=== PATIENT | female | born 1940 | race Caucasian/White ===

== ENCOUNTER → 2016-09-07 | Outpatient (CLI) | payer MEDICARE | LOC: WI 13:59 | PROVIDERS: ATTEND Internal Medicine Nephrology | DX: Z12.31 Encounter for screening mammogram for malignant neoplasm of breast (principal) | CPT/HCPCS: G0202-52 ==

== ENCOUNTER → 2016-09-23 | Outpatient (CLI) | payer MEDICARE | LOC: OD 10:50 | PROVIDERS: ATTEND Internal Medicine Pulmonary Disease | DX: J41.1 Mucopurulent chronic bronchitis (principal) | CPT/HCPCS: 71020 ==

== ENCOUNTER 2016-10-01 05:04 | Inpatient (IN) | payer MEDICARE ==
[2016-10-01] MEDS ORDERED: IPRATROPIUM/ALBUTEROL 0.5-2.5 MG/3 ML AMPUL NEB ONE (06:50)
[2016-10-01] MEDS ORDERED: METHYLPREDNISOLONE INJ 125 MG/2 ML SDV IV ONE (06:50)
[2016-10-01] MEDS ORDERED: AZTREONAM INJ 1 GM VIAL IV ONE (07:27)
[2016-10-01] MEDS ORDERED: ONDANSETRON HCL INJ/PF 4 MG/2 ML SDV IV ONE (07:27)
[2016-10-01] MEDS ORDERED: LABETALOL HCL INJ 20 MG/4 ML DISP.SYRIN IV ONE (07:29)
[2016-10-01] MEDS ORDERED: NITROGLYCERIN 2% OINTMENT 1 GM PACKET TP ONE (07:38)
--- NOTE | 2016-10-01 07:42 | ER Document Report ---
ED General - General Chief Complaint: Chest Pain Stated Complaint: CHEST PAIN TRAVEL OUTSIDE OF THE [place] IN LAST 30 DAYS: No - HPI Patient complains to provider of: shortness of breath was chest pain Notes: Patient coming in for evaluation of shortness of breath left-sided chest pain ongoing for the past few days. Patient is currently on azithromycin for possible pneumonia. Patient states she was diagnosed with this by her customer support assistant. Patient otherwise denies fever denies any productive cough at this time. Upon my evaluation patient sitting up in bed with some mild tachypnea. Patient is able to talk in full complete sentences. Patient states history of an aneurysm is followed by local vascular surgery states this has grown however patient states this time she would not want any surgery for aneurysm. Patient states a history of COPD pneumonia and CHF in the past. Patient states she also has chronic renal disease which she is followed by Dr. brunner her pcp - Related Data Allergies/Adverse Reactions: Iodinated Contrast Media - Oral and [IV Dye, Iodine Containing] Allergy (Severe , Verified 10/31/14 11:38) Hives JONE Inhibitors [Jone Inhibitors] Allergy (Verified 08/27/15 13:13) aliskiren hemifumarate [From Tekturna] Allergy (Verified 08/27/15 13:13) amlodipine [Amlodipine] Allergy (Verified 08/27/15 13:13) cephalexin [Cephalexin] Allergy (Verified 08/27/15 13:13) ciprofloxacin [From Cipro] Allergy (Verified 10/31/14 11:38) clonidine [Clonidine] Allergy (Verified 08/27/15 13:13) clopidogrel bisulfate [From Plavix] Allergy (Verified 10/31/14 11:38) diphenhydramine HCl [From Benadryl] Allergy (Verified 10/31/14 11:38) diphtheria,pertussis (acellular),te [Diphth,Pertuss(Acell),Tet Vac] Allergy ( Verified 08/27/15 13:13) Estrogens Allergy (Verified 10/31/14 11:38) nifedipine [From Procardia] Allergy (Verified 10/31/14 11:38) nisoldipine [From Sular] Allergy (Verified 08/27/15 13:13) Penicillins Allergy (Verified 10/31/14 11:38) Sulfa (Sulfonamide Antibiotics) Allergy (Verified 10/31/14 11:38) Home Medications: Current Home Medications Aspirin [Aspirin 81 mg Chewable Tablet] 81 mg PO DAILY 10/01/16 [History] B2/Vit A,C & E/Lut/Zeaxanth/Mn [Icaps Tablet] 1 each PO DAILY 10/01/16 [History] Chlorpheniramine Maleate [Allergy Relief 4 mg Tablet] 1 tab PO DAILYP PRN [History] Famotidine [Pepcid 20 mg Tablet] 20 mg PO DAILYP PRN 10/01/16 [History] Fluticasone/Salmeterol [Advair 250-50 Diskus 28 dose] 1 inh IH Q12 10/01/16 [ History] Furosemide [Lasix] 20 mg PO BID 10/01/16 [History] Grape Seed Extract [Grape Seed] 25 mg PO DAILY 10/01/16 [History] Labetalol HCl [Normodyne 200 mg Tablet] 200 mg PO Q6 10/01/16 [History] Letrozole [Femara 2.5 Mg Tablet] 2.5 mg PO DAILY 10/01/16 [History] [place]-3 Fatty Acids/Fish Oil [Fish Oil 1,000 Mg Capsule] 1 each PO DAILY [History] Past Medical History - Social History Smoking Status: Unknown if Ever Smoked Family History: Reviewed & Not Pertinent Patient has suicidal ideation: No Patient has homicidal ideation: No - Past Medical History Cardiac Medical History: Reports: Hx Congestive Heart Failure, Hx Hypertension, Hx Heart Murmur Denies: Hx Atrial Fibrillation, Hx Coronary Artery Disease, Hx Heart Attack, Hx Hypercholesterolemia, Hx Peripheral Vascular Disease, Hx Pulmonary Embolism Pulmonary Medical History: Reports: Hx Bronchitis, Hx COPD, Hx Pneumonia Denies: Hx Asthma, Hx Respiratory Failure, Hx Sleep Apnea, Hx Tuberculosis Neurological Medical History: Denies: Hx Cerebrovascular Accident, Hx Seizures Endocrine Medical History: Denies: Hx Graves' Disease, Hx Hyperthyroidism, Hx Hypothyroidism Renal/ Medical History: Denies: Hx End Stage Renal Disease, Hx Kidney Stones, Hx Ovarian Cysts, Hx Peritoneal Dialysis, Hx Pelvic Inflammatory Disease Malignancy Medical History: Reports: Hx Breast Cancer - LEFT AT PRESENT. Denies : Hx Cervical Cancer, Hx Leukemia, Hx Lung Cancer, Hx Ovarian Cancer GI Medical History: Reports: Hx Gastroesophageal Reflux Disease. Denies: Hx Cirrhosis, Hx Crohn's Disease, Hx Hepatitis, Hx Hiatal Hernia, Hx Irritable Bowel, Hx Liver Failure, Hx Ulcer Musculoskeltal Medical History: Denies Hx Arthritis, Denies Hx Fibromyalgia, Denies Hx Multiple Sclerosis, Denies Hx Muscular Dystrophy Psychiatric Medical History: Denies: Hx Bipolar Disorder, Hx Depression, Hx Post Traumatic Stress Disorder , Hx Schizophrenia Traumatic Medical History: Reports: Hx Fractures - BROKEN LEFT LEG 1950 Infectious Medical History: Denies: Hx Hepatitis, Hx HIV Past Surgical History: Reports: Hx Cholecystectomy, Hx Tubal Ligation. Denies: Hx Appendectomy, Hx Bowel Surgery, Hx Section, Hx Colostomy, Hx Coronary Artery Bypass Graft, Hx Gastric Bypass Surgery, Hx Herniorrhaphy, Hx Hysterectomy, Hx Mastectomy, Hx Open Heart Surgery, Hx Pacemaker, Hx Tonsillectomy - Immunizations Hx Diphtheria, Pertussis, Tetanus Vaccination: Yes Hx Pneumococcal Vaccination: 03/07/15 Review of Systems - Review of Systems Constitutional: No symptoms reported EENT: No symptoms reported Cardiovascular: Chest pain Respiratory: Short of breath Gastrointestinal: No symptoms reported Genitourinary: No symptoms reported Female Genitourinary: No symptoms reported Musculoskeletal: No symptoms reported Skin: No symptoms reported Hematologic/Lymphatic: No symptoms reported Neurological/Psychological: No symptoms reported -: Yes All other systems reviewed and negative Physical Exam - Vital signs Vitals: Temp Pulse Resp BP Pulse Ox 99.2 F 88 20 184/91 H 90 L 10/01/16 05:17 10/01/16 05:17 10/01/16 05:17 10/01/16 05:17 10/01/16 05:17 Interpretation: Hypertensive, Hypoxic - General General appearance: Appears well, Alert - HEENT Head: Normocephalic, Atraumatic Eyes: Normal Pupils: PERRL - Respiratory Respiratory status: Tachypnea Chest status: Nontender Breath sounds: Rhonchi, Wheezing Chest palpation: Normal - Cardiovascular Rhythm: Regular Heart sounds: Normal auscultation Murmur: No - Abdominal Inspection: Normal Distension: No distension Bowel sounds: Normal Tenderness: Nontender Organomegaly: No organomegaly - Back Back: Normal, Nontender - Extremities General upper extremity: Normal inspection, Nontender, Normal color, Normal ROM , Normal temperature General lower extremity: Normal inspection, Nontender, Normal color, Normal ROM , Normal temperature, Normal weight bearing. No: Schuyler's sign - Neurological Neuro grossly intact: Yes Cognition: Normal Orientation: AAOx4 [place]y Coma Scale Eye Opening: Spontaneous [place]y Coma Scale Verbal: Oriented Corky Coma Scale Motor: Obeys Commands Corky Coma Scale Total: 15 Speech: Normal Motor strength normal: LUE, RUE, LLE, RLE Sensory: Normal - Psychological Associated symptoms: Normal affect, Normal mood - Skin Skin Temperature: Warm Skin Moisture: Dry Skin Color: Normal Course - Re-evaluation Re-evalutation: 10/01/16 07:42 10/01/16 14:40 Patient was placed on BiPAP due to tachypnea and continued shortness of breath. Patient improved with BiPAP. Chest x-ray showed continued pneumonia. Patient was given Azactam and then doxycycline in concordance with the hospitalist and her PCP Dr. brunner. Patient does shows signs of improvement. Patient will be admitted for further evaluation. - Vital Signs Vital signs: Temp Pulse Resp BP Pulse Ox 98.2 F 125 H 24 H 154/49 H 97 10/01/16 13:25 10/01/16 13:25 10/01/16 13:44 10/01/16 13:44 10/01/16 13:44 - Laboratory Result Diagrams: 10/01/16 07:44 10/01/16 07:44 Laboratory results interpreted by me: 10/01/16 10/01/16 10/01/16 07:44 07:44 07:44 RBC 3.71 L Hgb 10.8 L Hct 31.5 L Monocytes % 13.8 H VBG pH 7.46 H Sodium 129.9 L Chloride 89 L Lactic Acid Calcium 8.1 L Albumin 3.4 L 10/01/16 07:44 RBC Hgb Hct Monocytes % VBG pH Sodium Chloride Lactic Acid 0.6 L Calcium Albumin Critical Care Note - Critical Care Note Total time excluding time spent on procedures (mins): 35 Comments: Time spent multiple evaluation managing BiPAP for patient Discharge - Discharge Clinical Impression: Acute respiratory disease, Hyponatremia Pneumonia Qualifiers: Pneumonia type: due to unspecified organism Laterality: unspecified laterality Lung location: unspecified part of lung Qualified Code(s): J18.9 - Pneumonia, unspecified organism Condition: Good Disposition: ADMITTED INPATIENT Admitting Provider: Hospitalist [facility] Unit Admitted: [facility]
[2016-10-01 07:59] LABS: ABSOLUTE BASOPHILS # (AUTO) 0.1 10^3/uL (0.0-0.2); ABSOLUTE EOSINOPHILS # (AUTO) 0.3 10^3/uL (0.0-0.6); ABSOLUTE LYMPHOCYTES (AUTO) 1.6 10^3/uL (0.5-4.7); ABSOLUTE MONOCYTES (AUTO) 1.3 10^3/uL (0.1-1.4); ABSOLUTE NEUT (AUTO) 6.1 10^3/uL (1.7-8.2); BASOPHILS % (AUTO) 0.8 % (0-2); EOSINOPHILS % (AUTO) 2.9 % (0-6); HEMATOCRIT 31.5 % (36.0-47.0); HEMOGLOBIN 10.8 g/dL (12.0-15.5); HGB HCT DIFFERENCE 0.9; LYMPHOCYTES % (AUTO) 16.9 % (13-45); MEAN CORPUSCULAR HEMOGLOBIN 29.1 pg (27.0-33.4); MEAN CORPUSCULAR HGB CONC 34.3 g/dL (32.0-36.0); MEAN CORPUSCULAR VOLUME 85 fl (80-97); MONOCYTES % (AUTO) 13.8 % (3-13); RED BLOOD COUNT 3.71 10^6/uL (3.72-5.28); RED CELL DISTRIBUTION WIDTH 13.7 % (11.5-14.0); SEGMENTED NEUTROPHILS % (AUTO) 65.6 % (42-78); WHITE BLOOD COUNT 9.3 10^3/uL (4.0-10.5)
[2016-10-01 08:01] LABS: VENOUS BLOOD BASE EXCESS 5.2 mmol/L; VENOUS BLOOD HCO3 29.5 mmol/L (20-32); VENOUS BLOOD PCO2 42.6 mmHg (35-63); VENOUS BLOOD PH 7.46 (7.30-7.42)
[2016-10-01 08:08] LABS: PROTHROMBIN TIME 13.8 SEC (11.4-15.4)
[2016-10-01 08:31] LABS: ALANINE AMINOTRANSFERASE 22 U/L (9-52); ALBUMIN 3.4 g/dL (3.5-5.0); ALKALINE PHOSPHATASE 123 U/L (38-126); ANION GAP 12 (5-19); ASPARTATE AMINO TRANSFERASE 20 U/L (14-36); BILIRUBIN,DIRECT 0.4 mg/dL (0.0-0.4); BLOOD UREA NITROGEN 11 mg/dL (7-20); CALCIUM 8.1 mg/dL (8.4-10.2); CARBON DIOXIDE 29 mmol/L (22-30); CHLORIDE 89 mmol/L (98-107); CREATINE KINASE 36 U/L (30-135); CREATININE RESULT 0.81 mg/dL (0.52-1.25); GLUCOSE 109 mg/dL (75-110); SODIUM 129.9 mmol/L (137-145); TOTAL PROTEIN 6.9 g/dL (6.3-8.2)
[2016-10-01 08:51] LABS: TROPONIN I < 0.012 ng/mL
[2016-10-01] MEDS ORDERED: NORMAL SALINE 500 ML IV ONE (09:47)
[2016-10-01] MEDS ORDERED: NORMAL SALINE 1000 ML 1,000 ML IV ONE (09:47)
[2016-10-01] MEDS ORDERED: DOXYCYCLINE HYCLATE INJ 100 MG VIAL IV ONE (10:56)
[2016-10-01 11:58] LABS: APPEARANCE,URINE CLEAR; BILIRUBIN,URINE NEGATIVE (NEGATIVE); GLUCOSE, URINE NEGATIVE (NEGATIVE); KETONES,URINE NEGATIVE (NEGATIVE); LEUKOCYTE ESTERASE,URINE NEGATIVE (NEGATIVE); NITRITE,URINE NEGATIVE (NEGATIVE); PROTEIN,URINE NEGATIVE (NEGATIVE); URINE SPECIFIC GRAVITY 1.003; UROBILINOGEN,URINE NEGATIVE mg/dL (<2.0)
[2016-10-01] MEDS ORDERED: ONDANSETRON 4 MG TAB.RAPDIS PO PRN (12:03)
[2016-10-01] MEDS ORDERED: ONDANSETRON HCL INJ/PF 4 MG/2 ML SDV IV PRN (12:03)
[2016-10-01] MEDS ORDERED: LABETALOL HCL 200 MG TABLET PO ONE (12:18)
[2016-10-01 13:21] LABS: CREATINE KINASE MB 1.38 ng/mL (<4.55)
[2016-10-01 13:26] LABS: TROPONIN I < 0.012 ng/mL
--- NOTE | 2016-10-01 14:19 | EKG REPORT ---
SEVERITY:- ABNORMAL ECG - SINUS RHYTHM PROBABLE LEFT ATRIAL ABNORMALITY LEFT VENTRICULAR HYPERTROPHY ANTERIOR ST ELEVATION, PROBABLY DUE TO LVH : Confirmed by: Ashli Whittaker 01-Oct-2016 14:18:47
--- NOTE | 2016-10-01 17:04 | PDOC H&P ---
History of Present Illness Admission Date/PCP: 10/01/16 12:03 CARMENCITA WHEATLEY MD Patient complains of: Chest pain and shortness of breath. History of Present Illness: MIRTHA RUFFIN is a 76 year old female who is followed by Dr. Esteban as an outpatient who presents with chest pain. Patient reports that she had chest pain describes as substernal radiating through to her back. She reports that initially was 10 out of 10 but has decreased. The patient has been treated as an outpatient for pneumonia. She's been feeling sick for the last 10 days. Patient had a fever as high as 101. She's been treated with Zithromax but has failed to improve with that. The patient presented pressure was placed on BiPAP and she reports that she feels better now. She denies any nausea vomiting or diaphoresis but has had problems with anorexia for the last several days. She denies any orthopnea or PND. Denies any palpitations or tachycardia. 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, Heart Murmur Denies: Atrial Fibrillation, Coronary Artery Disease, Myocardial Infarction, Hyperlipidema, Pulmonary Embolism Pulmonary Medical History: Reports: Bronchitis, Chronic Obstructive Pulmonary Disease (COPD), Pneumonia Denies: Asthma, Respiratory Failure, Sleep Apnea, Tuberculosis Neurological Medical History: Denies: Seizures Endocrine Medical History: Denies: Hyperthyroidism, Hypothyroidism Renal/ Medical History: Denies: End Stage Renal Disease Malignancy Medical History: Reports: Breast Cancer - LEFT AT PRESENT Denies: Cervical Cancer, Leukemia, Lung Cancer, Ovarian Cancer GI Medical History: Reports: Gastroesophageal Reflux Disease Denies: Cirrhosis, Crohn's Disease, Hepatitis, Hiatal Hernia Musculoskeltal Medical History: Denies: Arthritis, Fibromyalgia Psychiatric Medical History: Denies: Bipolar Disorder, Depression, Post Traumatic Stress Disorder Hematology: Denies: Anemia, Hemophilia, Sickle Cell Disease, Bleeding Tendencies Infectious Medical History: Denies: HIV Past Surgical History Past Surgical History: Reports: Cholecystectomy, Tubal Ligation, Other - History of endovascular stent placement to the bilateral carotid arteries. Denies: Amputation, Appendectomy, Section, Colostomy, Coronary Artery Bypass Graft, Gastric Bypass Surgery, Herniorrhaphy, Hysterectomy, Mastectomy, Pacemaker, Tonsillectomy Social History Information Source: Patient Lives with: Family Smoking Status: Current Every Day Smoker Frequency of Alcohol Use: None Hx Recreational Drug Use: No Drugs: None Hx Prescription Drug Abuse: No - Advance Directive Resuscitation Status: Do Not Resuscitate Surrogate healthcare decision maker:: Her daughter Family History Family History: Mother at age 83 and had diabetes. Father age 76 from renal failure. Parental Family History Reviewed: Yes Children Family History Reviewed: No Sibling(s) Family History Reviewed.: No Medication/Allergy Home Medications: Aspirin [Aspirin 81 mg Chewable Tablet] 81 mg PO DAILY 10/01/16 B2/Vit A,C & E/Lut/Zeaxanth/Mn [Icaps Tablet] 1 each PO DAILY 10/01/16 Chlorpheniramine Maleate [Allergy Relief 4 mg Tablet] 1 tab PO DAILYP PRN Famotidine [Pepcid 20 mg Tablet] 20 mg PO DAILYP PRN 10/01/16 Fluticasone/Salmeterol [Advair 250-50 Diskus 28 dose] 1 inh IH Q12 10/01/16 Furosemide [Lasix] 20 mg PO BID 10/01/16 Grape Seed Extract [Grape Seed] 25 mg PO DAILY 10/01/16 Labetalol HCl [Normodyne 200 mg Tablet] 200 mg PO Q6 10/01/16 Letrozole [Femara 2.5 Mg Tablet] 2.5 mg PO DAILY 10/01/16 [place]-3 Fatty Acids/Fish Oil [Fish Oil 1,000 Mg Capsule] 1 each PO DAILY Allergies/Adverse Reactions: Iodinated Contrast Media - Oral and [IV Dye, Iodine Containing] Allergy (Severe , Verified 10/31/14 11:38) Hives JONE Inhibitors [Jone Inhibitors] Allergy (Verified 08/27/15 13:13) aliskiren hemifumarate [From Tekturna] Allergy (Verified 08/27/15 13:13) amlodipine [Amlodipine] Allergy (Verified 08/27/15 13:13) cephalexin [Cephalexin] Allergy (Verified 08/27/15 13:13) ciprofloxacin [From Cipro] Allergy (Verified 10/31/14 11:38) clonidine [Clonidine] Allergy (Verified 08/27/15 13:13) clopidogrel bisulfate [From Plavix] Allergy (Verified 10/31/14 11:38) diphenhydramine HCl [From Benadryl] Allergy (Verified 10/31/14 11:38) diphtheria,pertussis (acellular),te [Diphth,Pertuss(Acell),Tet Vac] Allergy ( Verified 08/27/15 13:13) Estrogens Allergy (Verified 10/31/14 11:38) nifedipine [From Procardia] Allergy (Verified 10/31/14 11:38) nisoldipine [From Sular] Allergy (Verified 08/27/15 13:13) Penicillins Allergy (Verified 10/31/14 11:38) Sulfa (Sulfonamide Antibiotics) Allergy (Verified 10/31/14 11:38) Review of Systems Constitutional: PRESENT: fever(s). ABSENT: chills, headache(s), weight gain, weight loss Eyes: ABSENT: visual disturbances Ears: ABSENT: hearing changes Cardiovascular: PRESENT: as per HPI, chest pain, dyspnea on exertion. ABSENT: edema, orthropnea, palpitations Respiratory: PRESENT: cough, dyspnea, sputum. ABSENT: hemoptysis Gastrointestinal: ABSENT: abdominal pain, constipation, diarrhea, hematemesis, hematochezia, nausea, vomiting Genitourinary: ABSENT: dysuria, hematuria Musculoskeletal: ABSENT: joint swelling Integumentary: ABSENT: rash, wounds Neurological: ABSENT: abnormal gait, abnormal speech, confusion, dizziness, focal weakness, syncope Psychiatric: ABSENT: anxiety, depression Endocrine: ABSENT: cold intolerance, heat intolerance, polydipsia, polyuria Physical Exam Vital Signs: Temp Pulse Resp BP Pulse Ox 98.2 F 125 H 24 H 154/49 H 97 10/01/16 13:25 10/01/16 13:25 10/01/16 13:44 10/01/16 13:44 10/01/16 13:44 Intake & Output 09/30/16 10/01/16 10/02/16 06:59 06:59 06:59 Weight 118.6 kg General appearance: PRESENT: mild distress Head exam: PRESENT: atraumatic, normocephalic Eye exam: PRESENT: conjunctiva pink, EOMI, PERRLA. ABSENT: scleral icterus Ear exam: PRESENT: normal external ear exam Mouth exam: PRESENT: moist, tongue midline Neck exam: ABSENT: carotid bruit, JVD, lymphadenopathy, thyromegaly Respiratory exam: PRESENT: rales - bilat Cardiovascular exam: PRESENT: RRR. ABSENT: diastolic murmur, rubs, systolic murmur GI/Abdominal exam: PRESENT: normal bowel sounds, soft. ABSENT: distended, guarding, mass, organolmegaly, rebound, tenderness Extremities exam: ABSENT: calf tenderness, clubbing, pedal edema Neurological exam: PRESENT: alert, awake, oriented to person, oriented to place , oriented to time, oriented to situation, CN II-XII grossly intact. ABSENT: motor sensory deficit Psychiatric exam: PRESENT: appropriate affect Skin exam: PRESENT: dry, intact, warm. ABSENT: cyanosis, rash Results Laboratory Results: 10/01/16 10/01/16 12:25 12:25 Creatine Kinase 22 L CK-MB (CK-2) 1.38 Troponin I < 0.012 Impressions: Chest X-Ray 10/01/16 06:14 IMPRESSION: COPD best chronic parenchymal changes. Slightly increased density seen in the lateral right lung base comparison the prior study which could represent superimposed infectious infiltrate on chronic scarring. Correlate clinically Assessment & Plan - Diagnosis (1) Acute respiratory disease Is this a current diagnosis for this admission?: YesPlan: Secondary to pneumonia. Patient is on BiPAP continue that along with doxycycline for antibiotic treatment of the pneumonia. (2) Chest pain Is this a current diagnosis for this admission?: YesPlan: Most likely secondary to the underlying pneumonia. We'll check serial cardiac enzymes. (3) Pneumonia Qualifiers: Pneumonia type: due to unspecified organism Laterality: unspecified laterality Lung location: unspecified part of lung Qualified Code(s): J18.9 - Pneumonia, unspecified organism Is this a current diagnosis for this admission?: YesPlan: Patient has taken Zithromax as an outpatient and failed. We'll give doxycycline. He is allergic to multiple antibiotics. (4) Hyponatremia Is this a current diagnosis for this admission?: Yes (5) Accelerated hypertension Is this a current diagnosis for this admission?: YesPlan: We'll continue with her labetalol. (6) CHF (congestive heart failure) Is this a current diagnosis for this admission?: YesPlan: Patient is currently euvolemic. (7) COPD exacerbation Is this a current diagnosis for this admission?: YesPlan: We'll continue with nebulizers. (8) Hyperlipidemia Is this a current diagnosis for this admission?: Yes (9) Pulmonary hypertension Is this a current diagnosis for this admission?: Yes - Time Time Spent: 50 to 70 Minutes - Inpatient Certification Medical Necessity: Need Close Monitoring Due to Risk of Patient Decompensation, Need for IV Antibiotics
[2016-10-01 18:59] LABS: TROPONIN I < 0.012 ng/mL
[2016-10-01] MEDS ORDERED: HYDRALAZINE HCL INJ/PF 20 MG/1 ML SDV IV PRN (21:50)
[2016-10-01] MEDS ORDERED: FAMOTIDINE 20 MG TABLET PO PRN (21:50)
[2016-10-01] MEDS ORDERED: CHLORPHENIRAMINE MALEATE 4 MG TABLET PO PRN (21:50)
[2016-10-01] MEDS: DOXYCYCLINE HYCLATE 100 MG in DEXTROSE 5%-WATER 250 ML IV SCH (22:22)
[2016-10-01] MEDS: FLUTICASONE/SALMETEROL DISKUS 250-50 MCG/DOSE IH SCH (22:22)
[2016-10-02] MEDS: LABETALOL HCL 200 MG TABLET PO SCH ×5 (00:41→23:21)
[2016-10-02] MEDS: ACETAMINOPHEN 325 MG TABLET PO PRN ×2 (01:11→22:04)
[2016-10-02 01:18] LABS: CREATINE KINASE MB 2.74 ng/mL (<4.55)
[2016-10-02 01:21] LABS: TROPONIN I < 0.012 ng/mL
[2016-10-02 04:31] LABS: ABSOLUTE MONOCYTES (AUTO) 0.5 10^3/uL (0.1-1.4); ABSOLUTE NEUT (AUTO) 5.9 10^3/uL (1.7-8.2); BASOPHILS % (AUTO) 0.3 % (0-2); HEMATOCRIT 29.3 % (36.0-47.0); HEMOGLOBIN 9.9 g/dL (12.0-15.5); HGB HCT DIFFERENCE 0.4; LYMPHOCYTES % (AUTO) 13.4 % (13-45); MEAN CORPUSCULAR HEMOGLOBIN 29.2 pg (27.0-33.4); MEAN CORPUSCULAR VOLUME 86 fl (80-97); MONOCYTES % (AUTO) 6.5 % (3-13); RED BLOOD COUNT 3.41 10^6/uL (3.72-5.28); RED CELL DISTRIBUTION WIDTH 13.7 % (11.5-14.0); SEGMENTED NEUTROPHILS % (AUTO) 79.8 % (42-78); WHITE BLOOD COUNT 7.4 10^3/uL (4.0-10.5)
[2016-10-02 04:56] LABS: ANION GAP 10 (5-19); BLOOD UREA NITROGEN 16 mg/dL (7-20); CALCIUM 7.3 mg/dL (8.4-10.2); CARBON DIOXIDE 24 mmol/L (22-30); CHLORIDE 96 mmol/L (98-107); CREATININE RESULT 0.76 mg/dL (0.52-1.25); GLUCOSE 131 mg/dL (75-110); POTASSIUM 4.4 mmol/L (3.6-5.0); SODIUM 130.2 mmol/L (137-145)
[2016-10-02] MEDS: ASPIRIN 81 MG TABLET, CHEWABLE PO SCH (09:46)
[2016-10-02] MEDS: OMEGA-3 ACID ETHYL ESTERS 1 GM CAPSULE PO SCH (09:47)
[2016-10-02] MEDS: FUROSEMIDE 20 MG TABLET PO SCH ×2 (09:47→17:40)
[2016-10-02] MEDS: ENOXAPARIN SODIUM INJ 40 MG/0.4 ML DISP.SYRIN SUBCUT SCH (09:48)
[2016-10-02] MEDS: DOXYCYCLINE HYCLATE 100 MG in DEXTROSE 5%-WATER 250 ML IV SCH ×2 (09:52→21:55)
[2016-10-02] MEDS: FLUTICASONE/SALMETEROL DISKUS 250-50 MCG/DOSE IH SCH ×2 (09:54→21:56)
--- NOTE | 2016-10-02 09:59 | PDOC PROGRESS REPORT ---
Subjective Progress Note for:: 10/02/16 Subjective:: Patient denies any chest pain. Reports that her cough is improved. Physical Exam Vital Signs: Temp Pulse Resp BP Pulse Ox 97.5 F 64 22 H 129/62 H 99 10/02/16 08:07 10/02/16 08:07 10/02/16 08:07 10/02/16 08:07 10/02/16 08:07 Intake & Output 10/01/16 10/02/16 10/03/16 06:59 06:59 06:59 Intake Total 1320 Output Total 500 Balance 820 Weight 48.7 kg General appearance: PRESENT: no acute distress Eye exam: PRESENT: conjunctiva pink. ABSENT: scleral icterus Mouth exam: PRESENT: moist, tongue midline Neck exam: ABSENT: JVD Respiratory exam: PRESENT: rhonchi - Coarse rhonchi bilaterally.. ABSENT: rales , wheezes Cardiovascular exam: PRESENT: RRR. ABSENT: diastolic murmur, rubs, systolic murmur GI/Abdominal exam: PRESENT: normal bowel sounds, soft. ABSENT: distended, guarding, mass, organolmegaly, rebound, tenderness Extremities exam: ABSENT: calf tenderness, clubbing, pedal edema Neurological exam: PRESENT: alert, awake, oriented to person, oriented to place , oriented to time, oriented to situation, CN II-XII grossly intact. ABSENT: motor sensory deficit Psychiatric exam: PRESENT: appropriate affect Skin exam: PRESENT: dry, intact, warm. ABSENT: cyanosis, rash Results Laboratory Results: 10/02/16 04:21 10/02/16 04:21 10/02/16 10/02/16 04:21 04:21 WBC 7.4 RBC 3.41 L Hgb 9.9 L Hct 29.3 L MCV 86 MCH 29.2 MCHC 34.0 RDW 13.7 Plt Count 414 Seg Neutrophils % 79.8 H Lymphocytes % 13.4 Monocytes % 6.5 Eosinophils % 0.0 Basophils % 0.3 Absolute Neutrophils 5.9 Absolute Lymphocytes 1.0 Absolute Monocytes 0.5 Absolute Eosinophils 0.0 Absolute Basophils 0.0 Sodium 130.2 L Potassium 4.4 Chloride 96 L Carbon Dioxide 24 Anion Gap 10 BUN 16 Creatinine 0.76 Est GFR ( Amer) > 60 Est GFR (Non-Af Amer) > 60 Glucose 131 H Calcium 7.3 L 10/01/16 10/01/16 10/01/16 12:25 12:25 18:16 Creatine Kinase 22 L 26 L CK-MB (CK-2) 1.38 Troponin I < 0.012 10/01/16 10/02/16 10/02/16 18:16 00:25 00:25 Creatine Kinase 22 L CK-MB (CK-2) 2.10 2.74 Troponin I < 0.012 < 0.012 Impressions: Chest X-Ray 10/01/16 06:14 IMPRESSION: COPD best chronic parenchymal changes. Slightly increased density seen in the lateral right lung base comparison the prior study which could represent superimposed infectious infiltrate on chronic scarring. Correlate clinically Assessment & Plan - Diagnosis (1) Acute respiratory disease Is this a current diagnosis for this admission?: YesPlan: Secondary to pneumonia. Patient is on BiPAP as needed. Will Continue that along with doxycycline for antibiotic treatment of the pneumonia. (2) Chest pain Is this a current diagnosis for this admission?: YesPlan: Most likely secondary to the underlying pneumonia. Cardiac enzymes have been negative. (3) Pneumonia Qualifiers: Pneumonia type: due to unspecified organism Laterality: unspecified laterality Lung location: unspecified part of lung Qualified Code(s): J18.9 - Pneumonia, unspecified organism Is this a current diagnosis for this admission?: YesPlan: Patient has taken Zithromax as an outpatient and failed. Continue the doxycycline. (4) Hyponatremia Is this a current diagnosis for this admission?: YesPlan: Slowly improving. (5) Accelerated hypertension Is this a current diagnosis for this admission?: YesPlan: We'll continue with her labetalol. (6) CHF (congestive heart failure) Is this a current diagnosis for this admission?: YesPlan: Patient is currently euvolemic. (7) COPD exacerbation Is this a current diagnosis for this admission?: YesPlan: We'll continue with nebulizers. (8) Hyperlipidemia Is this a current diagnosis for this admission?: Yes (9) Pulmonary hypertension Is this a current diagnosis for this admission?: Yes - Time Time Spent with patient: 25-34 minutes - Inpatient Certification Medical Necessity: Need for IV Antibiotics - Plan Summary Plan Summary: We'll continue with the IV antibiotics. Patient does not need any further cardiac workup at this time.
[2016-10-02] MEDS ORDERED: (PENDING PHARMACY ID) (Omega-3 Fatty Acids/Fish Oil [Fish Oil 1,000 Mg Capsule] 1 EACH) PO SCH (10:00)
[2016-10-02] MEDS: LETROZOLE 2.5 MG TABLET PO SCH (10:07)
[2016-10-03] MEDS: LABETALOL HCL 200 MG TABLET PO SCH ×4 (06:07→23:52)
[2016-10-03 06:21] LABS: ABSOLUTE EOSINOPHILS # (AUTO) 0.1 10^3/uL (0.0-0.6); ABSOLUTE LYMPHOCYTES (AUTO) 2.6 10^3/uL (0.5-4.7); ABSOLUTE MONOCYTES (AUTO) 0.7 10^3/uL (0.1-1.4); ABSOLUTE NEUT (AUTO) 6.6 10^3/uL (1.7-8.2); BASOPHILS % (AUTO) 0.3 % (0-2); EOSINOPHILS % (AUTO) 0.6 % (0-6); HEMATOCRIT 29.7 % (36.0-47.0); HEMOGLOBIN 10.1 g/dL (12.0-15.5); HGB HCT DIFFERENCE 0.6; LYMPHOCYTES % (AUTO) 25.6 % (13-45); MEAN CORPUSCULAR HEMOGLOBIN 29.2 pg (27.0-33.4); MEAN CORPUSCULAR VOLUME 86 fl (80-97); MONOCYTES % (AUTO) 7.4 % (3-13); RED BLOOD COUNT 3.46 10^6/uL (3.72-5.28); RED CELL DISTRIBUTION WIDTH 13.7 % (11.5-14.0); SEGMENTED NEUTROPHILS % (AUTO) 66.1 % (42-78)
[2016-10-03 06:58] LABS: ANION GAP 10 (5-19); BLOOD UREA NITROGEN 18 mg/dL (7-20); CALCIUM 7.4 mg/dL (8.4-10.2); CARBON DIOXIDE 26 mmol/L (22-30); CHLORIDE 96 mmol/L (98-107); CREATININE RESULT 0.81 mg/dL (0.52-1.25); GLUCOSE 85 mg/dL (75-110); POTASSIUM 5.1 mmol/L (3.6-5.0); SODIUM 132.3 mmol/L (137-145)
[2016-10-03] MEDS: ENOXAPARIN SODIUM INJ 40 MG/0.4 ML DISP.SYRIN SUBCUT SCH (08:47)
[2016-10-03] MEDS: FLUTICASONE/SALMETEROL DISKUS 250-50 MCG/DOSE IH SCH ×2 (10:07→22:34)
[2016-10-03] MEDS: ASPIRIN 81 MG TABLET, CHEWABLE PO SCH (10:09)
[2016-10-03] MEDS: OMEGA-3 ACID ETHYL ESTERS 1 GM CAPSULE PO SCH (10:09)
[2016-10-03] MEDS: LETROZOLE 2.5 MG TABLET PO SCH (10:10)
[2016-10-03] MEDS: FUROSEMIDE 20 MG TABLET PO SCH ×2 (10:10→17:47)
[2016-10-03] MEDS: DOXYCYCLINE HYCLATE 100 MG in DEXTROSE 5%-WATER 250 ML IV SCH ×2 (10:11→22:32)
--- NOTE | 2016-10-03 10:49 | PDOC PROGRESS REPORT ---
Subjective Progress Note for:: 10/03/16 Subjective:: Reports that her cough is improved. Physical Exam Vital Signs: Temp Pulse Resp BP Pulse Ox 98.1 F 63 20 140/71 H 96 10/03/16 08:04 10/03/16 08:04 10/03/16 08:04 10/03/16 08:04 10/03/16 08:04 Intake & Output 10/02/16 10/03/16 10/04/16 06:59 06:59 06:59 Intake Total 1320 3258 Output Total 500 3800 Balance 820 -542 Weight 48.7 kg 47.5 kg General appearance: PRESENT: no acute distress Eye exam: PRESENT: conjunctiva pink. ABSENT: scleral icterus Ear exam: PRESENT: normal external ear exam Mouth exam: PRESENT: moist, tongue midline Neck exam: ABSENT: JVD Respiratory exam: PRESENT: rhonchi - Coarse rhonchi in the left base. ABSENT: rales, wheezes Cardiovascular exam: PRESENT: RRR. ABSENT: diastolic murmur, rubs, systolic murmur GI/Abdominal exam: PRESENT: normal bowel sounds, soft. ABSENT: distended, guarding, mass, organolmegaly, rebound, tenderness Extremities exam: ABSENT: calf tenderness, clubbing, pedal edema Neurological exam: PRESENT: alert, awake, oriented to person, oriented to place , oriented to time, oriented to situation, CN II-XII grossly intact. ABSENT: motor sensory deficit Psychiatric exam: PRESENT: appropriate affect Skin exam: PRESENT: dry, intact, warm. ABSENT: cyanosis, rash Results Laboratory Results: 10/03/16 05:29 10/03/16 05:29 10/03/16 10/03/16 05:29 05:29 WBC 10.0 RBC 3.46 L Hgb 10.1 L Hct 29.7 L MCV 86 MCH 29.2 MCHC 34.0 RDW 13.7 Plt Count 486 H Seg Neutrophils % 66.1 Lymphocytes % 25.6 Monocytes % 7.4 Eosinophils % 0.6 Basophils % 0.3 Absolute Neutrophils 6.6 Absolute Lymphocytes 2.6 Absolute Monocytes 0.7 Absolute Eosinophils 0.1 Absolute Basophils 0.0 Sodium 132.3 L Potassium 5.1 H Chloride 96 L Carbon Dioxide 26 Anion Gap 10 BUN 18 Creatinine 0.81 Est GFR ( Amer) > 60 Est GFR (Non-Af Amer) > 60 Glucose 85 Calcium 7.4 L 10/01/16 10/01/16 10/01/16 12:25 12:25 18:16 Creatine Kinase 22 L 26 L CK-MB (CK-2) 1.38 Troponin I < 0.012 10/01/16 10/02/16 10/02/16 18:16 00:25 00:25 Creatine Kinase 22 L CK-MB (CK-2) 2.10 2.74 Troponin I < 0.012 < 0.012 Impressions: Chest X-Ray 10/01/16 06:14 IMPRESSION: COPD best chronic parenchymal changes. Slightly increased density seen in the lateral right lung base comparison the prior study which could represent superimposed infectious infiltrate on chronic scarring. Correlate clinically Assessment & Plan - Diagnosis (1) Acute respiratory disease Is this a current diagnosis for this admission?: YesPlan: Secondary to pneumonia. Patient is on BiPAP as needed. Will Continue that along with doxycycline for antibiotic treatment of the pneumonia. (2) Chest pain Is this a current diagnosis for this admission?: YesPlan: Most likely secondary to the underlying pneumonia. Cardiac enzymes have been negative. (3) Pneumonia Qualifiers: Pneumonia type: due to unspecified organism Laterality: unspecified laterality Lung location: unspecified part of lung Qualified Code(s): J18.9 - Pneumonia, unspecified organism Is this a current diagnosis for this admission?: YesPlan: Continue the doxycycline. (4) Hyponatremia Is this a current diagnosis for this admission?: YesPlan: Slowly improving. (5) Accelerated hypertension Is this a current diagnosis for this admission?: YesPlan: We'll continue with her labetalol. (6) CHF (congestive heart failure) Is this a current diagnosis for this admission?: YesPlan: Patient is currently euvolemic. (7) COPD exacerbation Is this a current diagnosis for this admission?: YesPlan: We'll continue with nebulizers. (8) Hyperlipidemia Is this a current diagnosis for this admission?: Yes (9) Pulmonary hypertension Is this a current diagnosis for this admission?: Yes - Time Time Spent with patient: 25-34 minutes - Inpatient Certification Medical Necessity: Need for IV Antibiotics
[2016-10-03] MEDS: IPRATROPIUM/ALBUTEROL 0.5-2.5 MG/3 ML AMPUL NEB PRN (18:15)
[2016-10-03] MEDS: GUAIFENESIN 600 MG TABLET.SA PO SCH (22:34)
[2016-10-03] MEDS: ACETAMINOPHEN 325 MG TABLET PO PRN (23:53)
[2016-10-04] MEDS: LABETALOL HCL 200 MG TABLET PO SCH ×2 (05:43→11:22)
[2016-10-04] MEDS: IPRATROPIUM/ALBUTEROL 0.5-2.5 MG/3 ML AMPUL NEB PRN (05:53)
[2016-10-04 06:26] LABS: ABSOLUTE EOSINOPHILS # (AUTO) 0.2 10^3/uL (0.0-0.6); ABSOLUTE LYMPHOCYTES (AUTO) 3.1 10^3/uL (0.5-4.7); ABSOLUTE MONOCYTES (AUTO) 0.8 10^3/uL (0.1-1.4); BASOPHILS % (AUTO) 0.4 % (0-2); EOSINOPHILS % (AUTO) 2.4 % (0-6); HEMATOCRIT 33.4 % (36.0-47.0); HGB HCT DIFFERENCE -0.4; MEAN CORPUSCULAR HEMOGLOBIN 28.9 pg (27.0-33.4); MEAN CORPUSCULAR HGB CONC 32.9 g/dL (32.0-36.0); MEAN CORPUSCULAR VOLUME 88 fl (80-97); RED CELL DISTRIBUTION WIDTH 13.9 % (11.5-14.0); SEGMENTED NEUTROPHILS % (AUTO) 42.2 % (42-78); WHITE BLOOD COUNT 7.1 10^3/uL (4.0-10.5)
[2016-10-04 06:49] LABS: ANION GAP 10 (5-19); BLOOD UREA NITROGEN 18 mg/dL (7-20); CARBON DIOXIDE 28 mmol/L (22-30); CHLORIDE 99 mmol/L (98-107); CREATININE RESULT 0.83 mg/dL (0.52-1.25); GLUCOSE 82 mg/dL (75-110); POTASSIUM 5.9 mmol/L (3.6-5.0); SODIUM 136.9 mmol/L (137-145)
[2016-10-04] MEDS: ENOXAPARIN SODIUM INJ 40 MG/0.4 ML DISP.SYRIN SUBCUT SCH (07:54)
[2016-10-04] MEDS: DOXYCYCLINE HYCLATE 100 MG in DEXTROSE 5%-WATER 250 ML IV SCH (10:10)
[2016-10-04] MEDS: FLUTICASONE/SALMETEROL DISKUS 250-50 MCG/DOSE IH SCH (10:16)
[2016-10-04] MEDS: OMEGA-3 ACID ETHYL ESTERS 1 GM CAPSULE PO SCH (10:17)
[2016-10-04] MEDS: LETROZOLE 2.5 MG TABLET PO SCH (10:17)
[2016-10-04] MEDS: FUROSEMIDE 20 MG TABLET PO SCH (10:17)
[2016-10-04] MEDS: ASPIRIN 81 MG TABLET, CHEWABLE PO SCH (10:17)
[2016-10-04] MEDS: GUAIFENESIN 600 MG TABLET.SA PO SCH (10:17)
--- NOTE | 2016-10-04 11:52 | PDOC DISCHARGE SUMMARY ---
General - Admit/Disc Date/PCP Admission Date/Primary Care Provider: 10/01/16 12:03 CARMENCITA WHEATLEY MD Discharge Date: 10/04/16 - Discharge Diagnosis (1) Acute respiratory disease Is this a current diagnosis for this admission?: YesSummary: Secondary to pneumonia and COPD. (2) Chest pain Is this a current diagnosis for this admission?: YesSummary: Secondary to pneumonia. The patient has had negative cardiac enzymes. (3) Pneumonia Is this a current diagnosis for this admission?: YesSummary: Patient was initially treated with azithromycin as an outpatient. She was treated with doxycycline and will be sent home with a prescription to complete a total of 14 days of doxycycline (4) Hyponatremia Is this a current diagnosis for this admission?: YesSummary: Most likely secondary to her pneumonia and dehydration which she presented. (5) Accelerated hypertension Is this a current diagnosis for this admission?: Yes (6) CHF (congestive heart failure) Is this a current diagnosis for this admission?: YesSummary: Patient is euvolemic at this time (7) COPD exacerbation Is this a current diagnosis for this admission?: Yes (8) Hyperlipidemia Is this a current diagnosis for this admission?: Yes (9) Pulmonary hypertension Is this a current diagnosis for this admission?: Yes - Additional Information Resuscitation Status: Do Not Resuscitate Discharge Diet: Cardiac Discharge Activity: Activity As Tolerated Home Medications: Aspirin [Aspirin 81 mg Chewable Tablet] 81 mg PO DAILY 10/01/16 B2/Vit A,C & E/Lut/Zeaxanth/Mn [Icaps Tablet] 1 each PO DAILY 10/01/16 Chlorpheniramine Maleate [Allergy Relief 4 mg Tablet] 1 tab PO DAILYP PRN Famotidine [Pepcid 20 mg Tablet] 20 mg PO DAILYP PRN 10/01/16 Fluticasone/Salmeterol [Advair 250-50 Diskus 28 dose] 1 inh IH Q12 10/01/16 Furosemide [Lasix] 20 mg PO BID 10/01/16 Grape Seed Extract [Grape Seed] 25 mg PO DAILY 10/01/16 Labetalol HCl [Normodyne 200 mg Tablet] 200 mg PO Q6 10/01/16 Letrozole [Femara 2.5 mg Tablet] 2.5 mg PO DAILY 10/01/16 Pickford-3 Fatty Acids/Fish Oil [Fish Oil 1,000 mg Capsule] 1 each PO DAILY Doxycycline Hyclate 100 mg PO BID #22 capsule 10/04/16 Guaifenesin [Mucinex Sr 600 mg Tablet.sa] 600 mg PO Q12 tablet.sa 10/04/16 Ipratropium/Albuterol Sulfate [Duoneb 3 ml Ampul] 3 ml NEB [id number] PRN vial.neb 10/04/16 History of Present Illness History of Present Illness: MIRTHA RUFFIN is a 76 year old female who is followed by Dr. Esteban as an outpatient who presents with chest pain. Patient reports that she had chest pain describes as substernal radiating through to her back. She reports that initially was 10 out of 10 but has decreased. The patient has been treated as an outpatient for pneumonia. She's been feeling sick for the last 10 days. Patient had a fever as high as 101. She's been treated with Zithromax but has failed to improve with that. The patient presented pressure was placed on BiPAP and she reports that she feels better now. She denies any nausea vomiting or diaphoresis but has had problems with anorexia for the last several days. She denies any orthopnea or PND. Denies any palpitations or tachycardia. Hospital Course Hospital Course: 68-year-old female who failed outpatient treatment for her pneumonia with azithromycin. Patient was admitted and started on doxycycline. All of her cultures have been negative. The patient initially required BiPAP but has been improving and no longer requires that. She also presented with chest pain which was felt to be secondary to her underlying pulmonary process. Patient has had negative cardiac enzymes and has no longer had any more chest pain. Patient is discharged home and will complete a total 14 days of doxycycline. Physical Exam Vital Signs: Temp Pulse Resp BP Pulse Ox 98.0 F 60 20 128/53 H 96 10/04/16 07:56 10/04/16 07:56 10/04/16 07:56 10/04/16 07:56 10/04/16 07:56 Intake & Output 10/03/16 10/04/16 10/05/16 06:59 06:59 06:59 Intake Total 8016 4416 Output Total 8829 6800 Balance -601 -3447 Weight 47.5 kg 47.1 kg General appearance: PRESENT: no acute distress Eye exam: PRESENT: conjunctiva pink. ABSENT: scleral icterus Ear exam: PRESENT: normal external ear exam Mouth exam: PRESENT: moist, tongue midline Neck exam: ABSENT: JVD Respiratory exam: PRESENT: clear to auscultation heather. ABSENT: rales, rhonchi, wheezes Cardiovascular exam: PRESENT: RRR. ABSENT: diastolic murmur, rubs, systolic murmur GI/Abdominal exam: PRESENT: normal bowel sounds, soft. ABSENT: distended, guarding, mass, organolmegaly, rebound, tenderness Extremities exam: ABSENT: calf tenderness, clubbing, pedal edema Neurological exam: PRESENT: alert, awake, oriented to person, oriented to place , oriented to time, oriented to situation, CN II-XII grossly intact. ABSENT: motor sensory deficit Psychiatric exam: PRESENT: appropriate affect Skin exam: PRESENT: dry, intact, warm. ABSENT: cyanosis, rash Results Laboratory Results: 10/04/16 05:29 10/04/16 05:29 10/04/16 10/04/16 05:29 05:29 WBC 7.1 RBC 3.80 Hgb 11.0 L Hct 33.4 L MCV 88 MCH 28.9 MCHC 32.9 RDW 13.9 Plt Count 524 H Seg Neutrophils % 42.2 Lymphocytes % 43.0 Monocytes % 12.0 Eosinophils % 2.4 Basophils % 0.4 Absolute Neutrophils 3.0 Absolute Lymphocytes 3.1 Absolute Monocytes 0.8 Absolute Eosinophils 0.2 Absolute Basophils 0.0 Sodium 136.9 L Potassium 5.9 H Chloride 99 Carbon Dioxide 28 Anion Gap 10 BUN 18 Creatinine 0.83 Est GFR ( Amer) > 60 Est GFR (Non-Af Amer) > 60 Glucose 82 Calcium 8.0 L 10/01/16 10/01/16 10/01/16 12:25 12:25 18:16 Creatine Kinase 22 L 26 L CK-MB (CK-2) 1.38 Troponin I < 0.012 10/01/16 10/02/16 10/02/16 18:16 00:25 00:25 Creatine Kinase 22 L CK-MB (CK-2) 2.10 2.74 Troponin I < 0.012 < 0.012 Impressions: Chest X-Ray 10/01/16 06:14 IMPRESSION: COPD best chronic parenchymal changes. Slightly increased density seen in the lateral right lung base comparison the prior study which could represent superimposed infectious infiltrate on chronic scarring. Correlate clinically Qualifiers PATEINT BEING DISCHARGED WITH ANY OF THE FOLLOWING DIAGNOSIS?: No Plan Discharge Plan: Patient is discharged home in stable condition. She will follow up with her primary doctor Eulalia in 1-2 weeks. Time Spent: Greater than 30 Minutes
[2016-10-04 12:09] VITALS: BP 128/52
== END 2016-10-04 12:40 | disposition home or self-care (01) | DRG 190 ==
LOC: ER 05:04 → EH 11:28 → UNDOADMIN 11:28 → EH 12:03 → 3W 13:03
PROVIDERS: ADMIT Internal Medicine; ATTEND Internal Medicine
PROC: 5A09457 Assistance with Respiratory Ventilation, 24-96 Consecutive Hours, Continuous Positive Airway Pressure (ICD-10-PCS; principal; 2016-10-01)
DX: J44.0 Chronic obstructive pulmonary disease with (acute) lower respiratory infection (principal); J18.9 Pneumonia, unspecified organism; E87.1 Hypo-osmolality and hyponatremia; J44.1 Chronic obstructive pulmonary disease with (acute) exacerbation; I73.9 Peripheral vascular disease, unspecified; I11.0 Hypertensive heart disease with heart failure; I50.9 Heart failure, unspecified; E86.0 Dehydration; E78.5 Hyperlipidemia, unspecified; K21.9 Gastro-esophageal reflux disease without esophagitis; I27.2 Other secondary pulmonary hypertension; Z86.79 Personal history of other diseases of the circulatory system; Z88.1 Allergy status to other antibiotic agents; Z88.8 Allergy status to other drugs, medicaments and biological substances; Z88.0 Allergy status to penicillin; Z88.2 Allergy status to sulfonamides; Z79.82 Long term (current) use of aspirin; Z90.49 Acquired absence of other specified parts of digestive tract; Z98.51 Tubal ligation status
CPT/HCPCS: 36415; 71010; 80048; 80053; 81001; 82550; 82553; 82803; 83605; 84484; 85025; 85610; 87040; 87070; 87077; 87205; 93005; 93010; 94660; 96361; 96365; 96375; 99291; J0360; J1650; J2405; J2930; J3490; J7030; J7040; J7060; J7620

== ENCOUNTER → 2016-10-30 | Outpatient (CLI) | payer MEDICARE ==
[2016-10-30 10:22] LABS: ANION GAP 10 (5-19); BLOOD UREA NITROGEN 15 mg/dL (7-20); CALCIUM 9.1 mg/dL (8.4-10.2); CARBON DIOXIDE 30 mmol/L (22-30); CHLORIDE 96 mmol/L (98-107); CHOLESTEROL 198.53 mg/dL (0-200); CREATININE RESULT 0.94 mg/dL (0.52-1.25); Direct HDL 52 mg/dL (>40); GLUCOSE 93 mg/dL (75-110); POTASSIUM 4.8 mmol/L (3.6-5.0); SODIUM 135.7 mmol/L (137-145); TRIGLYCERIDES 109 mg/dL (<150)
[2016-10-30 10:32] LABS: DIRECT LDL 120 mg/dL (<100)
== END ==
LOC: OD 08:46
PROVIDERS: ATTEND Internal Medicine Nephrology
DX: N18.9 Chronic kidney disease, unspecified (principal); E87.5 Hyperkalemia; E53.8 Deficiency of other specified B group vitamins; E87.1 Hypo-osmolality and hyponatremia
CPT/HCPCS: 36415; 80048; 80061; 82607

== ENCOUNTER → 2017-02-03 | Outpatient (CLI) | payer MEDICARE ==
[2017-02-03 12:13] LABS: ANION GAP 12 (5-19); BLOOD UREA NITROGEN 22 mg/dL (7-20); CALCIUM 9.8 mg/dL (8.4-10.2); CARBON DIOXIDE 30 mmol/L (22-30); CHLORIDE 94 mmol/L (98-107); CREATININE RESULT 1.04 mg/dL (0.52-1.25); GLUCOSE 90 mg/dL (75-110); POTASSIUM 4.8 mmol/L (3.6-5.0); SODIUM 135.6 mmol/L (137-145)
== END ==
LOC: OD 10:07
PROVIDERS: ATTEND Internal Medicine Nephrology
DX: N18.9 Chronic kidney disease, unspecified (principal); E78.1 Pure hyperglyceridemia
CPT/HCPCS: 36415; 80048

== ENCOUNTER 2017-05-09 06:35 | Inpatient (IN) | payer MEDICARE ==
[2017-05-09] MEDS ORDERED: IPRATROPIUM/ALBUTEROL 0.5-2.5 MG/3 ML AMPUL NEB ONE ×2 (06:41→06:42)
--- NOTE | 2017-05-09 06:41 | ER Document Report ---
ED General - General Stated Complaint: DIFFICULTY BREATHING Time Seen by Provider: 05/09/17 06:39 Mode of Arrival: Medic Information source: Patient, Emergency Med Personnel Cannot obtain history due to: Unstable vital signs Notes: 77-year-old female history of COPD CHF presents in respiratory distress. Patient notes symptoms started last night worsened throughout the morning. Patient was found by EMS to be tripoding with audible wheezing but satting 94%. Patient appeared to be getting very drowsy and tired out and was immediately placed on BiPAP TRAVEL OUTSIDE OF THE [place] IN LAST 30 DAYS: No - HPI Onset: Yesterday Onset/Duration: Sudden, Worse Quality of pain: No pain Severity: Moderate Pain Level: Denies Associated symptoms: Nonproductive cough, Shortness of breath Exacerbated by: Walking, Coughing Relieved by: Denies Similar symptoms previously: Yes Recently seen / treated by doctor: No - Related Data Allergies/Adverse Reactions: Iodinated Contrast- Oral and IV Dye [IV Dye, Iodine Containing] Allergy (Severe , Verified 10/31/14 11:38) Hives JONE Inhibitors [Jone Inhibitors] Allergy (Verified 08/27/15 13:13) aliskiren hemifumarate [From Tekturna] Allergy (Verified 08/27/15 13:13) amlodipine [Amlodipine] Allergy (Verified 08/27/15 13:13) cephalexin [Cephalexin] Allergy (Verified 08/27/15 13:13) ciprofloxacin [From Cipro] Allergy (Verified 10/31/14 11:38) clonidine [Clonidine] Allergy (Verified 08/27/15 13:13) clopidogrel bisulfate [From Plavix] Allergy (Verified 10/31/14 11:38) diphenhydramine HCl [From Benadryl] Allergy (Verified 10/31/14 11:38) diphtheria,pertussis (acellular),te [Diphth,Pertuss(Acell),Tet Vac] Allergy ( Verified 08/27/15 13:13) Estrogens Allergy (Verified 10/31/14 11:38) nifedipine [From Procardia] Allergy (Verified 10/31/14 11:38) nisoldipine [From Sular] Allergy (Verified 08/27/15 13:13) Penicillins Allergy (Verified 10/31/14 11:38) Sulfa (Sulfonamide Antibiotics) Allergy (Verified 10/31/14 11:38) Past Medical History - Social History Smoking Status: Former Smoker Cigarette use (# per day): No Chew tobacco use (# tins/day): No Smoking Education Provided: No Family History: Reviewed & Not Pertinent - Past Medical History Cardiac Medical History: Reports: Hx Congestive Heart Failure, Hx Hypertension, Hx Peripheral Vascular Disease - History of abdominal 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, Hx Heart Murmur Denies: Hx Atrial Fibrillation, Hx Coronary Artery Disease, Hx Heart Attack, Hx Hypercholesterolemia, Hx Pulmonary Embolism Pulmonary Medical History: Reports: Hx Bronchitis, Hx COPD, Hx Pneumonia Denies: Hx Asthma, Hx Respiratory Failure, Hx Sleep Apnea, Hx Tuberculosis Neurological Medical History: Denies: Hx Cerebrovascular Accident, Hx Seizures Endocrine Medical History: Denies: Hx Graves' Disease, Hx Hyperthyroidism, Hx Hypothyroidism Renal/ Medical History: Denies: Hx End Stage Renal Disease, Hx Kidney Stones, Hx Ovarian Cysts, Hx Peritoneal Dialysis, Hx Pelvic Inflammatory Disease Malignancy Medical History: Reports: Hx Breast Cancer - LEFT AT PRESENT. Denies : Hx Cervical Cancer, Hx Leukemia, Hx Lung Cancer, Hx Ovarian Cancer GI Medical History: Reports: Hx Gastroesophageal Reflux Disease. Denies: Hx Cirrhosis, Hx Crohn's Disease, Hx Hepatitis, Hx Hiatal Hernia, Hx Irritable Bowel, Hx Liver Failure, Hx Pancreatitis, Hx Ulcer Musculoskeltal Medical History: Denies Hx Arthritis, Denies Hx Fibromyalgia, Denies Hx Multiple Sclerosis, Denies Hx Muscular Dystrophy Psychiatric Medical History: Denies: Hx Bipolar Disorder, Hx Depression, Hx Post Traumatic Stress Disorder , Hx Schizophrenia Traumatic Medical History: Reports: Hx Fractures - BROKEN LEFT LEG 1950 Infectious Medical History: Denies: Hx Hepatitis, Hx HIV Past Surgical History: Reports: Hx Cholecystectomy, Hx Tubal Ligation, Other - History of endovascular stent placement to the bilateral carotid arteries.. Denies: Hx Appendectomy, Hx Bowel Surgery, Hx Section, Hx Colostomy, Hx Coronary Artery Bypass Graft, Hx Gastric Bypass Surgery, Hx Herniorrhaphy, Hx Hysterectomy, Hx Mastectomy, Hx Open Heart Surgery, Hx Pacemaker, Hx Tonsillectomy - Immunizations Hx Diphtheria, Pertussis, Tetanus Vaccination: Yes Hx Pneumococcal Vaccination: 03/07/15 Review of Systems - Review of Systems Notes: REVIEW OF SYSTEMS: CONSTITUTIONAL : Denies fever, chills, or sweats. Denies recent illness. EENT: Denies eye, ear, throat, or mouth pain or symptoms. Denies nasal or sinus congestion or discharge. Denies throat, tongue, or mouth swelling or difficulty swallowing. CARDIOVASCULAR: Denies chest pain. Denies palpitations or racing or irregular heart beat. Denies ankle edema. RESPIRATORY: Admits to shortness of breath difficulty breathing GASTROINTESTINAL: Denies abdominal pain or distention. Denies nausea, vomiting , or diarrhea. Denies blood in vomitus, stools, or per rectum. Denies black, tarry stools. Denies constipation. GENITOURINARY: Denies difficulty urinating, painful urination, burning, frequency, blood in urine, or discharge. FEMALE GENITOURINARY: Denies vaginal bleeding, heavy or abnormal periods, irregular periods. Denies vaginal discharge or odor. MUSCULOSKELETAL: Denies back or neck pain or stiffness. Denies joint pain or swelling. SKIN: Denies rash, lesions or sores. HEMATOLOGIC : Denies easy bruising or bleeding. LYMPHATIC: Denies swollen, enlarged glands. NEUROLOGICAL: Denies confusion or altered mental status. Denies passing out or loss of consciousness. Denies dizziness or lightheadedness. Denies headache. Denies weakness or paralysis or loss of use of either side. Denies problems with gait or speech. Denies sensory loss, numbness, or tingling. Denies seizures. PSYCHIATRIC: Denies anxiety or stress. Denies depression, suicidal ideation, or homicidal ideation. ALL OTHER SYSTEMS REVIEWED AND NEGATIVE. PHYSICAL EXAMINATION: GENERAL: Elderly female in moderate respiratory distress HEAD: Atraumatic, normocephalic. EYES: Pupils equal round and reactive to light, extraocular movements intact, conjunctiva are normal. ENT: Nares patent, oropharynx clear without exudates. Moist mucous membranes. NECK: Normal range of motion, supple without lymphadenopathy LUNGS: Faint inspiratory expiratory wheezing noted all throughout retractions noted HEART: Regular rate and rhythm without murmurs ABDOMEN: Soft, nontender, nondistended abdomen. No guarding, no rebound. No masses appreciated. Female : deferred Musculoskeletal: Normal range of motion, no pitting or edema. No cyanosis. NEUROLOGICAL: Cranial nerves grossly intact. Normal speech, normal gait. Normal sensory, motor exams PSYCH: Normal mood, normal affect. SKIN: Warm, Dry, normal turgor, no rashes or lesions noted. Dictation was performed using Dragon voice recognition software Physical Exam - Vital signs Vitals: Resp Pulse Ox 26 H 100 05/09/17 06:41 05/09/17 06:41 Course - Re-evaluation Re-evalutation: 05/09/17 06:41 I immediately met patient in the ambulance bay, noted to have moderate distress while on BiPAP, patient is a full code, she will have further breathing treatments, was given 1 DuoNeb 1 albuterol as well as magnesium by EMS 05/09/17 08:09 Family does note a history of left bundle branch block, I admitted the patient to the hospitalist service explained the EKG changes lab work imaging and recent antibiotic use. Patient overall is stable looks well is in no distress at this time on BiPAP - Vital Signs Vital signs: Temp Pulse Resp BP Pulse Ox 23 H 189/129 H 96 05/09/17 07:01 05/09/17 07:01 05/09/17 07:01 - Laboratory Result Diagrams: 05/09/17 06:50 05/09/17 06:50 Laboratory results interpreted by me: 05/09/17 05/09/17 06:50 06:50 WBC 13.4 H RDW 14.2 H Absolute Neutrophils 9.4 H Sodium 125.2 L Chloride 86 L BUN 23 H Est GFR (Non-Af Amer) 51 L Glucose 120 H Direct Bilirubin 0.5 H AST 53 H - EKG Interpretation by Me EKG shows normal: Sinus rhythm, Dolph Dolph/QRS: LBBB When compared to previous EKG there are: Changes noted - Significant changes noted on EKG, new left bundle branch block is noted, there is significant depressions in 2 3 aVF, the ST segments are quite elevated in V1 through V4, this may all be secondary to respiratory distress or may be the cause of it Critical Care Note - Critical Care Note Total time excluding time spent on procedures (mins): 31 Comments: 31 minutes of critical care time spent in direct contact evaluating and reevaluating the patient, treating symptoms, reviewing labs and studies and speaking with family and consultants excluding any procedures Discharge - Discharge Clinical Impression: Acute respiratory disease COPD (chronic obstructive pulmonary disease) Qualifiers: COPD type: COPD with acute exacerbation Qualified Code(s): J44.1 - Chronic obstructive pulmonary disease with (acute) exacerbation CHF (congestive heart failure) Qualifiers: Congestive heart failure type: combined Congestive heart failure chronicity: acute on chronic Qualified Code(s): I50.43 - Acute on chronic combined systolic (congestive) and diastolic (congestive) heart failure Condition: Fair Disposition: ADMITTED INPATIENT Admitting Provider: Hospitalist Unit Admitted: [facility]
[2017-05-09 07:13] LABS: VENOUS BLOOD BASE EXCESS 1.1 mmol/L; VENOUS BLOOD HCO3 27.4 mmol/L (20-32); VENOUS BLOOD PCO2 50.5 mmHg (35-63); VENOUS BLOOD PH 7.35 (7.30-7.42)
[2017-05-09 07:15] LABS: ABSOLUTE BASOPHILS # (AUTO) 0.1 10^3/uL (0.0-0.2); ABSOLUTE LYMPHOCYTES (AUTO) 2.8 10^3/uL (0.5-4.7); ABSOLUTE NEUT (AUTO) 9.4 10^3/uL (1.7-8.2); BASOPHILS % (AUTO) 0.6 % (0-2); EOSINOPHILS % (AUTO) 0.1 % (0-6); HEMOGLOBIN 12.2 g/dL (12.0-15.5); HGB HCT DIFFERENCE 0.6; LYMPHOCYTES % (AUTO) 21.3 % (13-45); MEAN CORPUSCULAR HEMOGLOBIN 28.9 pg (27.0-33.4); MEAN CORPUSCULAR HGB CONC 33.8 g/dL (32.0-36.0); MEAN CORPUSCULAR VOLUME 85 fl (80-97); MONOCYTES % (AUTO) 7.7 % (3-13); RED BLOOD COUNT 4.23 10^6/uL (3.72-5.28); RED CELL DISTRIBUTION WIDTH 14.2 % (11.5-14.0); SEGMENTED NEUTROPHILS % (AUTO) 70.3 % (42-78); WHITE BLOOD COUNT 13.4 10^3/uL (4.0-10.5)
[2017-05-09 07:42] LABS: ALANINE AMINOTRANSFERASE 20 U/L (9-52); ALBUMIN 4.4 g/dL (3.5-5.0); ALKALINE PHOSPHATASE 68 U/L (38-126); ANION GAP 11 (5-19); ASPARTATE AMINO TRANSFERASE 53 U/L (14-36); BILIRUBIN,DIRECT 0.5 mg/dL (0.0-0.4); BILIRUBIN,TOTAL 0.6 mg/dL (0.2-1.3); BLOOD UREA NITROGEN 23 mg/dL (7-20); CALCIUM 8.4 mg/dL (8.4-10.2); CARBON DIOXIDE 28 mmol/L (22-30); CHLORIDE 86 mmol/L (98-107); CREATINE KINASE 68 U/L (30-135); CREATININE RESULT 1.05 mg/dL (0.52-1.25); GLUCOSE 120 mg/dL (75-110); POTASSIUM 4.4 mmol/L (3.6-5.0); SODIUM 125.2 mmol/L (137-145); TOTAL PROTEIN 7.9 g/dL (6.3-8.2)
--- NOTE | 2017-05-09 07:42 | RADIOLOGY REPORT (SQ) ---
EXAM DESCRIPTION: CHEST SINGLE VIEW COMPLETED DATE/TIME: 05/09/2017 7:30 am REASON FOR STUDY: copd chf exacerbation COMPARISON: 10/01/2016. EXAM PARAMETERS: NUMBER OF VIEWS: One view. TECHNIQUE: Single frontal radiographic view of the chest acquired. RADIATION DOSE: NA LIMITATIONS: None. FINDINGS: LUNGS AND PLEURA: Moderate interstitial markings, right more than left. Blunting-effusion of bilateral costophrenic angles. Moderate emphysematous hyperinflation. MEDIASTINUM AND HILAR STRUCTURES: No masses. Contour normal. HEART AND VASCULAR STRUCTURES: Mild -moderate enlargement of the cardiac silhouette. Atherosclerosis . BONES: No acute findings. HARDWARE: None in the chest. OTHER: No other significant finding. IMPRESSION: Mild -moderate CHF pattern. Differential diagnosis includes atypical pneumonia and clinical practitioner elmer interstitial lung disease. TECHNICAL DOCUMENTATION: JOB ID: [id number] [employer]- All Rights Reserved
[2017-05-09 07:46] LABS: APPEARANCE,URINE CLEAR; BILIRUBIN,URINE NEGATIVE (NEGATIVE); GLUCOSE, URINE NEGATIVE (NEGATIVE); KETONES,URINE NEGATIVE (NEGATIVE); LEUKOCYTE ESTERASE,URINE NEGATIVE (NEGATIVE); NITRITE,URINE NEGATIVE (NEGATIVE); PROTEIN,URINE NEGATIVE (NEGATIVE); URINE SPECIFIC GRAVITY 1.005; UROBILINOGEN,URINE NEGATIVE mg/dL (<2.0)
[2017-05-09] MEDS ORDERED: HYDRALAZINE HCL INJ/PF 20 MG/1 ML SDV IV ONE (07:51)
[2017-05-09 07:54] LABS: CREATINE KINASE MB 5.25 ng/mL (<4.55); TROPONIN I 0.025 ng/mL
[2017-05-09] MEDS ORDERED: LORAZEPAM INJ 2 MG/1 ML VIAL IV ONE (08:20)
--- NOTE | 2017-05-09 09:07 | EKG REPORT ---
SEVERITY:- ABNORMAL ECG - SINUS RHYTHM LEFT BUNDLE BRANCH BLOCK FIRST DEGREE AVB NONSPECIFIC ST-T CHANGES- INFERIOR LEADS : Confirmed by: Akin Kowalski MD 09-May-2017 09:06:44
[2017-05-09] MEDS ORDERED: DEXTROSE 40% GEL 15 GM TUBE PO PRN ×2 (10:20)
[2017-05-09] MEDS ORDERED: ACETAMINOPHEN 325 MG TABLET PO PRN (10:20)
[2017-05-09] MEDS ORDERED: DEXTROSE 50%-WATER 25 GM/50 ML DISP.SYRIN IV PRN ×2 (10:20)
[2017-05-09] MEDS ORDERED: GLUCAGON,HUMAN RECOMB 1 MG INJ SUBCUT PRN (10:20)
[2017-05-09] MEDS ORDERED: HYDRALAZINE HCL INJ/PF 20 MG/1 ML SDV IV PRN (10:30)
[2017-05-09] MEDS ORDERED: ENOXAPARIN SODIUM INJ 40 MG/0.4 ML DISP.SYRIN SUBCUT ONE (12:00)
[2017-05-09] MEDS: IPRATROPIUM/ALBUTEROL 0.5-2.5 MG/3 ML AMPUL NEB SCH ×2 (12:12→16:12)
[2017-05-09] MEDS: FUROSEMIDE INJ/PF 20 MG/2 ML SDV IV SCH (12:13)
[2017-05-09] MEDS: DOXYCYCLINE HYCLATE 100 MG in DEXTROSE 5%-WATER 250 ML IV SCH (14:00)
--- NOTE | 2017-05-09 14:12 | RADIOLOGY REPORT (SQ) ---
EXAM DESCRIPTION: CT CHEST WITHOUT COMPLETED DATE/TIME: 05/09/2017 2:00 pm REASON FOR STUDY: Interstitial Lung disease--Hi-Res COMPARISON: None. TECHNIQUE: Prone and supine high resolution technique imaging performed through the lungs windowed f or lung windows. Additional focused imaging through the levels of the aortic arch, shannan and diaphr agm. Limited evaluation of the mediastinum. All CT scanners at this facility use dose modulation, iterative reconstruction, and/or weight based d osing when appropriate to reduce radiation dose to as low as reasonably achievable (ALARA). [facility]: Dose Right [facility]: CareDose [facility]: Dose Right [facility]: Teradose 4D [facility]: Mercury Continuity RADIATION DOSE: mGy. LIMITATIONS: None. FINDINGS: LUNGS AND PLEURA: Centrilobular emphysema. No definitive areas of bronchiectasis or honey combing. Trace right pleural effusion. LIMITED MEDIASTINUM: No masses. BONES: No significant findings. OTHER: No other significant finding. IMPRESSION: Centrilobular emphysema. Small right pleural effusion. No definite fibrosis. TECHNICAL DOCUMENTATION: JOB ID: [id number] Quality ID # [id number]: Final reports with documentation of one or more dose reduction techniques (e.g., Au tomated exposure control, adjustment of the mA and/or kV according to patient size, use of iterative reconstruction technique) 2010 [employer]- All Rights Reserved
--- NOTE | 2017-05-09 16:54 | PDOC H&P ---
History of Present Illness Admission Date/PCP: 05/09/17 08:22 CARMENCITA WHEATLEY MD History of Present Illness: MIRTHA RUFFIN is a 77 year old white female with a past medical history significant for congestive heart failure, hypertension and peripheral vascular disease along with COPD who presents to the service with shortness of breath. The patient recently received a dose of Ativan and cannot help very well with supplying her own medical history. Her daughters are present with her at the bedside and supply most of her history. The patient lives alone and takes care of herself. According to her daughter she has had a cold for the past couple of days that bothered her badly enough that she went to urgent care. There she received a shot of steroid and antibiotics. The patient went home but continued to have worsening symptoms. At about 5 in the morning she called her daughters and told her that she felt she needed to go to the emergency room. On arrival here the patient was found to be hypoxemic and was started on bilevel Pap. She also was found to have a very elevated blood pressure was given a dose of hydralazine. Chest x-ray was done in the emergency room which showed evidence of heart failure. BNP was elevated above 8000. At the time that I saw the patient, the patient had not been started on any Lasix or empiric antibiotics for presumed underlying pneumonia. The patient daughter does not recall her disclosing that she had any fevers or chills. The patient still smokes at most one half pack per day 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, Heart Murmur Pulmonary Medical History: Reports: Bronchitis, Chronic Obstructive Pulmonary Disease (COPD), Pneumonia Malignancy Medical History: Reports: Breast Cancer - LEFT AT PRESENT GI Medical History: Reports: Gastroesophageal Reflux Disease Past Surgical History Past Surgical History: Reports: Cholecystectomy, Tubal Ligation, Other - History of endovascular stent placement to the bilateral carotid arteries. Social History Information Source: Patient Lives with: Alone Smoking Status: Current Every Day Smoker - Less than a half pack per day Frequency of Alcohol Use: Occasional Hx Recreational Drug Use: No Drugs: None Hx Prescription Drug Abuse: No - Advance Directive Resuscitation Status: Full Code Family History Family History: DM Parental Family History Reviewed: Yes Children Family History Reviewed: Yes Sibling(s) Family History Reviewed.: Yes Medication/Allergy Home Medications: Albuterol Sulfate [Ventolin Hfa] 2 puff IH Q4HP PRN 05/09/17 Aspirin [Ecotrin] 81 mg PO DAILY 05/09/17 Fluticasone/Salmeterol [Advair 250-50 Diskus 14 Dose/Diskus] 1 puff IH DAILY 08/21 Furosemide [Lasix 20 mg Tablet] 20 mg PO BID 05/09/17 Hydralazine HCl [Apresoline 10 mg Tablet] 10 mg PO TID 05/09/17 Labetalol HCl [Normodyne 200 mg Tablet] 200 mg PO QID 05/09/17 Letrozole [Femara 2.5 mg Tablet] 2.5 mg PO DAILY 05/09/17 Levofloxacin [Levaquin 500 mg Tablet] 500 mg PO DAILY 05/09/17 Prednisone [Deltasone 20 mg Tablet] 40 mg PO [id number] 05/09/17 Tiotropium Convent [Spiriva Respimat] 1 puff IH DAILY 05/09/17 Allergies/Adverse Reactions: Iodinated Contrast- Oral and IV Dye [IV Dye, Iodine Containing] Allergy (Severe , Verified 10/31/14 11:38) Hives JONE Inhibitors [Jone Inhibitors] Allergy (Verified 08/27/15 13:13) aliskiren hemifumarate [From Tekturna] Allergy (Verified 08/27/15 13:13) amlodipine [Amlodipine] Allergy (Verified 08/27/15 13:13) cephalexin [Cephalexin] Allergy (Verified 08/27/15 13:13) ciprofloxacin [From Cipro] Allergy (Verified 10/31/14 11:38) clonidine [Clonidine] Allergy (Verified 08/27/15 13:13) clopidogrel bisulfate [From Plavix] Allergy (Verified 10/31/14 11:38) diphenhydramine HCl [From Benadryl] Allergy (Verified 10/31/14 11:38) diphtheria,pertussis (acellular),te [Diphth,Pertuss(Acell),Tet Vac] Allergy ( Verified 08/27/15 13:13) Estrogens Allergy (Verified 10/31/14 11:38) nifedipine [From Procardia] Allergy (Verified 10/31/14 11:38) nisoldipine [From Sular] Allergy (Verified 08/27/15 13:13) Penicillins Allergy (Verified 10/31/14 11:38) Sulfa (Sulfonamide Antibiotics) Allergy (Verified 10/31/14 11:38) Review of Systems Review of Systems: Review of systems is obtained according to what the daughters remember the patient complaining about. At some point in the interview the patient did wake up long enough for me to ask a few review of symptoms questions. In general her daughters did not complain of fevers. However, the patient says that she felt feverish. She denies chills, chest pain, nausea, vomiting. She has produced scant sputum without blood. She denies decreased appetite. Her daughter states that she eats small meals throughout the day in general. Patient has not had any weight loss or weight gain. Her average weight is usually around 100. When she went to the urgent care her weight was 102 according to her report. She denies blood in stool, blood in the urine, coughing up blood or throwing up blood. Physical Exam Vital Signs: Temp Pulse Resp BP Pulse Ox 97.9 F 16 122/69 94 05/09/17 08:55 05/09/17 09:31 05/09/17 09:31 05/09/17 09:31 GENERAL: This is a well-developed and undernourished appearing white female resting in bed currently on bilevel Pap and only able to participate in the interview intermittently because of somnolence. HEENT: Normocephalic atraumatic. Sclera are anicteric. Trachea is midline. Difficult to discern if mucous membranes are moist through the mask. HEART: Regular rate and rhythm. 2 out of 6 systolic ejection murmur. No gallops or rubs. LUNGS: Diminished breath sounds at the bases bilaterally with equal rise and fall the chest. The patient is currently on bilevel Pap and seems to be breathing easily. ABDOMEN: Soft, nontender, nondistended with normoactive bowel sounds EXTREMETIES: No clubbing, cyanosis or edema. 2+ peripheral pulses bilaterally. The patient did awake long enough for a strength exam and she is 4 out of 5 and all 4 extremities. Some of this may be secondary to sedation. NEURO: Awake, alert. Cranial nerves II through XII are specifically intact. Results Impressions: Chest X-Ray 05/09/17 06:39 IMPRESSION: Mild -moderate CHF pattern. Differential diagnosis includes atypical pneumonia and chronic interstitial lung disease. Assessment & Plan - Diagnosis (1) Acute and chronic respiratory failure Is this a current diagnosis for this admission?: Yes Plan: Multifactorial. Patient has underlying COPD, pulmonary hypertension and CHF. She is currently on bilevel Pap. Treat underlying conditions respectively. Continue AA nebs. Patient will remain n.p.o. until she is more awake and can taper off of BiPAP. (2) Acute on chronic systolic heart failure Is this a current diagnosis for this admission?: Yes Plan: Echocardiogram will be obtained. The patient usually follows with Dr. Jhaveri. Will consult him for his input. We will go ahead and give the patient a dose of IV Lasix now. We will schedule Lasix 40 mg every 12 hours. BNP is elevated and chest x-ray is consistent with heart failure. CPAP seems to be helping. (3) Hypertensive emergency Is this a current diagnosis for this admission?: Yes Plan: Patient's hypertensive emergency could have led to her CHF. Although her symptoms are multifactorial. She was given a dose of hydralazine down in the emergency room. We will continue hydralazine as needed have the pharmacist confirm her medications. Patient's blood pressures are 124 the bedside systolic. Her daughters tell me that whenever she comes back down to normal she tends to be more susceptible to syncopal episodes. (4) COPD exacerbation Is this a current diagnosis for this admission?: Yes (5) Pneumonia Qualifiers: Pneumonia type: due to unspecified organism Laterality: bilateral Lung location: lower lobe of lung Qualified Code(s): J18.9 - Pneumonia, unspecified organism Plan: Possible community-acquired pneumonia. Will diurese the patient and recheck a chest x-ray in the morning. She does have a mild elevation in white count. This could be due to chronic use of steroids. Will start empiric antibiotics. (6) Hyponatremia Plan: May be secondary to underlying pneumonia. At this time fluids are being avoided because of underlying heart failure. (7) Malnutrition Qualifiers: Protein-calorie malnutrition severity: moderate Is this a current diagnosis for this admission?: Yes Plan: Patient with low BMI. She does have some muscle wasting in the hands and some in the face. Consult dietary. If the patient becomes more awake she can have a regular low-sodium diet. - Time Time Spent: 50 to 70 Minutes Within: within 72 hours
[2017-05-09] MEDS ORDERED: ALBUTEROL SULFATE 0.083% NEB 2.5 MG/3 ML AMPUL NEB PRN (16:56)
[2017-05-09] MEDS ORDERED: FLUTICASONE/SALMETEROL DISKUS 250-50 MCG/DOSE IH SCH (17:00)
[2017-05-09] MEDS: LABETALOL HCL 200 MG TABLET PO SCH (18:12)
[2017-05-09] MEDS: HYDRALAZINE HCL 10 MG TABLET PO SCH (21:38)
--- NOTE | 2017-05-09 21:50 | EKG REPORT ---
SEVERITY:- ABNORMAL ECG - SINUS RHYTHM LEFT BUNDLE BRANCH BLOCK : Confirmed by: Akin Kowalski MD 09-May-2017 21:50:05
[2017-05-10] MEDS: DOXYCYCLINE HYCLATE 100 MG in DEXTROSE 5%-WATER 250 ML IV SCH ×2 (00:33→13:25)
[2017-05-10] MEDS: LABETALOL HCL 200 MG TABLET PO SCH ×4 (00:33→17:50)
[2017-05-10] MEDS: FUROSEMIDE INJ/PF 20 MG/2 ML SDV IV SCH ×2 (00:33→11:20)
[2017-05-10] MEDS: HYDRALAZINE HCL 10 MG TABLET PO SCH ×3 (05:46→21:44)
[2017-05-10 06:27] LABS: HEMATOCRIT 33.6 % (36.0-47.0); HEMOGLOBIN 11.5 g/dL (12.0-15.5); HGB HCT DIFFERENCE 0.9; MEAN CORPUSCULAR HEMOGLOBIN 28.9 pg (27.0-33.4); MEAN CORPUSCULAR HGB CONC 34.1 g/dL (32.0-36.0); MEAN CORPUSCULAR VOLUME 85 fl (80-97); RED BLOOD COUNT 3.97 10^6/uL (3.72-5.28); RED CELL DISTRIBUTION WIDTH 14.1 % (11.5-14.0); WHITE BLOOD COUNT 10.9 10^3/uL (4.0-10.5)
[2017-05-10 06:51] LABS: ANION GAP 11 (5-19); BLOOD UREA NITROGEN 26 mg/dL (7-20); CARBON DIOXIDE 32 mmol/L (22-30); CHLORIDE 82 mmol/L (98-107); CREATININE RESULT 1.11 mg/dL (0.52-1.25); GLUCOSE 86 mg/dL (75-110); MAGNESIUM 2.2 mg/dL (1.6-2.3); POTASSIUM 4.2 mmol/L (3.6-5.0); SODIUM 124.5 mmol/L (137-145)
[2017-05-10] MEDS ORDERED: ENOXAPARIN SODIUM INJ 40 MG/0.4 ML DISP.SYRIN SUBCUT SCH (10:00)
[2017-05-10] MEDS: FLUTICASONE/SALMETEROL DISKUS 250-50 MCG/DOSE IH SCH ×2 (11:04→17:52)
[2017-05-10] MEDS: ASPIRIN 81 MG TABLET, ENT COATED PO SCH (11:08)
[2017-05-10] MEDS: TIOTROPIUM BROMIDE DPI 5 CAP/KIT (18 MCG/CAP) IH SCH (11:08)
[2017-05-10] MEDS: ENOXAPARIN SODIUM INJ 40 MG/0.4 ML DISP.SYRIN SUBCUT SCH (11:10)
--- NOTE | 2017-05-10 13:00 | RADIOLOGY REPORT (SQ) ---
EXAM DESCRIPTION: CHEST SINGLE VIEW COMPLETED DATE/TIME: 05/10/2017 12:47 pm REASON FOR STUDY: PNEUMONIA COMPARISON: 05/09/2017 NUMBER OF VIEWS: One view. TECHNIQUE: Single frontal radiographic view of the chest acquired. LIMITATIONS: None. FINDINGS: LUNGS AND PLEURA: Emphysematous changes. Improved aeration in the right lung. No effusio ns. MEDIASTINUM AND HILAR STRUCTURES: Stable. HEART AND VASCULAR STRUCTURES: Stable. BONES: No acute findings. HARDWARE: Left mastectomy and axillary node dissection. OTHER: No other significant finding. IMPRESSION: COPD. NO ACUTE RADIOGRAPHIC FINDING IN THE CHEST. TECHNICAL DOCUMENTATION: JOB ID: [id number] [facility] [id number]- All Rights Reserved
--- NOTE | 2017-05-10 13:58 | CONSULTATION REPORT E ---
Consultation Report NAME: MIRTHA RUFFIN : 1940 AGE: 77Y DATE: 05/10/2017 ROOM: 323 A (Note, the patient was also briefly seen on 05/09/2017.) TO: ELEAZAR MENON M.D. FROM: ADILIA GARCIA M.D. Requesting Physician HISTORY: The patient is a 77-year-old female with a known history of COPD, peripheral vascular disease with a right renal artery stent, hypertension, and history of congestive heart failure whenever she gets acute bronchitis or pneumonia. She states that since the day prior to her admission on Wednesday she started having cough with yellowish sputum. There was orthopnea but on PND or leg edema. The patient denies palpitations or chest pain or discomfort. There is no TIA or CVA symptoms and there is no pedal edema. At present the patient seems to be comfortable on oxygen. PAST MEDICAL HISTORY: Positive for history of hypertension and history of COPD. The patient continues to smoke. She has had several admissions yearly for acute bronchitis or acute exacerbation of COPD or pneumonia. She has no history of diabetes mellitus or thyroid disease. She has history of congestive heart failure only when she has bronchitis or pneumonia. Note, in 2016 LV ejection fraction was within normal limits. She has a history of abdominal aortic aneurysm and also has renal artery aneurysm/stenosis for which she had a stent placed. She has a history of COPD and continues to smoke. She has several episodes of bronchitis. There is no history of asthma-COPD. She has no history of diabetes mellitus or thyroid disease. The patient has had bilateral carotid endarterectomies. There is an atrophic left kidney and the patient had a stent in the right kidney and the patient does have some chronic kidney disease. She also has a history of breast cancer for which she had a lumpectomy on the left. She has a remote history more than 40 years ago for DVT when she was on control pills since she smoked. There is no history of collagen-vascular disease. There is no history of GI bleed. There is no history of GERD or peptic ulcer disease. There is no history of coronary artery disease and no history of AZ or anginal symptoms. No history of syncope. No history of PND, orthopnea or leg edema. PAST SURGICAL HISTORY: Positive for cholecystectomy, left breast lumpectomy, tubal ligation, history of bilateral carotid artery endarterectomies. She has a renal artery stent. She has had bilateral cataract surgery. She also had her wisdom teeth removed. ALLERGIES: The patient is allergic to IVP DYE, DEL INHIBITORS, TEKTURNA, AMLODIPINE, CEFUROXIME, CIPROFLOXACIN, CLONIDINE, PLAVIX, DIPHENHYDRAMINE, BENADRYL, DIPHTHERIA PERTUSSIS VACCINE, ESTROGENS, NIFEDIPINE, NISOLDIPINE, PENICILLIN AND SULFA. FAMILY HISTORY: Positive for diabetes mellitus. Negative for heart disease. CODE STATUS: THE PATIENT IS A FULL CODE. Her daughter is her surrogate healthcare decision maker. MEDICATIONS: Her medications in the hospital include: 1. Tylenol 650 mg p.o. every 4 hours p.r.n. 2. Ipratropium 2.5 mg nebulizer treatment every 4 hours p.r.n. 3. Aspirin 81 mg daily. 4. She is on hypoglycemic precautions with glucose 15 g p.o. and 30 g p.o. p.r.n. hypoglycemia. 5. Dextrose 50% 12.5 g IV and 25 g IV p.r.n. hypoglycemia. 6. She is on Lovenox 40 mg subcutaneously daily. 7. She is on fluticasone (Advair Diskus) 250/50 one inhalation b.i.d. 8. She is on Lasix 40 mg IV every 12 hours. 9. She is on Glucagon 1 mg subcutaneously p.r.n. 10. Hydralazine 10 mg IV every 6 hours p.r.n. 11. Hydralazine 10 mg p.o. every 8 hours. 12. Doxycycline 100 mg IV piggyback every 12 hours. 13. She is on labetalol 200 mg p.o. every 6 hours. 14. She is on Spiriva HandiHaler 1 capsule inhalation daily. REVIEW OF SYSTEMS: CONSTITUTIONAL: No fevers, chills or rigors. Complains of generalized fatigue. HEAD: Denies headaches or head injury or dizziness. EYES: No history of amblyopia or diplopia. No history of amaurosis fugax. History of bilateral cataract surgery. EARS: Has some mild hearing loss but no tinnitus or recurrent ear infections. NOSE: No hay fever. No nosebleeds. No nasal polyps. MOUTH: No history of altered taste sensation. No ulcers in the mouth. No bleeding from the gums. THROAT: No odynophagia or dysphagia. No recurrent sore throats. SKIN: No pruritus. No yellowish discoloration of the skin. No skin cancer. No psoriasis. NECK: No painless or painful swelling of the neck. No lymphadenopathy. No goiter. LUNGS: History of COPD. The patient continues to smoke. Patient was admitted with bronchitis/acute exacerbation of COPD, now feels much better and wants to go home. There is no history of sleep apnea, no history of pulmonary embolism, no history of hemoptysis. The patient has a cough which is productive of yellowish sputum which today has cleared to a white scanty sputum and the cough also is not very much. CARDIAC: History of hypertension. History of congestive heart failure only when she has pneumonia or bronchitis. She had a normal LV ejection fraction by echo in 2015. No history of AZ. No history of anginal symptoms. No history of syncope. No history of palpitations. No history of PND. Does have some degree of orthopnea but no leg edema. MUSCULOSKELETAL: Denies arthritis or collagen-vascular disease. ENDOCRINE: No history of diabetes mellitus or thyroid disease. No history of polydipsia or polyuria. No history of heat or cold intolerance. No history of obesity. GASTROINTESTINAL: No history of GERD. No history of peptic ulcer disease. No history of GI bleed. RENAL: Has some mild renal insufficiency. Her left kidney is atrophic. She has aneurysm of the right renal artery for which she had a stent *------* stenosis and, hence, the stent. There is no history of UTI. No hematuria, pyuria or dysuria. CENTRAL NERVOUS SYSTEM: There is no history of TIA or CVA. No history of seizures, headaches or migraines. History of bilateral carotid endarterectomies present. No sleep apnea. No gait imbalance. PSYCHIATRIC: No history of anxiety or depression. No suicidal ideation or homicidal ideation. VASCULAR: History of peripheral vascular disease. History of renal stent as mentioned earlier. History of bilateral carotid endarterectomies. Remote history of DVT more than 40 years ago when she was on control pills. HEMATOLOGICAL: No history of bleeding diathesis. No history of clotting disorders. PHYSICAL EXAMINATION: GENERAL: On examination, the patient is of frail build, looks chronically ill but in no acute distress. VITAL SIGNS: Temperature is 97.8 degrees Fahrenheit. Pulse is 68 beats per minute. Blood pressure is 134/61. Respirations are 16 per minute. O2 sats are 97% on 3 L of nasal oxygen. HEENT: Head is atraumatic, normocephalic. Eyes - Pupils are equal, round, regular, reactive to light and accommodation. Extraocular movements are normal. There is no conjunctival pallor. There is no scleral icterus. Ears - Tympanic membranes are intact. External auditory canals are clear. Nose - There is no deviated nasal septum. There is no inflammation of the nasal mucous membranes. Mouth - Mucous membranes of the mouth are moist. Tongue is moist. There are no ulcers. There is no bleeding from the gums. Throat - There is no redness of the oropharynx. There are no exudates. SKIN: Without any rashes or lesions. There is no petechia or ecchymosis. NECK: Supple. There is no carotid bruit. There is no lymphadenopathy. There is no JVD. There is no goiter. Trachea is central. LUNGS: Show diminished air entry and prolonged expiration with a few dry crackles on the right side. No rales of CHF. There is hyperresonance on percussion. There is diminished air entry and prolonged expiration throughout. There is no pleuritic rub. HEART: S1, S2 is heard. There is no S3 gallop. There is no S4 gallop. There is a systolic murmur at the left sternal border and the apex. There is no rub. ABDOMEN: Soft, nontender. There is no hepatosplenomegaly. Bowel sounds are well heard. There are no tender areas or masses. EXTREMITIES: Femorals are diminished. There are no femoral bruits. Leg pulses are diminished. There is no cyanosis or clubbing. There is no DVT or cellulitis. There is no calf tenderness. CENTRAL NERVOUS SYSTEM: The patient is conscious, awake, alert, and oriented x3 with no focal deficits. DIAGNOSTICS: The patient's chest x-ray shows moderate interstitial markings on the right more than left, blunting and effusion bilateral, possible angina, and there is evidence of emphysema. Most likely the patient has bronchitis/pneumonia on the right side. No definite evidence of congestive heart failure by my exam of the patient and review of the patient's chest x-ray. The patient's EKG shows sinus rhythm with left bundle branch block pattern, first-degree AV block, nonspecific ST/T-wave changes inferior leads. The patient's high-resolution CT of the chest without contrast shows no evidence of interstitial fibrosis. There is centrilobular emphysema. No definite areas of bronchiectasis or honeycombing. There is trace right pleural effusion. The patient's echocardiogram is awaited for completion. Her white count is 10,900 with a hemoglobin of 11.5, hematocrit of 33.6, platelet count of 276,000. The patient's sodium is 134.5 which is low, potassium is 4.2, chloride is 82, CO2 is 32. The patient's BUN is 26, creatinine is 1.11, GFR is reduced at 47 mL, which is stage 3 kidney disease; this was from a GFR of 51. The patient's magnesium is 2.2, calcium is 8.0, and glucose is 120 and 86. The patient's NT-proBNP is 8750. The patient's troponin I is negative at 0.025. IMPRESSION: 1. Acute bronchitis. 2. Cannot exclude right-sided pneumonia. 3. COPD with acute exacerbation. 4. Hypertension. 5. History of congestive heart failure. 6. Atrophic left kidney and also has evidence of CKD stage 3. 7. Tobacco abuse. 8. Peripheral vascular disease with bilateral carotid endarterectomies and stent in the right renal artery. 9. Abdominal aortic aneurysm. RECOMMENDATIONS: The patient desires going home. It looks like her bronchitis has almost resolved and her COPD is back to baseline. Would recommend sending the patient home on Spiriva, Advair Diskus, ProAir inhalations, antibiotics, and continue Lasix 40 mg p.o. b.i.d. Continue labetalol and hydralazine. Continue aspirin. Note, the patient was seen at 8:00 this morning, 45 minutes were spent on this patient. Yesterday the patient was briefly seen for about 10 minutes in the emergency room and history obtained from the patient and the patient's daughter. The patient's medications have been reviewed. I will await for the chest x-ray and echocardiogram. If these are stable then the patient can be discharged home. She can follow up with us in the office since she is a patient of mine. Note, medical decision making was highly complex in nature. Note, there is no clinical or chest x-ray evidence of congestive heart failure. Note, the CT scan of the chest without contrast does not show any evidence of interstitial fibrosis. Discussed with the hospitalists caring for the patient and discussed with the patient and the patient's family. DICTATING PHYSICIAN: ELEAZAR MENON M.D. [id number] PHY#: [id number] ID: [id number] JOB#: [id number] ACCT: [id number] cc:ELEAZAR MENON M.D. >
--- NOTE | 2017-05-10 18:02 | PDOC PROGRESS REPORT ---
Subjective Progress Note for:: 05/10/17 Subjective:: This is a follow-up visit for acute respiratory failure. The patient is doing much much better today. She states that she usually wears oxygen at night. It sounds as though she supposed to be wearing all the time. She is interested in obtaining a compressor for use when she is out and about. She is seen Dr. Jhaveri today who tells me that her echo looked pretty good he will have an official report tomorrow. I also see that she has had a repeat chest x-ray that looks improved as well. High-resolution CT confirms that there is no pneumonia. Reason For Visit: ACUT ON CHRONIC RESPIRATORY FAILURE Physical Exam Vital Signs: Temp Pulse Resp BP Pulse Ox 97.9 F 65 19 139/63 H 98 05/10/17 12:21 05/10/17 14:00 05/10/17 12:21 05/10/17 12:21 05/10/17 12:21 Intake & Output 05/09/17 05/10/17 05/11/17 06:59 06:59 06:59 Intake Total 594 Output Total 1550 Balance -956 Weight 47.6 kg GENERAL: This is a well-developed thin frail elderly white female sitting on the side of her bed currently in no acute distress. HEART: Regular rate and rhythm. 2 out of 6 systolic ejection murmur. No gallops or rubs. LUNGS: Clear to auscultation bilaterally with equal rise and fall the chest. Patient is currently on nasal cannula oxygen and breathing very well. ABDOMEN: Soft, nontender, nondistended with normoactive bowel sounds EXTREMETIES: No clubbing, cyanosis or edema. 2+ peripheral pulses bilaterally. T NEURO: Awake, alert. Oriented 3. Cranial nerves II through XII are specifically intact. Results Laboratory Results: 05/10/17 05:32 05/10/17 05:32 05/10/17 05/10/17 05:32 05:32 WBC 10.9 H RBC 3.97 Hgb 11.5 L Hct 33.6 L MCV 85 MCH 28.9 MCHC 34.1 RDW 14.1 H Plt Count 276 Sodium 124.5 L Potassium 4.2 Chloride 82 L Carbon Dioxide 32 H Anion Gap 11 BUN 26 H Creatinine 1.11 Est GFR ( Amer) 57 L Est GFR (Non-Af Amer) 47 L Glucose 86 Calcium 8.0 L Magnesium 2.2 Impressions: Chest CT 05/09/17 00:00 IMPRESSION: Centrilobular emphysema. Small right pleural effusion. No definite fibrosis. Chest X-Ray 05/10/17 00:00 IMPRESSION: COPD. NO ACUTE RADIOGRAPHIC FINDING IN THE CHEST. Assessment & Plan - Diagnosis (1) Acute and chronic respiratory failure Is this a current diagnosis for this admission?: Yes Plan: Multifactorial. Patient has underlying COPD, pulmonary hypertension and CHF. She is currently on bilevel Pap. Treat underlying conditions respectively. Continue AA nebs. Status post BiPAP and doing well on nasal cannula oxygen. (2) Acute on chronic systolic heart failure Is this a current diagnosis for this admission?: Yes Plan: Echocardiogram obtained. Dr. Jhaveri is following. Continue Lasix. Chest x -ray is improved after diuresis. (3) Hypertensive emergency Is this a current diagnosis for this admission?: Yes Plan: Patient's hypertensive emergency could have led to her CHF. Although her symptoms are multifactorial. She was given a dose of hydralazine down in the emergency room. We will continue hydralazine as needed. Continue home medications. (4) COPD exacerbation Is this a current diagnosis for this admission?: Yes Plan: Much improved. (5) Pneumonia Qualifiers: Pneumonia type: due to unspecified organism Laterality: bilateral Lung location: lower lobe of lung Qualified Code(s): J18.9 - Pneumonia, unspecified organism Plan: Possible community-acquired pneumonia. Chest x-ray is much improved and there is no infiltrate behind the fluid. High-resolution CT scan does not show any infiltrate either. No need for further antibiotics. (6) Hyponatremia Plan: The patient states she is usually hyponatremic in the low 130s. We will avoid IV fluids. I will start her on some sodium chloride. (7) Malnutrition Qualifiers: Protein-calorie malnutrition severity: moderate Is this a current diagnosis for this admission?: Yes Plan: Patient with low BMI. She does have some muscle wasting in the hands and some in the face. Consult dietary. If the patient becomes more awake she can have a regular low-sodium diet. - Time Time Spent with patient: 25-34 minutes Within: within 24 hours
[2017-05-10] MEDS ORDERED: SODIUM CHLORIDE 1 GM TABLET PO ONE (19:30)
[2017-05-11] MEDS: LABETALOL HCL 200 MG TABLET PO SCH ×2 (00:48→06:07)
[2017-05-11] MEDS: FUROSEMIDE INJ/PF 20 MG/2 ML SDV IV SCH (00:49)
[2017-05-11] MEDS: HYDRALAZINE HCL 10 MG TABLET PO SCH (06:06)
[2017-05-11] MEDS ORDERED: SODIUM CHLORIDE 1 GM TABLET PO SCH (10:00)
[2017-05-11] MEDS: ENOXAPARIN SODIUM INJ 40 MG/0.4 ML DISP.SYRIN SUBCUT SCH (10:26)
[2017-05-11] MEDS: ASPIRIN 81 MG TABLET, ENT COATED PO SCH (10:27)
[2017-05-11] MEDS: FLUTICASONE/SALMETEROL DISKUS 250-50 MCG/DOSE IH SCH (10:27)
[2017-05-11] MEDS: TIOTROPIUM BROMIDE DPI 5 CAP/KIT (18 MCG/CAP) IH SCH (10:28)
[2017-05-11 11:55] VITALS: BP 139/62
--- NOTE | 2017-05-11 15:42 | PDOC DISCHARGE SUMMARY ---
General - Admit/Disc Date/PCP Admission Date/Primary Care Provider: 05/09/17 08:22 CARMENCITA WHEATLEY MD Discharge Date: 05/11/17 - Discharge Diagnosis (1) Acute and chronic respiratory failure Is this a current diagnosis for this admission?: Yes (2) Acute on chronic systolic heart failure Is this a current diagnosis for this admission?: Yes (3) Accelerated hypertension Is this a current diagnosis for this admission?: Yes (4) COPD (chronic obstructive pulmonary disease) Is this a current diagnosis for this admission?: Yes (5) Chronic renal insufficiency Is this a current diagnosis for this admission?: Yes (6) Hyperlipidemia Is this a current diagnosis for this admission?: Yes (7) Hypertension Is this a current diagnosis for this admission?: Yes (8) Pulmonary hypertension Is this a current diagnosis for this admission?: Yes - Additional Information Resuscitation Status: Full Code Discharge Diet: Cardiac, Diabetic Discharge Activity: Activity As Tolerated, Balance Activity w/Rest, Weigh Daily Home Medications: Albuterol Sulfate [Ventolin Hfa] 2 puff IH Q4HP PRN 05/09/17 Aspirin [Ecotrin] 81 mg PO DAILY 05/09/17 Fluticasone/Salmeterol [Advair 250-50 Diskus 14 Dose/Diskus] 1 puff IH DAILY 08/21 Hydralazine HCl [Apresoline 10 mg Tablet] 10 mg PO TID 05/09/17 Labetalol HCl [Normodyne 200 mg Tablet] 200 mg PO QID 05/09/17 Letrozole [Femara 2.5 mg Tablet] 2.5 mg PO DAILY 05/09/17 Levofloxacin [Levaquin 500 mg Tablet] 500 mg PO DAILY 05/09/17 Prednisone [Deltasone 20 mg Tablet] 40 mg PO [id number] 05/09/17 Tiotropium [place] [Spiriva Respimat] 1 puff IH DAILY 05/09/17 Furosemide [Lasix 20 mg Tablet] 20 mg PO TID #270 tablet 05/11/17 History of Present Illness History of Present Illness: MIRTHA RUFFIN is a 77 year old female with a history of congestive heart failure and hypertension along with COPD who presented with shortness of breath. The patient has had worsening shortness of breath along with some weight gain. She has been taking extra Lasix. The patient was found to have congestive heart failure when she presented. There was concern initially that she may have had pneumonia and was started on antibiotics empirically on admission. Hospital Course Hospital Course: 77-year-old female who presented with acute respiratory failure secondary to congestive heart failure. There was initially some concern for pneumonia and she was started on antibiotics. Repeat chest x-ray did not show any evidence for pneumonia. Patient was treated for congestive heart failure with IV Lasix and had improvement in her respiratory status. On the day of discharge she was back to her baseline respiratory status. She has been encouraged to weigh daily and to base her Lasix dose on that. She will be sent home with Lasix 20 mg 3 times daily. She normally takes 20 mg twice daily. The patient also had been treated for COPD with steroids initially. The patient also had antibiotics stopped. Patient is discharged to home Physical Exam Vital Signs: Temp Pulse Resp BP Pulse Ox 97.8 F 60 15 139/62 H 92 05/11/17 11:54 05/11/17 11:54 05/11/17 11:54 05/11/17 11:54 05/11/17 11:54 Intake & Output 05/10/17 05/11/17 05/12/17 06:59 06:59 06:59 Intake Total 594 2532 354 Output Total 1550 5300 900 Balance -956 -2768 -546 Weight 47.6 kg 47 kg General appearance: PRESENT: no acute distress Eye exam: PRESENT: conjunctiva pink. ABSENT: scleral icterus Mouth exam: PRESENT: moist, tongue midline Neck exam: ABSENT: JVD Respiratory exam: PRESENT: clear to auscultation heather. ABSENT: rales, rhonchi, wheezes Cardiovascular exam: PRESENT: RRR. ABSENT: diastolic murmur, rubs, systolic murmur GI/Abdominal exam: PRESENT: normal bowel sounds, soft. ABSENT: distended, guarding, mass, organolmegaly, rebound, tenderness Extremities exam: ABSENT: calf tenderness, clubbing, pedal edema Neurological exam: PRESENT: alert, awake, oriented to person, oriented to place , oriented to time, oriented to situation, CN II-XII grossly intact. ABSENT: motor sensory deficit Psychiatric exam: PRESENT: appropriate affect Skin exam: PRESENT: dry, intact, warm. ABSENT: cyanosis, rash Results Laboratory Results: 05/10/17 05:32 05/10/17 05:32 Impressions: Chest CT 05/09/17 00:00 IMPRESSION: Centrilobular emphysema. Small right pleural effusion. No definite fibrosis. Chest X-Ray 05/10/17 00:00 IMPRESSION: COPD. NO ACUTE RADIOGRAPHIC FINDING IN THE CHEST. Qualifiers PATEINT BEING DISCHARGED WITH ANY OF THE FOLLOWING DIAGNOSIS?: Heart Failure HF Pt discharged on evidence-based Beta Rabia:: Yes Plan Discharge Plan: Patient is discharged to home. Follow-up with primary care in 1-2 weeks. Time Spent: Greater than 30 Minutes
--- NOTE | 2017-05-11 21:33 | PROGRESS NOTE E ---
Progress Note NAME: MIRTHA RUFFIN : 1940 AGE: 77Y DATE: 05/11/2017 ROOM: 323 SUBJECTIVE: The patient denies any further chest pain or discomfort. Her shortness of breath is much better and she is back to baseline. She denies any PND, orthopnea. There are no palpitations. There are no TIA or CVA symptoms. OBJECTIVE: GENERAL: On examination the patient is of frail built, looks chronically ill but in no acute distress. VITAL SIGNS: She is afebrile with a temperature of 97.8 degrees Fahrenheit, pulse is 60 beats per minute, blood pressure 139/62, O2 saturations are 92% on room air. HEENT: Head is atraumatic, normocephalic. Eyes: Pupils are equal, round and regular, reactive to light and accommodation. Extraocular movements are normal. There is no conjunctival pallor. There is no scleral icterus. ENT is negative. NECK: Supple. There is no JVD. There is no lymphadenopathy. There is no goiter. Carotids are equal. There is no carotid bruit. Trachea is central. LUNGS: Show diminished air entry, prolonged expiration without any rhonchi, rales, or wheezing. On percussion there is hyperresonance. There is no chest wall tenderness. HEART: S1 and S2 is heard. There is no S3 gallop. There is no S4 gallop. There is a systolic murmur in the left sternal border and the apex. There is no rub. ABDOMEN: Soft, nontender. There is no hepatosplenomegaly. Bowel sounds are well heard. There are no tender areas or masses. EXTREMITIES: Femorals are diminished. There are no femoral bruits. Leg pulses are diminished. There is no cyanosis or clubbing. There is no DVT or cellulitis. There is no calf tenderness. CENTRAL NERVOUS SYSTEM: The patient is conscious, awake, alert and oriented x3 with no focal deficits. PSYCHIATRIC: The patient does not appear to be anxious or depressed. Her judgment and insight are intact. Her affect is normal. IMAGING STUDIES: The patient's chest x-ray shows no acute changes. The patient's echocardiogram shows normal LV ejection fraction but with severe pulmonary hypertension. This has been discussed with the patient. IMPRESSION: 1. ACUTE BRONCHITIS, SEEMS TO HAVE RESOLVED. 2. CANNOT EXCLUDED RIGHT-SIDED PNEUMONIA, AT PRESENT LUNGS ARE CLEAR. 3. COPD WITH ACUTE EXACERBATION, NOW BACK TO BASELINE. THE ACUTE EXACERBATION EPISODE IS OVER. 4. HYPERTENSION, BLOOD PRESSURE WELL-CONTROLLED. 5. HISTORY OF CONGESTIVE HEART FAILURE, AT PRESENT COMPENSATED. NORMAL LV EJECTION FRACTION WITH SEVERE PULMONARY HYPERTENSION. 6. SEVERE PULMONARY HYPERTENSION BY ECHOCARDIOGRAPHY. 7. ATROPHIC LEFT KIDNEY AND ALSO EVIDENCE OF CHRONIC KIDNEY DISEASE STAGE 3. 8. TOBACCO ABUSE DISORDER. THE PATIENT CONTINUES TO SMOKE. THE PATIENT HAS BEEN COUNSELED TO STOP SMOKING. 9. PERIPHERAL VASCULAR DISEASE WITH BILATERAL CAROTID ENDARTERECTOMIES AND STENT IN THE RIGHT RENAL ARTERY. 10. ABDOMINAL AORTIC ANEURYSM. RECOMMENDATIONS: We will continue the patient's home medications, including Lasix, Advair Diskus, aspirin, hydralazine, labetalol, *------*, and Levaquin 500 mg p.o. daily. Also continue prednisone, we will taper this as an outpatient. Continue Spiriva inhaler. Note that the patient is being discharged. TIME SPENT: Note 30 minutes spent on this patient with more than 50% of the time spent on direct patient care. Her echo findings and chest x-ray findings have been discussed with the patient. Medical decision making is of moderately complex nature. We will follow the patient in the office as an outpatient. DICTATING PHYSICIAN: ELEAZAR MENON M.D. [id number] NO#: [id number] ID: [id number] JOB#: [id number] ACCT: [id number] cc: >
--- NOTE | 2017-05-15 13:35 | XCELERA REPORT ---
[address] [address] Transthoracic Echocardiogram Report Name: MIRTHA RUFFIN Age: 77 yrs Gender: Female : 1940 Patient Status: Inpatient Patient Location: [address] [place] [address] Study Date: 05/10/2017 12:22 PM Height: 60 in Weight: 90 lb BSA: 1.3 m2 Procedure: A two-dimensional transthoracic echocardiogram with color flow and Doppler was performed. Study Quality: Fair. Reason For Study: SOB History: Shortness of breath. Ordering Physician: GUADALUPE MENON Performed By: Afua Brown Interpretation Summary Shortness of breath The left ventricle is normal in size. There is mild concentric left ventricular hypertrophy. LV EF is 55% Left ventricular systolic function is low normal. The left ventricular wall motion is normal. There is no thrombus. There is no ventricular septal defect visualized. The right ventricle is normal in size and function. The right atrium is normal. The left atrial size is normal. The interatrial septum is intact with no evidence for an atrial septal defect. There is no evidence of mitral valve prolapse. There is no vegetation seen on the mitral valve. There is no mitral valve stenosis. There is a severe amount of mitral regurgitation There is no aortic valvular vegetation. There is no aortic valve stenosis There is no LVOT obstruction. There is a moderate amount of aortic regurgitation There is no tricuspid stenosis. There is a mild amount of tricuspid regurgitation There is servere pulmonary hypertension by echo RVSP is 63 mm of Hg , with RA mean of 10. There is a mild amount of pulmonic regurgitation There is no pericardial effusion. MMode/2D Measurements & Calculations RVDd: 1.8 cm LVIDd: 4.0 cm FS: 23.7 % Ao root diam: 2.7 cm IVSd: 1.2 cm LVIDs: 3.0 cm EDV(Teich): 68.1 ml LVPWd: 1.2 cm ESV(Teich): 35.5 ml Ao root area: 5.9 cm2 EF(Teich): 47.9 % Doppler Measurements & Calculations MV E max goran: MV dec slope: Ao V2 max: AI max goran: 138.4 cm/sec 175.6 cm/sec 481.6 cm/sec MV A max goran: 617.2 cm/sec2 Ao max PG: AI max P.6 cm/sec MV dec time: 12.3 mmHg 92.8 mmHg MV E/A: 1.4 0.22 sec AI dec slope: 249.9 cm/sec2 AI P1/2t: 564.6 msec LV V1 max PG: MR max goran: PA V2 max: TR max goran: 3.3 mmHg 760.9 cm/sec 85.8 cm/sec 331.6 cm/sec LV V1 max: MR max PG: PA max PG: TR max P.1 cm/sec 231.6 mmHg 2.9 mmHg 44.6 mmHg Left Ventricle The left ventricle is normal in size. There is mild concentric left ventricular hypertrophy. LV EF is 55%. Left ventricular systolic function is low normal. Doppler measurements suggest normal left ventricular diastolic function. The left ventricular wall motion is normal. There is no thrombus. There is no ventricular septal defect visualized. Right Ventricle The right ventricle is normal in size and function. Atria The right atrium is normal. The left atrial size is normal. The interatrial septum is intact with no evidence for an atrial septal defect. Mitral Valve There is no evidence of mitral valve prolapse. There is no vegetation seen on the mitral valve. There is no mitral valve stenosis. There is a severe amount of mitral regurgitation. Aortic Valve There is no aortic valvular vegetation. There is no aortic valve stenosis. There is no LVOT obstruction. There is a moderate amount of aortic regurgitation. Tricuspid Valve There is no tricuspid stenosis. There is a mild amount of tricuspid regurgitation. There is servere pulmonary hypertension by echo. RVSP is 63 mm of Hg , with RA mean of 10. Pulmonic Valve There is no pulmonic valvular stenosis. There is a mild amount of pulmonic regurgitation. Great Vessels The aortic root is normal size. Effusions There is no pericardial effusion. : GUADALUPE MENON > Guadalupe Menon
== END 2017-05-11 13:00 | disposition home or self-care (01) | DRG 291 ==
LOC: ER 06:35 → EH 08:22 → 3W 16:33
PROVIDERS: ADMIT Family Medicine; ATTEND Family Medicine
PROC: 5A09457 Assistance with Respiratory Ventilation, 24-96 Consecutive Hours, Continuous Positive Airway Pressure (ICD-10-PCS; principal; 2017-05-09)
DX: I13.0 Hypertensive heart and chronic kidney disease with heart failure and stage 1 through stage 4 chronic kidney disease, or unspecified chronic kidney disease (principal); J96.20 Acute and chronic respiratory failure, unspecified whether with hypoxia or hypercapnia; I50.43 Acute on chronic combined systolic (congestive) and diastolic (congestive) heart failure; J44.1 Chronic obstructive pulmonary disease with (acute) exacerbation; I16.1 Hypertensive emergency; E87.1 Hypo-osmolality and hyponatremia; E44.0 Moderate protein-calorie malnutrition; J44.0 Chronic obstructive pulmonary disease with (acute) lower respiratory infection; J20.9 Acute bronchitis, unspecified; I27.20 Pulmonary hypertension, unspecified; I73.9 Peripheral vascular disease, unspecified; F17.200 Nicotine dependence, unspecified, uncomplicated; K21.9 Gastro-esophageal reflux disease without esophagitis; Z96.0 Presence of urogenital implants; N18.3 Chronic kidney disease, stage 3 (moderate); E78.5 Hyperlipidemia, unspecified; I71.4 Abdominal aortic aneurysm, without rupture; Z86.718 Personal history of other venous thrombosis and embolism; Z85.3 Personal history of malignant neoplasm of breast; Z90.49 Acquired absence of other specified parts of digestive tract; Z98.51 Tubal ligation status; Z88.6 Allergy status to analgesic agent; Z91.041 Radiographic dye allergy status; Z88.1 Allergy status to other antibiotic agents; Z88.0 Allergy status to penicillin; Z88.8 Allergy status to other drugs, medicaments and biological substances; Z68.28 Body mass index [BMI] 28.0-28.9, adult; Z88.2 Allergy status to sulfonamides; Z79.82 Long term (current) use of aspirin
CPT/HCPCS: 36415; 71010; 71250; 80048; 80053; 81001; 82550; 82553; 82803; 83735; 83880; 84484; 85025; 85027; 87040; 87070; 87205; 93005; 93010; 93306; 94640; 94660; 96374; 99291; J0360; J1650; J1940; J2060; J3490; J7060; J7620

== ENCOUNTER 2017-06-08 10:59 | Inpatient (IN) | payer MEDICARE ==
[2017-06-08 11:49] LABS: ABSOLUTE BASOPHILS # (AUTO) 0.1 10^3/uL (0.0-0.2); ABSOLUTE EOSINOPHILS # (AUTO) 0.4 10^3/uL (0.0-0.6); ABSOLUTE LYMPHOCYTES (AUTO) 1.7 10^3/uL (0.5-4.7); ABSOLUTE MONOCYTES (AUTO) 1.3 10^3/uL (0.1-1.4); ABSOLUTE NEUT (AUTO) 13.1 10^3/uL (1.7-8.2); BASOPHILS % (AUTO) 0.3 % (0-2); EOSINOPHILS % (AUTO) 2.3 % (0-6); HEMATOCRIT 29.4 % (36.0-47.0); HEMOGLOBIN 9.5 g/dL (12.0-15.5); LYMPHOCYTES % (AUTO) 10.3 % (13-45); MEAN CORPUSCULAR HEMOGLOBIN 27.3 pg (27.0-33.4); MEAN CORPUSCULAR HGB CONC 32.5 g/dL (32.0-36.0); MEAN CORPUSCULAR VOLUME 84 fl (80-97); PLATELET COUNT 575 10^3/uL (150-450); RED BLOOD COUNT 3.49 10^6/uL (3.72-5.28); RED CELL DISTRIBUTION WIDTH 14.4 % (11.5-14.0); SEGMENTED NEUTROPHILS % (AUTO) 79.1 % (42-78); TOTAL CELLS COUNTED % (AUTO) 100 %; WHITE BLOOD COUNT 16.5 10^3/uL (4.0-10.5)
[2017-06-08 12:01] LABS: ALANINE AMINOTRANSFERASE 14 U/L (9-52); ALBUMIN 3.3 g/dL (3.5-5.0); ALKALINE PHOSPHATASE 94 U/L (38-126); ANION GAP 11 (5-19); ASPARTATE AMINO TRANSFERASE 13 U/L (14-36); BILIRUBIN,DIRECT 0.3 mg/dL (0.0-0.4); BILIRUBIN,TOTAL 0.5 mg/dL (0.2-1.3); BLOOD UREA NITROGEN 16 mg/dL (7-20); CALCIUM 9.2 mg/dL (8.4-10.2); CARBON DIOXIDE 35 mmol/L (22-30); CHLORIDE 89 mmol/L (98-107); GLUCOSE 101 mg/dL (75-110); POTASSIUM 3.8 mmol/L (3.6-5.0); SODIUM 134.7 mmol/L (137-145); TOTAL PROTEIN 6.3 g/dL (6.3-8.2)
[2017-06-08 12:13] LABS: CREATINE KINASE MB 0.54 ng/mL (<4.55)
[2017-06-08 12:13] LABS: APPEARANCE,URINE CLEAR; BILIRUBIN,URINE NEGATIVE (NEGATIVE); COLOR,URINE YELLOW; GLUCOSE, URINE NEGATIVE (NEGATIVE); KETONES,URINE NEGATIVE (NEGATIVE); LEUKOCYTE ESTERASE,URINE NEGATIVE (NEGATIVE); NITRITE,URINE NEGATIVE (NEGATIVE); PROTEIN,URINE NEGATIVE (NEGATIVE); URINE SPECIFIC GRAVITY 1.008; UROBILINOGEN,URINE NEGATIVE mg/dL (<2.0)
[2017-06-08 12:14] LABS: TROPONIN I < 0.012 ng/mL
--- NOTE | 2017-06-08 12:50 | RADIOLOGY REPORT (SQ) ---
EXAM DESCRIPTION: CHEST PA/LAT COMPLETED DATE/TIME: 06/08/2017 12:38 pm REASON FOR STUDY: S OB, Hx COPD, pneumonia, bronchitis COMPARISON: 05/12/2016 NUMBER OF VIEWS: Two view. TECHNIQUE: Frontal and lateral radiographic views of the chest acquired. LIMITATIONS: None. FINDINGS: LUNGS AND PLEURA: Patchy bilateral infiltrates with greatest involvement right mid lung z one. Small bilateral pleural effusions and diffuse prominence of vascular markings. May represent a degree of congestive heart failure. MEDIASTINUM AND HILAR STRUCTURES: No masses or contour abnormalities. HEART AND VASCULATURE: Heart normal size. No evidence for failure. BONY STRUCTURES: No acute findings. HARDWARE: None. OTHER: No other significant finding. IMPRESSION: Bilateral pulmonary infiltrates -most likely bronchopneumonia. Small bilateral pleural effusions and possible pulmonary vascular congestion. TECHNICAL DOCUMENTATION: JOB ID: [id number] [employer]- All Rights Reserved
[2017-06-08] MEDS ORDERED: CEFTRIAXONE 1 GM/D5W RTU 1 GM/50 ML RTUPB IV ONE (15:40)
--- NOTE | 2017-06-08 15:53 | ER Document Report ---
ED Respiratory Problem - General Chief Complaint: Breathing Difficulty Stated Complaint: BREATHING PROBLEMS Time Seen by Provider: 06/08/17 11:20 Notes: Patient says that she is having difficulty breathing for the past 10 days. She was diagnosed with pneumonia in May and was admitted to this hospital for 3 days. She was sent home on no antibiotics. Around , she began developing a cough and recurrent congestion. No appetite. They went to a local urgent care on Wednesday and were told that her oxygen level was low and she had a fever and not to come to the emergency room, but the patient did not want to come. She is normally on 2 L of oxygen at home and they have increase that to 3 L. She has a cough is productive of yellow sputum. Cough primarily bothers her at nighttime. She has had fever as well. Patient continues to smoke. Patient has been told that she only has one working kidney. She has an abdominal aortic aneurysm at the location of the renal artery. That right renal artery has a stent. The surgeons want to operate, but the patient does not want to have surgery. Patient was diagnosed with breast cancer a little over a year ago and had its removal. No chemo afterward. TRAVEL OUTSIDE OF THE [place] IN LAST 30 DAYS: No - Related Data Allergies/Adverse Reactions: Iodinated Contrast- Oral and IV Dye [IV Dye, Iodine Containing] Allergy (Severe , Verified 06/08/17 11:02) Hives JONE Inhibitors [Jone Inhibitors] Allergy (Verified 06/08/17 11:02) aliskiren hemifumarate [From Tekturna] Allergy (Verified 06/08/17 11:02) amlodipine [Amlodipine] Allergy (Verified 06/08/17 11:02) cephalexin [Cephalexin] Allergy (Verified 06/08/17 11:02) ciprofloxacin [From Cipro] Allergy (Verified 06/08/17 11:02) clonidine [Clonidine] Allergy (Verified 06/08/17 11:02) clopidogrel bisulfate [From Plavix] Allergy (Verified 06/08/17 11:02) diphenhydramine HCl [From Benadryl] Allergy (Verified 06/08/17 11:02) diphtheria,pertussis (acellular),te [Diphth,Pertuss(Acell),Tet Vac] Allergy ( Verified 06/08/17 11:02) Estrogens Allergy (Verified 06/08/17 11:02) nifedipine [From Procardia] Allergy (Verified 06/08/17 11:02) nisoldipine [From Sular] Allergy (Verified 06/08/17 11:02) Penicillins Allergy (Verified 06/08/17 11:02) Sulfa (Sulfonamide Antibiotics) Allergy (Verified 06/08/17 11:02) Past Medical History - Social History Smoking Status: Current Some Day Smoker Chew tobacco use (# tins/day): - 2 Frequency of alcohol use: None Drug Abuse: None Family History: Reviewed & Not Pertinent, DM Patient has suicidal ideation: No Patient has homicidal ideation: No - Past Medical History Cardiac Medical History: Reports: Hx Congestive Heart Failure, Hx Hypertension, Hx Peripheral Vascular Disease - 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 - Immunizations Hx Diphtheria, Pertussis, Tetanus Vaccination: Yes Hx Pneumococcal Vaccination: 03/07/15 Review of Systems - Review of Systems Notes: REVIEW OF SYSTEMS: CONSTITUTIONAL : Has had fever. EENT: Denies eye, ear, nose or mouth or throat pain or other symptoms. CARDIOVASCULAR: Denies chest pain. RESPIRATORY: See HPI. GASTROINTESTINAL: Denies abdominal pain or nausea, vomiting, or diarrhea. GENITOURINARY: Denies difficulty or painful urinating, urinary frequency, blood in urine. MUSCULOSKELETAL: Denies back or neck pain. Denies joint pain or swelling. SKIN: Denies rash or skin lesions. NEUROLOGICAL: Denies LOC or altered mental status. Denies headache. Denies sensory loss or motor deficits. ALL OTHER SYSTEMS REVIEWED AND NEGATIVE. Physical Exam - Vital signs Vitals: Temp Pulse Resp BP Pulse Ox 98.6 F 69 22 H 93/72 L 85 L 06/08/17 11:06 06/08/17 11:06 06/08/17 11:06 06/08/17 11:06 06/08/17 11:06 - Notes Notes: PHYSICAL EXAMINATION: GENERAL: Well-appearing, in no acute distress. HEAD: Atraumatic, normocephalic. EYES: Pupils equal round and reactive to light, extraocular movements intact. ENT: oropharynx clear without exudates. Moist mucous membranes. NECK: Normal range of motion, supple. LUNGS: Breath sounds decreased, but air exchange can be heard. Scattered wheezes and rhonchi. HEART: Regular rate and rhythm without murmurs. ABDOMEN: Soft, nontender. No guarding or rebound. No masses. BACK: No tenderness throughout entire back. EXTREMITIES: Normal range of motion without pain. Trace edema pretibially bilaterally. NEUROLOGICAL: Normal speech. Normal sensory, motor, and reflex exams. Awake, alert, and oriented x3. Cranial nerves normal. PSYCH: Normal mood, normal affect. SKIN: Warm, dry, no rashes. Course - Re-evaluation Re-evalutation: 06/08/17 16:02 Patient will be admitted to telemetry for the hospitalist to treat her pneumonia. - Vital Signs Vital signs: Temp Pulse Resp BP Pulse Ox 98.6 F 69 25 H 150/54 H 95 06/08/17 11:06 06/08/17 11:06 06/08/17 13:01 06/08/17 13:01 06/08/17 13:01 - Laboratory Result Diagrams: 06/08/17 11:30 06/08/17 11:30 Laboratory results interpreted by me: 06/08/17 06/08/17 06/08/17 11:30 11:30 11:30 WBC 16.5 H RBC 3.49 L Hgb 9.5 L Hct 29.4 L RDW 14.4 H Plt Count 575 H Seg Neutrophils % 79.1 H Lymphocytes % 10.3 L Absolute Neutrophils 13.1 H Sodium 134.7 L Chloride 89 L Carbon Dioxide 35 H Est GFR (Non-Af Amer) 55 L AST 13 L NT-Pro-B Natriuret Pep 8100 H Albumin 3.3 L Urine Blood Urine Ascorbic Acid 06/08/17 12:00 WBC RBC Hgb Hct RDW Plt Count Seg Neutrophils % Lymphocytes % Absolute Neutrophils Sodium Chloride Carbon Dioxide Est GFR (Non-Af Amer) AST NT-Pro-B Natriuret Pep Albumin Urine Blood SMALL H Urine Ascorbic Acid 40 H - Diagnostic Test Radiology results interpreted by la: 06/08/17 16:01 Chest x-ray shows bilateral infiltrates. Small bilateral pleural effusions are present as well. - EKG Interpretation by [facility] EKG shows normal: Sinus rhythm Rate: Normal Rhythm: NSR Voltage: Consistant with LVH Critical Care Note - Critical Care Note Total time excluding time spent on procedures (mins): 45 Discharge - Discharge Clinical Impression: Bilateral pneumonia Condition: Stable Disposition: ADMITTED INPATIENT Admitting Provider: Hospitalist Unit Admitted: Telemetry
[2017-06-08] MEDS ORDERED: GUAIFENESIN SYRP 200 MG/10 ML UDC PO PRN (16:53)
[2017-06-08] MEDS ORDERED: LEVALBUTEROL HCL NEB 0.63 MG/3 ML AMPUL NEB PRN (16:53)
[2017-06-08] MEDS ORDERED: NORMAL SALINE 1000 ML 1,000 ML IV PRN (16:53)
[2017-06-08] MEDS ORDERED: HYDRALAZINE HCL INJ/PF 20 MG/1 ML SDV IV PRN (17:01)
--- NOTE | 2017-06-08 17:19 | PDOC H&P ---
History of Present Illness Admission Date/PCP: 06/08/17 16:36 Patient complains of: Dyspnea, malaise History of Present Illness: IMRTHA RUFFIN is a 77 year old female with a past medical history of CHF, hypertension, peripheral vascular disease, abdominal aortic aneurysm, renal artery aneurysm OPD, continuous tobacco use, GERD, and left breast cancer tended to the emergency department with a complaint of difficulty breathing for the last 10 days. She states that she was admitted to our facility early May for 3 days for similar symptoms. She states that at the time of her discharge she was feeling to be in health and tells me that she was able to complete many of her errands and shopping for [employer]. She states that approximately 3-4 days prior to , she developed a cough with nasal congestion, poor appetite. She was seen at an urgent care on the Wednesday before and was told that because her oxygen level fever they would be unable to see her and recommended that she follow-up in the emergency department. At that time she declined to be seen in the emergency department as she "had too much to take care of for the new year." She states that she attempted to be seen by her primary care provider today but was told that there was no appointments available and was again directed to the emergency department. She is very frustrated by the "run around" and asks me to "run every single test imaginable so that I do not have to be seen by another doctor again soon." Evaluation in the emergency department does feel a WBC count of 16.5, but of 9.5 , Pro-BNP of 8100, and a chest x-ray that demonstrated bilateral pneumonias. She is referred to the hospital service for admission and management. 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, Heart Murmur Denies: Atrial Fibrillation, Coronary Artery Disease, Myocardial Infarction, Hyperlipidema, Pulmonary Embolism Pulmonary Medical History: Reports: Bronchitis, Chronic Obstructive Pulmonary Disease (COPD), Pneumonia Denies: Asthma, Respiratory Failure, Sleep Apnea, Tuberculosis EENT Medical History: Reports: None Neurological Medical History: Denies: Hemorrhagic CVA, Ischemic CVA, Seizures Endocrine Medical History: Denies: Diabetes Mellitus Type 1, Diabetes Mellitus Type 2, Hyperthyroidism, Hypothyroidism Renal/ Medical History: Reports: Nephrolithiasis, Other - Right ureter stent Denies: End Stage Renal Disease Malignancy Medical History: Reports: Breast Cancer - LEFT AT PRESENT Denies: Cervical Cancer, Leukemia, Lung Cancer, Ovarian Cancer GI Medical History: Reports: Gastroesophageal Reflux Disease Denies: Cirrhosis, Crohn's Disease, Hepatitis, Hiatal Hernia Musculoskeltal Medical History: Denies: Arthritis, Fibromyalgia Psychiatric Medical History: Denies: Bipolar Disorder, Depression, Post Traumatic Stress Disorder Hematology: Denies: Anemia, Hemophilia, Sickle Cell Disease, Bleeding Tendencies Infectious Medical History: Denies: HIV Past Surgical History Past Surgical History: Reports: Cholecystectomy, Tubal Ligation, Other - History of endovascular stent placement to the bilateral carotid arteries. Denies: Amputation, Appendectomy, Section, Colostomy, Coronary Artery Bypass Graft, Gastric Bypass Surgery, Herniorrhaphy, Hysterectomy, Mastectomy, Pacemaker, Tonsillectomy Social History Information Source: Patient Lives with: Alone Smoking Status: Current Some Day Smoker Frequency of Alcohol Use: Occasional Hx Recreational Drug Use: No Drugs: None Hx Prescription Drug Abuse: No Family History Family History: Reviewed & Not Pertinent, DM Parental Family History Reviewed: Yes Children Family History Reviewed: Yes Sibling(s) Family History Reviewed.: Yes Medication/Allergy Allergies/Adverse Reactions: Iodinated Contrast- Oral and IV Dye [IV Dye, Iodine Containing] Allergy (Severe , Verified 06/08/17 11:02) Hives JONE Inhibitors [Jone Inhibitors] Allergy (Verified 06/08/17 11:02) aliskiren hemifumarate [From Tekturna] Allergy (Verified 06/08/17 11:02) amlodipine [Amlodipine] Allergy (Verified 06/08/17 11:02) cephalexin [Cephalexin] Allergy (Verified 06/08/17 11:02) ciprofloxacin [From Cipro] Allergy (Verified 06/08/17 11:02) clonidine [Clonidine] Allergy (Verified 06/08/17 11:02) clopidogrel bisulfate [From Plavix] Allergy (Verified 06/08/17 11:02) diphenhydramine HCl [From Benadryl] Allergy (Verified 06/08/17 11:02) diphtheria,pertussis (acellular),te [Diphth,Pertuss(Acell),Tet Vac] Allergy ( Verified 06/08/17 11:02) Estrogens Allergy (Verified 06/08/17 11:02) nifedipine [From Procardia] Allergy (Verified 06/08/17 11:02) nisoldipine [From Sular] Allergy (Verified 06/08/17 11:02) Penicillins Allergy (Verified 06/08/17 11:02) Sulfa (Sulfonamide Antibiotics) Allergy (Verified 06/08/17 11:02) Review of Systems Constitutional: PRESENT: fatigue, fever(s), weakness. ABSENT: chills, headache( s), weight gain, weight loss Eyes: ABSENT: visual disturbances Ears: ABSENT: hearing changes Cardiovascular: ABSENT: chest pain, dyspnea on exertion, edema, orthropnea, palpitations Respiratory: PRESENT: cough, dyspnea, sputum. ABSENT: hemoptysis Gastrointestinal: ABSENT: abdominal pain, constipation, diarrhea, hematemesis, hematochezia, nausea, vomiting Genitourinary: ABSENT: dysuria, hematuria Musculoskeletal: ABSENT: joint swelling Integumentary: ABSENT: rash, wounds Neurological: ABSENT: abnormal gait, abnormal speech, confusion, dizziness, focal weakness, syncope Psychiatric: ABSENT: anxiety, depression, homidical ideation, suicidal ideation Endocrine: ABSENT: cold intolerance, heat intolerance, polydipsia, polyuria Hematologic/Lymphatic: ABSENT: easy bleeding, easy bruising Physical Exam Vital Signs: Temp Pulse Resp BP Pulse Ox 98.6 F 69 25 H 150/54 H 95 06/08/17 11:06 06/08/17 11:06 06/08/17 13:01 06/08/17 13:01 06/08/17 13:01 General appearance: PRESENT: no acute distress, thin, well-developed, well- nourished Head exam: PRESENT: atraumatic, normocephalic Eye exam: PRESENT: conjunctiva pink, EOMI, PERRLA. ABSENT: scleral icterus Ear exam: PRESENT: normal external ear exam Mouth exam: PRESENT: moist, tongue midline Neck exam: ABSENT: carotid bruit, JVD, lymphadenopathy, thyromegaly Respiratory exam: PRESENT: crackles, prolonged expiratory phas, rhonchi, symmetrical, unlabored, other - Omental oxygen via nasal cannula. ABSENT: rales , wheezes Cardiovascular exam: PRESENT: RRR, +S1, +S2. ABSENT: diastolic murmur, rubs, systolic murmur Pulses: PRESENT: normal dorsalis pedis pul Vascular exam: PRESENT: normal capillary refill GI/Abdominal exam: PRESENT: normal bowel sounds, soft. ABSENT: distended, guarding, mass, organolmegaly, rebound, tenderness Rectal exam: PRESENT: deferred Extremities exam: PRESENT: full ROM. ABSENT: calf tenderness, clubbing, pedal edema Neurological exam: PRESENT: alert, awake, oriented to person, oriented to place , oriented to time, oriented to situation, CN II-XII grossly intact. ABSENT: motor sensory deficit Psychiatric exam: PRESENT: appropriate affect, normal mood. ABSENT: homicidal ideation, suicidal ideation Skin exam: PRESENT: dry, intact, warm. ABSENT: cyanosis, rash Results Impressions: Chest X-Ray 06/08/17 11:31 IMPRESSION: Bilateral pulmonary infiltrates -most likely bronchopneumonia. Small bilateral pleural effusions and possible pulmonary vascular congestion. Assessment & Plan - Diagnosis (1) Bilateral pneumonia Is this a current diagnosis for this admission?: Yes Plan: The patient presents to the emergency department with a complaint of dyspnea, productive cough, subjective fevers. She is noted to have a WBC count of 16.5 and bilateral pneumonia by chest x-ray. She will be admitted to the medical floor on continuous cardiac telemetry. Blood cultures have been obtained and are pending. She will empirically receive azithromycin and ceftriaxone. She is supported with supplemental oxygen as needed to keep O2 sats greater than 88%, of note, the patient does use 2 L of O2 at baseline. Is on Mucinex twice daily with Robitussin syrup available as needed for cough. (2) Hypertension Is this a current diagnosis for this admission?: Yes Plan: The patient was initially hypotensive at 93/72, but is now at 150/54. The patient's daughter states that she takes multiple blood pressure medications throughout the day. At the time of this dictation, the patient's home medications are being reconciled by the pharmacy technician inpatient. Her home medications will be resumed conciliation is complete. In the interim, as needed hydralazine is available. (3) Leukocytosis Qualifiers: Leukocytosis type: bandemia Qualified Code(s): D72.825 - Bandemia Is this a current diagnosis for this admission?: Yes Plan: Secondary to bilateral pneumonia. Plan as above. (4) Hyponatremia Is this a current diagnosis for this admission?: Yes Plan: Mild hyponatremia is noted on emergency department evaluation. This is likely secondary to intravascular volume depletion. The patient is being placed on maintenance IV fluids. We will continue to monitor. (5) CHF (congestive heart failure) Qualifiers: Congestive heart failure type: combined Congestive heart failure chronicity : chronic Qualified Code(s): I50.42 - Chronic combined systolic (congestive) and diastolic (congestive) heart failure Is this a current diagnosis for this admission?: Yes Plan: No evidence of acute CHF exacerbation at this time. ProBNP is 8100; this appears to be stable as her proBNP in early May was 8000. She has no evidence of fluid volume overload at this time, in fact, she may be slightly depleted. She will receive gentle rehydration with maintenance IV fluids. We will place the patient on a cardiac diet. Will obtain daily weights. The patient's home medications will be resumed once reconciled. Remaining plan as above. (6) COPD (chronic obstructive pulmonary disease) Is this a current diagnosis for this admission?: Yes Plan: Plan as above. Will hold steroid supplementation at this time. (7) Tobacco use disorder, continuous Is this a current diagnosis for this admission?: Yes Plan: The patient continues to smoke 1-2 packs daily. She does not appear to recognize that her continuous tobacco use is impacting her overall health. She becomes defensive when I suggest that her continued smoking may have prevented a full recovery and certainly is contributing to her COPD status. Replacement therapies were offered and declined at this time. - Time Time Spent: 50 to 70 Minutes Smoking Cessation Education: 3 to 10 minutes Medications reviewed and adjusted accordingly: Yes Anticipated discharge: Home
[2017-06-08] MEDS ORDERED: ENOXAPARIN SODIUM INJ 40 MG/0.4 ML DISP.SYRIN SUBCUT ONE ×2 (18:00→22:30)
[2017-06-08] MEDS: IPRATROPIUM/ALBUTEROL 0.5-2.5 MG/3 ML AMPUL NEB SCH (19:54)
[2017-06-08] MEDS ORDERED: FAMOTIDINE 20 MG TABLET PO SCH (22:00)
[2017-06-08] MEDS ORDERED: AZITHROMYCIN 500 MG in DEXTROSE 5%-WATER 250 ML IV SCH (22:00)
[2017-06-08] MEDS: FAMOTIDINE 20 MG TABLET PO SCH (23:21)
[2017-06-08] MEDS: GUAIFENESIN 600 MG TABLET.SA PO SCH (23:21)
[2017-06-09] MEDS: IPRATROPIUM/ALBUTEROL 0.5-2.5 MG/3 ML AMPUL NEB SCH ×4 (01:29→20:28)
[2017-06-09 01:55] LABS: ANION GAP 12 (5-19); BLOOD UREA NITROGEN 18 mg/dL (7-20); CALCIUM 8.5 mg/dL (8.4-10.2); CARBON DIOXIDE 31 mmol/L (22-30); CHLORIDE 92 mmol/L (98-107); GLUCOSE 101 mg/dL (75-110); MAGNESIUM 1.7 mg/dL (1.6-2.3); POTASSIUM 3.5 mmol/L (3.6-5.0); SODIUM 134.6 mmol/L (137-145)
[2017-06-09 05:33] LABS: ABSOLUTE EOSINOPHILS # (AUTO) 0.4 10^3/uL (0.0-0.6); ABSOLUTE LYMPHOCYTES (AUTO) 2.7 10^3/uL (0.5-4.7); ABSOLUTE MONOCYTES (AUTO) 1.3 10^3/uL (0.1-1.4); ABSOLUTE NEUT (AUTO) 13.6 10^3/uL (1.7-8.2); BASOPHILS % (AUTO) 0.2 % (0-2); HEMATOCRIT 26.6 % (36.0-47.0); HEMOGLOBIN 8.7 g/dL (12.0-15.5); LYMPHOCYTES % (AUTO) 15.1 % (13-45); MEAN CORPUSCULAR HEMOGLOBIN 27.3 pg (27.0-33.4); MEAN CORPUSCULAR HGB CONC 32.8 g/dL (32.0-36.0); MEAN CORPUSCULAR VOLUME 84 fl (80-97); PLATELET COUNT 539 10^3/uL (150-450); RED BLOOD COUNT 3.19 10^6/uL (3.72-5.28); RED CELL DISTRIBUTION WIDTH 14.5 % (11.5-14.0); SEGMENTED NEUTROPHILS % (AUTO) 75.7 % (42-78); TOTAL CELLS COUNTED % (AUTO) 100 %
[2017-06-09 05:57] LABS: ANION GAP 10 (5-19); BLOOD UREA NITROGEN 17 mg/dL (7-20); CALCIUM 8.6 mg/dL (8.4-10.2); CARBON DIOXIDE 33 mmol/L (22-30); CHLORIDE 92 mmol/L (98-107); GLUCOSE 104 mg/dL (75-110); POTASSIUM 3.7 mmol/L (3.6-5.0); SODIUM 135.3 mmol/L (137-145)
--- NOTE | 2017-06-09 10:26 | EKG REPORT ---
SEVERITY:- ABNORMAL ECG - SINUS RHYTHM PROBABLE LEFT ATRIAL ABNORMALITY NONSPECIFIC INTRAVENTRICULAR CONDUCTION DELAY LEFT VENTRICULAR HYPERTROPHY PROBABLE ANTERIOR INFARCT, ACUTE : Confirmed by: Ashli Whittaker 09-Jun-2017 10:26:21
[2017-06-09] MEDS: GUAIFENESIN 600 MG TABLET.SA PO SCH (11:00)
[2017-06-09] MEDS: ASPIRIN 81 MG TABLET, CHEWABLE PO SCH (11:01)
[2017-06-09] MEDS: ENOXAPARIN SODIUM INJ 40 MG/0.4 ML DISP.SYRIN SUBCUT SCH (11:10)
[2017-06-09] MEDS ORDERED: DOXYCYCLINE HYCLATE 100 MG TABLET PO ONE (11:30)
[2017-06-09] MEDS ORDERED: LETROZOLE 2.5 MG TABLET PO ONE (12:00)
[2017-06-09] MEDS ORDERED: NITROGLYCERIN 0.4 MG/TAB 25 TAB/BOTTLE SL PRN (14:21)
[2017-06-09] MEDS: LABETALOL HCL 200 MG TABLET PO SCH ×2 (15:21→18:48)
[2017-06-09] MEDS ORDERED: LORAZEPAM INJ 2 MG/1 ML VIAL IV ONE (15:30)
[2017-06-09 15:52] LABS: ANION GAP 10 (5-19); BLOOD UREA NITROGEN 15 mg/dL (7-20); CALCIUM 8.7 mg/dL (8.4-10.2); CARBON DIOXIDE 32 mmol/L (22-30); CHLORIDE 92 mmol/L (98-107); GLUCOSE 113 mg/dL (75-110); MAGNESIUM 1.7 mg/dL (1.6-2.3); POTASSIUM 3.6 mmol/L (3.6-5.0); SODIUM 133.8 mmol/L (137-145)
--- NOTE | 2017-06-09 16:12 | PDOC CONSULTATION ---
Consultation Consult Date: 06/09/17 Attending physician:: JONATHAN SHAWTESHARON Consult reason:: Cardiac dysrhythmia History of Present Illness Admission Date/PCP: 06/08/17 16:36 Patient complains of: Shortness of breath and palpitations History of Present Illness: MIRTHA RUFFIN is a 77 year old female with a past medical history of CHF, hypertension, peripheral vascular disease, abdominal aortic aneurysm, renal artery aneurysm OPD, continuous tobacco use, GERD, and left breast cancer tended to the emergency department with a complaint of difficulty breathing for the last 10 days. She states that she was admitted to our facility early May for 3 days for similar symptoms. She states that at the time of her discharge she was feeling to be in health and tells me that she was able to complete many of her errands and shopping for [employer]. She states that approximately 3-4 days prior to [place], she developed a cough with nasal congestion, poor appetite. She was seen at an urgent care on the Wednesday before and was told that because her oxygen level low and they would be able to see her and recommended that she follow-up in the emergency department. At that time she declined to be seen in the emergency department as she "had too much to take care of for the new year." She states that she attempted to be seen by her primary care provider today but was told that there was no appointments available and was again directed to the emergency department. She is very frustrated by the "run around" and asks me to "run every single test imaginable so that I do not have to be seen by another doctor again soon." Evaluation in the emergency department does feel a WBC count of 16.5, but of 9.5 , Pro-BNP of 8100, and a chest x-ray that demonstrated bilateral pneumonias. She is referred to the hospital service for admission and management. 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, Heart Murmur Denies: Atrial Fibrillation, Coronary Artery Disease, Myocardial Infarction, Hyperlipidema, Pulmonary Embolism Pulmonary Medical History: Reports: Bronchitis, Chronic Obstructive Pulmonary Disease (COPD), Pneumonia Denies: Asthma, Respiratory Failure, Sleep Apnea, Tuberculosis EENT Medical History: Reports: None Neurological Medical History: Denies: Hemorrhagic CVA, Ischemic CVA, Seizures Endocrine Medical History: Denies: Diabetes Mellitus Type 1, Diabetes Mellitus Type 2, Hyperthyroidism, Hypothyroidism Renal/ Medical History: Reports: Nephrolithiasis, Other - Right ureter stent Denies: End Stage Renal Disease Malignancy Medical History: Reports: Breast Cancer - LEFT AT PRESENT Denies: Cervical Cancer, Leukemia, Lung Cancer, Ovarian Cancer GI Medical History: Reports: Gastroesophageal Reflux Disease Denies: Cirrhosis, Crohn's Disease, Hepatitis, Hiatal Hernia Musculoskeltal Medical History: Denies: Arthritis, Fibromyalgia Psychiatric Medical History: Denies: Bipolar Disorder, Depression, Post Traumatic Stress Disorder Hematology: Denies: Anemia, Hemophilia, Sickle Cell Disease, Bleeding Tendencies Infectious Medical History: Denies: HIV Past Surgical History Past Surgical History: Reports: Cholecystectomy, Tubal Ligation, Other - History of endovascular stent placement to the bilateral carotid arteries. Denies: Amputation, Appendectomy, Section, Colostomy, Coronary Artery Bypass Graft, Gastric Bypass Surgery, Herniorrhaphy, Hysterectomy, Mastectomy, Pacemaker, Tonsillectomy Social History Information Source: Patient Lives with: Alone Smoking Status: Former Smoker Last Time Smoked: 05/07/2017 Frequency of Alcohol Use: None Hx Recreational Drug Use: No Drugs: None Hx Prescription Drug Abuse: No - Advance Directive Resuscitation Status: Full Code Surrogate healthcare decision maker:: Patient's daughter is the surrogate decision maker. Family History Family History: Reviewed & Not Pertinent, DM Parental Family History Reviewed: Yes Children Family History Reviewed: Yes Sibling(s) Family History Reviewed.: Yes Medication/Allergy Home Medications: Aspirin [Aspirin 81 mg Chewable Tablet] 81 mg PO DAILY 06/08/17 Fluticasone/Salmeterol [Advair 250-50 Diskus 28 dose] 1 inh IH Q12 06/08/17 Furosemide [Lasix 20 mg Tablet] 20 mg PO Q12 06/08/17 Labetalol HCl [Normodyne 200 mg Tablet] 200 mg PO Q6 06/08/17 Letrozole [Femara 2.5 Mg Tablet] 2.5 mg PO DAILY 06/08/17 Levalbuterol HCl [Xopenex Neb 1.25 mg/3 ml Ampul] 1.25 mg NEB RTBIDP PRN Tiotropium Gray [Spiriva Respimat] 1 spray IH DAILY 06/08/17 Allergies/Adverse Reactions: Iodinated Contrast- Oral and IV Dye [IV Dye, Iodine Containing] Allergy (Severe , Verified 06/08/17 11:02) Hives azithromycin Allergy (Intermediate, Verified 06/09/17 11:00) Pruritis JONE Inhibitors [Jone Inhibitors] Allergy (Verified 06/08/17 11:02) aliskiren hemifumarate [From Tekturna] Allergy (Verified 06/08/17 11:02) amlodipine [Amlodipine] Allergy (Verified 06/08/17 11:02) cephalexin [Cephalexin] Allergy (Verified 06/08/17 11:02) ciprofloxacin [From Cipro] Allergy (Verified 06/08/17 11:02) clonidine [Clonidine] Allergy (Verified 06/08/17 11:02) clopidogrel bisulfate [From Plavix] Allergy (Verified 06/08/17 11:02) diphenhydramine HCl [From Benadryl] Allergy (Verified 06/08/17 11:02) diphtheria,pertussis (acellular),te [Diphth,Pertuss(Acell),Tet Vac] Allergy ( Verified 06/08/17 11:02) Estrogens Allergy (Verified 06/08/17 11:02) nifedipine [From Procardia] Allergy (Verified 06/08/17 11:02) nisoldipine [From Sular] Allergy (Verified 06/08/17 11:02) Penicillins Allergy (Verified 06/08/17 11:02) Sulfa (Sulfonamide Antibiotics) Allergy (Verified 06/08/17 11:02) Review of Systems Review of Systems: Please see history of present illness and past medical history as wall. Constitutional: Noted mild fever and chills reported. Head : No recent chronic headaches, recent head injury. Eyes: No recent eye pain, diplopia, redness, discharge, acute visual changes. Ears: No recent chronic ear pain, acute hearing loss, ear discharge. Oral cavity: No recent ulcerations, bleeding, oral cavity discomfort. Neck: No recent acute neck pain reported. Hematologic: No recent easy bruising or bleeding or hematologic malignancy reported. Lymphatic: No recent lymphatic malignancy, chronic lymphadenopathy reported yet Cardiovascular system review: See history of present illness. Has noted some palpitations. Give history of valvular heart disease. Respiratory system review: Noted cough with yellow sputum production but denied hemoptysis, blood clots in the lungs reported. Shortness of breath on exertion Gastrointestinal system review: Negative for any recent acute or chronic abdominal pain, hematemesis, melena, recent change in bowel habits. Genitourinary system review: No recent acute or chronic hematuria, flank pain, UTI etc. reported. Skin system review: Negative for any recent abnormal bruising, no rash, no pruritus reported. Neurologic: No prior history of strokes, mini strokes, seizure disorder. Psychologic: No history of major psychosis or major depression reported. Musculoskeletal: Minor aches and pains reported. No acute joint swelling reported. Endocrine: No recent polyuria, polydipsia, recent heat or cold intolerance. Physical Exam Vital Signs: Temp Pulse Resp BP Pulse Ox 97.7 F 96 20 168/67 H 96 06/09/17 13:51 06/09/17 13:51 06/09/17 13:51 06/09/17 13:51 06/09/17 13:51 Intake & Output 06/08/17 06/09/17 06/10/17 06:59 06:59 06:59 Weight 45.2 kg Exam: GENERAL: well-nourished and in no acute distress. Alert and oriented x3 HEAD: Atraumatic, normocephalic. EYES: Pupils equal round and reactive to light, extraocular movements intact, sclera anicteric, conjunctiva are normal. ENT: TMs normal, nares patent, oropharynx clear without exudates. Moist mucous membranes. No oral ulcerations or bleeding gums noted NECK: supple without lymphadenopathy. Trachea is central. No cervical or axillary lymphadenopathy noted. Carotids are 2+, JVD WNL LUNGS: Respiration seems nonlabored, no significant accessory muscle action noted. Bilateral fine crackles and mild bilateral wheezes rales or rhonchi noted. No significant dullness noted on percussion. CHEST: Palpation of the chest wall shows no significant chest wall tenderness. No other significant abnormalities noted. HEART: [place] [employer], No PSH, 2/6 REEMA aortic area, 4/6 bailey systolic murmur mitral area , no rubs, positive S3 gallops. ABDOMEN: Soft, no significant tenderness appreciated, normoactive bowel sounds. No guarding, no rebound. No rigidity noted . No masses appreciated. EXTREMITIES: Pedal pulses are 1-2+, no calf tenderness noted. No clubbing or cyanosis.trace to 1+ pedal edema noted NEUROLOGICAL: Focused neurological exam showed no significant neurologic deficit. Normal speech, no focal weakness appreciated. PSYCH: Normal mood, normal affect. Judgment and insight within normal limits. SKIN: No significant ecchymosis, rash, ulcerations or signs of pruritus noted. MUSCULOSKELETAL EXAM: No significant joint swelling noted. Results Laboratory Results: 06/09/17 05:10 06/09/17 14:53 06/09/17 06/09/17 06/09/17 01:25 05:10 05:10 WBC 18.0 H RBC 3.19 L Hgb 8.7 L Hct 26.6 L MCV 84 MCH 27.3 MCHC 32.8 RDW 14.5 H Plt Count 539 H Seg Neutrophils % 75.7 Lymphocytes % 15.1 Monocytes % 7.0 Eosinophils % 2.0 Basophils % 0.2 Absolute Neutrophils 13.6 H Absolute Lymphocytes 2.7 Absolute Monocytes 1.3 Absolute Eosinophils 0.4 Absolute Basophils 0.0 Sodium 134.6 L 135.3 L Potassium 3.5 L 3.7 Chloride 92 L 92 L Carbon Dioxide 31 H 33 H Anion Gap 12 10 BUN 18 17 Creatinine 1.03 0.96 Est GFR ( Amer) > 60 > 60 Est GFR (Non-Af Amer) 52 L 56 L Glucose 101 104 Calcium 8.5 8.6 Magnesium 1.7 06/09/17 14:53 WBC RBC Hgb Hct MCV MCH MCHC RDW Plt Count Seg Neutrophils % Lymphocytes % Monocytes % Eosinophils % Basophils % Absolute Neutrophils Absolute Lymphocytes Absolute Monocytes Absolute Eosinophils Absolute Basophils Sodium 133.8 L Potassium 3.6 Chloride 92 L Carbon Dioxide 32 H Anion Gap 10 BUN 15 Creatinine 1.07 Est GFR ( Amer) > 60 Est GFR (Non-Af Amer) 49 L Glucose 113 H Calcium 8.7 Magnesium 1.7 EKG Comments: Sinus tachycardia and left bundle branch block pattern. Impressions: Chest X-Ray 06/08/17 11:31 IMPRESSION: Bilateral pulmonary infiltrates -most likely bronchopneumonia. Small bilateral pleural effusions and possible pulmonary vascular congestion. Assessment & Plan - Diagnosis (1) Severe mitral regurgitation Is this a current diagnosis for this admission?: Yes (2) Bilateral pneumonia Qualifiers: Pneumonia type: due to unspecified organism Lung location: unspecified part of lung Qualified Code(s): J18.9 - Pneumonia, unspecified organism Is this a current diagnosis for this admission?: Yes (3) COPD (chronic obstructive pulmonary disease) Qualifiers: COPD type: COPD with acute exacerbation Qualified Code(s): J44.1 - Chronic obstructive pulmonary disease with (acute) exacerbation Is this a current diagnosis for this admission?: Yes (4) CHF (congestive heart failure) Qualifiers: Congestive heart failure type: combined Congestive heart failure chronicity : chronic Qualified Code(s): I50.42 - Chronic combined systolic (congestive) and diastolic (congestive) heart failure Is this a current diagnosis for this admission?: Yes (5) COPD exacerbation Is this a current diagnosis for this admission?: Yes (6) Cardiac dysrhythmia Qualifiers: Arrhythmia type: other cardiac arrhythmia Qualified Code(s): I49.8 - Other specified cardiac arrhythmias Is this a current diagnosis for this admission?: Yes - Notes Notes: Acute on chronic systolic and diastolic heart failure with contribution from severe mitral regurgitation. Recommend vasodilator therapy and diuretic therapy. Patient does not want mitral valve replacement or any surgical interventions. Bilateral pneumonia: Continue with antibiotic therapy. COPD: Continue with bronchodilator and steroid therapy. Cardiac dysrhythmia: Patient does describe palpitations therefore is having cardiac dysrhythmia. Available telemetry strips reviewed to suggest that they are mostly artifacts but would recommend continuing monitoring. Because of severe mitral regurgitation, patient prognosis is grave but she does not need any surgical intervention. - Time Time Spent: 30 to 50 Minutes - CODE STATUS was discussed, patient remains full code. Surrogate decision-maker patient's daughter. Multiple medical problems were addressed. More than 50% of the time spent coordinating care, discussing management plans with involved caregivers. Management plans discussed with involved personnels. Medical decision making was of moderate to high complexity , patient's has multiple comorbidities. Medications reviewed and adjusted accordingly: Yes
--- NOTE | 2017-06-09 17:20 | PDOC PROGRESS REPORT ---
Subjective Progress Note for:: 06/09/17 Subjective:: The patient is seen on morning rounds. She is found resting comfortably in bed with her family member present. Unfortunately, the patient remains in the emergency department and has not yet transferred to her telemetry bed. Because of this, she states that she did not sleep well and is feeling fatigued today. Otherwise, she states that her breathing has improved as compared to yesterday. She remains on nasal cannula at 3 L/min, of note, the patient uses 2 L of oxygen on a regular basis at home. She continues to have a slight productive cough, however, states that it is now thin and clear in nature. She is concerned about a possible medication reaction that she had last night after receiving IV azithromycin. She reports burning sensation to the IV site with itching to that extremity. Symptoms have since resolved. Otherwise she had no questions or concerns at the time. Reason For Visit: PNEUMONIA Physical Exam Vital Signs: Temp Pulse Resp BP Pulse Ox 97.7 F 90 20 168/67 H 96 06/09/17 13:51 06/09/17 14:00 06/09/17 13:51 06/09/17 13:51 06/09/17 13:51 Intake & Output 06/08/17 06/09/17 06/10/17 06:59 06:59 06:59 Weight 45.2 kg General appearance: PRESENT: no acute distress, thin, well-developed, well- nourished Head exam: PRESENT: atraumatic, normocephalic Eye exam: PRESENT: conjunctiva pink, EOMI, PERRLA. ABSENT: scleral icterus Ear exam: PRESENT: normal external ear exam Mouth exam: PRESENT: moist, tongue midline Neck exam: ABSENT: carotid bruit, JVD, lymphadenopathy, thyromegaly Respiratory exam: PRESENT: clear to auscultation heather, decreased breath sounds, prolonged expiratory phas, rhonchi - Throughout, symmetrical, tachypnea, wheezes - Expiratory, other - Supplemental oxygen via nasal cannula. ABSENT: rales Cardiovascular exam: PRESENT: RRR, +S1, +S2, systolic murmur. ABSENT: diastolic murmur, rubs Pulses: PRESENT: normal dorsalis pedis pul Vascular exam: PRESENT: normal capillary refill GI/Abdominal exam: PRESENT: normal bowel sounds, soft. ABSENT: distended, guarding, mass, organolmegaly, rebound, tenderness Rectal exam: PRESENT: deferred Extremities exam: PRESENT: full ROM. ABSENT: calf tenderness, clubbing, pedal edema Neurological exam: PRESENT: alert, awake, oriented to person, oriented to place , oriented to time, oriented to situation, CN II-XII grossly intact. ABSENT: motor sensory deficit Psychiatric exam: PRESENT: anxious, appropriate affect, normal mood. ABSENT: homicidal ideation, suicidal ideation Skin exam: PRESENT: dry, intact, warm. ABSENT: cyanosis, rash Results Laboratory Results: 06/09/17 05:10 06/09/17 14:53 06/09/17 06/09/17 06/09/17 01:25 05:10 05:10 WBC 18.0 H RBC 3.19 L Hgb 8.7 L Hct 26.6 L MCV 84 MCH 27.3 MCHC 32.8 RDW 14.5 H Plt Count 539 H Seg Neutrophils % 75.7 Lymphocytes % 15.1 Monocytes % 7.0 Eosinophils % 2.0 Basophils % 0.2 Absolute Neutrophils 13.6 H Absolute Lymphocytes 2.7 Absolute Monocytes 1.3 Absolute Eosinophils 0.4 Absolute Basophils 0.0 Sodium 134.6 L 135.3 L Potassium 3.5 L 3.7 Chloride 92 L 92 L Carbon Dioxide 31 H 33 H Anion Gap 12 10 BUN 18 17 Creatinine 1.03 0.96 Est GFR ( Amer) > 60 > 60 Est GFR (Non-Af Amer) 52 L 56 L Glucose 101 104 Calcium 8.5 8.6 Magnesium 1.7 06/09/17 14:53 WBC RBC Hgb Hct MCV MCH MCHC RDW Plt Count Seg Neutrophils % Lymphocytes % Monocytes % Eosinophils % Basophils % Absolute Neutrophils Absolute Lymphocytes Absolute Monocytes Absolute Eosinophils Absolute Basophils Sodium 133.8 L Potassium 3.6 Chloride 92 L Carbon Dioxide 32 H Anion Gap 10 BUN 15 Creatinine 1.07 Est GFR ( Amer) > 60 Est GFR (Non-Af Amer) 49 L Glucose 113 H Calcium 8.7 Magnesium 1.7 06/09/17 14:53 Troponin I < 0.012 Impressions: Chest X-Ray 06/08/17 11:31 IMPRESSION: Bilateral pulmonary infiltrates -most likely bronchopneumonia. Small bilateral pleural effusions and possible pulmonary vascular congestion. Assessment & Plan - Diagnosis (1) Bilateral pneumonia Qualifiers: Pneumonia type: due to unspecified organism Lung location: unspecified part of lung Qualified Code(s): J18.9 - Pneumonia, unspecified organism Is this a current diagnosis for this admission?: Yes Plan: The patient presents to the emergency department with a complaint of dyspnea, productive cough, subjective fevers. She is noted to have a WBC count of 16.5 and bilateral pneumonia by chest x-ray. Blood cultures: Pending Sputum culture: Pending She has been admitted to the medical floor on continuous cardiac telemetry. The patient reports a possible medication reaction to azithromycin. Therefore will transition the patient to p.o. doxycycline. She is supported with supplemental oxygen as needed to keep O2 sats greater than 88%. Continue on Mucinex twice daily with Robitussin syrup available as needed for cough. Low threshold for steroid therapy in patient with COPD. (2) Hypertension Is this a current diagnosis for this admission?: Yes Plan: Blood pressures remain elevated though slightly improved today. The patient was initially hypotensive at 93/72, but is now at 150/54. The patient's daughter states that she takes multiple blood pressure medications throughout the day. At the time of this dictation, the patient's home medications are being reconciled by the pharmacy intake coordinator. Resume home medications. IV hydralazine as needed. Appreciate cardiology consultation recommendation. (3) Hyponatremia Is this a current diagnosis for this admission?: Yes Plan: Stable. Mild hyponatremia is noted on emergency department evaluation. This is likely secondary to intravascular volume depletion. Continue IV fluids. We will continue to monitor. (4) CHF (congestive heart failure) Qualifiers: Congestive heart failure type: combined Congestive heart failure chronicity : chronic Qualified Code(s): I50.42 - Chronic combined systolic (congestive) and diastolic (congestive) heart failure Is this a current diagnosis for this admission?: Yes Plan: No evidence of acute CHF exacerbation at this time. ProBNP is 8100; this appears to be stable as her proBNP in early May was 8000. She has no evidence of fluid volume overload at this time, in fact, she may be slightly depleted. She will receive gentle rehydration with maintenance IV fluids. We will place the patient on a cardiac diet. Will obtain daily weights. The patient's home medications have been resumed. We will obtain a repeat echocardiogram. Appreciate cardiology's consultation and recommendations. (5) COPD (chronic obstructive pulmonary disease) Qualifiers: COPD type: COPD with acute exacerbation Qualified Code(s): J44.1 - Chronic obstructive pulmonary disease with (acute) exacerbation Is this a current diagnosis for this admission?: Yes Plan: Plan as above. Will hold steroid supplementation at this time. (6) Tobacco use disorder, continuous Is this a current diagnosis for this admission?: Yes Plan: The patient continues to smoke 1-2 packs daily. She does not appear to recognize that her continuous tobacco use is impacting her overall health. She becomes defensive when I suggest that her continued smoking may have prevented a full recovery and certainly is contributing to her COPD status. Replacement therapies were offered and declined at this time. (7) Leukocytosis Qualifiers: Leukocytosis type: bandemia Qualified Code(s): D72.825 - Bandemia Is this a current diagnosis for this admission?: Yes Plan: Secondary to bilateral pneumonia. Plan as above. (8) Ventricular tachycardia (paroxysmal) Is this a current diagnosis for this admission?: Yes Plan: Patient has been noted to have multiple short runs of V. tach; longest lasting 11 beats. We will monitor BMP and magnesium closely. Plan the patient remains on continuous cardiac telemetry. Continue the patient's home medication; labetalol. Will obtain a repeat echocardiogram. Appreciate cardiology's consultation recommendations. - Time Time Spent with patient: 25-34 minutes Medications reviewed and adjusted accordingly: Yes Anticipated discharge: Home
[2017-06-09] MEDS ORDERED: CEFTRIAXONE 1 GM/D5W RTU 1 GM/50 ML RTUPB IV SCH (18:00)
[2017-06-09] MEDS ORDERED: HYDRALAZINE HCL 10 MG TABLET PO PRN (18:02)
[2017-06-09] MEDS ORDERED: HALOPERIDOL LACTATE INJ 5 MG/1 ML VIAL IV ONE (18:15)
--- NOTE | 2017-06-09 18:48 | XCELERA REPORT ---
[address] [address] Transthoracic Echocardiogram Report Name: MIRTHA RUFFIN Age: 77 yrs Gender: Female : 1940 Patient Status: Inpatient Patient Location: [address] [place] [address] Study Date: 06/09/2017 04:39 PM Height: 60 in Weight: 99 lb BSA: 1.4 m2 Procedure: A complete two-dimensional transthoracic echocardiogram was performed (2D, M-mode, spectral and color flow Doppler). The study was technically difficult with many images being suboptimal in quality. Reason For Study: chest pain Ordering Physician: OLGA MACKENZIE Performed By: Madison Baird Interpretation Summary The left ventricular ejection fraction is within normal limits. LV diastolic function could not be adequately assessed. There is mild concentric left ventricular hypertrophy. The left ventricle is grossly normal size. Wall motion cannot be accurately commented on, but no definite regional wall motion abnormalities noted. The right ventricular systolic function is normal. The left atrial size is normal. The right atrium is normal in size There is a moderate to severe amount of mitral regurgitation There is no mitral valve stenosis. There is a moderate amount of aortic regurgitation There is no aortic valve stenosis There is a mild amount of tricuspid regurgitation There is mild pulmonary hypertension by echo Right ventricular systolic pressure is estimated to be elevated at 30- 40mmHg. The aortic root is not well visualized. The inferior vena cava appeared normal and decreased > 50% with respiration (RAP 5-10 mmHg) There is no pericardial effusion. MMode/2D Measurements & Calculations RVDd: 1.8 cm LVIDd: 4.9 cm FS: 37.2 % Ao root diam: 2.7 cm IVSd: 1.1 cm LVIDs: 3.1 cm EDV(Teich): 114.3 ml LVPWd: 1.1 cm ESV(Teich): 37.7 ml Ao root area: 5.8 cm2 EF(Teich): 67.0 % LA dimension: 3.1 cm Doppler Measurements & Calculations MV E max goran: MV P1/2t max goran: TR max goran: 148.1 cm/sec 149.3 cm/sec 272.8 cm/sec MV A max goran: MV P1/2t: 59.5 msec TR max P.8 mmHg 167.8 cm/sec MV E/A: 0.88 MVA(P1/2t): 3.7 cm2 MV dec slope: 734.7 cm/sec2 Left Ventricle The left ventricle is grossly normal size. There is mild concentric left ventricular hypertrophy. The left ventricular ejection fraction is within normal limits. LV diastolic function could not be adequately assessed. Wall motion cannot be accurately commented on, but no definite regional wall motion abnormalities noted. Right Ventricle The right ventricle is normal in size, thickness and function. There is normal right ventricular wall thickness. The right ventricular systolic function is normal. Atria The right atrium is normal in size. The left atrial size is normal. Interarterial septum not well visualized and not well dopplered. Cannot comment on ASD/PFO presence. Mitral Valve The mitral valve leaflets are sclerotic and show some degree of functional abnormality. There is no mitral valve stenosis. There is a moderate to severe amount of mitral regurgitation. Aortic Valve The aortic valve is mildly calcified. There is no aortic valve stenosis. There is a moderate amount of aortic regurgitation. Tricuspid Valve The tricuspid valve is not well visualized, but is grossly normal. There is no tricuspid stenosis. There is a mild amount of tricuspid regurgitation. There is mild pulmonary hypertension by echo. Right ventricular systolic pressure is estimated to be elevated at 30-40mmHg. Pulmonic Valve The pulmonic valve is not well visualized. Great Vessels The aortic root is not well visualized. The inferior vena cava appeared normal and decreased > 50% with respiration (RAP 5-10 mmHg). Effusions There is no pericardial effusion. : OLGA MACKENZIE > Ashli Whittaker
[2017-06-09] MEDS ORDERED: FUROSEMIDE 20 MG TABLET PO ONE (19:00)
[2017-06-09] MEDS ORDERED: ISOSORBIDE MONONITRATE 30 MG TAB.ER.24H PO ONE (19:00)
[2017-06-09] MEDS ORDERED: SPIRONOLACTONE 25 MG TABLET PO ONE (19:00)
[2017-06-09] MEDS ORDERED: FUROSEMIDE 40 MG TABLET PO ONE ×2 (19:00)
--- NOTE | 2017-06-09 19:04 | EKG REPORT ---
SEVERITY:- ABNORMAL ECG - SINUS RHYTHM FIRST DEGREE AV BLOCK LEFT BUNDLE BRANCH BLOCK : Confirmed by: Ashli Whittaker 09-Jun-2017 19:03:52
[2017-06-09] MEDS: DOXYCYCLINE HYCLATE 100 MG TABLET PO SCH (21:41)
[2017-06-10] MEDS: GUAIFENESIN 600 MG TABLET.SA PO SCH ×3 (00:12→22:37)
[2017-06-10] MEDS: ACETAMINOPHEN 325 MG TABLET PO PRN ×2 (00:16→22:36)
[2017-06-10] MEDS: FAMOTIDINE 20 MG TABLET PO SCH ×2 (00:16→22:37)
[2017-06-10] MEDS: LABETALOL HCL 200 MG TABLET PO SCH ×4 (00:17→16:56)
[2017-06-10] MEDS: IPRATROPIUM/ALBUTEROL 0.5-2.5 MG/3 ML AMPUL NEB SCH ×4 (02:09→21:10)
[2017-06-10 03:22] LABS: ABSOLUTE BASOPHILS # (AUTO) 0.1 10^3/uL (0.0-0.2); ABSOLUTE EOSINOPHILS # (AUTO) 0.5 10^3/uL (0.0-0.6); ABSOLUTE LYMPHOCYTES (AUTO) 2.5 10^3/uL (0.5-4.7); ABSOLUTE MONOCYTES (AUTO) 1.1 10^3/uL (0.1-1.4); ABSOLUTE NEUT (AUTO) 8.1 10^3/uL (1.7-8.2); BASOPHILS % (AUTO) 0.6 % (0-2); EOSINOPHILS % (AUTO) 4.2 % (0-6); HEMATOCRIT 24.4 % (36.0-47.0); HEMOGLOBIN 8.2 g/dL (12.0-15.5); MEAN CORPUSCULAR HEMOGLOBIN 27.8 pg (27.0-33.4); MEAN CORPUSCULAR HGB CONC 33.5 g/dL (32.0-36.0); MEAN CORPUSCULAR VOLUME 83 fl (80-97); MONOCYTES % (AUTO) 8.8 % (3-13); PLATELET COUNT 466 10^3/uL (150-450); RED BLOOD COUNT 2.93 10^6/uL (3.72-5.28); RED CELL DISTRIBUTION WIDTH 14.7 % (11.5-14.0); SEGMENTED NEUTROPHILS % (AUTO) 66.4 % (42-78); TOTAL CELLS COUNTED % (AUTO) 100 %; WHITE BLOOD COUNT 12.3 10^3/uL (4.0-10.5)
[2017-06-10 03:29] LABS: ANION GAP 10 (5-19); BLOOD UREA NITROGEN 14 mg/dL (7-20); CALCIUM 8.6 mg/dL (8.4-10.2); CARBON DIOXIDE 32 mmol/L (22-30); CHLORIDE 92 mmol/L (98-107); GLUCOSE 107 mg/dL (75-110); POTASSIUM 3.6 mmol/L (3.6-5.0); SODIUM 133.7 mmol/L (137-145)
[2017-06-10] MEDS ORDERED: FUROSEMIDE 40 MG TABLET PO SCH (10:00)
[2017-06-10] MEDS: ASPIRIN 81 MG TABLET, CHEWABLE PO SCH (10:32)
[2017-06-10] MEDS: SPIRONOLACTONE 25 MG TABLET PO SCH (10:32)
[2017-06-10] MEDS: FUROSEMIDE 20 MG TABLET PO SCH (10:32)
[2017-06-10] MEDS: ENOXAPARIN SODIUM INJ 40 MG/0.4 ML DISP.SYRIN SUBCUT SCH (10:32)
[2017-06-10] MEDS: ISOSORBIDE MONONITRATE 30 MG TAB.ER.24H PO SCH (10:32)
[2017-06-10] MEDS: LETROZOLE 2.5 MG TABLET PO SCH (10:33)
[2017-06-10] MEDS: DOXYCYCLINE HYCLATE 100 MG TABLET PO SCH (13:01)
--- NOTE | 2017-06-10 13:59 | EKG REPORT ---
SEVERITY:- ABNORMAL ECG - SINUS RHYTHM NONSPECIFIC INTRAVENTRICULAR CONDUCTION DELAY LEFT VENTRICULAR HYPERTROPHY : Confirmed by: Ashli Whittaker 10-Jun-2017 13:58:23
--- NOTE | 2017-06-10 17:04 | PDOC PROGRESS REPORT ---
Subjective Progress Note for:: 06/10/17 Subjective:: Complains of pain on her tongue and findings suspicious for thrush Reason For Visit: PNEUMONIA Physical Exam Vital Signs: Temp Pulse Resp BP Pulse Ox 97.3 F 81 18 152/60 H 96 06/10/17 11:22 06/10/17 14:00 06/10/17 11:22 06/10/17 11:22 06/10/17 11:22 Intake & Output 06/09/17 06/10/17 06/11/17 06:59 06:59 06:59 Intake Total 789 450 Output Total 1400 430 Balance -611 20 Weight 45.2 kg 41.5 kg General appearance: PRESENT: no acute distress Eye exam: PRESENT: conjunctiva pink. ABSENT: scleral icterus Mouth exam: PRESENT: moist, tongue midline, other - Tongue erythematous consistent with thrush Neck exam: ABSENT: JVD Respiratory exam: PRESENT: rales - Basilar rales. ABSENT: rhonchi, wheezes Cardiovascular exam: PRESENT: RRR, systolic murmur - 3/6. ABSENT: diastolic murmur, rubs GI/Abdominal exam: PRESENT: normal bowel sounds, soft. ABSENT: distended, guarding, mass, organolmegaly, rebound, tenderness Extremities exam: ABSENT: calf tenderness, clubbing, pedal edema Neurological exam: PRESENT: alert, awake, oriented to person, oriented to place , oriented to time, oriented to situation, CN II-XII grossly intact. ABSENT: motor sensory deficit Psychiatric exam: PRESENT: appropriate affect Skin exam: PRESENT: dry, intact, warm. ABSENT: cyanosis, rash Results Laboratory Results: 06/10/17 03:05 06/10/17 03:05 06/10/17 06/10/17 03:05 03:05 WBC 12.3 H RBC 2.93 L Hgb 8.2 L Hct 24.4 L MCV 83 MCH 27.8 MCHC 33.5 RDW 14.7 H Plt Count 466 H Seg Neutrophils % 66.4 Lymphocytes % 20.0 Monocytes % 8.8 Eosinophils % 4.2 Basophils % 0.6 Absolute Neutrophils 8.1 Absolute Lymphocytes 2.5 Absolute Monocytes 1.1 Absolute Eosinophils 0.5 Absolute Basophils 0.1 Sodium 133.7 L Potassium 3.6 Chloride 92 L Carbon Dioxide 32 H Anion Gap 10 BUN 14 Creatinine 1.01 Est GFR ( Amer) > 60 Est GFR (Non-Af Amer) 53 L Glucose 107 Calcium 8.6 06/09/17 06/09/17 06/10/17 14:53 21:05 03:05 Troponin I < 0.012 < 0.012 < 0.012 NT-Pro-B Natriuret Pep 06/10/17 03:05 Troponin I NT-Pro-B Natriuret Pep [id number] H Impressions: Chest X-Ray 06/08/17 11:31 IMPRESSION: Bilateral pulmonary infiltrates -most likely bronchopneumonia. Small bilateral pleural effusions and possible pulmonary vascular congestion. Assessment & Plan - Diagnosis (1) Bilateral pneumonia Qualifiers: Pneumonia type: due to unspecified organism Lung location: unspecified part of lung Qualified Code(s): J18.9 - Pneumonia, unspecified organism Is this a current diagnosis for this admission?: Yes Plan: Patient is growing strep pneumoniae. Will give oral doxycycline (2) COPD (chronic obstructive pulmonary disease) Qualifiers: COPD type: COPD with acute exacerbation Qualified Code(s): J44.1 - Chronic obstructive pulmonary disease with (acute) exacerbation Is this a current diagnosis for this admission?: Yes Plan: Continue with nebulizers. (3) Hypertension Is this a current diagnosis for this admission?: Yes (4) Severe mitral regurgitation Is this a current diagnosis for this admission?: Yes Plan: Patient is unable to tolerate any surgical intervention (5) Tobacco use disorder, continuous Is this a current diagnosis for this admission?: Yes Plan: She is encouraged to quit (6) Acute and chronic respiratory failure Is this a current diagnosis for this admission?: Yes (7) Chronic renal insufficiency Is this a current diagnosis for this admission?: Yes (8) Hyperlipidemia Is this a current diagnosis for this admission?: Yes (9) Hypertension Is this a current diagnosis for this admission?: Yes (10) Hyponatremia Is this a current diagnosis for this admission?: Yes (11) Pulmonary hypertension Is this a current diagnosis for this admission?: Yes (12) Thrush Is this a current diagnosis for this admission?: Yes Plan: We will start nystatin - Time Time Spent with patient: 25-34 minutes - Inpatient Certification Medical Necessity: Need Close Monitoring Due to Risk of Patient Decompensation
[2017-06-10] MEDS: NYSTATIN 500000 UNIT/5 ML UDCUP PO SCH (18:00)
[2017-06-11] MEDS: DOXYCYCLINE HYCLATE 100 MG TABLET PO SCH ×3 (00:16→22:41)
[2017-06-11] MEDS: LABETALOL HCL 200 MG TABLET PO SCH ×5 (00:16→23:00)
[2017-06-11] MEDS: NYSTATIN 500000 UNIT/5 ML UDCUP PO SCH ×5 (00:16→22:44)
[2017-06-11] MEDS: IPRATROPIUM/ALBUTEROL 0.5-2.5 MG/3 ML AMPUL NEB SCH ×2 (01:59→07:55)
[2017-06-11 05:48] LABS: HEMATOCRIT 25.8 % (36.0-47.0); HEMOGLOBIN 8.6 g/dL (12.0-15.5); MEAN CORPUSCULAR HEMOGLOBIN 27.8 pg (27.0-33.4); MEAN CORPUSCULAR HGB CONC 33.4 g/dL (32.0-36.0); MEAN CORPUSCULAR VOLUME 83 fl (80-97); PLATELET COUNT 522 10^3/uL (150-450); RED CELL DISTRIBUTION WIDTH 14.6 % (11.5-14.0); WHITE BLOOD COUNT 9.2 10^3/uL (4.0-10.5)
[2017-06-11 06:04] LABS: ANION GAP 11 (5-19); BLOOD UREA NITROGEN 15 mg/dL (7-20); CALCIUM 9.1 mg/dL (8.4-10.2); CARBON DIOXIDE 30 mmol/L (22-30); CHLORIDE 94 mmol/L (98-107); GLUCOSE 84 mg/dL (75-110); POTASSIUM 4.5 mmol/L (3.6-5.0); SODIUM 135.4 mmol/L (137-145)
[2017-06-11 06:20] LABS: ABSOLUTE LYMPHOCYTES# (MANUAL) 1.5 10^3/uL (0.5-4.7); ABSOLUTE MONOCYTES # (MANUAL) 0.5 10^3/uL (0.1-1.4); ABSOLUTE NEUTROPHILS# (MANUAL) 6.8 10^3/uL (1.7-8.2); BASOPHILS % (MANUAL) 0 % (0-2); EOSINOPHILS % (MANUAL) 5 % (0-6); LYMPHOCYTES % (MANUAL) 16 % (13-45); MONOCYTES % (MANUAL) 5 % (3-13); SEGMENTED NEUTROPHILS % (MAN) 74 % (42-78); TOTAL CELLS COUNTED 100
[2017-06-11 06:23] LABS: ANISOCYTOSIS SLIGHT; BURR CELLS SLIGHT; HYPOCHROMASIA SLIGHT; OVALOCYTES SLIGHT; PLATELET COMMENT INCREASED; POIKILOCYTOSIS 1+; TOXIC GRANULATION SLIGHT; TOXIC VACUOLATION PRESENT
[2017-06-11] MEDS ORDERED: ALBUTEROL SULFATE HFA (90 MCG/PUFF) 200 PUFF/8.5 GM MDI IH PRN (09:48)
--- NOTE | 2017-06-11 10:16 | Physician Advisory Note ---
Physician Advisor ProgressNote .: Pursuant to the plan for [facility], I have reviewed the medical record for this patient. Physician Advisor Statement: Please consider documenting, if you agree: 1. "Pneumonia due to strep Pneumoniae, evidenced by cough with sputum, dyspnea , fever, leukocytosis, infiltrates, ..." [chills? pleuritic CP? ..] - Coders aren't allowed to assume causality. 2. "Acute hyponatremia, likely due to " [earlier note indicated likely due to intravascular volume depletion] 3. Was there any labored breathing/increased work of breathing/etc going with her increased hypoxemia, to support dx Ac Resp FAilure? Thanks! CK
[2017-06-11] MEDS: ENOXAPARIN SODIUM INJ 40 MG/0.4 ML DISP.SYRIN SUBCUT SCH (10:42)
[2017-06-11] MEDS: LETROZOLE 2.5 MG TABLET PO SCH (10:43)
[2017-06-11] MEDS: ASPIRIN 81 MG TABLET, CHEWABLE PO SCH (10:43)
[2017-06-11] MEDS: GUAIFENESIN 600 MG TABLET.SA PO SCH ×2 (10:43→22:43)
[2017-06-11] MEDS: ISOSORBIDE MONONITRATE 30 MG TAB.ER.24H PO SCH (10:43)
[2017-06-11] MEDS: SPIRONOLACTONE 25 MG TABLET PO SCH (10:44)
[2017-06-11] MEDS: FUROSEMIDE 20 MG TABLET PO SCH (10:46)
[2017-06-11] MEDS: FLUTICASONE/SALMETEROL DISKUS 250-50 MCG/DOSE IH SCH ×2 (12:10→22:43)
--- NOTE | 2017-06-11 14:47 | PDOC PROGRESS REPORT ---
Subjective Progress Note for:: 06/11/17 Subjective:: Denies any complaints. Reason For Visit: PNEUMONIA Physical Exam Vital Signs: Temp Pulse Resp BP Pulse Ox 98.3 F 73 16 169/64 H 94 06/11/17 11:57 06/11/17 11:57 06/11/17 11:57 06/11/17 11:57 06/11/17 11:57 Intake & Output 06/10/17 06/11/17 06/12/17 06:59 06:59 06:59 Intake Total 789 1218 Output Total 1400 2730 Balance -611 -1512 Weight 41.5 kg 46.8 kg General appearance: PRESENT: no acute distress Eye exam: PRESENT: conjunctiva pink. ABSENT: scleral icterus Mouth exam: PRESENT: moist, tongue midline Neck exam: ABSENT: JVD Respiratory exam: PRESENT: clear to auscultation heather. ABSENT: rales, rhonchi, wheezes Cardiovascular exam: PRESENT: RRR, systolic murmur. ABSENT: diastolic murmur, rubs GI/Abdominal exam: PRESENT: normal bowel sounds, soft. ABSENT: distended, guarding, mass, organolmegaly, rebound, tenderness Extremities exam: ABSENT: calf tenderness, clubbing, pedal edema Neurological exam: PRESENT: alert, awake, oriented to person, oriented to place , oriented to time, oriented to situation, CN II-XII grossly intact. ABSENT: motor sensory deficit Psychiatric exam: PRESENT: appropriate affect Skin exam: PRESENT: dry, intact, warm. ABSENT: cyanosis, rash Results Laboratory Results: 06/11/17 04:42 06/11/17 04:42 06/11/17 06/11/17 04:42 04:42 WBC 9.2 RBC 3.10 L Hgb 8.6 L Hct 25.8 L MCV 83 MCH 27.8 MCHC 33.4 RDW 14.6 H Plt Count 522 H Seg Neutrophils % Not Reportable Lymphocytes % Not Reportable Monocytes % Not Reportable Eosinophils % Not Reportable Basophils % Not Reportable Absolute Neutrophils Not Reportable Absolute Lymphocytes Not Reportable Absolute Monocytes Not Reportable Absolute Eosinophils Not Reportable Absolute Basophils Not Reportable Sodium 135.4 L Potassium 4.5 Chloride 94 L Carbon Dioxide 30 Anion Gap 11 BUN 15 Creatinine 1.06 Est GFR ( Amer) > 60 Est GFR (Non-Af Amer) 50 L Glucose 84 Calcium 9.1 06/09/17 06/09/17 06/10/17 14:53 21:05 03:05 Troponin I < 0.012 < 0.012 < 0.012 NT-Pro-B Natriuret Pep 06/10/17 03:05 Troponin I NT-Pro-B Natriuret Pep [id number] H Impressions: Chest X-Ray 06/08/17 11:31 IMPRESSION: Bilateral pulmonary infiltrates -most likely bronchopneumonia. Small bilateral pleural effusions and possible pulmonary vascular congestion. Assessment & Plan - Diagnosis (1) Bilateral pneumonia Qualifiers: Pneumonia type: due to unspecified organism Lung location: unspecified part of lung Qualified Code(s): J18.9 - Pneumonia, unspecified organism Is this a current diagnosis for this admission?: Yes Plan: Bilateral pneumonia secondary to strep pneumoniae infection. Continue with oral doxycycline. She continues to improve she can hopefully be discharged home tomorrow. (2) COPD (chronic obstructive pulmonary disease) Qualifiers: COPD type: COPD with acute exacerbation Qualified Code(s): J44.1 - Chronic obstructive pulmonary disease with (acute) exacerbation Is this a current diagnosis for this admission?: Yes Plan: Continue with nebulizers. (3) Hypertension Is this a current diagnosis for this admission?: Yes (4) Severe mitral regurgitation Is this a current diagnosis for this admission?: Yes Plan: Patient is unable to tolerate any surgical intervention (5) Tobacco use disorder, continuous Is this a current diagnosis for this admission?: Yes Plan: She is encouraged to quit (6) Acute and chronic respiratory failure Is this a current diagnosis for this admission?: Yes (7) Chronic renal insufficiency Is this a current diagnosis for this admission?: Yes (8) Hyperlipidemia Is this a current diagnosis for this admission?: Yes (9) Hypertension Is this a current diagnosis for this admission?: Yes (10) Hyponatremia Is this a current diagnosis for this admission?: Yes Plan: Hyponatremia most likely secondary to volume depletion. It has improved. (11) Pulmonary hypertension Is this a current diagnosis for this admission?: Yes (12) Thrush Is this a current diagnosis for this admission?: Yes Plan: Continue with nystatin swish and swallow - Time Time Spent with patient: 25-34 minutes - Inpatient Certification Medical Necessity: Need Close Monitoring Due to Risk of Patient Decompensation
[2017-06-11] MEDS: FAMOTIDINE 20 MG TABLET PO SCH (22:44)
[2017-06-12 06:05] LABS: HEMATOCRIT 28.2 % (36.0-47.0); HEMOGLOBIN 9.5 g/dL (12.0-15.5); MEAN CORPUSCULAR HGB CONC 33.7 g/dL (32.0-36.0); MEAN CORPUSCULAR VOLUME 83 fl (80-97); PLATELET COUNT 590 10^3/uL (150-450); RED BLOOD COUNT 3.39 10^6/uL (3.72-5.28); RED CELL DISTRIBUTION WIDTH 14.4 % (11.5-14.0); WHITE BLOOD COUNT 10.4 10^3/uL (4.0-10.5)
[2017-06-12] MEDS: NYSTATIN 500000 UNIT/5 ML UDCUP PO SCH (06:21)
[2017-06-12 06:25] LABS: ANION GAP 10 (5-19); BLOOD UREA NITROGEN 14 mg/dL (7-20); CALCIUM 9.8 mg/dL (8.4-10.2); CARBON DIOXIDE 34 mmol/L (22-30); CHLORIDE 93 mmol/L (98-107); GLUCOSE 97 mg/dL (75-110); POTASSIUM 4.8 mmol/L (3.6-5.0); SODIUM 136.5 mmol/L (137-145)
[2017-06-12 06:37] LABS: ABSOLUTE MONOCYTES # (MANUAL) 0.5 10^3/uL (0.1-1.4); ABSOLUTE NEUTROPHILS# (MANUAL) 6.3 10^3/uL (1.7-8.2); BAND NEUTROPHILS % (MANUAL) 2 % (3-5); BASOPHILS % (MANUAL) 0 % (0-2); EOSINOPHILS % (MANUAL) 5 % (0-6); LYMPHOCYTES % (MANUAL) 28 % (13-45); MONOCYTES % (MANUAL) 5 % (3-13); SEGMENTED NEUTROPHILS % (MAN) 59 % (42-78); TOTAL CELLS COUNTED 100
[2017-06-12 06:38] LABS: ANISOCYTOSIS SLIGHT; OVALOCYTES 1+; PLATELET COMMENT INCREASED; POIKILOCYTOSIS 1+
[2017-06-12] MEDS: LABETALOL HCL 200 MG TABLET PO SCH (06:47)
[2017-06-12 08:06] VITALS: BP 157/52
--- NOTE | 2017-06-12 13:09 | PDOC DISCHARGE SUMMARY ---
General - Admit/Disc Date/PCP Admission Date/Primary Care Provider: 06/08/17 16:36 Discharge Date: 06/12/17 - Discharge Diagnosis (1) Bilateral pneumonia Is this a current diagnosis for this admission?: Yes Summary: Growing strep pneumoniae from cultures. (2) COPD (chronic obstructive pulmonary disease) Is this a current diagnosis for this admission?: Yes (3) Hypertension Is this a current diagnosis for this admission?: Yes (4) Severe mitral regurgitation Is this a current diagnosis for this admission?: Yes (5) Tobacco use disorder, continuous Is this a current diagnosis for this admission?: Yes (6) Acute and chronic respiratory failure Is this a current diagnosis for this admission?: Yes Summary: Secondary to COPD and congestive heart failure (7) Chronic renal insufficiency Is this a current diagnosis for this admission?: Yes (8) Hyperlipidemia Is this a current diagnosis for this admission?: Yes (9) Hypertension Is this a current diagnosis for this admission?: Yes (10) Hyponatremia Is this a current diagnosis for this admission?: Yes (11) Pulmonary hypertension Is this a current diagnosis for this admission?: Yes (12) Thrush Is this a current diagnosis for this admission?: Yes - Additional Information Resuscitation Status: Full Code Discharge Diet: Cardiac Discharge Activity: Activity As Tolerated Prescriptions: Doxycycline Hyclate [Vibramycin 100 mg Tablet] 100 mg PO Q12 #20 tablet Home Medications: Aspirin [Aspirin 81 mg Chewable Tablet] 81 mg PO DAILY 06/08/17 Fluticasone/Salmeterol [Advair 250-50 Diskus 28 dose] 1 inh IH Q12 06/08/17 Labetalol HCl [Normodyne 200 mg Tablet] 200 mg PO Q6 06/08/17 Letrozole [Femara 2.5 mg Tablet] 2.5 mg PO DAILY 06/08/17 Levalbuterol HCl [Xopenex Neb 1.25 mg/3 ml Ampul] 1.25 mg NEB RTBIDP PRN Tiotropium Adrian [Spiriva Respimat] 1 spray IH DAILY 06/08/17 Doxycycline Hyclate [Vibramycin 100 mg Tablet] 100 mg PO Q12 #20 tablet Fluticasone/Salmeterol [Advair 250-50 Diskus 14 Dose/Diskus] 1 inh IH Q12 inhaler 06/12/17 Furosemide [Lasix 20 mg Tablet] 20 mg PO Q8 #0 06/12/17 History of Present Illness History of Present Illness: MIRTHA RUFFIN is a 77 year old female with a history of congestive heart failure, hypertension and peripheral vascular disease as well as COPD who presented with a 10 day history of shortness of breath. The patient was discharged the first part of May because of similar symptoms. The patient reports that she has had a productive cough and was seen in urgent care Wednesday before and she did not get any antibiotics at time because she left before being seen. The patient presents the emergency room and is found to have bilateral pneumonia. Hospital Course Hospital Course: 77-year-old female with history of COPD and congestive heart failure presented with shortness of breath and fever and was found to have bilateral pneumonia. Patient was treated with Rocephin and Zithromax initially. Her cultures grew out strep pneumoniae and she has been switched over to p.o. doxycycline. The patient also was noted to have some congestive heart failure and echocardiogram showed her to have severe mitral regurgitation. Given her very poor pulmonary status she is not a candidate for any type of surgical intervention as she is aware of that. The patient's other medical problems all were stable and hold the day of discharge was back to her baseline respiratory status. Physical Exam Vital Signs: Temp Pulse Resp BP Pulse Ox 97.9 F 74 16 157/52 H 92 06/12/17 08:16 06/12/17 08:16 06/12/17 08:16 06/12/17 07:59 06/12/17 08:16 Intake & Output 06/11/17 06/12/17 06/13/17 06:59 06:59 06:59 Intake Total 1218 2793 Output Total 2738 0836 Balance -1512 -115 Weight 46.8 kg 45 kg General appearance: PRESENT: no acute distress Eye exam: PRESENT: conjunctiva pink. ABSENT: scleral icterus Mouth exam: PRESENT: moist, tongue midline Neck exam: ABSENT: JVD Respiratory exam: PRESENT: clear to auscultation heather. ABSENT: rales, rhonchi, wheezes Cardiovascular exam: PRESENT: RRR. ABSENT: diastolic murmur, rubs, systolic murmur GI/Abdominal exam: PRESENT: normal bowel sounds, soft. ABSENT: distended, guarding, mass, organolmegaly, rebound, tenderness Extremities exam: ABSENT: calf tenderness, clubbing, pedal edema Neurological exam: PRESENT: alert, awake, oriented to person, oriented to place , oriented to time, oriented to situation, CN II-XII grossly intact. ABSENT: motor sensory deficit Psychiatric exam: PRESENT: appropriate affect Skin exam: PRESENT: dry, intact, warm. ABSENT: cyanosis, rash Results Laboratory Results: 06/12/17 05:33 06/12/17 05:33 06/12/17 06/12/17 05:33 05:33 WBC 10.4 RBC 3.39 L Hgb 9.5 L Hct 28.2 L MCV 83 MCH 28.0 MCHC 33.7 RDW 14.4 H Plt Count 590 H Seg Neutrophils % Not Reportable Lymphocytes % Not Reportable Monocytes % Not Reportable Eosinophils % Not Reportable Basophils % Not Reportable Absolute Neutrophils Not Reportable Absolute Lymphocytes Not Reportable Absolute Monocytes Not Reportable Absolute Eosinophils Not Reportable Absolute Basophils Not Reportable Sodium 136.5 L Potassium 4.8 Chloride 93 L Carbon Dioxide 34 H Anion Gap 10 BUN 14 Creatinine 1.09 Est GFR ( Amer) 59 L Est GFR (Non-Af Amer) 48 L Glucose 97 Calcium 9.8 06/09/17 06/09/17 06/10/17 14:53 21:05 03:05 Troponin I < 0.012 < 0.012 < 0.012 NT-Pro-B Natriuret Pep 06/10/17 03:05 Troponin I NT-Pro-B Natriuret Pep 99777 H Impressions: Chest X-Ray 06/08/17 11:31 IMPRESSION: Bilateral pulmonary infiltrates -most likely bronchopneumonia. Small bilateral pleural effusions and possible pulmonary vascular congestion. Qualifiers PATEINT BEING DISCHARGED WITH ANY OF THE FOLLOWING DIAGNOSIS?: No Plan Discharge Plan: Patient is discharged home. Follow-up with primary care in 2 weeks. Time Spent: Greater than 30 Minutes
== END 2017-06-12 09:23 | disposition home or self-care (01) | DRG 193 ==
LOC: ER 10:59 → EH 16:36 → 4S 06-09 12:17
PROVIDERS: ADMIT Internal Medicine; ATTEND Internal Medicine
PROC: 3E0F73Z Introduction of Anti-inflammatory into Respiratory Tract, Via Natural or Artificial Opening (ICD-10-PCS; principal; 2017-06-08)
DX: J18.9 Pneumonia, unspecified organism (principal); J96.20 Acute and chronic respiratory failure, unspecified whether with hypoxia or hypercapnia; I50.43 Acute on chronic combined systolic (congestive) and diastolic (congestive) heart failure; J44.0 Chronic obstructive pulmonary disease with (acute) lower respiratory infection; I13.0 Hypertensive heart and chronic kidney disease with heart failure and stage 1 through stage 4 chronic kidney disease, or unspecified chronic kidney disease; E87.1 Hypo-osmolality and hyponatremia; J44.1 Chronic obstructive pulmonary disease with (acute) exacerbation; I47.2 Ventricular tachycardia; I34.0 Nonrheumatic mitral (valve) insufficiency; F17.210 Nicotine dependence, cigarettes, uncomplicated; N18.9 Chronic kidney disease, unspecified; E78.5 Hyperlipidemia, unspecified; I27.20 Pulmonary hypertension, unspecified; B37.9 Candidiasis, unspecified; I73.9 Peripheral vascular disease, unspecified; I71.4 Abdominal aortic aneurysm, without rupture; K21.9 Gastro-esophageal reflux disease without esophagitis; I49.8 Other specified cardiac arrhythmias; B95.3 Streptococcus pneumoniae as the cause of diseases classified elsewhere; Z60.2 Problems related to living alone; Z79.899 Other long term (current) drug therapy; Z85.3 Personal history of malignant neoplasm of breast; Z90.49 Acquired absence of other specified parts of digestive tract; Z88.0 Allergy status to penicillin; Z88.2 Allergy status to sulfonamides; Z88.8 Allergy status to other drugs, medicaments and biological substances; Z88.6 Allergy status to analgesic agent; Z88.1 Allergy status to other antibiotic agents; Z88.3 Allergy status to other anti-infective agents; Z91.041 Radiographic dye allergy status; Z99.81 Dependence on supplemental oxygen; Z83.3 Family history of diabetes mellitus
CPT/HCPCS: 36415; 71046; 80048; 80053; 81001; 82553; 83735; 83880; 84484; 85025; 87040; 87070; 87077; 87186; 87205; 93005; 93010; 93321; 94640; 99291; J0360; J0456; J0696; J1650; J3490; J7060; J7620

== ENCOUNTER → 2017-07-06 | Outpatient (CLI) | payer MEDICARE ==
[2017-07-06 10:58] LABS: ABSOLUTE BASOPHILS # (AUTO) 0.1 10^3/uL (0.0-0.2); ABSOLUTE EOSINOPHILS # (AUTO) 1.5 10^3/uL (0.0-0.6); ABSOLUTE LYMPHOCYTES (AUTO) 3.1 10^3/uL (0.5-4.7); ABSOLUTE MONOCYTES (AUTO) 0.9 10^3/uL (0.1-1.4); ABSOLUTE NEUT (AUTO) 3.6 10^3/uL (1.7-8.2); BASOPHILS % (AUTO) 0.9 % (0-2); EOSINOPHILS % (AUTO) 15.9 % (0-6); HEMATOCRIT 34.7 % (36.0-47.0); HEMOGLOBIN 11.7 g/dL (12.0-15.5); LYMPHOCYTES % (AUTO) 33.7 % (13-45); MEAN CORPUSCULAR HEMOGLOBIN 28.4 pg (27.0-33.4); MEAN CORPUSCULAR HGB CONC 33.7 g/dL (32.0-36.0); MEAN CORPUSCULAR VOLUME 84 fl (80-97); MONOCYTES % (AUTO) 10.2 % (3-13); PLATELET COUNT 283 10^3/uL (150-450); RED BLOOD COUNT 4.13 10^6/uL (3.72-5.28); RED CELL DISTRIBUTION WIDTH 16.9 % (11.5-14.0); SEGMENTED NEUTROPHILS % (AUTO) 39.3 % (42-78); TOTAL CELLS COUNTED % (AUTO) 100 %; WHITE BLOOD COUNT 9.3 10^3/uL (4.0-10.5)
[2017-07-06 11:02] LABS: APPEARANCE,URINE CLEAR; BILIRUBIN,URINE NEGATIVE (NEGATIVE); COLOR,URINE YELLOW; GLUCOSE, URINE NEGATIVE (NEGATIVE); KETONES,URINE NEGATIVE (NEGATIVE); LEUKOCYTE ESTERASE,URINE NEGATIVE (NEGATIVE); NITRITE,URINE NEGATIVE (NEGATIVE); PROTEIN,URINE NEGATIVE (NEGATIVE); URINE SPECIFIC GRAVITY 1.008; UROBILINOGEN,URINE NEGATIVE mg/dL (<2.0)
[2017-07-06 11:17] LABS: ALANINE AMINOTRANSFERASE 24 U/L (9-52); ALBUMIN 4.4 g/dL (3.5-5.0); ALKALINE PHOSPHATASE 74 U/L (38-126); ANION GAP 9 (5-19); ASPARTATE AMINO TRANSFERASE 25 U/L (14-36); BILIRUBIN,DIRECT 0.2 mg/dL (0.0-0.4); BILIRUBIN,TOTAL 0.6 mg/dL (0.2-1.3); BLOOD UREA NITROGEN 15 mg/dL (7-20); CALCIUM 10.1 mg/dL (8.4-10.2); CARBON DIOXIDE 35 mmol/L (22-30); CHLORIDE 92 mmol/L (98-107); GLUCOSE 97 mg/dL (75-110); IRON(TIBC) 44.6 ug/dL (37-170); PHOSPHORUS 4.3 mg/dL (2.5-4.5); POTASSIUM 4.9 mmol/L (3.6-5.0); SODIUM 136.2 mmol/L (137-145); TOTAL PROTEIN 7.9 g/dL (6.3-8.2)
--- NOTE | 2017-07-06 12:10 | RADIOLOGY REPORT (SQ) ---
EXAM DESCRIPTION: CHEST PA/LATERAL COMPLETED DATE/TIME: 07/06/2017 10:54 am REASON FOR STUDY: PNEUMONIA, UNSPECIFIED ORGANISM COMPARISON: 06/08/2017 EXAM PARAMETERS: NUMBER OF VIEWS: two views TECHNIQUE: Digital Frontal and Lateral radiographic views of the chest acquired. RADIATION DOSE: NA LIMITATIONS: none FINDINGS: LUNGS AND PLEURA: Lung egan are hyperexpanded. There is persistent airspace disease heber ng the right minor fissure possibly scar. No effusions. MEDIASTINUM AND HILAR STRUCTURES: No masses or contour abnormalities. HEART AND VASCULAR STRUCTURES: Heart normal size. No evidence for failure. BONES: No acute findings. HARDWARE: None in the chest. OTHER: No other significant finding. IMPRESSION: Hyperexpansion. Residual airspace disease along the right minor fissure possibly scar. TECHNICAL DOCUMENTATION: JOB ID: [id number] [employer]- All Rights Reserved
[2017-07-07 11:40] LABS: CREATININE URINE 50.7 mg/dL (Not Estab.); MICROALBUMIN URINE 31.6 ug/mL (Not Estab.)
== END ==
LOC: OD 09:35
PROVIDERS: ATTEND Internal Medicine Nephrology
DX: J18.9 Pneumonia, unspecified organism (principal); N18.3 Chronic kidney disease, stage 3 (moderate); E87.1 Hypo-osmolality and hyponatremia; D64.9 Anemia, unspecified
CPT/HCPCS: 36415; 71046; 80053; 81001; 82043; 82306; 82570; 82607; 82728; 83540; 83550; 83970; 84100; 85025

== ENCOUNTER → 2017-08-31 | Outpatient (CLI) | payer MEDICARE ==
--- NOTE | 2017-08-31 12:31 | RADIOLOGY REPORT (SQ) ---
EXAM DESCRIPTION: CHEST PA/LATERAL COMPLETED DATE/TIME: 08/31/2017 12:05 pm REASON FOR STUDY: COUGH COMPARISON: None. NUMBER OF VIEWS: Two view. TECHNIQUE: Frontal and lateral radiographic views of the chest acquired. LIMITATIONS: None. FINDINGS: LUNGS AND PLEURA: Hyperinflation related to COPD. Regression of the minimal infiltrate r ight mid lung zone on the previous chest x-ray. No new or active infiltrates. No pleural effusions. . MEDIASTINUM AND HILAR STRUCTURES: No masses or contour abnormalities. HEART AND VASCULATURE: Heart normal size. No evidence for failure. BONY STRUCTURES: No acute findings. HARDWARE: None. OTHER: No other significant finding. IMPRESSION: COPD. Resolution of the infiltrate right mid lung zone along the minor fissure on the p revious chest x-ray. Minimal residual linear density both mid lung zones representing scarring. TECHNICAL DOCUMENTATION: JOB ID: [id number] [employer]- All Rights Reserved Reading location - IP/workstation name: [email or web address]
== END ==
LOC: OD 11:49
PROVIDERS: ATTEND Physician Assistant
DX: J44.9 Chronic obstructive pulmonary disease, unspecified (principal); R05 Cough
CPT/HCPCS: 71046; 87070; 87077; 87205

== ENCOUNTER → 2017-09-07 | Outpatient (CLI) | payer MEDICARE ==
--- NOTE | 2017-09-07 17:53 | WOMENS IMAGING REPORT ---
EXAM DESCRIPTION: 3D SCREENING MAMMO RIGHT COMPLETED DATE/TIME: 09/07/2017 10:07 am REASON FOR STUDY: ROUTINE SCREENING;Z12.31 Z12.31 ENCNTR SCREEN MAMMOGRAM FOR MALIGNANT NEOPLASM OF BREANN COMPARISON: Multiple since 09/04/2015 TECHNIQUE: Standard craniocaudal and mediolateral oblique views of the breast recorded using digital acquisition and breast tomosynthesis. LIMITATIONS: None. FINDINGS: BREAST: Right No masses, calcifications or architectural distortion. No areas of suspicion. Read with the assistance of CAD. .[facility] - R2 [employer] Version 1.3 .[facility] - R2 Cenova Version 1.3 .[facility] - R2 Cenova Version 2.4 .[facility] - R2 Cenova Version 2.4 .[facility] - R2 [employer] Version 9.2 IMPRESSION: NORMAL MAMMOGRAM. BIRADS 1. BREAST DENSITY: b. There are scattered areas of fibroglandular density. BIRAD: 1 Negative RECOMMENDATION: RECOMMENDATION: ROUTINE SCREENING. Please continue yearly right breast screening tomosynthesis in September 2018 COMMENT: The patient has been notified of the results by letter per MQSA requirements. Additional no tification policies are in place for contacting patient with suspicious or incomplete findings. Quality ID #[id number]: The [employer] recommends an annual screening mammogram for women aged 40 years or over. This facility utilizes a reminder system to ensure that all patients receive reminder letters, and/or direct phone calls for appointments. This includes reminders for routine scr eening mammograms, diagnostic mammograms, or other Breast Imaging Interventions when appropriate. Th is patient will be placed in the appropriate reminder system. The [employer] (ACR) has developed recommendations for screening MRI of the breast s in certain patient populations, to be used in conjunction with mammography. Breast MRI surveillance may be appropriate for women with more than 20% lifetime risk of developing breast cancer as determi mina by genetic testing, significant family history of the disease, or history of mantle radiation for Hodgkins Disease. ACR Practice Guidelines 2008. DBT Technology DBT is a type of tomographic mammography. With conventional mammography, overlapping breast tissue ma y make lesions difficult to detect, even with good compression. DBT uses an x-ray tube that rotates a round the breast, taking images at different angles. These images are then combined to create thin sl ices of the breast that the radiologist can view as a 3D reconstruction. The [employer] unit can perform full-field digital mammograms (2D imaging); or DBT (3D imaging); or both, in a combination mode that quickly performs both the mammogram and the tomosynthesis scan while the breast is still compressed. PQRS 6045F: Fluoroscopic imaging is not utilized for breast tomosynthesis. TECHNICAL DOCUMENTATION: FINDING NUMBER: (1) ASSESSMENT: (1) JOB ID: [id number] [employer]- All Rights Reserved Reading location - IP/workstation name: [facility]
== END ==
LOC: WI 09:31
PROVIDERS: ATTEND Surgery
DX: Z12.31 Encounter for screening mammogram for malignant neoplasm of breast (principal)

== ENCOUNTER → 2017-10-05 | Outpatient (CLI) | payer MEDICARE ==
[2017-10-05 10:54] LABS: ABSOLUTE BASOPHILS # (AUTO) 0.1 10^3/uL (0.0-0.2); ABSOLUTE LYMPHOCYTES (AUTO) 2.5 10^3/uL (0.5-4.7); ABSOLUTE MONOCYTES (AUTO) 0.6 10^3/uL (0.1-1.4); ABSOLUTE NEUT (AUTO) 2.8 10^3/uL (1.7-8.2); EOSINOPHILS % (AUTO) 13.7 % (0-6); HEMATOCRIT 38.3 % (36.0-47.0); HEMOGLOBIN 12.9 g/dL (12.0-15.5); LYMPHOCYTES % (AUTO) 36.2 % (13-45); MEAN CORPUSCULAR HGB CONC 33.5 g/dL (32.0-36.0); MEAN CORPUSCULAR VOLUME 86 fl (80-97); MONOCYTES % (AUTO) 8.8 % (3-13); PLATELET COUNT 264 10^3/uL (150-450); RED BLOOD COUNT 4.44 10^6/uL (3.72-5.28); RED CELL DISTRIBUTION WIDTH 13.4 % (11.5-14.0); SEGMENTED NEUTROPHILS % (AUTO) 40.3 % (42-78); TOTAL CELLS COUNTED % (AUTO) 100 %
[2017-10-05 11:16] LABS: ANION GAP 9 (5-19); BLOOD UREA NITROGEN 18 mg/dL (7-20); CALCIUM 9.8 mg/dL (8.4-10.2); CARBON DIOXIDE 39 mmol/L (22-30); CHLORIDE 89 mmol/L (98-107); GLUCOSE 100 mg/dL (75-110); IRON(TIBC) 43.7 ug/dL (37-170); POTASSIUM 4.7 mmol/L (3.6-5.0)
[2017-10-06 11:39] LABS: CREATININE URINE 78.6 mg/dL (Not Estab.)
== END ==
LOC: OD 09:59
PROVIDERS: ATTEND Internal Medicine Nephrology
DX: N18.3 Chronic kidney disease, stage 3 (moderate) (principal); D50.9 Iron deficiency anemia, unspecified; E55.9 Vitamin D deficiency, unspecified; N25.81 Secondary hyperparathyroidism of renal origin
CPT/HCPCS: 36415; 80048; 82043; 82306; 82570; 82728; 83540; 83550; 83970; 85025

== ENCOUNTER → 2018-01-06 | Outpatient (CLI) | payer MEDICARE ==
--- NOTE | 2018-01-06 12:57 | RADIOLOGY REPORT (SQ) ---
EXAM DESCRIPTION: CHEST PA/LATERAL COMPLETED DATE/TIME: 01/06/2018 12:08 pm REASON FOR STUDY: CHRONIC OBSTRUCTIVE PULMONARY DISEASE W (ACUTE) EXACERBATION COMPARISON: 08/31/2017 EXAM PARAMETERS: NUMBER OF VIEWS: two views TECHNIQUE: Digital Frontal and Lateral radiographic views of the chest acquired. RADIATION DOSE: NA LIMITATIONS: none FINDINGS: LUNGS AND PLEURA: No opacities, masses or pneumothorax. No pleural effusion. Chronic appe aring changes are again identified. Again there is evidence for obstructive lung disease. MEDIASTINUM AND HILAR STRUCTURES: No masses or contour abnormalities. HEART AND VASCULAR STRUCTURES: Heart normal size. No evidence for failure. BONES: No acute findings. HARDWARE: None in the chest. OTHER: No other significant finding. IMPRESSION: No significant interval change. No acute changes. Obstructive lung disease. Other fin dings as noted above TECHNICAL DOCUMENTATION: JOB ID: [id number] [employer]- All Rights Reserved Reading location - IP/workstation name: [email or web address]
== END ==
LOC: OD 11:59
PROVIDERS: ATTEND Physician Assistant
DX: J44.1 Chronic obstructive pulmonary disease with (acute) exacerbation (principal)
CPT/HCPCS: 71046

== ENCOUNTER → 2018-01-06 | Outpatient (CLI) | payer MEDICARE ==
[2018-01-06 09:46] LABS: ABSOLUTE BASOPHILS # (AUTO) 0.1 10^3/uL (0.0-0.2); ABSOLUTE EOSINOPHILS # (AUTO) 0.9 10^3/uL (0.0-0.6); ABSOLUTE LYMPHOCYTES (AUTO) 2.2 10^3/uL (0.5-4.7); ABSOLUTE MONOCYTES (AUTO) 0.7 10^3/uL (0.1-1.4); BASOPHILS % (AUTO) 0.7 % (0-2); EOSINOPHILS % (AUTO) 11.3 % (0-6); HEMATOCRIT 37.6 % (36.0-47.0); HEMOGLOBIN 12.9 g/dL (12.0-15.5); LYMPHOCYTES % (AUTO) 28.2 % (13-45); MEAN CORPUSCULAR HEMOGLOBIN 29.7 pg (27.0-33.4); MEAN CORPUSCULAR HGB CONC 34.3 g/dL (32.0-36.0); MEAN CORPUSCULAR VOLUME 86 fl (80-97); MONOCYTES % (AUTO) 8.8 % (3-13); PLATELET COUNT 309 10^3/uL (150-450); RED BLOOD COUNT 4.35 10^6/uL (3.72-5.28); RED CELL DISTRIBUTION WIDTH 13.6 % (11.5-14.0); TOTAL CELLS COUNTED % (AUTO) 100 %; WHITE BLOOD COUNT 7.8 10^3/uL (4.0-10.5)
[2018-01-06 10:02] LABS: ANION GAP 13 (5-19); BLOOD UREA NITROGEN 19 mg/dL (7-20); CALCIUM 9.7 mg/dL (8.4-10.2); CARBON DIOXIDE 38 mmol/L (22-30); CHLORIDE 83 mmol/L (98-107); CHOLESTEROL 201.08 mg/dL (0-200); GLUCOSE 93 mg/dL (75-110); IRON(TIBC) 63.2 ug/dL (37-170); POTASSIUM 3.8 mmol/L (3.6-5.0); SODIUM 133.8 mmol/L (137-145); TRIGLYCERIDES 71 mg/dL (<150)
[2018-01-06 10:12] LABS: DIRECT LDL 118 mg/dL (<100)
[2018-01-07 11:40] LABS: CREATININE URINE 24.9 mg/dL (Not Estab.); MICROALBUMIN URINE 22.6 ug/mL (Not Estab.)
== END ==
LOC: OD 08:55
PROVIDERS: ATTEND Internal Medicine Nephrology
DX: I12.9 Hypertensive chronic kidney disease with stage 1 through stage 4 chronic kidney disease, or unspecified chronic kidney disease (principal); N18.3 Chronic kidney disease, stage 3 (moderate); D50.9 Iron deficiency anemia, unspecified; E55.9 Vitamin D deficiency, unspecified
CPT/HCPCS: 36415; 80048; 80061; 82043; 82306; 82570; 82728; 83540; 83550; 85025

== ENCOUNTER → 2018-03-24 | Outpatient (CLI) | payer MEDICARE ==
--- NOTE | 2018-03-24 11:16 | RADIOLOGY REPORT (SQ) ---
EXAM DESCRIPTION: CHEST PA/LATERAL COMPLETED DATE/TIME: 03/24/2018 11:03 am REASON FOR STUDY: COUGH COMPARISON: CT chest 05/09/2017 Chest films 06/08/2017, 07/06/2017, 08/31/2017 EXAM PARAMETERS: NUMBER OF VIEWS: two views TECHNIQUE: Digital Frontal and Lateral radiographic views of the chest acquired. RADIATION DOSE: NA LIMITATIONS: none FINDINGS: LUNGS AND PLEURA: Lungs are hyperinflated and hyperlucent from obstructive disease, most p ronounced in the left lung base. No acute infiltrates. No pleural effusion or pneumothorax. MEDIASTINUM AND HILAR STRUCTURES: No masses or contour abnormalities. HEART AND VASCULAR STRUCTURES: Mild cardiomegaly BONES: Osteoporotic without thoracic compression deformity HARDWARE: None in the chest. OTHER: No other significant finding. IMPRESSION: Obstructive lung disease. Mild cardiomegaly. No acute findings TECHNICAL DOCUMENTATION: JOB ID: [id number] [employer]- All Rights Reserved Reading location - IP/workstation name: [email or web address]
== END ==
LOC: OD 10:49
PROVIDERS: ATTEND Physician Assistant
DX: R05 Cough (principal)
CPT/HCPCS: 71046

== ENCOUNTER → 2018-05-10 | Outpatient (CLI) | payer MEDICARE ==
--- NOTE | 2018-05-10 11:17 | RADIOLOGY REPORT (SQ) ---
EXAM DESCRIPTION: CT CHEST WITHOUT COMPLETED DATE/TIME: 05/10/2018 9:33 am REASON FOR STUDY: R06.00 DYSPNEA, UNSPECIFIED R06.00 DYSPNEA, UNSPECIFIED COMPARISON: CT chest 05/09/2017, 10/11/2014, 01/11/2008 TECHNIQUE: CT scan performed of the chest without intravenous contrast. Images reviewed with lung, soft tissue and bone windows. Reconstructed coronal and sagittal MPR images reviewed. All images st ored on PACS. All CT scanners at this facility use dose modulation, iterative reconstruction, and/or weight based d osing when appropriate to reduce radiation dose to as low as reasonably achievable (ALARA). [facility]: Dose Right [facility]: CareDose [facility]: Dose Right [facility]: Teradose 4D [facility]: [employer] RADIATION DOSE: CT Rad equipment meets quality standard of care and radiation dose reduction techniq ues were employed. CTDIvol: 2.8 mGy. DLP: 106 mGy-cm. mGy. LIMITATIONS: No technical limitations. FINDINGS: LUNGS AND PLEURA: Extensive changes of centrilobular emphysema, similar compared to previo us exams. Minimal lingular bandlike scarring, benign. No worrisome pulmonary nodules. No pleural effusions or pneumothorax. HILAR AND MEDIASTINAL STRUCTURES: No identified masses or abnormal nodes. No obvious aneurysm. HEART AND VASCULAR STRUCTURES: No thoracic aortic aneurysm. However, in the uppermost abdomen includ ed in the field of view, and unruptured 6 cm abdominal aortic aneurysm is present on axial image 64. Mild cardiomegaly with calcified aortic valve and heavily calcified blackfeet coronary arteries. UPPER ABDOMEN: Unruptured 6 cm abdominal aortic aneurysm THYROID AND OTHER SOFT TISSUES: No masses. No adenopathy. BONES: No significant finding. HARDWARE: None in the chest. OTHER: No other significant findings. IMPRESSION: Obstructive lung disease. No acute infiltrates. Unruptured 6 cm abdominal aortic aneurysm incompletely included in the field of view. TECHNICAL DOCUMENTATION: JOB ID: [id number] Quality ID # [id number]: Final reports with documentation of one or more dose reduction techniques (e.g., Au tomated exposure control, adjustment of the mA and/or kV according to patient size, use of iterative reconstruction technique) 2010 [employer]- All Rights Reserved Reading location - IP/workstation name: [facility]
== END ==
LOC: RAD 08:59
PROVIDERS: ATTEND Physician Assistant
DX: J43.2 Centrilobular emphysema (principal); R63.4 Abnormal weight loss; R06.00 Dyspnea, unspecified
CPT/HCPCS: 71250

== ENCOUNTER 2018-07-04 13:10 | Inpatient (IN) | payer MEDICARE ==
[2018-07-04 14:00] LABS: ABSOLUTE BASOPHILS # (AUTO) 0.1 10^3/uL (0.0-0.2); ABSOLUTE EOSINOPHILS # (AUTO) 0.1 10^3/uL (0.0-0.6); ABSOLUTE LYMPHOCYTES (AUTO) 1.3 10^3/uL (0.5-4.7); ABSOLUTE MONOCYTES (AUTO) 0.3 10^3/uL (0.1-1.4); BASOPHILS % (AUTO) 0.5 % (0-2); EOSINOPHILS % (AUTO) 0.4 % (0-6); HEMATOCRIT 36.3 % (36.0-47.0); HEMOGLOBIN 12.3 g/dL (12.0-15.5); LYMPHOCYTES % (AUTO) 7.2 % (13-45); MEAN CORPUSCULAR HEMOGLOBIN 28.7 pg (27.0-33.4); MEAN CORPUSCULAR HGB CONC 33.8 g/dL (32.0-36.0); MEAN CORPUSCULAR VOLUME 85 fl (80-97); MONOCYTES % (AUTO) 1.9 % (3-13); PLATELET COUNT 268 10^3/uL (150-450); RED BLOOD COUNT 4.27 10^6/uL (3.72-5.28); RED CELL DISTRIBUTION WIDTH 13.9 % (11.5-14.0); TOTAL CELLS COUNTED % (AUTO) 100 %; WHITE BLOOD COUNT 17.7 10^3/uL (4.0-10.5)
[2018-07-04 14:11] LABS: PROTHROMBIN TIME 12.6 SEC (11.4-15.4)
--- NOTE | 2018-07-04 14:31 | RADIOLOGY REPORT (SQ) ---
EXAM DESCRIPTION: CHEST SINGLE VIEW COMPLETED DATE/TIME: 07/04/2018 2:22 pm REASON FOR STUDY: sob COMPARISON: 03/24/2018. NUMBER OF VIEWS: One view. TECHNIQUE: Single frontal radiographic view of the chest acquired. LIMITATIONS: None. FINDINGS: LUNGS AND PLEURA: Chronic interstitial changes. No focal infiltrates, masses or pneumotho rax. No pleural effusion. Attenuated blood vessels and flattened belinda-diaphragms. MEDIASTINUM AND HILAR STRUCTURES: No masses. Contour normal. HEART AND VASCULAR STRUCTURES: Heart upper limits of normal in size. Normal vasculature. BONES: No acute findings. HARDWARE: None in the chest. OTHER: No other significant finding. IMPRESSION: COPD. CHRONIC SCARRING. NO ACUTE RADIOGRAPHIC FINDING IN THE CHEST. TECHNICAL DOCUMENTATION: JOB ID: [id number] [employer]- All Rights Reserved Reading location - IP/workstation name: [email or web address]
[2018-07-04] MEDS ORDERED: ALBUTEROL SULFATE 0.083% NEB 2.5 MG/3 ML AMPUL NEB ONE (14:53)
[2018-07-04] MEDS ORDERED: ACETAMINOPHEN 325 MG TABLET PO ONE (15:06)
--- NOTE | 2018-07-04 15:26 | EKG REPORT ---
SEVERITY:- ABNORMAL ECG - SINUS TACHYCARDIA LVH WITH IVCD AND SECONDARY REPOL ABNRM : Confirmed by: Akin Kowalski MD 04-Jul-2018 15:26:05
[2018-07-04 15:42] LABS: ALANINE AMINOTRANSFERASE 26 U/L (9-52); ALBUMIN 4.1 g/dL (3.5-5.0); ALKALINE PHOSPHATASE 96 U/L (38-126); ANION GAP 11 (5-19); ASPARTATE AMINO TRANSFERASE 25 U/L (14-36); BILIRUBIN,DIRECT 0.1 mg/dL (0.0-0.4); BILIRUBIN,TOTAL 0.5 mg/dL (0.2-1.3); BLOOD UREA NITROGEN 19 mg/dL (7-20); CALCIUM 8.7 mg/dL (8.4-10.2); CARBON DIOXIDE 32 mmol/L (22-30); CHLORIDE 85 mmol/L (98-107); GLUCOSE 100 mg/dL (75-110); POTASSIUM 4.2 mmol/L (3.6-5.0); SODIUM 127.8 mmol/L (137-145); TOTAL PROTEIN 7.2 g/dL (6.3-8.2)
[2018-07-04 15:47] LABS: CREATINE KINASE < 20 U/L (30-135)
[2018-07-04 15:53] LABS: CREATINE KINASE MB 1.12 ng/mL (<4.55); NT PRO BNP 6400 pg/mL (<450)
[2018-07-04 15:56] LABS: TROPONIN I < 0.012 ng/mL
[2018-07-04] MEDS ORDERED: DOXYCYCLINE HYCLATE INJ 100 MG VIAL IV ONE (16:02)
--- NOTE | 2018-07-04 16:07 | ER Document Report ---
ED Respiratory Problem - General Chief Complaint: Shortness Of Breath Stated Complaint: SHORTNESS OF BREATH Time Seen by Provider: 07/04/18 13:14 Primary Care Provider: CARMENCITA WHEATLEY MD [Primary Care Provider] - Follow up as needed Mode of Arrival: Stretcher Information source: Patient, Relative TRAVEL OUTSIDE OF THE [place] IN LAST 30 DAYS: No - HPI Patient complains to provider of: COPD, Cough, Short of breath Onset: This morning Duration: Worse/persistent Quality of pain: No pain Severity: Severe Context: Hx COPD, Smoker Short of Breath: Severe Chest pain/discomfort: Tightness Cough: Nonproductive At home treatment: Bronchodilators, Diuretics EMS treatments: Bronchodilators, Diuretics Associated symptoms: Congestion, Cough, Short of breath, Wheezing. denies: Chest pain/discomfort Similar symptoms previously: Yes Recently seen / treated by doctor: No Notes: Patient is an 78-year-old female with a history of COPD who continues to smoke, presenting to the emergency room today via EMS for complaints of shortness of breath that started earlier today and worsened throughout the day, she reports a nonproductive cough, she is on 3 L of oxygen at home secondary to COPD, she denies a fever at present time although is noted to have one in the emergency department, patient denies chest pain - Related Data Allergies/Adverse Reactions: Iodinated Contrast- Oral and IV Dye [IV Dye, Iodine Containing] Allergy (Severe, Verified 06/08/17 11:02) Hives azithromycin Allergy (Intermediate, Verified 06/09/17 11:00) Pruritis JONE Inhibitors [Jone Inhibitors] Allergy (Verified 06/08/17 11:02) aliskiren hemifumarate [From Tekturna] Allergy (Verified 06/08/17 11:02) amlodipine [Amlodipine] Allergy (Verified 06/08/17 11:02) cephalexin [Cephalexin] Allergy (Verified 06/08/17 11:02) ciprofloxacin [From Cipro] Allergy (Verified 06/08/17 11:02) clonidine [Clonidine] Allergy (Verified 06/08/17 11:02) clopidogrel bisulfate [From Plavix] Allergy (Verified 06/08/17 11:02) diphenhydramine HCl [From Benadryl] Allergy (Verified 06/08/17 11:02) diphtheria,pertussis (acellular),te [Diphth,Pertuss(Acell),Tet Vac] Allergy (Verified 06/08/17 11:02) Estrogens Allergy (Verified 06/08/17 11:02) nifedipine [From Procardia] Allergy (Verified 06/08/17 11:02) nisoldipine [From Sular] Allergy (Verified 06/08/17 11:02) Penicillins Allergy (Verified 06/08/17 11:02) Sulfa (Sulfonamide Antibiotics) Allergy (Verified 06/08/17 11:02) Past Medical History - General Information source: Patient - Social History Smoking Status: Current Every Day Smoker Chew tobacco use (# tins/day): No Frequency of alcohol use: None Drug Abuse: None Family History: Reviewed & Not Pertinent, DM Patient has suicidal ideation: No Patient has homicidal ideation: No - Past Medical History Cardiac Medical History: Reports: Hx Congestive Heart Failure, Hx Hypertension, Hx Peripheral Vascular Disease - History of abdominal 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, Hx Heart Murmur Denies: Hx Atrial Fibrillation, Hx Coronary Artery Disease, Hx Heart Attack, Hx Hypercholesterolemia, Hx Pulmonary Embolism Pulmonary Medical History: Reports: Hx Bronchitis, Hx COPD, Hx Pneumonia Denies: Hx Asthma, Hx Respiratory Failure, Hx Sleep Apnea, Hx Tuberculosis Neurological Medical History: Denies: Hx Cerebrovascular Accident, Hx Seizures Endocrine Medical History: Denies: Hx Diabetes Mellitus Type 1, Hx Diabetes Mellitus Type 2, Hx Graves' Disease, Hx Hyperthyroidism, Hx Hypothyroidism Renal/ Medical History: Denies: Hx End Stage Renal Disease, Hx Kidney Stones, Hx Ovarian Cysts, Hx Peritoneal Dialysis, Hx Pelvic Inflammatory Disease Malignancy Medical History: Reports: Hx Breast Cancer - LEFT AT PRESENT. Denies: Hx Cervical Cancer, Hx Leukemia, Hx Lung Cancer, Hx Ovarian Cancer GI Medical History: Reports: Hx Gastroesophageal Reflux Disease. Denies: Hx Cirrhosis, Hx Crohn's Disease, Hx Hepatitis, Hx Hiatal Hernia, Hx Irritable Bowel, Hx Liver Failure, Hx Pancreatitis, Hx Ulcer Musculoskeletal Medical History: Denies Hx Arthritis, Denies Hx Fibromyalgia, Denies Hx Multiple Sclerosis, Denies Hx Muscular Dystrophy Psychiatric Medical History: Denies: Hx Bipolar Disorder, Hx Depression, Hx Post Traumatic Stress Disor charanjit, Hx Schizophrenia Traumatic Medical History: Reports: Hx Fractures - BROKEN LEFT LEG 1950 Infectious Medical History: Denies: Hx Hepatitis, Hx HIV Past Surgical History: Reports: Hx Breast Surgery, Hx Cholecystectomy, Hx Tubal Ligation, Other - History of endovascular stent placement to the bilateral carotid arteries.. Denies: Hx Appendectomy, Hx Bowel Surgery, Hx Section, Hx Colostomy, Hx Coronary Artery Bypass Graft, Hx Gastric Bypass Surgery, Hx Herniorrhaphy, Hx Hysterectomy, Hx Mastectomy, Hx Open Heart Surgery, Hx Pacemaker, Hx Tonsillectomy - Immunizations Hx Diphtheria, Pertussis, Tetanus Vaccination: Yes Hx Pneumococcal Vaccination: 03/07/15 Review of Systems - Review of Systems Constitutional: No symptoms reported EENT: No symptoms reported Cardiovascular: See HPI Respiratory: See HPI Gastrointestinal: No symptoms reported Genitourinary: No symptoms reported Female Genitourinary: No symptoms reported Musculoskeletal: No symptoms reported Skin: No symptoms reported Hematologic/Lymphatic: No symptoms reported Neurological/Psychological: No symptoms reported -: Yes All other systems reviewed and negative Physical Exam - Vital signs Vitals: Temp Resp 101.5 F H 86 H 07/04/18 15:08 07/04/18 15:08 Interpretation: Tachycardic, Hypoxic, Tachypneic, Febrile - General General appearance: Alert In distress: Moderate - HEENT Head: Normocephalic, Atraumatic Eyes: Normal Conjunctiva: Normal Extraocular movements intact: Yes Eyelashes: Normal Pupils: PERRL Pharynx: Normal Neck: Normal - Respiratory Respiratory status: Respiratory distress, Pursed lip breathing, Tachypnea Chest status: Nontender Breath sounds: Nonproductive cough, Rales, Rhonchi Chest palpation: Normal - Cardiovascular Rhythm: Regular, Tachycardia Heart sounds: Normal auscultation Murmur: No - Abdominal Inspection: Normal Distension: No distension Bowel sounds: Normal Tenderness: Nontender Organomegaly: No organomegaly - Back Back: Normal, Nontender - Extremities General upper extremity: Normal inspection, Nontender, Normal color, Normal ROM, Normal temperature General lower extremity: Normal inspection, Nontender, Normal color, Normal ROM, Normal temperature, Normal weight bearing. No: Schuyler's sign - Neurological Neuro grossly intact: Yes Cognition: Normal Orientation: AAOx4 [place] Coma Scale Eye Opening: Spontaneous [place] Coma Scale Verbal: Oriented [place] Coma Scale Motor: Obeys Commands [place] Coma Scale Total: 15 Speech: Normal Motor strength normal: LUE, RUE, LLE, RLE Sensory: Normal - Psychological Associated symptoms: Normal affect, Normal mood - Skin Skin Temperature: Warm Skin Moisture: Dry Skin Color: Normal Course - Re-evaluation Re-evalutation: 07/04/18 16:11 Patient's primary care provider is Dr. Carmencita Wheatley, I placed a courtesy call to Dr. Wheatley regarding patient's need for admission, she request that the hospitalist service be contacted for admission A call was placed to the hospitalist service, patient was discussed with Dr. Loya who accepts for admission to the IMCU - Vital Signs Vital signs: Temp Pulse Resp BP Pulse Ox 101.5 F H 86 H 07/04/18 15:08 07/04/18 15:08 - Laboratory Result Diagrams: 07/04/18 13:45 07/04/18 15:20 Laboratory results interpreted by me: 07/04/18 07/04/18 07/04/18 13:45 15:20 15:20 WBC 17.7 H Seg Neutrophils % 90.0 H Lymphocytes % 7.2 L Monocytes % 1.9 L Absolute Neutrophils 16.0 H Sodium 127.8 L Chloride 85 L Carbon Dioxide 32 H Est GFR (Non-Af Amer) 53 L Creatine Kinase < 20 L NT-Pro-B Natriuret Pep 6400 H - Diagnostic Test Radiology reviewed: Image reviewed, Reports reviewed - EKG Interpretation by Me EKG shows normal: Sinus rhythm Rate: Tachycardia Gage/QRS: IVCD Critical Care Note - Critical Care Note Total time excluding time spent on procedures (mins): 75 Comments: Patient with persistent and worsening COPD with respiratory distress requiring breathing treatments, BiPAP placement, clinically with pneumonia requiring admission to IMCU Discharge - Discharge Clinical Impression: Acute respiratory disease COPD (chronic obstructive pulmonary disease) Qualifiers: COPD type: COPD with acute exacerbation Qualified Code(s): J44.1 - Chronic obstructive pulmonary disease with (acute) exacerbation Pneumonia Qualifiers: Pneumonia type: due to unspecified organism Laterality: unspecified laterality Lung location: unspecified part of lung Qualified Code(s): J18.9 - Pneumonia, unspecified organism Condition: Serious Disposition: ADMITTED INPATIENT Admitting Provider: Hospitalist Unit Admitted: [facility] Referrals: CARMENCITA WHEATLEY MD [Primary Care Provider] - Follow up as needed
[2018-07-04] MEDS ORDERED: NORMAL SALINE 1000 ML 1,000 ML IV PRN (16:41)
[2018-07-04] MEDS ORDERED: ONDANSETRON HCL INJ/PF 4 MG/2 ML SDV IV PRN (16:41)
[2018-07-04] MEDS ORDERED: LEVOFLOXACIN 500 MG/D5W RTU 500 MG/100 ML RTUPB IV SCH (17:00)
[2018-07-04] MEDS ORDERED: CEFTRIAXONE INJ 1000 MG VIAL IV SCH (17:30)
--- NOTE | 2018-07-04 17:33 | PDOC H&P ---
History of Present Illness Admission Date/PCP: 07/04/18 16:51 CARMENCITA WHEATLEY MD Patient complains of: Shortness of breath History of Present Illness: MIRTHA RUFFIN is a 78 year old female with history of breast cancer with left mastectomy, COPD, chronic smoker, congestive heart failure, chronic kidney disease, hypertension, aortic aneurysm was brought to the emergency room with complaints of severe shortness of breath. According to the family member she woke up with shortness of breath but she able to go to the charge them with some peeling from there she went to [email or web address] to eat her lunch then went home continue to have the shortness of breath and actually is getting worse or so decided to call the EMS to come to the emergency room for further evaluation. EMS recorded pulse oxes are in the [address] way to the hospital. In the emergency room she was placed on BiPAP chest x-ray was done lab work was done medical consult was called for admission. There is no lactic acid level was done no blood cultures and urine cultures were done prior to the request for medical admission. Patient did receive doxycycline IV. EKG shows sinus tachycardia with new LBBB compared to the EKG done about 81-year ago. Discussed the plan with Dr. Jhaveri the manager of transportation he said at this moment priority is to treat the pneumonia and shortness of breath/exacerbation of COPD because the patient is not complaining of chest pains at all and troponins are normal. Went to the ER talk to the patient and family members able to get a good information about the reason patient was seen here in the ER. Patient wants to be DNI not DNR. 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, Heart Murmur Denies: Atrial Fibrillation, Coronary Artery Disease, Myocardial Infarction, Hyperlipidema, Pulmonary Embolism Pulmonary Medical History: Reports: Bronchitis, Chronic Obstructive Pulmonary Disease (COPD), Pneumonia Denies: Asthma, Respiratory Failure, Sleep Apnea, Tuberculosis Neurological Medical History: Denies: Seizures Endocrine Medical History: Denies: Diabetes Mellitus Type 1, Diabetes Mellitus Type 2, Hyperthyroidism, Hypothyroidism Renal/ Medical History: Reports: Chronic Kidney Disease Denies: End Stage Renal Disease Malignancy Medical History: Reports: Breast Cancer - LEFT AT PRESENT Denies: Cervical Cancer, Leukemia, Lung Cancer, Ovarian Cancer GI Medical History: Reports: Gastroesophageal Reflux Disease Denies: Cirrhosis, Crohn's Disease, Hepatitis, Hiatal Hernia Musculoskeltal Medical History: Denies: Arthritis, Fibromyalgia Psychiatric Medical History: Denies: Bipolar Disorder, Depression, Post Traumatic Stress Disorder Hematology: Denies: Anemia, Hemophilia, Sickle Cell Disease, Bleeding Tendencies Infectious Medical History: Denies: HIV Past Surgical History Past Surgical History: Reports: Cholecystectomy, Tubal Ligation, Other - History of endovascular stent placement to the bilateral carotid arteries. Denies: Amputation, Appendectomy, Section, Colostomy, Coronary Artery Bypass Graft, Gastric Bypass Surgery, Herniorrhaphy, Hysterectomy, Mastectomy, Pacemaker, Tonsillectomy Social History Smoking Status: Current Every Day Smoker Frequency of Alcohol Use: None Hx Recreational Drug Use: No Drugs: None Hx Prescription Drug Abuse: No - Advance Directive Resuscitation Status: Do Not Intubate Family History Family History: Reviewed & Not Pertinent, DM Parental Family History Reviewed: Yes - Father and mother has kidney problems. Children Family History Reviewed: Yes Sibling(s) Family History Reviewed.: Yes Medication/Allergy Home Medications: Aspirin [Aspirin 81 mg Chewable Tablet] 81 mg PO DAILY 06/08/17 Fluticasone/Salmeterol [Advair 250-50 Diskus 28 dose] 1 inh IH Q12 06/08/17 Letrozole [Femara 2.5 mg Tablet] 2.5 mg PO DAILY 06/08/17 Levalbuterol HCl [Xopenex Neb 1.25 mg/3 ml Ampul] 1.25 mg NEB RTBIDP PRN 06/08/17 Tiotropium [place] [Spiriva Respimat] 1 spray IH DAILY 06/08/17 B2/Vit A,C & E/Lut/Zeaxanth/Mn [Icaps Tablet] 1 tab PO DAILY 07/04/18 Cholecalciferol (Vitamin D3) [Vitamin D3 1000 Unit Tablet] 1,000 unit PO DAILY 07/04/18 Furosemide [Lasix 20 mg Tablet] 20 mg PO TID 07/04/18 Grape Seed Xt/Bioflavon,Ponce [Grape Seed 50 mg Capsule] 1 each PO DAILY 07/04/18 Labetalol HCl [Normodyne 200 mg Tablet] 200 mg PO QID 07/04/18 Allergies/Adverse Reactions: Iodinated Contrast- Oral and IV Dye [IV Dye, Iodine Containing] Allergy (Severe, Verified 07/04/18 17:01) Hives azithromycin Allergy (Intermediate, Verified 07/04/18 17:01) Pruritis JONE Inhibitors [Jone Inhibitors] Allergy (Verified 07/04/18 17:01) aliskiren hemifumarate [From Tekturna] Allergy (Verified 07/04/18 17:01) amlodipine [Amlodipine] Allergy (Verified 07/04/18 17:01) cephalexin [Cephalexin] Allergy (Verified 07/04/18 17:01) ciprofloxacin [From Cipro] Allergy (Verified 07/04/18 17:01) clonidine [Clonidine] Allergy (Verified 07/04/18 17:01) clopidogrel bisulfate [From Plavix] Allergy (Verified 07/04/18 17:01) diphenhydramine HCl [From Benadryl] Allergy (Verified 07/04/18 17:01) diphtheria,pertussis (acellular),te [Diphth,Pertuss(Acell),Tet Vac] Allergy (Verified 07/04/18 17:01) Estrogens Allergy (Verified 07/04/18 17:01) nifedipine [From Procardia] Allergy (Verified 07/04/18 17:01) nisoldipine [From Sular] Allergy (Verified 07/04/18 17:01) Penicillins Allergy (Verified 07/04/18 17:01) Sulfa (Sulfonamide Antibiotics) Allergy (Verified 07/04/18 17:01) Review of Systems Constitutional: ABSENT: fever(s), headache(s), night sweats, weight loss Eyes: ABSENT: visual disturbances Ears: ABSENT: hearing changes Nose, Mouth, and Throat: ABSENT: sore throat Cardiovascular: ABSENT: dyspnea on exertion, orthropnea, palpitations Respiratory: PRESENT: cough, dyspnea, sputum Gastrointestinal: ABSENT: abdominal pain, constipation, diarrhea, hematemesis, hematochezia, nausea, vomiting Neurological: ABSENT: abnormal gait, abnormal speech, confusion, dizziness, focal weakness, syncope Psychiatric: ABSENT: anxiety, depression, homidical ideation, suicidal ideation Physical Exam Vital Signs: Temp Pulse Resp BP Pulse Ox 101.5 F H 26 H 93 07/04/18 15:08 07/04/18 15:24 07/04/18 15:24 Intake & Output 07/03/18 07/04/18 07/05/18 06:59 06:59 06:59 Weight 51.3 kg General appearance: PRESENT: mild distress Head exam: PRESENT: atraumatic Eye exam: PRESENT: PERRLA Mouth exam: PRESENT: moist, tongue midline Neck exam: ABSENT: carotid bruit, JVD, lymphadenopathy, thyromegaly Respiratory exam: PRESENT: decreased breath sounds, wheezes Cardiovascular exam: PRESENT: systolic murmur, tachycardia GI/Abdominal exam: PRESENT: normal bowel sounds, soft. ABSENT: distended, guarding, mass, organolmegaly, rebound, tenderness Extremities exam: PRESENT: full ROM. ABSENT: calf tenderness, clubbing, pedal edema Psychiatric exam: PRESENT: appropriate affect, normal mood. ABSENT: homicidal ideation, suicidal ideation Results Laboratory Results: 07/04/18 13:45 07/04/18 15:20 07/04/18 07/04/18 07/04/18 13:45 13:45 15:20 WBC 17.7 H RBC 4.27 Hgb 12.3 Hct 36.3 MCV 85 MCH 28.7 MCHC 33.8 RDW 13.9 Plt Count 268 Seg Neutrophils % 90.0 H Lymphocytes % 7.2 L Monocytes % 1.9 L Eosinophils % 0.4 Basophils % 0.5 Absolute Neutrophils 16.0 H Absolute Lymphocytes 1.3 Absolute Monocytes 0.3 Absolute Eosinophils 0.1 Absolute Basophils 0.1 Sodium Cancelled 127.8 L Potassium Cancelled 4.2 Chloride Cancelled 85 L Carbon Dioxide Cancelled 32 H Anion Gap Cancelled 11 BUN Cancelled 19 Creatinine Cancelled 1.00 Est GFR ( Amer) Cancelled > 60 Est GFR (Non-Af Amer) Cancelled 53 L Glucose Cancelled 100 Calcium Cancelled 8.7 Total Bilirubin Cancelled 0.5 AST Cancelled 25 ALT Cancelled 26 Alkaline Phosphatase Cancelled 96 Total Protein Cancelled 7.2 Albumin Cancelled 4.1 07/04/18 07/04/18 07/04/18 13:45 15:20 15:20 Creatine Kinase Cancelled < 20 L CK-MB (CK-2) 1.12 Troponin I < 0.012 NT-Pro-B Natriuret Pep 6400 H Impressions: Chest X-Ray 07/04/18 13:19 IMPRESSION: COPD. CHRONIC SCARRING. NO ACUTE RADIOGRAPHIC FINDING IN THE CHEST. Assessment & Plan - Diagnosis (1) Acute and chronic respiratory failure Is this a current diagnosis for this admission?: Yes Plan: 07/04/2018 patient is admitting for acute on chronic respiratory failure. Pulse ox is in the ER and recorded by the EMS is in the 80s. Improved pulse ox is on BiPAP. Acute on chronic respiratory failure probably secondary to underlying COPD and congestive heart failure./Pneumonia. Plan to put her in IMCU. She is going to be DNI. Blood cultures urine cultures sputum cultures requested. Started on clindamycin 600 mg IV every 8 hours and Rocephin 1 g daily. Lactic acid was requested plan to repeat the lactic acid within 6 hours. Start on IV fluids normal saline at 50 cc/h planning to give gentle hydration because of the history of congestive heart failure. Planning to do the CT of the chest to rule out PE but patient is allergic to IV contrast so VQ scan was requested. She is going to be on oxygen 2 L nasal cannula, and as needed BiPAP. Xopenex nebulizations along with ipratropium nebulizations are requested. Plan to start her on IV Solu-Medrol 40 mg every 12 hours. (2) COPD (chronic obstructive pulmonary disease) Qualifiers: COPD type: COPD with acute exacerbation Qualified Code(s): J44.1 - Chronic obstructive pulmonary disease with (acute) exacerbation Is this a current diagnosis for this admission?: Yes Plan: 07/04/2018-patient has history of COPD secondary to chronic smoking. She is on 2 L of oxygen via nasal cannula at home. Plan to place her on nicotine patch, BiPAP as needed, ABG was requested. Started on IV Solu-Medrol 40 mg every 12 hours, Xopenex and ipratropium nebulizations. Patient is DNI. 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 BNP was elevated it was 6400. Cardiogram was requested consultation with Dr. Jhaveri was requested. Previous echocardiogram was done in June 2017. At that time left ventricular systolic function is normal and radiologist unable to assess the diastolic function. Plan to repeat the BNP tomorrow. (4) Hyponatremia Is this a current diagnosis for this admission?: Yes Plan: 07/04/2018-admission sodium is 127. Hyponatremia probably secondary to poor oral intake. The sodium level in January last year is around 133. Patient is on IV fluids normal saline at 50 cc/h plan is to recheck the CMP level tomorrow. (5) Left bundle branch block (LBBB) Is this a current diagnosis for this admission?: Yes Plan: 07/04/2018 EKG done in the ER and subsequent EKGs shows sinus tachycardia with LBBB. EKG done today is compared to the EKG done last year in June this is LBBB is a new finding. But the patient came in without any chest pains and trop onins are negative. Plan is to do the echocardiogram and to follow-up cardiac enzymes. (6) Breast cancer Qualifiers: Laterality: left Is this a current diagnosis for this admission?: Yes Plan: 07/04/2018 patient is given the history of breast cancer with left mastectomy in 2016. She follows with Dr. Bell as an outpatient. Consult was placed for Dr. Bell. (7) CKD (chronic kidney disease) Is this a current diagnosis for this admission?: Yes Plan: 07/04/2018-patient and the family is giving the history of left kidney failure, patient follows with Dr. Wheatley. Consult was placed for Dr. Wheatley. GFR is more than 60 but serum sodium is 127.8. She is getting the gentle IV fluids at 50 cc/h. (9) Hypertension Is this a current diagnosis for this admission?: Yes Plan: 07/04/2018-patient and family giving the history of hypertension patient is on labetalol 200 mg p.o. every 6 hours and on Lasix 20 mg 3 times daily. Plan is to hold the Lasix for today and continue continue labetalol during the hospital stay. (10) Sepsis Is this a current diagnosis for this admission?: Yes Plan: 07/04/2018 patient came in with pulse ox of 80%, temperature 101.5 elevated WBC to 17,000 chest x-ray may be left-sided pneumonia patient is also tachypneic with respiratory rate of more than 25. I think patient meet the criteria for the sepsis. Blood cultures urine cultures sputum cultures are requested sequential lactic acid levels were requested patient was started on clindamycin 600 mg IV every 8 hours and Rocephin 1 g daily. - Time Time Spent: 50 to 70 Minutes Critical Time spent with patient: 25-34 minutes Smoking Cessation Education: over 10 minutes Medications reviewed and adjusted accordingly: Yes Anticipated discharge: Home
[2018-07-04] MEDS ORDERED: NICOTINE 21 MG/24 HR PATCH.TD24 TD PRN (17:34)
[2018-07-04] MEDS ORDERED: LABETALOL HCL 200 MG TABLET PO SCH (18:00)
[2018-07-04 18:18] LABS: CREATINE KINASE MB 0.83 ng/mL (<4.55); TROPONIN I 0.016 ng/mL
--- NOTE | 2018-07-04 18:51 | EKG REPORT ---
SEVERITY:- ABNORMAL ECG - SINUS RHYTHM RIGHT ATRIAL ABNORMALITY LVH WITH IVCD AND SECONDARY REPOL ABNRM : Confirmed by: Akin Kowalski MD 04-Jul-2018 18:51:04
[2018-07-04] MEDS ORDERED: NORMAL SALINE 1000 ML 1,000 ML IV ONE (19:07)
[2018-07-04] MEDS: NORMAL SALINE 1000 ML 1,000 ML IV PRN (20:00)
[2018-07-04] MEDS: LABETALOL HCL 200 MG TABLET PO SCH ×2 (20:34→23:14)
--- NOTE | 2018-07-04 20:42 | XCELERA REPORT ---
[address] [address] Transthoracic Echocardiogram Report Name: MIRTHA RUFFIN Age: 78 yrs Gender: Female : 1940 Patient Status: Inpatient Patient Location: [place] [address]^A Study Date: 07/04/2018 06:02 PM Height: 60 in Weight: 113 lb BSA: 1.5 m2 Procedure: A two-dimensional transthoracic echocardiogram with color flow and Doppler was performed. The study was technically difficult with many images being suboptimal in quality. Reason For Study: left bundle branch block History: left bundle branch block. Ordering Physician: SILVIO TURNER Performed By: Celine Buchanan Interpretation Summary The left ventricle is normal in size. There is mild concentric left ventricular hypertrophy. LV EF is > than 60% The left ventricular ejection fraction is preserved. The left ventricular ejection fraction is normal. Doppler measurements suggest impaired left ventricular relaxation, which is associated with grade I/IV or mild diastolic dysfunction The left ventricular wall motion is normal. There is no thrombus. There is no ventricular septal defect visualized. The right ventricle is normal in size and function. The right atrium is normal. The left atrial size is normal. The interatrial septum is intact with no evidence for an atrial septal defect. There is no Doppler evidence for an interatrial shunt There is no evidence of mitral valve prolapse. There is no vegetation seen on the mitral valve. There is no mitral valve stenosis. There is a mild to moderate amount of mitral regurgitation There is no aortic valvular vegetation. There is mild aortic stenosis There is a peak gradient of 16 mm of Hg. No hemodynamically significant valvular aortic stenosis. There is a mild amount of aortic regurgitation There is no tricuspid stenosis. There is a mild amount of tricuspid regurgitation There is mild pulmonary hypertension by echo RVSP is 37 to 42 mm of Hg , with RA mean of 5 to 10. There is no pulmonic valvular stenosis. There is no pulmonic valvular regurgitation. The aortic root is normal size. The inferior vena cava appeared normal and decreased > 50% with respiration (RAP 5-10 mmHg) There is no pericardial effusion. MMode/2D Measurements & Calculations RVDd: 2.8 cm LVIDd: 3.9 cm FS: 32.1 % Ao root diam: 2.5 cm IVSd: 1.4 cm LVIDs: 2.6 cm EDV(Teich): Ao root area: LVPWd: 0.99 cm 64.9 ml 4.7 cm2 ESV(Teich): LA dimension: 2.7 cm 25.3 ml EF(Teich): 61.0 % LVLd ap4: 6.4 cm SV(MOD-sp4): EDV(MOD-sp4): 26.0 ml 42.0 ml LVLs ap4: 4.1 cm ESV(MOD-sp4): 16.0 ml EF(MOD-sp4): 61.9 % Doppler Measurements & Calculations MV E max goran: MV P1/2t max goran: Ao V2 max: AI max goran: 83.9 cm/sec 102.6 cm/sec 196.1 cm/sec 335.4 cm/sec MV A max goran: MV P1/2t: 85.2 msec Ao max PG: AI max P.9 cm/sec MVA(P1/2t): 2.6 cm2 15.4 mmHg 45.3 mmHg MV E/A: 0.70 MV dec slope: AI dec slope: 352.4 cm/sec2 192.5 cm/sec2 MV dec time: 0.26 sec AI P1/2t: 510.5 msec LV V1 max PG: PA V2 max: PI end-d goran: TR max goran: 3.5 mmHg 138.1 cm/sec 72.1 cm/sec 233.8 cm/sec LV V1 max: PA max P.1 mmHg TR max P.9 cm/sec 21.9 mmHg RVSP(TR): 31.9 mmHg RAP systole: AV P1/2t-pr_phl: MV P1/2t-pr_phl: 10.0 mmHg 520.3 msec 85.2 msec Left Ventricle The left ventricle is normal in size. There is mild concentric left ventricular hypertrophy. LV EF is > than 60%. The left ventricular ejection fraction is preserved. The left ventricular ejection fraction is normal. Doppler measurements suggest impaired left ventricular relaxation, which is associated with grade I/IV or mild diastolic dysfunction. The left ventricular wall motion is normal. There is no thrombus. There is no ventricular septal defect visualized. Right Ventricle The right ventricle is normal in size and function. Atria The right atrium is normal. The left atrial size is normal. The interatrial septum is intact with no evidence for an atrial septal defect. There is no Doppler evidence for an interatrial shunt. Mitral Valve There is mild mitral annular calcification. There is no evidence of mitral valve prolapse. There is no vegetation seen on the mitral valve. There is no mitral valve stenosis. There is a mild to moderate amount of mitral regurgitation. Aortic Valve There is no aortic valvular vegetation. There is mild aortic stenosis. There is a peak gradient of 16 mm of Hg. No hemodynamically significant valvular aortic stenosis. There is a mild amount of aortic regurgitation. Tricuspid Valve There is no tricuspid stenosis. There is a mild amount of tricuspid regurgitation. There is mild pulmonary hypertension by echo. RVSP is 37 to 42 mm of Hg , with RA mean of 5 to 10. Pulmonic Valve There is no pulmonic valvular stenosis. There is no pulmonic valvular regurgitation. Great Vessels The aortic root is normal size. The inferior vena cava appeared normal and decreased > 50% with respiration (RAP 5-10 mmHg). Effusions There is no pericardial effusion. : SILVIO TURNER > Guadalupe Jhaveri
[2018-07-04] MEDS: CLINDAMYCIN 600 MG/D5W RTU 600 MG/50 ML RTUPB IV SCH ×2 (21:29→22:27)
[2018-07-04] MEDS: METHYLPREDNISOLONE INJ 40 MG/1 ML SDV IV SCH (21:29)
[2018-07-04] MEDS: FAMOTIDINE 20 MG TABLET PO SCH (21:29)
[2018-07-04] MEDS ORDERED: FLUTICASONE/SALMETEROL DISKUS 250-50 MCG/DOSE IH SCH (22:00)
[2018-07-04] MEDS: FLUTICASONE/SALMETEROL DISKUS 250-50 MCG/DOSE IH SCH (22:33)
[2018-07-04 23:55] LABS: CREATINE KINASE MB 0.84 ng/mL (<4.55)
[2018-07-05 00:06] LABS: TROPONIN I < 0.012 ng/mL
[2018-07-05 05:26] LABS: MEAN CORPUSCULAR HEMOGLOBIN 28.8 pg (27.0-33.4); MEAN CORPUSCULAR HGB CONC 34.1 g/dL (32.0-36.0); MEAN CORPUSCULAR VOLUME 85 fl (80-97); PLATELET COUNT 203 10^3/uL (150-450); RED BLOOD COUNT 3.55 10^6/uL (3.72-5.28); RED CELL DISTRIBUTION WIDTH 13.9 % (11.5-14.0); WHITE BLOOD COUNT 29.6 10^3/uL (4.0-10.5)
[2018-07-05] MEDS: LABETALOL HCL 200 MG TABLET PO SCH ×3 (05:31→18:17)
[2018-07-05] MEDS: CLINDAMYCIN 600 MG/D5W RTU 600 MG/50 ML RTUPB IV SCH ×3 (05:32→21:08)
[2018-07-05] MEDS: NORMAL SALINE 1000 ML 1,000 ML IV PRN (05:32)
[2018-07-05 05:39] LABS: ARTERIAL BLOOD BASE EXCESS 4.5 mmol/L; ARTERIAL BLOOD H2CO3 1.43 mmol/L (1.05-1.35); ARTERIAL BLOOD HCO3 29.8 mmol/L (20-24); ARTERIAL BLOOD O2 SATURATION 96.8 % (94-98); ARTERIAL BLOOD PCO2 47.4 mmHg (35-45); ARTERIAL BLOOD PH 7.42 (7.35-7.45); ARTERIAL BLOOD TOTAL CO2 31.2 mmol/L (21-25)
[2018-07-05 05:40] LABS: ARTERIAL BLOOD FIO2 2LPM
[2018-07-05 05:45] LABS: ALANINE AMINOTRANSFERASE 16 U/L (9-52); ALBUMIN 3.3 g/dL (3.5-5.0); ALKALINE PHOSPHATASE 65 U/L (38-126); ANION GAP 10 (5-19); ASPARTATE AMINO TRANSFERASE 21 U/L (14-36); BILIRUBIN,DIRECT 0.3 mg/dL (0.0-0.4); BILIRUBIN,TOTAL 0.5 mg/dL (0.2-1.3); BLOOD UREA NITROGEN 24 mg/dL (7-20); CALCIUM 8.3 mg/dL (8.4-10.2); CARBON DIOXIDE 29 mmol/L (22-30); CHLORIDE 90 mmol/L (98-107); GLUCOSE 133 mg/dL (75-110); SODIUM 128.9 mmol/L (137-145); TOTAL PROTEIN 6.1 g/dL (6.3-8.2); TRIGLYCERIDES 52 mg/dL (<150)
[2018-07-05 05:55] LABS: CREATINE KINASE MB 1.15 ng/mL (<4.55); NT PRO BNP 12800 pg/mL (<450)
[2018-07-05 05:56] LABS: DIRECT LDL 67 mg/dL (<100)
[2018-07-05 06:00] LABS: TROPONIN I < 0.012 ng/mL
[2018-07-05 06:12] LABS: CREATINE KINASE < 20 U/L (30-135)
--- NOTE | 2018-07-05 08:46 | PDOC CONSULTATION ---
Consultation Consult Date: 07/05/18 Attending physician:: SILVIO TURNER Consult reason:: History of stage I breast cancer currently on Femara History of Present Illness Admission Date/PCP: 07/04/18 16:51 CARMENCITA WHEATLEY MD Patient complains of: Shortness of breath/dyspnea on exertion History of Present Illness: MIRTHA RUFFIN is a 78 year old female with known history of COPD, history also of stage I breast cancer, diagnosed in 2015, status post mastectomy in 2015 with a stage I breast cancer noted, ER positive, has been on aromatase inhibitor therapy with Femara since then. She will require another 2 years of therapy. She was supposed to see me today in the office but since she was admitted we were consulted, of note she has had a leukocytosis, but probably a leukemoid reaction versus infection reaction versus increase of white count with steroids. She feels better today. She does still smoke and we had a long discussion about smoking cessation. 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, Heart Murmur Denies: Atrial Fibrillation, Coronary Artery Disease, Myocardial Infarction, Hyperlipidema, Pulmonary Embolism Pulmonary Medical History: Reports: Bronchitis, Chronic Obstructive Pulmonary Disease (COPD), Pneumonia Denies: Asthma, Respiratory Failure, Sleep Apnea, Tuberculosis Neurological Medical History: Denies: Seizures Endocrine Medical History: Denies: Diabetes Mellitus Type 1, Diabetes Mellitus Type 2, Hyperthyroidism, Hypothyroidism Renal/ Medical History: Reports: Chronic Kidney Disease Denies: End Stage Renal Disease Malignancy Medical History: Reports: Breast Cancer - LEFT AT PRESENT Denies: Cervical Cancer, Leukemia, Lung Cancer, Ovarian Cancer GI Medical History: Reports: Gastroesophageal Reflux Disease Denies: Cirrhosis, Crohn's Disease, Hepatitis, Hiatal Hernia Musculoskeltal Medical History: Denies: Arthritis, Fibromyalgia Psychiatric Medical History: Denies: Bipolar Disorder, Depression, Post Traumatic Stress Disorder Hematology: Denies: Anemia, Hemophilia, Sickle Cell Disease, Bleeding Tendencies Infectious Medical History: Denies: HIV Past Surgical History Past Surgical History: Reports: Cholecystectomy, Tubal Ligation, Other - History of endovascular stent placement to the bilateral carotid arteries. Denies: Amputation, Appendectomy, Section, Colostomy, Coronary Artery Bypass Graft, Gastric Bypass Surgery, Herniorrhaphy, Hysterectomy, Mastectomy, Pacemaker, Tonsillectomy Social History Information Source: Patient Smoking Status: Current Every Day Smoker Number of Years Smokin Last Time Smoked: 07/03/18 Frequency of Alcohol Use: None Hx Recreational Drug Use: No Drugs: None Hx Prescription Drug Abuse: No - Advance Directive Resuscitation Status: Do Not Intubate Family History Family History: Reviewed & Not Pertinent, DM Parental Family History Reviewed: Yes Children Family History Reviewed: Yes Sibling(s) Family History Reviewed.: Yes Medication/Allergy Home Medications: Aspirin [Aspirin 81 mg Chewable Tablet] 81 mg PO DAILY 06/08/17 Fluticasone/Salmeterol [Advair 250-50 Diskus 28 dose] 1 inh IH Q12 06/08/17 Letrozole [Femara 2.5 mg Tablet] 2.5 mg PO DAILY 06/08/17 Levalbuterol HCl [Xopenex Neb 1.25 mg/3 ml Ampul] 1.25 mg NEB RTBIDP PRN 06/08/17 Tiotropium Payne [Spiriva Respimat] 1 spray IH DAILY 06/08/17 B2/Vit A,C & E/Lut/Zeaxanth/Mn [Icaps Tablet] 1 tab PO DAILY 07/04/18 Cholecalciferol (Vitamin D3) [Vitamin D3 1000 Unit Tablet] 1,000 unit PO DAILY 07/04/18 Furosemide [Lasix 20 mg Tablet] 20 mg PO TID 07/04/18 Grape Seed Xt/Bioflavon,Giles [Grape Seed 50 mg Capsule] 1 each PO DAILY 07/04/18 Labetalol HCl [Normodyne 200 mg Tablet] 200 mg PO QID 07/04/18 Allergies/Adverse Reactions: Iodinated Contrast- Oral and IV Dye [IV Dye, Iodine Containing] Allergy (Severe, Verified 07/04/18 17:01) Hives azithromycin Allergy (Intermediate, Verified 07/04/18 17:01) Pruritis estrogens, conjugated Allergy (Mild, Verified 07/04/18 21:20) blood clots JONE Inhibitors [Jone Inhibitors] Allergy (Verified 07/04/18 17:01) aliskiren hemifumarate [From Tekturna] Allergy (Verified 07/04/18 17:01) amlodipine [Amlodipine] Allergy (Verified 07/04/18 17:01) cephalexin [Cephalexin] Allergy (Verified 07/04/18 17:01) ciprofloxacin [From Cipro] Allergy (Verified 07/04/18 17:01) clonidine [Clonidine] Allergy (Verified 07/04/18 17:01) clopidogrel bisulfate [From Plavix] Allergy (Verified 07/04/18 17:01) diphenhydramine HCl [From Benadryl] Allergy (Verified 07/04/18 17:01) diphtheria,pertussis (acellular),te [Diphth,Pertuss(Acell),Tet Vac] Allergy (Verified 07/04/18 17:01) Estrogens Allergy (Verified 07/04/18 17:01) nifedipine [From Procardia] Allergy (Verified 07/04/18 17:01) nisoldipine [From Sular] Allergy (Verified 07/04/18 17:01) Penicillins Allergy (Verified 07/04/18 17:01) Sulfa (Sulfonamide Antibiotics) Allergy (Verified 07/04/18 17:01) Review of Systems Constitutional: PRESENT: fatigue, weakness Cardiovascular: PRESENT: dyspnea on exertion Respiratory: PRESENT: cough, dyspnea Gastrointestinal: ABSENT: abdominal pain, constipation, diarrhea, hematemesis, hematochezia, nausea, vomiting Musculoskeletal: ABSENT: joint swelling Neurological: ABSENT: abnormal gait, abnormal speech, confusion, dizziness, focal weakness, syncope Psychiatric: PRESENT: anxiety Physical Exam Vital Signs: Temp Pulse Resp BP Pulse Ox 97.9 F 79 15 128/51 H 99 07/05/18 07:25 07/05/18 07:25 07/05/18 07:25 07/05/18 07:25 07/05/18 07:25 Intake & Output 07/04/18 07/05/18 07/06/18 06:59 06:59 06:59 Intake Total 1300 1050 Output Total 300 Balance 1000 1050 Weight 47.7 kg General appearance: PRESENT: no acute distress, well-developed, well-nourished Head exam: PRESENT: atraumatic, normocephalic Eye exam: PRESENT: conjunctiva pink, EOMI, PERRLA. ABSENT: scleral icterus Ear exam: PRESENT: normal external ear exam Mouth exam: PRESENT: moist, tongue midline Neck exam: ABSENT: carotid bruit, JVD, lymphadenopathy, thyromegaly Respiratory exam: PRESENT: clear to auscultation heather. ABSENT: rales, rhonchi, wheezes Cardiovascular exam: PRESENT: RRR. ABSENT: diastolic murmur, rubs, systolic mur mur Pulses: PRESENT: normal dorsalis pedis pul Vascular exam: PRESENT: normal capillary refill GI/Abdominal exam: PRESENT: normal bowel sounds, soft. ABSENT: distended, guarding, mass, organolmegaly, rebound, tenderness Rectal exam: PRESENT: deferred Extremities exam: PRESENT: full ROM. ABSENT: calf tenderness, clubbing, pedal edema Neurological exam: PRESENT: alert, awake, oriented to person, oriented to place, oriented to time, oriented to situation, CN II-XII grossly intact. ABSENT: motor sensory deficit Psychiatric exam: PRESENT: appropriate affect, normal mood. ABSENT: homicidal ideation, suicidal ideation Skin exam: PRESENT: dry, intact, warm. ABSENT: cyanosis, rash Results Laboratory Results: 07/05/18 05:13 07/05/18 05:13 07/04/18 07/04/18 07/04/18 13:45 13:45 15:20 WBC 17.7 H RBC 4.27 Hgb 12.3 Hct 36.3 MCV 85 MCH 28.7 MCHC 33.8 RDW 13.9 Plt Count 268 Seg Neutrophils % 90.0 H Lymphocytes % 7.2 L Monocytes % 1.9 L Eosinophils % 0.4 Basophils % 0.5 Absolute Neutrophils 16.0 H Absolute Lymphocytes 1.3 Absolute Monocytes 0.3 Absolute Eosinophils 0.1 Absolute Basophils 0.1 Carbonic Acid HCO3/H2CO3 Ratio ABG pH ABG pCO2 ABG pO2 ABG HCO3 ABG O2 Saturation ABG Base Excess FiO2 Sodium Cancelled 127.8 L Potassium Cancelled 4.2 Chloride Cancelled 85 L Carbon Dioxide Cancelled 32 H Anion Gap Cancelled 11 BUN Cancelled 19 Creatinine Cancelled 1.00 Est GFR ( Amer) Cancelled > 60 Est GFR (Non-Af Amer) Cancelled 53 L Glucose Cancelled 100 Lactic Acid Calcium Cancelled 8.7 Magnesium Total Bilirubin Cancelled 0.5 AST Cancelled 25 ALT Cancelled 26 Alkaline Phosphatase Cancelled 96 Total Protein Cancelled 7.2 Albumin Cancelled 4.1 Triglycerides Cholesterol LDL Cholesterol Direct VLDL Cholesterol HDL Cholesterol TSH 07/04/18 07/04/18 07/05/18 17:25 23:00 05:13 WBC RBC Hgb Hct MCV MCH MCHC RDW Plt Count Seg Neutrophils % Lymphocytes % Monocytes % Eosinophils % Basophils % Absolute Neutrophils Absolute Lymphocytes Absolute Monocytes Absolute Eosinophils Absolute Basophils Carbonic Acid HCO3/H2CO3 Ratio ABG pH ABG pCO2 ABG pO2 ABG HCO3 ABG O2 Saturation ABG Base Excess FiO2 Sodium 128.9 L Potassium 4.0 Chloride 90 L Carbon Dioxide 29 Anion Gap 10 BUN 24 H Creatinine 0.96 Est GFR ( Amer) > 60 Est GFR (Non-Af Amer) 56 L Glucose 133 H Lactic Acid 0.8 2.4 H Calcium 8.3 L Magnesium 2.1 Total Bilirubin 0.5 AST 21 ALT 16 Alkaline Phosphatase 65 Total Protein 6.1 L Albumin 3.3 L Triglycerides 52 Cholesterol 122.50 LDL Cholesterol Direct 67 VLDL Cholesterol 10.0 HDL Cholesterol 43 TSH 07/05/18 07/05/18 07/05/18 05:13 05:13 05:25 WBC 29.6 H RBC 3.55 L Hgb 10.2 L D Hct 30.0 L MCV 85 MCH 28.8 MCHC 34.1 RDW 13.9 Plt Count 203 Seg Neutrophils % Lymphocytes % Monocytes % Eosinophils % Basophils % Absolute Neutrophils Absolute Lymphocytes Absolute Monocytes Absolute Eosinophils Absolute Basophils Carbonic Acid 1.43 H HCO3/H2CO3 Ratio 20:1 ABG pH 7.42 ABG pCO2 47.4 H ABG pO2 89.0 ABG HCO3 29.8 H ABG O2 Saturation 96.8 ABG Base Excess 4.5 FiO2 2LPM Sodium Potassium Chloride Carbon Dioxide Anion Gap BUN Creatinine Est GFR ( Amer) Est GFR (Non-Af Amer) Glucose Lactic Acid Calcium Magnesium Total Bilirubin AST ALT Alkaline Phosphatase Total Protein Albumin Triglycerides Cholesterol LDL Cholesterol Direct VLDL Cholesterol HDL Cholesterol TSH 0.78 07/04/18 07/04/18 07/04/18 13:45 15:20 15:20 Creatine Kinase Cancelled < 20 L CK-MB (CK-2) 1.12 Troponin I < 0.012 NT-Pro-B Natriuret Pep 6400 H 07/04/18 07/04/18 07/04/18 17:25 17:25 23:00 Creatine Kinase < 20 L < 20 L CK-MB (CK-2) 0.83 Troponin I 0.016 NT-Pro-B Natriuret Pep 07/04/18 07/05/18 07/05/18 23:00 05:13 05:13 Creatine Kinase < 20 L CK-MB (CK-2) 0.84 1.15 Troponin I < 0.012 < 0.012 NT-Pro-B Natriuret Pep 12368 H Impressions: Chest X-Ray 07/04/18 13:19 IMPRESSION: COPD. CHRONIC SCARRING. NO ACUTE RADIOGRAPHIC FINDING IN THE CHEST. Status: Image reviewed by me Assessment & Plan - Diagnosis (1) Breast cancer Qualifiers: Breast location: areola Estrogen receptor status: positive Patient sex: female Laterality: left Qualified Code(s): C50.012 - Malignant neoplasm of nipple and areola, left female breast; Z17.0 - Estrogen receptor positive status [ER+] Is this a current diagnosis for this admission?: Yes Plan: Known stage I left breast cancer status post mastectomy as well as currently on aromatase inhibitor therapy. She will require another 2 years of therapy, she is up-to-date on other imaging, she was due to see us in our office today but we will see her back next in 6 months time. (2) COPD (chronic obstructive pulmonary disease) Qualifiers: COPD type: COPD with acute exacerbation Qualified Code(s): J44.1 - Chronic obstructive pulmonary disease with (acute) exacerbation Is this a current diagnosis for this admission?: Yes Plan: Being managed by the hospitalist team, today we had a long discussion about smoking cessation. (3) Tobacco abuse counseling Is this a current diagnosis for this admission?: Yes Plan: Discussed this with her, I believe she does want to quit, she does have Nicorette gum at home, apparently the patches give her irritation of the skin. We did discuss the appropriate way to use that. - Time Time Spent: Greater than 70 Minutes - Inpatient Certification Based on my medical assessment, after consideration of the patient's comorbidities, presenting symptoms, or acuity I expect that the services needed warrant INPATIENT care.: Yes I certify that my determination is in accordance with my understanding of Medicare's requirements for reasonable and necessary INPATIENT services [42 CFR 412.3e].: Yes Medical Necessity: Need for Nebulizer Therapy and Monitoring of Response, Need for IV Antibiotics, Risk of Complication if Not Cared For in Hospital
[2018-07-05 09:19] LABS: AMORPHOUS SEDIMENT,URINE TRACE /HPF; APPEARANCE,URINE CLEAR; BILIRUBIN,URINE NEGATIVE (NEGATIVE); COLOR,URINE YELLOW; GLUCOSE, URINE NEGATIVE (NEGATIVE); KETONES,URINE NEGATIVE (NEGATIVE); LEUKOCYTE ESTERASE,URINE NEGATIVE (NEGATIVE); NITRITE,URINE NEGATIVE (NEGATIVE); PROTEIN,URINE NEGATIVE (NEGATIVE); UROBILINOGEN,URINE NEGATIVE mg/dL (<2.0)
[2018-07-05] MEDS: ENOXAPARIN SODIUM INJ 30 MG/0.3 ML DISP.SYRIN SUBCUT SCH (09:58)
[2018-07-05] MEDS: FLUTICASONE/SALMETEROL DISKUS 250-50 MCG/DOSE IH SCH ×2 (09:58→21:10)
[2018-07-05] MEDS: ACETAMINOPHEN 325 MG TABLET PO PRN ×2 (09:59→21:09)
[2018-07-05] MEDS: METHYLPREDNISOLONE INJ 40 MG/1 ML SDV IV SCH ×2 (09:59→21:08)
[2018-07-05] MEDS: CHOLECALCIFEROL (D3) 1,000 UNIT TABLET PO SCH (10:00)
[2018-07-05] MEDS ORDERED: [UNRECOGNIZED DRUG - OTHER] PO SCH (10:00)
[2018-07-05] MEDS: LETROZOLE 2.5 MG TABLET PO SCH (10:00)
[2018-07-05] MEDS ORDERED: TIOTROPIUM BROMIDE IH SCH (10:00)
[2018-07-05] MEDS: ASPIRIN 81 MG TABLET, CHEWABLE PO SCH (10:00)
[2018-07-05] MEDS ORDERED: (PENDING PHARMACY ID) (B2/Vit A,C & E/Lut/Zeaxanth/Mn [Icaps Tablet] 1 TAB) PO SCH (10:00)
[2018-07-05] MEDS: FAMOTIDINE 20 MG TABLET PO SCH ×2 (10:00→21:08)
--- NOTE | 2018-07-05 12:05 | PDOC PROGRESS REPORT ---
Subjective Progress Note for:: 07/05/18 Subjective:: 78-year-old female came to the emergency room with severe shortness of breath yesterday. She has history of stage I breast cancer status post left mastectomy. Chest x-ray does not show any pneumonia at the time of admission but she has a fever and elevated WBC. Initial plan was to do the CTA of the chest TO R/O but the patient is allergic to IV contrast so opted for VQ scan today and she went for the VQ scan today. She was also hypotensive at the time of admission she was given total of normal saline 500 cc and continued NS at 125 cc/h. Patient blood pressures are much improved. Afebrile. No acute events in the last 24 hours. Reason For Visit: ACUTE ON CHRONIC RESP FAILURE Physical Exam Vital Signs: Temp Pulse Resp BP Pulse Ox 97.9 F 79 15 128/51 H 99 07/05/18 07:25 07/05/18 07:25 07/05/18 07:25 07/05/18 07:25 07/05/18 07:25 Intake & Output 07/04/18 07/05/18 07/06/18 06:59 06:59 06:59 Intake Total 1300 1050 Output Total 300 Balance 1000 1050 Weight 47.7 kg General appearance: PRESENT: no acute distress, thin Head exam: PRESENT: atraumatic Eye exam: PRESENT: PERRLA Neck exam: ABSENT: carotid bruit, JVD, lymphadenopathy, thyromegaly Respiratory exam: PRESENT: decreased breath sounds Cardiovascular exam: PRESENT: tachycardia GI/Abdominal exam: PRESENT: normal bowel sounds, soft. ABSENT: distended, guarding, mass, organolmegaly, rebound, tenderness Extremities exam: PRESENT: full ROM. ABSENT: calf tenderness, clubbing, pedal edema Neurological exam: PRESENT: alert, awake, oriented to person, oriented to place, oriented to time, oriented to situation, CN II-XII grossly intact. ABSENT: motor sensory deficit Psychiatric exam: PRESENT: appropriate affect, normal mood. ABSENT: homicidal ideation, suicidal ideation Results Laboratory Results: 07/05/18 05:13 07/05/18 05:13 07/04/18 07/04/18 07/04/18 13:45 13:45 15:20 WBC 17.7 H RBC 4.27 Hgb 12.3 Hct 36.3 MCV 85 MCH 28.7 MCHC 33.8 RDW 13.9 Plt Count 268 Seg Neutrophils % 90.0 H Lymphocytes % 7.2 L Monocytes % 1.9 L Eosinophils % 0.4 Basophils % 0.5 Absolute Neutrophils 16.0 H Absolute Lymphocytes 1.3 Absolute Monocytes 0.3 Absolute Eosinophils 0.1 Absolute Basophils 0.1 Carbonic Acid HCO3/H2CO3 Ratio ABG pH ABG pCO2 ABG pO2 ABG HCO3 ABG O2 Saturation ABG Base Excess FiO2 Sodium Cancelled 127.8 L Potassium Cancelled 4.2 Chloride Cancelled 85 L Carbon Dioxide Cancelled 32 H Anion Gap Cancelled 11 BUN Cancelled 19 Creatinine Cancelled 1.00 Est GFR ( Amer) Cancelled > 60 Est GFR (Non-Af Amer) Cancelled 53 L Glucose Cancelled 100 Lactic Acid Calcium Cancelled 8.7 Magnesium Total Bilirubin Cancelled 0.5 AST Cancelled 25 ALT Cancelled 26 Alkaline Phosphatase Cancelled 96 Total Protein Cancelled 7.2 Albumin Cancelled 4.1 Triglycerides Cholesterol LDL Cholesterol Direct VLDL Cholesterol HDL Cholesterol TSH Urine Color Urine Appearance Urine pH Ur Specific [place] Urine Protein Urine Glucose (UA) Urine Ketones Urine Blood Urine Nitrite Ur Leukocyte Esterase Urine RBC (Auto) 07/04/18 07/04/18 07/05/18 17:25 23:00 05:13 WBC RBC Hgb Hct MCV MCH MCHC RDW Plt Count Seg Neutrophils % Lymphocytes % Monocytes % Eosinophils % Basophils % Absolute Neutrophils Absolute Lymphocytes Absolute Monocytes Absolute Eosinophils Absolute Basophils Carbonic Acid HCO3/H2CO3 Ratio ABG pH ABG pCO2 ABG pO2 ABG HCO3 ABG O2 Saturation ABG Base Excess FiO2 Sodium 128.9 L Potassium 4.0 Chloride 90 L Carbon Dioxide 29 Anion Gap 10 BUN 24 H Creatinine 0.96 Est GFR ( Amer) > 60 Est GFR (Non-Af Amer) 56 L Glucose 133 H Lactic Acid 0.8 2.4 H Calcium 8.3 L Magnesium 2.1 Total Bilirubin 0.5 AST 21 ALT 16 Alkaline Phosphatase 65 Total Protein 6.1 L Albumin 3.3 L Triglycerides 52 Cholesterol 122.50 LDL Cholesterol Direct 67 VLDL Cholesterol 10.0 HDL Cholesterol 43 TSH Urine Color Urine Appearance Urine pH Ur Specific [place] Urine Protein Urine Glucose (UA) Urine Ketones Urine Blood Urine Nitrite Ur Leukocyte Esterase Urine RBC (Auto) 07/05/18 07/05/18 07/05/18 05:13 05:13 05:25 WBC 29.6 H RBC 3.55 L Hgb 10.2 L D Hct 30.0 L MCV 85 MCH 28.8 MCHC 34.1 RDW 13.9 Plt Count 203 Seg Neutrophils % Lymphocytes % Monocytes % Eosinophils % Basophils % Absolute Neutrophils Absolute Lymphocytes Absolute Monocytes Absolute Eosinophils Absolute Basophils Carbonic Acid 1.43 H HCO3/H2CO3 Ratio 20:1 ABG pH 7.42 ABG pCO2 47.4 H ABG pO2 89.0 ABG HCO3 29.8 H ABG O2 Saturation 96.8 ABG Base Excess 4.5 FiO2 2LPM Sodium Potassium Chloride Carbon Dioxide Anion Gap BUN Creatinine Est GFR ( Amer) Est GFR (Non-Af Amer) Glucose Lactic Acid Calcium Magnesium Total Bilirubin AST ALT Alkaline Phosphatase Total Protein Albumin Triglycerides Cholesterol LDL Cholesterol Direct VLDL Cholesterol HDL Cholesterol TSH 0.78 Urine Color Urine Appearance Urine pH Ur Specific [place] Urine Protein Urine Glucose (UA) Urine Ketones Urine Blood Urine Nitrite Ur Leukocyte Esterase Urine RBC (Auto) 07/05/18 08:15 WBC RBC Hgb Hct MCV MCH MCHC RDW Plt Count Seg Neutrophils % Lymphocytes % Monocytes % Eosinophils % Basophils % Absolute Neutrophils Absolute Lymphocytes Absolute Monocytes Absolute Eosinophils Absolute Basophils Carbonic Acid HCO3/H2CO3 Ratio ABG pH ABG pCO2 ABG pO2 ABG HCO3 ABG O2 Saturation ABG Base Excess FiO2 Sodium Potassium Chloride Carbon Dioxide Anion Gap BUN Creatinine Est GFR ( Amer) Est GFR (Non-Af Amer) Glucose Lactic Acid Calcium Magnesium Total Bilirubin AST ALT Alkaline Phosphatase Total Protein Albumin Triglycerides Cholesterol LDL Cholesterol Direct VLDL Cholesterol HDL Cholesterol TSH Urine Color YELLOW Urine Appearance CLEAR Urine pH 5.0 Ur Specific [place] 1.010 Urine Protein NEGATIVE Urine Glucose (UA) NEGATIVE Urine Ketones NEGATIVE Urine Blood NEGATIVE Urine Nitrite NEGATIVE Ur Leukocyte Esterase NEGATIVE Urine RBC (Auto) 7 07/04/18 07/04/18 07/04/18 13:45 15:20 15:20 Creatine Kinase Cancelled < 20 L CK-MB (CK-2) 1.12 Troponin I < 0.012 NT-Pro-B Natriuret Pep 6400 H 07/04/18 07/04/18 07/04/18 17:25 17:25 23:00 Creatine Kinase < 20 L < 20 L CK-MB (CK-2) 0.83 Troponin I 0.016 NT-Pro-B Natriuret Pep 07/04/18 07/05/18 07/05/18 23:00 05:13 05:13 Creatine Kinase < 20 L CK-MB (CK-2) 0.84 1.15 Troponin I < 0.012 < 0.012 NT-Pro-B Natriuret Pep 59384 H Impressions: Chest X-Ray 07/04/18 13:19 IMPRESSION: COPD. CHRONIC SCARRING. NO ACUTE RADIOGRAPHIC FINDING IN THE CHEST. Assessment & Plan - Diagnosis (1) Acute and chronic respiratory failure Is this a current diagnosis for this admission?: Yes Plan: 07/04/2018 patient is admitting for acute on chronic respiratory failure. Pulse ox is in the ER and recorded by the EMS is in the 80s. Improved pulse ox is on BiPAP. Acute on chronic respiratory failure probably secondary to underlying COPD and congestive heart failure./Pneumonia. Plan to put her in IMCU. She is going to be DNI. Blood cultures urine cultures sputum cultures requested. Started on clindamycin 600 mg IV every 8 hours and Rocephin 1 g daily. Lactic acid was requested plan to repeat the lactic acid within 6 hours. Start on IV fluids normal saline at 50 cc/h planning to give gentle hydration because of the history of congestive heart failure. Planning to do the CT of the chest to rule out PE but patient is allergic to IV contrast so VQ scan was requested. She is going to be on oxygen 2 L nasal cannula, and as needed BiPAP. Xopenex nebulizations along with ipratropium nebulizations are requested. Plan to start her on IV Solu-Medrol 40 mg every 12 hours. 07/05/2018 this 78-year-old female with history of COPD and a stage I breast cancer with left mastectomy admitted for acute on chronic respiratory failure with hypoxia requiring BiPAP in the emergency room. Probably secondary to underlying COPD and congestive heart failure/pneumonia. But the chest x-ray did not suggest any pneumonia. Patient is DNI. Receiving clindamycin 60 mg IV every 8 hours and Rocephin 1 g daily. Initial lactic acid level is 0.8-second 1 is 2.4. And WBC went up to 29,000 today. So far unable to identify the source of infection. Patient is on Xopenex nebulizations, ipratropium nebulizations and IV Solu-Medrol 40 mg every 12 hours, nasal cannula oxygen 2 L/min and BiPAP as needed was provided. Plan is to continue the present management. Patient was advised to quit smoking. (2) COPD (chronic obstructive pulmonary disease) Qualifiers: COPD type: COPD with acute exacerbation Qualified Code(s): J44.1 - Chronic obstructive pulmonary disease with (acute) exacerbation Is this a current diagnosis for this admission?: Yes Plan: 07/04/2018-patient has history of COPD secondary to chronic smoking. She is on 2 L of oxygen via nasal cannula at home. Plan to place her on nicotine patch, BiPAP as needed, ABG was requested. Started on IV Solu-Medrol 40 mg every 12 hours, Xopenex and ipratropium nebulizations. Patient is DNI. 07/05/2018-patient has history of COPD secondary to chronic smoking. She is on 2 L of oxygen at home. Presently she is on IV Solu-Medrol 40 mg every 12 hours, Xopenex and ipratropium nebulizations. She is also receiving IV clindamycin and IV Rocephin for presumed sepsis. (3) CHF (congestive heart failure) Qualifiers: Qualified Code(s): I50.42 - Chronic combined systolic (congestive) and diastolic (congestive) heart failure Is this a current diagnosis for this admission?: Yes Plan: 07/04/2018 family is giving history of congestive heart failure. BNP was elevated it was 6400. Cardiogram was requested consultation with Dr. Jhaveri was requested. Previous echocardiogram was done in June 2017. At that time left ventricular systolic function is normal and radiologist unable to assess the diastolic function. Plan to repeat the BNP tomorrow. 07/05/2018 echocardiogram was done yesterday left ventricular ejection fraction is more than 60%. But noted to have a mild diastolic dysfunction. So patient is a chronic diastolic heart failure. BNP on admission is 6800 it was sent to 12,000 today. She was on IV fluids last night for hypotension blood pressure is improved to 128/60 IV fluids are discontinued today. And is to recheck the BMP tomorrow. Patient is not in fluid overload on examination. (4) Hyponatremia Is this a current diagnosis for this admission?: Yes Plan: 07/04/2018-admission sodium is 127. Hyponatremia probably secondary to poor oral intake. The sodium level in January last year is around 133. Patient is on IV fluids normal saline at 50 cc/h plan is to recheck the CMP level tomorrow. 07/05/2018 admission sodium is 127. She was given IV fluids normal saline at 125 cc/h for sepsis and sodium is improved to 129 today. IV fluids are discontinued hyponatremia probably secondary to poor oral intake. (5) Left bundle branch block (LBBB) Is this a current diagnosis for this admission?: Yes Plan: 07/04/2018 EKG done in the ER and subsequent EKGs shows sinus tachycardia with LBBB. EKG done today is compared to the EKG done last year in June this is LBBB is a new finding. But the patient came in without any chest pains and troponins are negative. Plan is to do the echocardiogram and to follow-up cardiac enzymes. 07/05/2018 the EKG done dose in the this hospital visit shows left bundle branch block which was new compared to the previous EKG that is available from June 2017. Repeat EKG this morning shows sinus rhythum with left bundle branch block. Patient denies any chest pains and her cardiac enzymes are negative. (6) Breast cancer Qualifiers: Breast location: areola Estrogen receptor status: positive Patient sex: female Laterality: left Qualified Code(s): C50.012 - Malignant neoplasm of nipple and areola, left female breast; Z17.0 - Estrogen receptor positive status [ER+] Is this a current diagnosis for this admission?: Yes Plan: 07/04/2018 patient is given the history of breast cancer with left mastectomy in 2016. She follows with Dr. Bell as an outpatient. Consult was placed for Dr. Bell. 07/05/2018 patient has history of stage I breast cancer status post left mastectomy in 2016. Estrogen receptor positive. Patient is on aromatase inhibitors. As per Dr. Bell she needs to be on this medication for at least 2 years. (7) CKD (chronic kidney disease) Is this a current diagnosis for this admission?: Yes Plan: 07/04/2018-patient and the family is giving the history of left kidney failure, patient follows with Dr. Herrera. Consult was placed for Dr. Herrera. GFR is more than 60 but serum sodium is 127.8. She is getting the gentle IV fluids at 50 cc/h. 07/05/2018-patient has history of left kidney failure follows with Dr. Herrera consultation with Dr. Herrera was requested. Patient is creatinine is 0.96. With sodium of 129. Plan to check the renal panel on a daily basis. (8) HTN (hypertension) Is this a current diagnosis for this admission?: Yes Plan: 06/27/2018-patient blood pressure today is 128/51. She was hypotensive yesterday probably secondary to septic shock. She received 500 cc of normal saline bolus and continued to receive normal saline 125 cc/h. IV fluids were discontinued this morning. Blood pressure medications will be on hold. (9) Sepsis Is this a current diagnosis for this admission?: Yes Plan: 07/04/2018 patient came in with pulse ox of 80%, temperature 101.5 elevated WBC to 17,000 chest x-ray may be left-sided pneumonia patient is also tachypneic with respiratory rate of more than 25. I think patient meet the criteria for the sepsis. Blood cultures urine cultures sputum cultures are requested sequential lactic acid levels were requested patient was started on clindamycin 600 mg IV every 8 hours and Rocephin 1 g daily. 07/05/2018-patient came in with severe respiratory distress pulse ox in the 80s in the ER temperature of 101.5 WBC was 17,000 and tachypneic with respiratory rate more than 25 and there is a questionable acute kidney injury also she meets the criteria for the sepsis WBC went up to 29,000 today lactic acid went up to 2.4. Plan is to continue the antibiotic therapy the sputum cultures and blood cultures are pending. - Time Time Spent with patient: 15-24 minutes Smoking Cessation Education: over 10 minutes Medications reviewed and adjusted accordingly: Yes Anticipated discharge: Home
--- NOTE | 2018-07-05 12:37 | RADIOLOGY REPORT (SQ) ---
EXAM DESCRIPTION: NM LUNG VENT/PERF SCAN COMPLETED DATE/TIME: 07/05/2018 12:17 pm REASON FOR STUDY: sob COMPARISON: 07/04/2018 RADIONUCLIDE AND DOSE: 5.36 millicuries TC-99m MAA Intravenous 30.8 millicuries TC-99m DTPA Inhaled aerosol TECHNIQUE: Eight views of the lungs acquired post ventilation of DTPA aerosol. Eight matching views of the lungs acquired following injection of MAA. LIMITATIONS: None. FINDINGS: VENTILATION: Very heterogeneous ventilation images due to radiotracer clumping and obstruc tive pulmonary disease. PERFUSION: Homogeneous pulmonary perfusion. OTHER: No other significant finding. IMPRESSION: Very heterogeneous ventilation images due to radiotracer clumping an obstructive pulmona ry disease. Homogeneous pulmonary perfusion without evidence of defect. Low probability examination for pulmonary embolism by modified PIOPED criteria. TECHNICAL DOCUMENTATION: JOB ID: [id number] [employer]- All Rights Reserved Reading location - IP/workstation name: [email or web address]
--- NOTE | 2018-07-05 15:45 | EKG REPORT ---
SEVERITY:- ABNORMAL ECG - SINUS RHYTHM PROBABLE LEFT ATRIAL ABNORMALITY NONSPECIFIC INTRAVENTRICULAR CONDUCTION DELAY LEFT VENTRICULAR HYPERTROPHY ANTERIOR Q WAVES, POSSIBLY DUE TO LVH : Confirmed by: Akin Kowalski MD 05-Jul-2018 15:45:23
[2018-07-05] MEDS: CEFTRIAXONE 1 GM/D5W RTU 1 GM/50 ML RTUPB IV SCH (18:17)
--- NOTE | 2018-07-05 18:30 | PDOC CONSULTATION ---
Consultation Consult Date: 07/05/18 Attending physician:: SILVIO TURNER Consult reason:: I was asked to see the patient because of chronic kidney disease. History of Present Illness Admission Date/PCP: 07/04/18 16:51 CARMENCITA WHEATLEY MD History of Present Illness: MIRTHA RUFFIN is a 78 year old female known to me with history of chronic kidney disease stage III, microalbuminuria, hypertension, COPD, anemia, chronic hyponatremia, history of breast cancer who presented in the emergency room yesterday because of shortness of breath. Patient said that she felt congested 2 days ago so that day she slept early. Yesterday she got up short of breath but still went to the bank but then continues to be short of breath. While at the bank she used the inhaler and was able to feel better and drive herself home. However when she got home she continues to be short of breath at the point that she is unable to talk so her son-in-law called her daughter who immediately called the EMS and brought her to the emergency room. She admits to some cough with brownish phlegm since 2 days ago, some slight fever and chills. She claims she eats good and drinks fluid until yesterday when her oral intake is decreased. She denies any chest pains, nausea, vomiting, diarrhea. She denies any dysuria but tells me that she feels like she is not emptying her bladder. Today she actually feels is slightly better than when she came in yesterday. When she came in she had a BUN of 24, creatinine of 0.96 with estimated GFR of 56. That is actually her baseline kidney function. Last time I seen her in January her BUN was 19 with creatinine of 0.97 and estimated GFR of 55. She does have known microalbuminuria. She also has chronic hyponatremia with sodium usually in the low 130s. On admission she had a sodium of 128.9. She does not salt her food but she drinks water and tea. She denies any other complaints. Past Medical History Cardiac Medical History: Reports: Abdominal Aortic Aneurysm - Followed by Dr. Ray, Carotid Stenosis, CHF-Diastolic, Heart Murmur, Hyperlipidemia, Hypertension-primary, Peripheral Vascular Disease - History of abdominal 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, Pulmonary Hypertension, Valvular Heart disease Pulmonary Medical History: Reports: Bronchitis, Chronic Obstructive Pulmonary Disease (COPD), Pneumonia Renal/ Medical History: Reports: Chronic Kidney Disease Stage III, Hyponatremia, Proteinuria, Renal artery stenosis, Secondary Hyperparathyroidism, Other - Left renal atrophy Malignancy Medical History: Reports: Breast Cancer - LEFT AT PRESENT GI Medical History: Reports: Gastroesophageal Reflux Disease Musculoskeltal Medical History: Reports: Other - Osteoporosis Hematology Medical History: Reports Anemia of Chronic Kidney Disease, Reports Iron Deficiency Anemia, Reports B12 Deficiency Anemia Past Surgical History Past Surgical History: Reports: Cardiac Catheterization, Cholecystectomy, Mast ectomy - Left breast, Renal Stent - With angioplasty of right renal artery, Tubal Ligation, Other - History of endovascular stent placement to the bilateral carotid arteries. Social History Information Source: Patient Lives with: Alone Smoking Status: Current Every Day Smoker Number of Years Smokin Last Time Smoked: 07/03/18 Frequency of Alcohol Use: None Hx Recreational Drug Use: No Drugs: None Hx Prescription Drug Abuse: No - Advance Directive Resuscitation Status: Do Not Intubate Family History Family History: CAD - Mother, CVA - Mother, DM - Mother, End Stage Renal Disease - Father Parental Family History Reviewed: Yes Children Family History Reviewed: Yes Sibling(s) Family History Reviewed.: Yes Medication/Allergy Home Medications: Aspirin [Aspirin 81 mg Chewable Tablet] 81 mg PO DAILY 06/08/17 Fluticasone/Salmeterol [Advair 250-50 Diskus 28 dose] 1 inh IH Q12 06/08/17 Letrozole [Femara 2.5 mg Tablet] 2.5 mg PO DAILY 06/08/17 Levalbuterol HCl [Xopenex Neb 1.25 mg/3 ml Ampul] 1.25 mg NEB RTBIDP PRN 06/08/17 Tiotropium Hanna [Spiriva Respimat] 1 spray IH DAILY 06/08/17 B2/Vit A,C & E/Lut/Zeaxanth/Mn [Icaps Tablet] 1 tab PO DAILY 07/04/18 Cholecalciferol (Vitamin D3) [Vitamin D3 1000 Unit Tablet] 1,000 unit PO DAILY 07/04/18 Furosemide [Lasix 20 mg Tablet] 20 mg PO TID 07/04/18 Grape Seed Xt/Bioflavon,Atkinson [Grape Seed 50 mg Capsule] 1 each PO DAILY 07/04/18 Labetalol HCl [Normodyne 200 mg Tablet] 200 mg PO QID 07/04/18 Allergies/Adverse Reactions: Iodinated Contrast- Oral and IV Dye [IV Dye, Iodine Containing] Allergy (Severe, Verified 07/04/18 17:01) Hives azithromycin Allergy (Intermediate, Verified 07/04/18 17:01) Pruritis cephalexin [Cephalexin] Allergy (Mild, Verified 07/05/18 15:28) Rash estrogens, conjugated Allergy (Mild, Verified 07/04/18 21:20) blood clots JONE Inhibitors [Jone Inhibitors] Allergy (Verified 07/04/18 17:01) aliskiren hemifumarate [From Tekturna] Allergy (Verified 07/04/18 17:01) amlodipine [Amlodipine] Allergy (Verified 07/04/18 17:01) ciprofloxacin [From Cipro] Allergy (Verified 07/04/18 17:01) clonidine [Clonidine] Allergy (Verified 07/04/18 17:01) clopidogrel bisulfate [From Plavix] Allergy (Verified 07/04/18 17:01) diphenhydramine HCl [From Benadryl] Allergy (Verified 07/04/18 17:01) diphtheria,pertussis (acellular),te [Diphth,Pertuss(Acell),Tet Vac] Allergy (Verified 07/04/18 17:01) Estrogens Allergy (Verified 07/04/18 17:01) nifedipine [From Procardia] Allergy (Verified 07/04/18 17:01) nisoldipine [From Sular] Allergy (Verified 07/04/18 17:01) Penicillins Allergy (Verified 07/04/18 17:01) Sulfa (Sulfonamide Antibiotics) Allergy (Verified 07/04/18 17:01) Review of Systems All systems: reviewed and no additional remarkable complaints except as stated Review of Systems: Constitutional: ABSENT: chills, fatigue, headache(s), weight gain, weight loss; admits fever Eyes: ABSENT: visual disturbances Ears: ABSENT: hearing changes Cardiovascular: ABSENT: chest pain, dyspnea on exertion, edema, orthropnea, palpitations Respiratory: ABSENT: cough, hemoptysis; admits dyspnea Gastrointestinal: ABSENT: abdominal pain, constipation, diarrhea, hematemesis, hematochezia, nausea, vomiting Genitourinary: ABSENT: dysuria, hematuria; admits decreased urine output Musculoskeletal: ABSENT: joint swelling Integumentary: ABSENT: rash, wounds Neurological: ABSENT: abnormal gait, abnormal speech, confusion, dizziness, focal weakness, numbness, syncope Psychiatric: ABSENT: anxiety, depression Endocrine: ABSENT: cold intolerance, heat intolerance, polydipsia, polyuria Hematologic/Lymphatic: ABSENT: easy bleeding, easy bruising, lymphadenopathy Physical Exam Vital Signs: Temp Pulse Resp BP Pulse Ox 98.7 F 78 16 169/65 H 99 07/05/18 15:12 07/05/18 15:12 07/05/18 15:12 07/05/18 15:12 07/05/18 15:12 Intake & Output 07/04/18 07/05/18 07/06/18 06:59 06:59 06:59 Intake Total 1300 1337 Output Total 300 Balance 1000 1337 Weight 47.7 kg Exam: General appearance: No acute distress, cooperative, well-developed, well- nourished Head exam: PRESENT: atraumatic, normocephalic Eye exam: PRESENT: Conjunctiva slightly pale, EOMI, PERRLA. ABSENT: conjunctival injection, scleral icterus Mouth exam: PRESENT: moist, neck supple, tongue midline Neck exam: PRESENT: full ROM. ABSENT: carotid bruit, JVD, lymphadenopathy, thyromegaly Respiratory exam: PRESENT: Diminished to auscultation bilaterally. Very faint occasional bibasilar rales ABSENT: rhonchi, stridor, wheezes Cardiovascular exam: PRESENT: RRR, +S1, +S2. Grade 3/6 systolic murmur Pulses: PRESENT: normal radial pulses, normal dorsalis pedis pulses GI/Abdominal exam: PRESENT: normal bowel sounds, soft. ABSENT: guarding, mass, tenderness Rectal exam: Deferred Extremities exam: PRESENT: full ROM. ABSENT: calf tenderness, pedal edema Musculoskeletal: PRESENT: full ROM. ABSENT: deformity Neurological exam: PRESENT: alert, Awake, Oriented to person, Oriented to place, Oriented to time, reflexes normal, CN II-XII grossly intact. ABSENT: motor sens ory deficit Psychiatric exam: PRESENT: appropriate affect, normal mood. ABSENT: homicidal ideation, suicidal ideation Skin exam: PRESENT: intact, dry, warm. ABSENT: rash Results Laboratory Results: 07/05/18 05:13 07/05/18 05:13 07/04/18 07/04/18 07/05/18 17:25 23:00 05:13 WBC RBC Hgb Hct MCV MCH MCHC RDW Plt Count Carbonic Acid HCO3/H2CO3 Ratio ABG pH ABG pCO2 ABG pO2 ABG HCO3 ABG O2 Saturation ABG Base Excess FiO2 Sodium 128.9 L Potassium 4.0 Chloride 90 L Carbon Dioxide 29 Anion Gap 10 BUN 24 H Creatinine 0.96 Est GFR ( Amer) > 60 Est GFR (Non-Af Amer) 56 L Glucose 133 H Lactic Acid 0.8 2.4 H Calcium 8.3 L Magnesium 2.1 Total Bilirubin 0.5 AST 21 ALT 16 Alkaline Phosphatase 65 Total Protein 6.1 L Albumin 3.3 L Triglycerides 52 Cholesterol 122.50 LDL Cholesterol Direct 67 VLDL Cholesterol 10.0 HDL Cholesterol 43 TSH Urine Color Urine Appearance Urine pH Ur Specific [place] Urine Protein Urine Glucose (UA) Urine Ketones Urine Blood Urine Nitrite Ur Leukocyte Esterase Urine RBC (Auto) 07/05/18 07/05/18 07/05/18 05:13 05:13 05:25 WBC 29.6 H RBC 3.55 L Hgb 10.2 L D Hct 30.0 L MCV 85 MCH 28.8 MCHC 34.1 RDW 13.9 Plt Count 203 Carbonic Acid 1.43 H HCO3/H2CO3 Ratio 20:1 ABG pH 7.42 ABG pCO2 47.4 H ABG pO2 89.0 ABG HCO3 29.8 H ABG O2 Saturation 96.8 ABG Base Excess 4.5 FiO2 2LPM Sodium Potassium Chloride Carbon Dioxide Anion Gap BUN Creatinine Est GFR ( Amer) Est GFR (Non-Af Amer) Glucose Lactic Acid Calcium Magnesium Total Bilirubin AST ALT Alkaline Phosphatase Total Protein Albumin Triglycerides Cholesterol LDL Cholesterol Direct VLDL Cholesterol HDL Cholesterol TSH 0.78 Urine Color Urine Appearance Urine pH Ur Specific [place] Urine Protein Urine Glucose (UA) Urine Ketones Urine Blood Urine Nitrite Ur Leukocyte Esterase Urine RBC (Auto) 07/05/18 07/05/18 08:15 12:24 WBC RBC Hgb Hct MCV MCH MCHC RDW Plt Count Carbonic Acid HCO3/H2CO3 Ratio ABG pH ABG pCO2 ABG pO2 ABG HCO3 ABG O2 Saturation ABG Base Excess FiO2 Sodium Potassium Chloride Carbon Dioxide Anion Gap BUN Creatinine Est GFR ( Amer) Est GFR (Non-Af Amer) Glucose Lactic Acid 1.5 Calcium Magnesium Total Bilirubin AST ALT Alkaline Phosphatase Total Protein Albumin Triglycerides Cholesterol LDL Cholesterol Direct VLDL Cholesterol HDL Cholesterol TSH Urine Color YELLOW Urine Appearance CLEAR Urine pH 5.0 Ur Specific [place] 1.010 Urine Protein NEGATIVE Urine Glucose (UA) NEGATIVE Urine Ketones NEGATIVE Urine Blood NEGATIVE Urine Nitrite NEGATIVE Ur Leukocyte Esterase NEGATIVE Urine RBC (Auto) 7 07/04/18 07/04/18 07/04/18 13:45 15:20 15:20 Creatine Kinase Cancelled < 20 L CK-MB (CK-2) 1.12 Troponin I < 0.012 NT-Pro-B Natriuret Pep 6400 H 07/04/18 07/04/18 07/04/18 17:25 17:25 23:00 Creatine Kinase < 20 L < 20 L CK-MB (CK-2) 0.83 Troponin I 0.016 NT-Pro-B Natriuret Pep 07/04/18 07/05/18 07/05/18 23:00 05:13 05:13 Creatine Kinase < 20 L CK-MB (CK-2) 0.84 1.15 Troponin I < 0.012 < 0.012 NT-Pro-B Natriuret Pep [id number] H Impressions: Chest X-Ray 07/04/18 13:19 IMPRESSION: COPD. CHRONIC SCARRING. NO ACUTE RADIOGRAPHIC FINDING IN THE CHEST. Lung Scan-VQ NM 07/05/18 00:00 IMPRESSION: Very heterogeneous ventilation images due to radiotracer clumping an obstructive pulmonary disease. Homogeneous pulmonary perfusion without evidence of defect. Low probability examination for pulmonary embolism by modified PIOPED criteria. Assessment & Plan - Diagnosis (1) COPD (chronic obstructive pulmonary disease) Qualifiers: COPD type: COPD with acute exacerbation Qualified Code(s): J44.1 - Chronic obstructive pulmonary disease with (acute) exacerbation Is this a current diagnosis for this admission?: Yes Plan: Management deferred to the hospitalist service. (2) Chronic kidney disease, stage III (moderate) Is this a current diagnosis for this admission?: Yes Plan: This is due to hypertensive nephrosclerosis and vascular disease with associated left atrophic kidney. Currently at her baseline stable kidney function. (3) Microalbuminuria Is this a current diagnosis for this admission?: Yes (4) HTN (hypertension) Is this a current diagnosis for this admission?: Yes Plan: In her usual state this is difficult to control with best control goal of blood pressure around systolic blood pressure of 150-160s. Yesterday she came in with relatively low blood pressure readings as low as 84/73 likely secondary to dehydration. I had to add to the patient is allergic or has adverse reaction to multiple blood pressure medications and we have tried a lot of dose in the past. Labetalol is the one medication the patient tolerates well. (5) Hyponatremia Is this a current diagnosis for this admission?: Yes Plan: Mild acute decrease on top of known chronic hyponatremia. Baseline sodium is usually in the low 130s. The acute decrease could be secondary to volume depletion. Nevertheless advised patient to limit plain water intake to just 1 L a day and to drink some other kinds of drinks plus increased salt intake. (6) Anemia in chronic illness Is this a current diagnosis for this admission?: Yes (7) Leukocytosis Qualifiers: Leukocytosis type: bandemia Qualified Code(s): D72.825 - Bandemia Is this a current diagnosis for this admission?: Yes Plan: No obvious evidence of any source of infection currently. Could be a leukemoid reaction secondary to steroids. - Notes Notes: Thank you very much for this consultation. - Time Time Spent: 50 to 70 Minutes
[2018-07-05] MEDS ORDERED: HYDRALAZINE HCL INJ/PF 20 MG/1 ML SDV ONE (22:39)
[2018-07-05] MEDS: IPRATROPIUM/ALBUTEROL 0.5-2.5 MG/3 ML AMPUL NEB PRN (22:40)
[2018-07-06] MEDS: ACETAMINOPHEN 325 MG TABLET PO PRN ×2 (04:07→23:04)
[2018-07-06] MEDS: IPRATROPIUM/ALBUTEROL 0.5-2.5 MG/3 ML AMPUL NEB PRN ×2 (04:17→11:58)
[2018-07-06 05:10] LABS: HEMATOCRIT 29.1 % (36.0-47.0); HEMOGLOBIN 9.9 g/dL (12.0-15.5); MEAN CORPUSCULAR HEMOGLOBIN 28.7 pg (27.0-33.4); MEAN CORPUSCULAR VOLUME 84 fl (80-97); PLATELET COUNT 194 10^3/uL (150-450); RED BLOOD COUNT 3.45 10^6/uL (3.72-5.28); RED CELL DISTRIBUTION WIDTH 13.9 % (11.5-14.0)
[2018-07-06] MEDS: CLINDAMYCIN 600 MG/D5W RTU 600 MG/50 ML RTUPB IV SCH ×3 (05:24→23:06)
[2018-07-06] MEDS: LABETALOL HCL 200 MG TABLET PO SCH ×5 (05:24→23:27)
[2018-07-06 05:32] LABS: ALANINE AMINOTRANSFERASE 16 U/L (9-52); ALBUMIN 3.7 g/dL (3.5-5.0); ALKALINE PHOSPHATASE 73 U/L (38-126); ANION GAP 12 (5-19); ASPARTATE AMINO TRANSFERASE 23 U/L (14-36); BILIRUBIN,DIRECT 0.3 mg/dL (0.0-0.4); BILIRUBIN,TOTAL 0.4 mg/dL (0.2-1.3); BLOOD UREA NITROGEN 26 mg/dL (7-20); CALCIUM 8.9 mg/dL (8.4-10.2); CARBON DIOXIDE 27 mmol/L (22-30); CHLORIDE 88 mmol/L (98-107); GLUCOSE 120 mg/dL (75-110); POTASSIUM 4.4 mmol/L (3.6-5.0); SODIUM 126.9 mmol/L (137-145); TOTAL PROTEIN 6.7 g/dL (6.3-8.2)
[2018-07-06 05:39] LABS: ABSOLUTE LYMPHOCYTES# (MANUAL) 2.2 10^3/uL (0.5-4.7); ABSOLUTE MONOCYTES # (MANUAL) 0.9 10^3/uL (0.1-1.4); ABSOLUTE NEUTROPHILS# (MANUAL) 28.3 10^3/uL (1.7-8.2); BAND NEUTROPHILS % (MANUAL) 7 % (3-5); BASOPHILS % (MANUAL) 0 % (0-2); EOSINOPHILS % (MANUAL) 0 % (0-6); LYMPHOCYTES % (MANUAL) 7 % (13-45); MONOCYTES % (MANUAL) 3 % (3-13); PLATELET COMMENT ADEQUATE; RBC MORPHOLOGY COMMENT NORMO-CYTIC/CHROMIC; SEGMENTED NEUTROPHILS % (MAN) 83 % (42-78); TOTAL CELLS COUNTED 100
[2018-07-06 05:42] LABS: WHITE BLOOD COUNT 31.4 10^3/uL (4.0-10.5)
--- NOTE | 2018-07-06 08:43 | PDOC PROGRESS REPORT ---
Subjective Progress Note for:: 07/06/18 Subjective:: Feeling more short of breath today Reason For Visit: ACUTE ON CHRONIC RESP FAILURE Physical Exam Vital Signs: Temp Pulse Resp BP Pulse Ox 97.4 F 79 18 173/76 H 99 07/06/18 07:26 07/06/18 07:26 07/06/18 07:26 07/06/18 07:26 07/06/18 07:26 Intake & Output 07/05/18 07/06/18 07/07/18 06:59 06:59 06:59 Intake Total 1300 1859 Output Total 300 1500 Balance 1000 359 Weight 47.7 kg 48.8 kg General appearance: PRESENT: no acute distress, well-developed, well-nourished Head exam: PRESENT: atraumatic, normocephalic Eye exam: PRESENT: conjunctiva pink, EOMI, PERRLA. ABSENT: scleral icterus Ear exam: PRESENT: normal external ear exam Mouth exam: PRESENT: moist, tongue midline Neck exam: ABSENT: carotid bruit, JVD, lymphadenopathy, thyromegaly Respiratory exam: PRESENT: clear to auscultation heather. ABSENT: rales, rhonchi, wheezes Cardiovascular exam: PRESENT: RRR. ABSENT: diastolic murmur, rubs, systolic murmur Pulses: PRESENT: normal dorsalis pedis pul Vascular exam: PRESENT: normal capillary refill GI/Abdominal exam: PRESENT: normal bowel sounds, soft. ABSENT: distended, guarding, mass, organolmegaly, rebound, tenderness Rectal exam: PRESENT: deferred Extremities exam: PRESENT: full ROM. ABSENT: calf tenderness, clubbing, pedal edema Neurological exam: PRESENT: alert, awake, oriented to person, oriented to place, oriented to time, oriented to situation, CN II-XII grossly intact. ABSENT: motor sensory deficit Psychiatric exam: PRESENT: appropriate affect, normal mood. ABSENT: homicidal ideation, suicidal ideation Skin exam: PRESENT: dry, intact, warm. ABSENT: cyanosis, rash Results Laboratory Results: 07/06/18 04:27 07/06/18 04:27 07/05/18 07/05/18 07/06/18 08:15 12:24 04:27 WBC 31.4 H* RBC 3.45 L Hgb 9.9 L Hct 29.1 L MCV 84 MCH 28.7 MCHC 34.0 RDW 13.9 Plt Count 194 Seg Neutrophils % Not Reportable Lymphocytes % Not Reportable Monocytes % Not Reportable Eosinophils % Not Reportable Basophils % Not Reportable Absolute Neutrophils Not Reportable Absolute Lymphocytes Not Reportable Absolute Monocytes Not Reportable Absolute Eosinophils Not Reportable Absolute Basophils Not Reportable Sodium Potassium Chloride Carbon Dioxide Anion Gap BUN Creatinine Est GFR ( Amer) Est GFR (Non-Af Amer) Glucose Lactic Acid 1.5 Calcium Magnesium Total Bilirubin AST ALT Alkaline Phosphatase Total Protein Albumin Urine Color YELLOW Urine Appearance CLEAR Urine pH 5.0 Ur Specific [place] 1.010 Urine Protein NEGATIVE Urine Glucose (UA) NEGATIVE Urine Ketones NEGATIVE Urine Blood NEGATIVE Urine Nitrite NEGATIVE Ur Leukocyte Esterase NEGATIVE Urine RBC (Auto) 7 07/06/18 04:27 WBC RBC Hgb Hct MCV MCH MCHC RDW Plt Count Seg Neutrophils % Lymphocytes % Monocytes % Eosinophils % Basophils % Absolute Neutrophils Absolute Lymphocytes Absolute Monocytes Absolute Eosinophils Absolute Basophils Sodium 126.9 L Potassium 4.4 Chloride 88 L Carbon Dioxide 27 Anion Gap 12 BUN 26 H Creatinine 0.90 Est GFR ( Amer) > 60 Est GFR (Non-Af Amer) > 60 Glucose 120 H Lactic Acid Calcium 8.9 Magnesium 2.0 Total Bilirubin 0.4 AST 23 ALT 16 Alkaline Phosphatase 73 Total Protein 6.7 Albumin 3.7 Urine Color Urine Appearance Urine pH Ur Specific [place] Urine Protein Urine Glucose (UA) Urine Ketones Urine Blood Urine Nitrite Ur Leukocyte Esterase Urine RBC (Auto) 07/04/18 07/04/18 07/04/18 13:45 15:20 15:20 Creatine Kinase Cancelled < 20 L CK-MB (CK-2) 1.12 Troponin I < 0.012 NT-Pro-B Natriuret Pep 6400 H 07/04/18 07/04/18 07/04/18 17:25 17:25 23:00 Creatine Kinase < 20 L < 20 L CK-MB (CK-2) 0.83 Troponin I 0.016 NT-Pro-B Natriuret Pep 07/04/18 07/05/18 07/05/18 23:00 05:13 05:13 Creatine Kinase < 20 L CK-MB (CK-2) 0.84 1.15 Troponin I < 0.012 < 0.012 NT-Pro-B Natriuret Pep [id number] H 07/06/18 04:27 Creatine Kinase CK-MB (CK-2) Troponin I NT-Pro-B Natriuret Pep [id number] H Impressions: Lung Scan-VQ NM 07/05/18 00:00 IMPRESSION: Very heterogeneous ventilation images due to radiotracer clumping an obstructive pulmonary disease. Homogeneous pulmonary perfusion without evidence of defect. Low probability examination for pulmonary embolism by modified PIOPED criteria. Assessment & Plan - Diagnosis (1) Breast cancer Qualifiers: Qualified Code(s): C50.012 - Malignant neoplasm of nipple and areola, left female breast; Z17.0 - Estrogen receptor positive status [ER+] Is this a current diagnosis for this admission?: Yes Plan: Plan to see her back in 6 months, mammograms are up-to-date (2) COPD (chronic obstructive pulmonary disease) Qualifiers: Qualified Code(s): J44.1 - Chronic obstructive pulmonary disease with (acute) exacerbation Is this a current diagnosis for this admission?: Yes Plan: Continue current therapy per hospitalist team (3) Tobacco abuse counseling Is this a current diagnosis for this admission?: Yes Plan: Discussed again today, I believe she will try and quit as an outpatient - Time Time Spent with patient: 35 or more minutes Disposition: Will sign off
--- NOTE | 2018-07-06 08:55 | PDOC PROGRESS REPORT ---
Subjective Progress Note for:: 07/06/18 Subjective:: Patient is seen resting in bed. Her daughters are at the bedside. She is complaining of increasing shortness of breath this morning and wheezing. She denies chest pain. We just gave her a dose of IV Lasix. Chest x-ray is pending. She denies any nausea, vomiting or abdominal pain. She states her cough is not as productive this morning. She also complains of her legs "jumping" overnight. She denies any other arthralgias or myalgias. Remaining systems are negative. Reason For Visit: ACUTE ON CHRONIC RESP FAILURE Physical Exam Vital Signs: Temp Pulse Resp BP Pulse Ox 97.4 F 79 18 173/76 H 99 07/06/18 07:26 07/06/18 07:26 07/06/18 07:26 07/06/18 07:26 07/06/18 07:26 Intake & Output 07/05/18 07/06/18 07/07/18 06:59 06:59 06:59 Intake Total 1300 1859 Output Total 300 1500 Balance 1000 359 Weight 47.7 kg 48.8 kg General appearance: PRESENT: mild distress, thin Head exam: PRESENT: atraumatic, normocephalic Eye exam: PRESENT: conjunctiva pink, PERRLA Ear exam: PRESENT: normal external ear exam Mouth exam: PRESENT: moist, neck supple, tongue midline Neck exam: ABSENT: carotid bruit, JVD, lymphadenopathy, thyromegaly Respiratory exam: PRESENT: accessory muscle use, prolonged expiratory phas, rales, symmetrical, wheezes Cardiovascular exam: PRESENT: RRR. ABSENT: diastolic murmur, rubs, systolic murmur Pulses: PRESENT: normal dorsalis pedis pul Vascular exam: PRESENT: normal capillary refill GI/Abdominal exam: PRESENT: normal bowel sounds, soft. ABSENT: distended, guarding, mass, organolmegaly, rebound, tenderness Rectal exam: PRESENT: deferred Extremities exam: PRESENT: full ROM. ABSENT: calf tenderness, clubbing, pedal edema Musculoskeletal exam: PRESENT: ambulatory, full ROM Neurological exam: PRESENT: alert, awake, oriented to person, oriented to place, oriented to time, oriented to situation, CN II-XII grossly intact. ABSENT: motor sensory deficit Psychiatric exam: PRESENT: appropriate affect, normal mood. ABSENT: homicidal ideation, suicidal ideation Skin exam: PRESENT: dry, intact, warm. ABSENT: cyanosis, rash Results Laboratory Results: 07/06/18 04:27 07/06/18 04:27 07/05/18 07/05/18 07/06/18 08:15 12:24 04:27 WBC 31.4 H* RBC 3.45 L Hgb 9.9 L Hct 29.1 L MCV 84 MCH 28.7 MCHC 34.0 RDW 13.9 Plt Count 194 Seg Neutrophils % Not Reportable Lymphocytes % Not Reportable Monocytes % Not Reportable Eosinophils % Not Reportable Basophils % Not Reportable Absolute Neutrophils Not Reportable Absolute Lymphocytes Not Reportable Absolute Monocytes Not Reportable Absolute Eosinophils Not Reportable Absolute Basophils Not Reportable Sodium Potassium Chloride Carbon Dioxide Anion Gap BUN Creatinine Est GFR ( Amer) Est GFR (Non-Af Amer) Glucose Lactic Acid 1.5 Calcium Magnesium Total Bilirubin AST ALT Alkaline Phosphatase Total Protein Albumin Urine Color YELLOW Urine Appearance CLEAR Urine pH 5.0 Ur Specific [place] 1.010 Urine Protein NEGATIVE Urine Glucose (UA) NEGATIVE Urine Ketones NEGATIVE Urine Blood NEGATIVE Urine Nitrite NEGATIVE Ur Leukocyte Esterase NEGATIVE Urine RBC (Auto) 7 07/06/18 04:27 WBC RBC Hgb Hct MCV MCH MCHC RDW Plt Count Seg Neutrophils % Lymphocytes % Monocytes % Eosinophils % Basophils % Absolute Neutrophils Absolute Lymphocytes Absolute Monocytes Absolute Eosinophils Absolute Basophils Sodium 126.9 L Potassium 4.4 Chloride 88 L Carbon Dioxide 27 Anion Gap 12 BUN 26 H Creatinine 0.90 Est GFR ( Amer) > 60 Est GFR (Non-Af Amer) > 60 Glucose 120 H Lactic Acid Calcium 8.9 Magnesium 2.0 Total Bilirubin 0.4 AST 23 ALT 16 Alkaline Phosphatase 73 Total Protein 6.7 Albumin 3.7 Urine Color Urine Appearance Urine pH Ur Specific [place] Urine Protein Urine Glucose (UA) Urine Ketones Urine Blood Urine Nitrite Ur Leukocyte Esterase Urine RBC (Auto) 07/04/18 07/04/18 07/04/18 13:45 15:20 15:20 Creatine Kinase Cancelled < 20 L CK-MB (CK-2) 1.12 Troponin I < 0.012 NT-Pro-B Natriuret Pep 6400 H 07/04/18 07/04/18 07/04/18 17:25 17:25 23:00 Creatine Kinase < 20 L < 20 L CK-MB (CK-2) 0.83 Troponin I 0.016 NT-Pro-B Natriuret Pep 07/04/18 07/05/18 07/05/18 23:00 05:13 05:13 Creatine Kinase < 20 L CK-MB (CK-2) 0.84 1.15 Troponin I < 0.012 < 0.012 NT-Pro-B Natriuret Pep 54608 H 07/06/18 04:27 Creatine Kinase CK-MB (CK-2) Troponin I NT-Pro-B Natriuret Pep 76376 H Impressions: Lung Scan-VQ NM 07/05/18 00:00 IMPRESSION: Very heterogeneous ventilation images due to radiotracer clumping an obstructive pulmonary disease. Homogeneous pulmonary perfusion without evidence of defect. Low probability examination for pulmonary embolism by modified PIOPED criteria. Assessment & Plan - Diagnosis (1) Acute and chronic respiratory failure Qualifiers: Respiratory failure complication: hypercapnia Qualified Code(s): J96.22 - Acute and chronic respiratory failure with hypercapnia Is this a current diagnosis for this admission?: Yes Plan: 10 you IV antibiotics, steroids, will add diuretics today. She is in more distress today than she was yesterday (2) Acute on chronic systolic heart failure Is this a current diagnosis for this admission?: Yes Plan: As above #1. NT BNP is up to 13,800. Chest x-ray is pending we have given her a dose of 40 mg of IV Lasix. She is diuresing. (3) Hyponatremia Is this a current diagnosis for this admission?: Yes Plan: Sodium is down to 126 today. She did need a dose of IV Lasix this morning because of fluid volume overload. Her NT BNP is up to 13,800. Will resume oral Lasix later. Nephrology is following. (4) Anemia in chronic illness Is this a current diagnosis for this admission?: Yes Plan: Stable (5) Breast cancer Qualifiers: Breast location: areola Estrogen receptor status: positive Patient sex: female Laterality: left Qualified Code(s): C50.012 - Malignant neoplasm of nipple and areola, left female breast; Z17.0 - Estrogen receptor positive status [ER+] Is this a current diagnosis for this admission?: Yes Plan: She is on Femara. Dr. Alexandre is following (6) COPD (chronic obstructive pulmonary disease) Qualifiers: COPD type: COPD with acute exacerbation Qualified Code(s): J44.1 - Chronic obstructive pulmonary disease with (acute) exacerbation Is this a current diagnosis for this admission?: Yes Plan: New steroids nebulizers antibiotics (7) HTN (hypertension) Qualifiers: Hypertension type: essential hypertension Qualified Code(s): I10 - Essential (primary) hypertension Is this a current diagnosis for this admission?: Yes Plan: Presently normotensive. She did require a dose of IV hydralazine last night. (8) Left bundle branch block (LBBB) Is this a current diagnosis for this admission?: Yes Plan: Chronic and stable (9) Elevated brain natriuretic peptide (BNP) level Is this a current diagnosis for this admission?: Yes Plan: Increasing. Will resumed diuretics (10) Tobacco abuse counseling Is this a current diagnosis for this admission?: Yes Plan: Counseled. She states she has tried many times to quit. (11) Leukocytosis Qualifiers: Leukocytosis type: bandemia Qualified Code(s): D72.825 - Bandemia Is this a current diagnosis for this admission?: Yes Plan: She is presently on IV clindamycin and ceftriaxone. Is up to 31,000 with 7000 bands. Have asked for ID consult. She has been afebrile cultures so far negative. Sputum culture is pending (12) Malnutrition Qualifiers: Protein-calorie malnutrition severity: moderate Is this a current diagnosis for this admission?: Yes Plan: Continue nutritional supplements, dietary consult
[2018-07-06] MEDS ORDERED: FUROSEMIDE INJ/PF 40 MG/4 ML SDV IV ONE (09:00)
--- NOTE | 2018-07-06 09:13 | RADIOLOGY REPORT (SQ) ---
EXAM DESCRIPTION: CHEST SINGLE VIEW COMPLETED DATE/TIME: 07/06/2018 8:48 am REASON FOR STUDY: SOB, wheezing COMPARISON: CT chest 05/10/2018 Chest films 03/24/2018, 07/04/2018 EXAM PARAMETERS: NUMBER OF VIEWS: One view. TECHNIQUE: Single frontal radiographic view of the chest acquired. RADIATION DOSE: NA LIMITATIONS: None. FINDINGS: LUNGS AND PLEURA: Patchy airspace disease is now present in the right upper lobe near the minor fissure, and in the right lateral costophrenic sulcus. Question asymmetric pulmonary edema [place] pneumonia superimposed on obstructive lung disease. Left lung grossly clear. No pleural effusions. No pneumothorax. MEDIASTINUM AND HILAR STRUCTURES: No masses. Contour normal. HEART AND VASCULAR STRUCTURES: Stable moderate cardiomegaly BONES: No acute findings. HARDWARE: None in the chest. OTHER: No other significant finding. IMPRESSION: Patchy airspace disease in the right upper lobe and right lateral costophrenic sulcus, w orrisome for which pneumonia. Asymmetric pulmonary edema could cause this appearance. TECHNICAL DOCUMENTATION: JOB ID: [id number] [employer]- All Rights Reserved Reading location - IP/workstation name: [email or web address]
[2018-07-06] MEDS: FUROSEMIDE 20 MG TABLET PO SCH ×3 (09:57→18:13)
[2018-07-06] MEDS: FLUTICASONE/SALMETEROL DISKUS 250-50 MCG/DOSE IH SCH ×2 (09:57→23:07)
[2018-07-06] MEDS: CHOLECALCIFEROL (D3) 1,000 UNIT TABLET PO SCH (09:57)
[2018-07-06] MEDS: FAMOTIDINE 20 MG TABLET PO SCH ×2 (09:58→23:06)
[2018-07-06] MEDS: ASPIRIN 81 MG TABLET, CHEWABLE PO SCH (09:58)
[2018-07-06] MEDS: ENOXAPARIN SODIUM INJ 30 MG/0.3 ML DISP.SYRIN SUBCUT SCH (09:58)
[2018-07-06] MEDS: LETROZOLE 2.5 MG TABLET PO SCH (09:59)
[2018-07-06] MEDS: METHYLPREDNISOLONE INJ 40 MG/1 ML SDV IV SCH ×2 (09:59→23:06)
[2018-07-06 10:34] LABS: HEMOGLOBIN 10.2 g/dL (12.0-15.5)
[2018-07-06] MEDS ORDERED: HYDRALAZINE HCL INJ/PF 20 MG/1 ML SDV IV PRN ×2 (12:08→21:30)
[2018-07-06] MEDS ORDERED: HYDRALAZINE HCL INJ/PF 20 MG/1 ML SDV ONE (12:13)
[2018-07-06 15:12] LABS: PATH REVIEW PATHOLOGIST REVIEWED
--- NOTE | 2018-07-06 16:07 | Progress Note ---
Provider Note Provider Note: ID Consult Note Asked to review patient's chart by Rayne Bates NP. Ms. Skelton is a 78 year old woman with PMH/PSH including HTN, CHF, CKD, breast cancer s/p L mastectomy, and COPD who presented to the ED on 07/04/18 with c/o worsening SOB. EMS was called and found pt to be hypxoic. She had a fever of 101.5 F on presentation. Her exam was notable for accessory muscle use, prolonged expiratory phase and wheezes b/l with rales. Labs included leukocytosis 17.7, hyponatremia, elevated NT Pro BNP 6400. BCx are negative x 24h. Imaging includes CXR on 07/04 with chronic interstitial changes in the chest but no focal infiltrates. V/Q scan with low probability for PE. Repeat CXR on 07/06 was read as showing patchy airspace disease in the RUL near the minor fissure and in the R lateral costophrenic sulcus worrisome for pneumonia vs asymmetric pulmonary edema. Pt has been receiving clindamycin and ceftriaxone empirically. She is also receiving 40 mg IV solu-medrol q12h. She is no longer febrile. She has been on 4 L O2. Her BNP has been [place] 6400 [place] [address]. Her WBC count has also been increasing from 18 on admission now to 31. Impression/Recommendations Pt is being treated for acute exacerbation of COPD and acute on chronic heart failure. She does not have a history of frequent hospitalizations at [facility] for COPD AE, recent IV antibiotic use that I am aware of, has no previous sputum cultures with resistant organisms (only those that are more typically associated with chronic smoking/COPD hx or CAP, such as Moraxella and Strep pneumo). She has a number of allergies reported, including itching associated with macrolides. Suggest discontinuing clindamycin. Clindamycin has a greater potential risk for Clostridium difficile. MRSA is unlikely without risk factors. Leukocytosis is likely multifactorial - can be driven by steroid administration and physiologic stressors such as CHF exacerbation - in addition to an infectious process. If pt had frequent COPD exacerbations and recent IV antibiotic exposure or bronchiectasis, Pseudomonas aeruginosa might be more likely, and cefepime instead of Rocephin might be a reasonable empiric choice. If she is clinically worsening, change Rocephin to cefepime and then de-escalate if no Pseudomonas is isolated. Otherwise, if she is clinically stable, continue Rocephin while awaiting sputum culture. Kavon Birmingham MD [facility] Infectious Diseases pager [phone]
[2018-07-06] MEDS: CEFTRIAXONE 1 GM/D5W RTU 1 GM/50 ML RTUPB IV SCH (18:13)
[2018-07-06] MEDS: IPRATROPIUM/ALBUTEROL 0.5-2.5 MG/3 ML AMPUL NEB SCH (19:48)
--- NOTE | 2018-07-06 20:48 | PDOC PROGRESS REPORT ---
Subjective Progress Note for:: 07/06/18 Subjective:: I saw the patient patient is having breathing treatment because she started being more short of breath. The daughter is at bedside telling me that patient was not given her Lasix so her blood pressure is so elevated and she is more short of breath. Her urine output was also decreased without her Lasix although uncertain if this is an accurate recording. Reason For Visit: ACUTE ON CHRONIC RESP FAILURE Physical Exam Vital Signs: Temp Pulse Resp BP Pulse Ox 97.8 F 83 18 193/82 H 100 07/06/18 19:57 07/06/18 19:57 07/06/18 19:57 07/06/18 19:57 07/06/18 19:57 Intake & Output 07/05/18 07/06/18 07/07/18 06:59 06:59 06:59 Intake Total 1300 1859 937 Output Total 300 1500 2700 Balance 1000 359 -1763 Weight 47.7 kg 48.8 kg Exam: General appearance: PRESENT: Currently receiving breathing treatments, field service coordinator perative, well-developed, well-nourished Head exam: PRESENT: atraumatic, normocephalic Eye exam: PRESENT: conjunctiva pink, PERRLA. ABSENT: scleral icterus Neck exam: ABSENT: JVD Respiratory exam: PRESENT: Diminished breath sounds. Diffuse expiratory wheezes ABSENT: crackles, rales, rhonchi, Cardiovascular exam: PRESENT: Regular rate rhythm -+S1, +S2. ABSENT: diastolic murmur, systolic murmur GI/Abdominal exam: PRESENT: normal bowel sounds, soft. ABSENT: guarding, mass, tenderness Extremities exam: ABSENT: No edema Neurological exam: PRESENT: alert, awake, oriented to person, place and time. Skin exam: PRESENT: dry, warm, Results Laboratory Results: 07/06/18 04:27 07/06/18 04:27 07/05/18 07/06/18 07/06/18 05:13 04:27 04:27 WBC 31.4 H* RBC 3.45 L Hgb 10.2 L D 9.9 L Hct 29.1 L MCV 84 MCH 28.7 MCHC 34.0 RDW 13.9 Plt Count 194 Seg Neutrophils % Not Reportable Lymphocytes % Not Reportable Monocytes % Not Reportable Eosinophils % Not Reportable Basophils % Not Reportable Absolute Neutrophils Not Reportable Absolute Lymphocytes Not Reportable Absolute Monocytes Not Reportable Absolute Eosinophils Not Reportable Absolute Basophils Not Reportable Sodium 126.9 L Potassium 4.4 Chloride 88 L Carbon Dioxide 27 Anion Gap 12 BUN 26 H Creatinine 0.90 Est GFR ( Amer) > 60 Est GFR (Non-Af Amer) > 60 Glucose 120 H Calcium 8.9 Magnesium 2.0 Total Bilirubin 0.4 AST 23 ALT 16 Alkaline Phosphatase 73 Total Protein 6.7 Albumin 3.7 07/04/18 07/04/18 07/04/18 13:45 15:20 15:20 Creatine Kinase Cancelled < 20 L CK-MB (CK-2) 1.12 Troponin I < 0.012 NT-Pro-B Natriuret Pep 6400 H 07/04/18 07/04/18 07/04/18 17:25 17:25 23:00 Creatine Kinase < 20 L < 20 L CK-MB (CK-2) 0.83 Troponin I 0.016 NT-Pro-B Natriuret Pep 07/04/18 07/05/18 07/05/18 23:00 05:13 05:13 Creatine Kinase < 20 L CK-MB (CK-2) 0.84 1.15 Troponin I < 0.012 < 0.012 NT-Pro-B Natriuret Pep 75293 H 07/06/18 04:27 Creatine Kinase CK-MB (CK-2) Troponin I NT-Pro-B Natriuret Pep 06313 H Impressions: Lung Scan-VQ NM 07/05/18 00:00 IMPRESSION: Very heterogeneous ventilation images due to radiotracer clumping an obstructive pulmonary disease. Homogeneous pulmonary perfusion without evidence of defect. Low probability examination for pulmonary embolism by modified PIOPED criteria. Chest X-Ray 07/06/18 00:00 IMPRESSION: Patchy airspace disease in the right upper lobe and right lateral costophrenic sulcus, worrisome for which pneumonia. Asymmetric pulmonary edema could cause this appearance. Assessment & Plan - Diagnosis (1) COPD (chronic obstructive pulmonary disease) Qualifiers: COPD type: COPD with acute exacerbation Qualified Code(s): J44.1 - Chronic obstructive pulmonary disease with (acute) exacerbation Is this a current diagnosis for this admission?: Yes Plan: I change her DuoNeb treatments to scheduled treatments rather than as needed. She is on IV steroids. (2) Chronic kidney disease, stage III (moderate) Is this a current diagnosis for this admission?: Yes Plan: Kidney function stable. (3) Microalbuminuria Is this a current diagnosis for this admission?: Yes (4) HTN (hypertension) Qualifiers: Hypertension type: essential hypertension Qualified Code(s): I10 - Essential (primary) hypertension Is this a current diagnosis for this admission?: Yes Plan: Agree with resuming Lasix. Continue labetalol. (5) Hyponatremia Is this a current diagnosis for this admission?: Yes Plan: Slightly worse today likely due to patient not getting her Lasix with some fluid retention. (6) Anemia in chronic illness Is this a current diagnosis for this admission?: Yes (7) Leukocytosis Qualifiers: Leukocytosis type: bandemia Qualified Code(s): D72.825 - Bandemia Is this a current diagnosis for this admission?: Yes Plan: Per infectious disease this is multifactorial due to steroids and possible pneumonia. - Time Time with patient: 15-25 minutes
[2018-07-06] MEDS: Tiotropium Bromide (Spiriva Respimat) PO SCH (23:07)
[2018-07-06] MEDS: HYDRALAZINE HCL INJ/PF 20 MG/1 ML SDV IV PRN (23:23)
[2018-07-07] MEDS ORDERED: MELATONIN 3 MG TABLET PO PRN (02:21)
[2018-07-07] MEDS: IPRATROPIUM/ALBUTEROL 0.5-2.5 MG/3 ML AMPUL NEB SCH ×4 (02:42→20:07)
[2018-07-07] MEDS: LABETALOL HCL 200 MG TABLET PO SCH ×4 (05:27→23:20)
[2018-07-07] MEDS: CLINDAMYCIN 600 MG/D5W RTU 600 MG/50 ML RTUPB IV SCH (05:28)
[2018-07-07 05:33] LABS: HEMATOCRIT 29.5 % (36.0-47.0); HEMOGLOBIN 10.2 g/dL (12.0-15.5); MEAN CORPUSCULAR HGB CONC 34.7 g/dL (32.0-36.0); MEAN CORPUSCULAR VOLUME 84 fl (80-97); PLATELET COUNT 207 10^3/uL (150-450); RED BLOOD COUNT 3.53 10^6/uL (3.72-5.28); RED CELL DISTRIBUTION WIDTH 13.6 % (11.5-14.0); WHITE BLOOD COUNT 21.5 10^3/uL (4.0-10.5)
[2018-07-07 05:53] LABS: ANION GAP 11 (5-19); BLOOD UREA NITROGEN 29 mg/dL (7-20); CALCIUM 8.9 mg/dL (8.4-10.2); CARBON DIOXIDE 32 mmol/L (22-30); CHLORIDE 85 mmol/L (98-107); GLUCOSE 120 mg/dL (75-110); POTASSIUM 4.1 mmol/L (3.6-5.0); SODIUM 128.2 mmol/L (137-145)
[2018-07-07 05:59] LABS: ABSOLUTE LYMPHOCYTES# (MANUAL) 2.4 10^3/uL (0.5-4.7); ABSOLUTE MONOCYTES # (MANUAL) 0.2 10^3/uL (0.1-1.4); ABSOLUTE NEUTROPHILS# (MANUAL) 18.9 10^3/uL (1.7-8.2); BAND NEUTROPHILS % (MANUAL) 8 % (3-5); BASOPHILS % (MANUAL) 0 % (0-2); EOSINOPHILS % (MANUAL) 0 % (0-6); LYMPHOCYTES % (MANUAL) 9 % (13-45); MONOCYTES % (MANUAL) 1 % (3-13); PLATELET COMMENT ADEQUATE; RBC MORPHOLOGY COMMENT NORMO-CYTIC/CHROMIC; SEGMENTED NEUTROPHILS % (MAN) 80 % (42-78); TOTAL CELLS COUNTED 100
--- NOTE | 2018-07-07 08:48 | PDOC PROGRESS REPORT ---
Subjective Subjective:: Patient is seen resting on the side of the bed. Her daughter is at the bedside. She is awake, alert, oriented x3. She denies any chest pain, shortness of breath or dyspnea at rest. She does become easily dyspneic with minor exertion. She states her breathing is improved from admission. She diuresed a great deal yesterday and feels that helped. She states she feels like her sinuses are still plugged up. Some mild frontal headache. She denies any dizziness or lightheadedness. Denies any nausea, vomiting or abdominal pain. She denies diarrhea. She states her bowels moved yesterday. She denies any other ar thralgias or myalgias. Remaining review systems are negative. Reason For Visit: ACUTE ON CHRONIC RESP FAILURE Physical Exam Vital Signs: Temp Pulse Resp BP Pulse Ox 98.1 F 81 18 168/84 H 97 07/07/18 07:40 07/07/18 07:40 07/07/18 07:40 07/07/18 07:40 07/07/18 07:40 Intake & Output 07/06/18 07/07/18 07/08/18 06:59 06:59 06:59 Intake Total 1859 1874 Output Total 1500 4100 Balance 359 -2226 Weight 48.8 kg 45.1 kg General appearance: PRESENT: no acute distress, thin, well-developed Head exam: PRESENT: atraumatic, normocephalic Eye exam: PRESENT: conjunctiva pink, EOMI, PERRLA. ABSENT: scleral icterus Ear exam: PRESENT: normal external ear exam Mouth exam: PRESENT: moist, tongue midline Neck exam: ABSENT: carotid bruit, JVD, lymphadenopathy, thyromegaly Respiratory exam: PRESENT: symmetrical, unlabored, wheezes - bilateral expiratory wheezing, improves with cough Cardiovascular exam: PRESENT: RRR, systolic murmur - 3/6. ABSENT: diastolic murmur, rubs Pulses: PRESENT: normal dorsalis pedis pul Vascular exam: PRESENT: normal capillary refill GI/Abdominal exam: PRESENT: normal bowel sounds, soft. ABSENT: distended, guarding, mass, organolmegaly, rebound, tenderness Rectal exam: PRESENT: deferred Extremities exam: PRESENT: full ROM. ABSENT: calf tenderness, clubbing, pedal edema Neurological exam: PRESENT: alert, awake, oriented to person, oriented to place, oriented to time, oriented to situation, CN II-XII grossly intact. ABSENT: motor sensory deficit Psychiatric exam: PRESENT: appropriate affect, normal mood. ABSENT: homicidal ideation, suicidal ideation Skin exam: PRESENT: dry, intact, warm. ABSENT: cyanosis, rash Results Laboratory Results: 07/07/18 04:48 07/07/18 04:48 07/05/18 07/07/18 07/07/18 05:13 04:48 04:48 WBC 21.5 H RBC 3.53 L Hgb 10.2 L D 10.2 L Hct 29.5 L MCV 84 MCH 29.0 MCHC 34.7 RDW 13.6 Plt Count 207 Seg Neutrophils % Not Reportable Lymphocytes % Not Reportable Monocytes % Not Reportable Eosinophils % Not Reportable Basophils % Not Reportable Absolute Neutrophils Not Reportable Absolute Lymphocytes Not Reportable Absolute Monocytes Not Reportable Absolute Eosinophils Not Reportable Absolute Basophils Not Reportable Sodium 128.2 L Potassium 4.1 Chloride 85 L Carbon Dioxide 32 H Anion Gap 11 BUN 29 H Creatinine 0.99 Est GFR ( Amer) > 60 Est GFR (Non-Af Amer) 54 L Glucose 120 H Calcium 8.9 07/05/18 08:15 Clean Catch Midstream Urine Culture - Final Enterococcus Faecalis(Group D) 07/04/18 07/04/18 07/04/18 13:45 15:20 15:20 Creatine Kinase Cancelled < 20 L CK-MB (CK-2) 1.12 Troponin I < 0.012 NT-Pro-B Natriuret Pep 6400 H 07/04/18 07/04/18 07/04/18 17:25 17:25 23:00 Creatine Kinase < 20 L < 20 L CK-MB (CK-2) 0.83 Troponin I 0.016 NT-Pro-B Natriuret Pep 07/04/18 07/05/18 07/05/18 23:00 05:13 05:13 Creatine Kinase < 20 L CK-MB (CK-2) 0.84 1.15 Troponin I < 0.012 < 0.012 NT-Pro-B Natriuret Pep 59871 H 07/06/18 04:27 Creatine Kinase CK-MB (CK-2) Troponin I NT-Pro-B Natriuret Pep 44570 H Impressions: Lung Scan-VQ NM 07/05/18 00:00 IMPRESSION: Very heterogeneous ventilation images due to radiotracer clumping an obstructive pulmonary disease. Homogeneous pulmonary perfusion without evidence of defect. Low probability examination for pulmonary embolism by modified PIOPED criteria. Chest X-Ray 07/06/18 00:00 IMPRESSION: Patchy airspace disease in the right upper lobe and right lateral costophrenic sulcus, worrisome for which pneumonia. Asymmetric pulmonary edema could cause this appearance. Assessment & Plan - Diagnosis (1) Acute and chronic respiratory failure Qualifiers: Respiratory failure complication: hypercapnia Qualified Code(s): J96.22 - Acute and chronic respiratory failure with hypercapnia Is this a current diagnosis for this admission?: Yes Plan: IV cefepime was added and ceftriaxone was discontinued cover for possible Pseudomonas. She is slowly improving. Continue she still has expiratory wheezing. We will continue IV steroids today hopefully can start to de-escalate tomorrow. Continue Spiriva, Advair and DuoNeb therapy (2) Acute on chronic systolic heart failure Is this a current diagnosis for this admission?: Yes Plan: She diuresed well yesterday. Continue home dose of Lasix. (3) Hyponatremia Is this a current diagnosis for this admission?: Yes Plan: Sodium is improved today to 128. We will continue to monitor. (4) Anemia in chronic illness Is this a current diagnosis for this admission?: Yes Plan: Stable (5) Breast cancer Qualifiers: Breast location: areola Estrogen receptor status: positive Patient sex: female Laterality: left Qualified Code(s): C50.012 - Malignant neoplasm of nipple and areola, left female breast; Z17.0 - Estrogen receptor positive status [ER+] Is this a current diagnosis for this admission?: Yes Plan: She is on Femara. Dr. Alexandre is following (6) COPD (chronic obstructive pulmonary disease) Qualifiers: COPD type: COPD with acute exacerbation Qualified Code(s): J44.1 - Chronic obstructive pulmonary disease with (acute) exacerbation Is this a current diagnosis for this admission?: Yes Plan: New steroids nebulizers antibiotics (7) HTN (hypertension) Qualifiers: Hypertension type: essential hypertension Qualified Code(s): I10 - Essential (primary) hypertension Is this a current diagnosis for this admission?: Yes Plan: Presently normotensive. Continue current meds and as needed hydralazine (8) Left bundle branch block (LBBB) Is this a current diagnosis for this admission?: Yes Plan: Chronic and stable (9) Elevated brain natriuretic peptide (BNP) level Is this a current diagnosis for this admission?: Yes Plan: Continue home Lasix, monitor BNP and electrolytes (10) Tobacco abuse counseling Is this a current diagnosis for this admission?: Yes Plan: Counseled. She states she has tried many times to quit. (11) Leukocytosis Qualifiers: Leukocytosis type: bandemia Qualified Code(s): D72.825 - Bandemia Is this a current diagnosis for this admission?: Yes Plan: Improved to 21,000 today. Continue IV cefepime and Vanco. Sputum cultures not resolved (12) Malnutrition Qualifiers: Protein-calorie malnutrition severity: moderate Is this a current diagnosis for this admission?: Yes Plan: Continue nutritional supplements, dietary consult - Time Time Spent with patient: 25-34 minutes Total Critical Time (Minutes): 20 Smoking Cessation Education: 3 to 10 minutes Medications reviewed and adjusted accordingly: Yes Anticipated discharge: Home with Homehealth - Inpatient Certification Based on my medical assessment, after consideration of the patient's comorbidities, presenting symptoms, or acuity I expect that the services needed warrant INPATIENT care.: Yes I certify that my determination is in accordance with my understanding of Medicare's requirements for reasonable and necessary INPATIENT services [42 CFR 412.3e].: Yes Medical Necessity: Significant Comorbidiites Make Outpatient Treatment Too Risky, Need Close Monitoring Due to Risk of Patient Decompensation, Risk of Complication if Not Cared For in Hospital
[2018-07-07] MEDS: ASPIRIN 81 MG TABLET, CHEWABLE PO SCH (08:59)
[2018-07-07] MEDS: LETROZOLE 2.5 MG TABLET PO SCH (08:59)
[2018-07-07] MEDS: FUROSEMIDE 20 MG TABLET PO SCH ×3 (08:59→17:01)
[2018-07-07] MEDS: FAMOTIDINE 20 MG TABLET PO SCH ×2 (09:00→22:02)
[2018-07-07] MEDS: CHOLECALCIFEROL (D3) 1,000 UNIT TABLET PO SCH (09:00)
[2018-07-07] MEDS: METHYLPREDNISOLONE INJ 40 MG/1 ML SDV IV SCH ×3 (09:01→22:04)
[2018-07-07] MEDS: FLUTICASONE/SALMETEROL DISKUS 250-50 MCG/DOSE IH SCH ×2 (09:01→22:02)
[2018-07-07] MEDS: Tiotropium Bromide (Spiriva Respimat) PO SCH (09:02)
[2018-07-07] MEDS: ENOXAPARIN SODIUM INJ 30 MG/0.3 ML DISP.SYRIN SUBCUT SCH (09:02)
[2018-07-07] MEDS ORDERED: CEFEPIME 2 GM/D5W RTU 2 GM/50 ML RTUPB IV SCH (10:00)
[2018-07-07] MEDS ORDERED: Tiotropium Bromide (Spiriva Respimat) PO SCH (10:00)
--- NOTE | 2018-07-07 10:53 | PDOC PROGRESS REPORT ---
Subjective Progress Note for:: 07/07/18 Subjective:: Patient is seen resting on the side of the bed. Her daughter is at the bedside. She is awake, alert, oriented x3. She denies any chest pain, shortness of breath or dyspnea at rest. She does become easily dyspneic with minor exertion. She states her breathing is improved from admission. She diuresed a great deal yesterday and feels that helped. She states she feels like her sinuses are still plugged up. Some mild frontal headache. She denies any dizziness or lightheadedness. Denies any nausea, vomiting or abdominal pain. She denies diarrhea. She states her bowels moved yesterday. She denies any other arthralgias or myalgias. Remaining review systems are negative. Reason For Visit: ACUTE ON CHRONIC RESP FAILURE Physical Exam Vital Signs: Temp Pulse Resp BP Pulse Ox 98.1 F 83 17 168/84 H 94 07/07/18 07:40 07/07/18 07:58 07/07/18 07:58 07/07/18 07:40 07/07/18 07:58 Intake & Output 07/06/18 07/07/18 07/08/18 06:59 06:59 06:59 Intake Total 1859 1874 Output Total 1500 4100 Balance 359 -2226 Weight 48.8 kg 45.1 kg General appearance: PRESENT: no acute distress, thin Head exam: PRESENT: atraumatic Eye exam: PRESENT: conjunctiva pink, EOMI, PERRLA. ABSENT: scleral icterus Ear exam: PRESENT: normal external ear exam Mouth exam: PRESENT: moist, tongue midline Neck exam: ABSENT: carotid bruit, JVD, lymphadenopathy, thyromegaly Respiratory exam: PRESENT: symmetrical, unlabored, wheezes - mild expiratory wheezing Cardiovascular exam: PRESENT: RRR. ABSENT: diastolic murmur, rubs, systolic murmur Pulses: PRESENT: normal dorsalis pedis pul Vascular exam: PRESENT: normal capillary refill GI/Abdominal exam: PRESENT: normal bowel sounds, soft. ABSENT: distended, guarding, mass, organolmegaly, rebound, tenderness Rectal exam: PRESENT: deferred Extremities exam: PRESENT: full ROM. ABSENT: calf tenderness, clubbing, pedal edema Musculoskeletal exam: PRESENT: ambulatory, full ROM, normal inspection Neurological exam: PRESENT: alert, awake, oriented to person, oriented to place, oriented to time, oriented to situation, CN II-XII grossly intact. ABSENT: motor sensory deficit Psychiatric exam: PRESENT: appropriate affect, normal mood. ABSENT: homicidal ideation, suicidal ideation Skin exam: PRESENT: dry, intact, warm. ABSENT: cyanosis, rash Results Laboratory Results: 07/07/18 04:48 07/07/18 04:48 07/07/18 07/07/18 04:48 04:48 WBC 21.5 H RBC 3.53 L Hgb 10.2 L Hct 29.5 L MCV 84 MCH 29.0 MCHC 34.7 RDW 13.6 Plt Count 207 Seg Neutrophils % Not Reportable Lymphocytes % Not Reportable Monocytes % Not Reportable Eosinophils % Not Reportable Basophils % Not Reportable Absolute Neutrophils Not Reportable Absolute Lymphocytes Not Reportable Absolute Monocytes Not Reportable Absolute Eosinophils Not Reportable Absolute Basophils Not Reportable Sodium 128.2 L Potassium 4.1 Chloride 85 L Carbon Dioxide 32 H Anion Gap 11 BUN 29 H Creatinine 0.99 Est GFR ( Amer) > 60 Est GFR (Non-Af Amer) 54 L Glucose 120 H Calcium 8.9 07/05/18 08:15 Clean Catch Midstream Urine Culture - Final Enterococcus Faecalis(Group D) 07/04/18 07/04/18 07/04/18 13:45 15:20 15:20 Creatine Kinase Cancelled < 20 L CK-MB (CK-2) 1.12 Troponin I < 0.012 NT-Pro-B Natriuret Pep 6400 H 07/04/18 07/04/18 07/04/18 17:25 17:25 23:00 Creatine Kinase < 20 L < 20 L CK-MB (CK-2) 0.83 Troponin I 0.016 NT-Pro-B Natriuret Pep 07/04/18 07/05/18 07/05/18 23:00 05:13 05:13 Creatine Kinase < 20 L CK-MB (CK-2) 0.84 1.15 Troponin I < 0.012 < 0.012 NT-Pro-B Natriuret Pep 36329 H 07/06/18 04:27 Creatine Kinase CK-MB (CK-2) Troponin I NT-Pro-B Natriuret Pep 36298 H Impressions: Lung Scan-VQ NM 07/05/18 00:00 IMPRESSION: Very heterogeneous ventilation images due to radiotracer clumping an obstructive pulmonary disease. Homogeneous pulmonary perfusion without evidence of defect. Low probability examination for pulmonary embolism by mo dified PIOPED criteria. Chest X-Ray 07/06/18 00:00 IMPRESSION: Patchy airspace disease in the right upper lobe and right lateral costophrenic sulcus, worrisome for which pneumonia. Asymmetric pulmonary edema could cause this appearance. Assessment & Plan - Diagnosis (1) Acute and chronic respiratory failure Qualifiers: Respiratory failure complication: hypercapnia Qualified Code(s): J96.22 - Acute and chronic respiratory failure with hypercapnia Is this a current diagnosis for this admission?: Yes Plan: IV cefepime was added and ceftriaxone was discontinued cover for possible Pseudomonas. She is slowly improving. Continue she still has expiratory wheezing. We will continue IV steroids today hopefully can start to de-escalate tomorrow. Continue Spiriva, Advair and DuoNeb therapy (2) Acute on chronic systolic heart failure Is this a current diagnosis for this admission?: Yes (3) Hyponatremia Is this a current diagnosis for this admission?: Yes (4) Anemia in chronic illness Is this a current diagnosis for this admission?: Yes (5) Breast cancer Qualifiers: Breast location: areola Estrogen receptor status: positive Patient sex: female Laterality: left Qualified Code(s): C50.012 - Malignant neoplasm of nipple and areola, left female breast; Z17.0 - Estrogen receptor positive status [ER+] Is this a current diagnosis for this admission?: Yes (6) COPD (chronic obstructive pulmonary disease) Qualifiers: COPD type: COPD with acute exacerbation Qualified Code(s): J44.1 - Chronic obstructive pulmonary disease with (acute) exacerbation Is this a current diagnosis for this admission?: Yes (7) HTN (hypertension) Qualifiers: Hypertension type: essential hypertension Qualified Code(s): I10 - Essential (primary) hypertension Is this a current diagnosis for this admission?: Yes (8) Left bundle branch block (LBBB) Is this a current diagnosis for this admission?: Yes (9) Elevated brain natriuretic peptide (BNP) level Is this a current diagnosis for this admission?: Yes (10) Tobacco abuse counseling Is this a current diagnosis for this admission?: Yes (11) Leukocytosis Qualifiers: Leukocytosis type: bandemia Qualified Code(s): D72.825 - Bandemia Is this a current diagnosis for this admission?: Yes (12) Malnutrition Qualifiers: Protein-calorie malnutrition severity: moderate Is this a current diagnosis for this admission?: Yes - Time Time Spent with patient: 25-34 minutes Total Critical Time (Minutes): 25 Smoking Cessation Education: 3 to 10 minutes Medications reviewed and adjusted accordingly: Yes Anticipated discharge: Home with Homehealth
[2018-07-07] MEDS: LACTOBACILLUS ACIDOPHILUS 250 MG TAB PO SCH ×2 (10:55→17:01)
[2018-07-07] MEDS: SODIUM CHLORIDE NASAL SPRAY 44 ML NASL SCH ×3 (10:56→22:04)
[2018-07-07] MEDS: FLUTICASONE NASAL SPRAY 50 MCG/SPRY 120 SPRAY/16 GM NASL SCH ×2 (10:56→22:03)
[2018-07-07] MEDS: HYDRALAZINE HCL INJ/PF 20 MG/1 ML SDV IV PRN (15:37)
[2018-07-07] MEDS ORDERED: GUAIFENESIN SYRP 200 MG/10 ML UDC PO PRN (16:33)
[2018-07-07] MEDS: IPRATROPIUM/ALBUTEROL 0.5-2.5 MG/3 ML AMPUL NEB PRN (17:13)
[2018-07-07] MEDS: ACETAMINOPHEN 325 MG TABLET PO PRN (22:02)
[2018-07-08] MEDS: IPRATROPIUM/ALBUTEROL 0.5-2.5 MG/3 ML AMPUL NEB SCH ×4 (02:00→21:03)
[2018-07-08 05:35] LABS: HEMATOCRIT 31.3 % (36.0-47.0); HEMOGLOBIN 10.9 g/dL (12.0-15.5); MEAN CORPUSCULAR HEMOGLOBIN 29.1 pg (27.0-33.4); MEAN CORPUSCULAR HGB CONC 34.7 g/dL (32.0-36.0); MEAN CORPUSCULAR VOLUME 84 fl (80-97); PLATELET COUNT 233 10^3/uL (150-450); RED BLOOD COUNT 3.74 10^6/uL (3.72-5.28); RED CELL DISTRIBUTION WIDTH 13.5 % (11.5-14.0); WHITE BLOOD COUNT 11.4 10^3/uL (4.0-10.5)
[2018-07-08 05:52] LABS: ANION GAP 10 (5-19); BLOOD UREA NITROGEN 33 mg/dL (7-20); CALCIUM 8.9 mg/dL (8.4-10.2); CARBON DIOXIDE 34 mmol/L (22-30); CHLORIDE 85 mmol/L (98-107); GLUCOSE 120 mg/dL (75-110); SODIUM 128.9 mmol/L (137-145)
[2018-07-08 06:04] LABS: ABSOLUTE LYMPHOCYTES# (MANUAL) 1.7 10^3/uL (0.5-4.7); ABSOLUTE NEUTROPHILS# (MANUAL) 8.7 10^3/uL (1.7-8.2); BAND NEUTROPHILS % (MANUAL) 5 % (3-5); BASOPHILS % (MANUAL) 0 % (0-2); EOSINOPHILS % (MANUAL) 0 % (0-6); LYMPHOCYTES % (MANUAL) 6 % (13-45); METAMYELOCYTES % (MANUAL) 1 % (0); MONOCYTES % (MANUAL) 9 % (3-13); SEGMENTED NEUTROPHILS % (MAN) 70 % (42-78); TOTAL CELLS COUNTED 100
[2018-07-08 06:05] LABS: PLATELET COMMENT ADEQUATE; RBC MORPHOLOGY COMMENT NORMO-CYTIC/CHROMIC
[2018-07-08] MEDS: LABETALOL HCL 200 MG TABLET PO SCH ×4 (06:17→23:36)
[2018-07-08] MEDS: METHYLPREDNISOLONE INJ 40 MG/1 ML SDV IV SCH ×2 (06:17→13:25)
[2018-07-08] MEDS: LETROZOLE 2.5 MG TABLET PO SCH (10:06)
[2018-07-08] MEDS: CEFTRIAXONE 1 GM/D5W RTU 1 GM/50 ML RTUPB IV SCH (10:09)
[2018-07-08] MEDS: LACTOBACILLUS ACIDOPHILUS 250 MG TAB PO SCH ×2 (10:10→17:25)
[2018-07-08] MEDS: FLUTICASONE/SALMETEROL DISKUS 250-50 MCG/DOSE IH SCH ×2 (10:10→21:56)
[2018-07-08] MEDS: ASPIRIN 81 MG TABLET, CHEWABLE PO SCH (10:10)
[2018-07-08] MEDS: FAMOTIDINE 20 MG TABLET PO SCH ×2 (10:11→21:54)
[2018-07-08] MEDS: FUROSEMIDE 20 MG TABLET PO SCH ×3 (10:11→17:25)
[2018-07-08] MEDS: CHOLECALCIFEROL (D3) 1,000 UNIT TABLET PO SCH (10:11)
[2018-07-08] MEDS: FLUTICASONE NASAL SPRAY 50 MCG/SPRY 120 SPRAY/16 GM NASL SCH ×2 (10:13→21:54)
[2018-07-08] MEDS: Tiotropium Bromide (Spiriva Respimat) PO SCH (10:13)
[2018-07-08] MEDS: SODIUM CHLORIDE NASAL SPRAY 44 ML NASL SCH ×4 (10:14→21:55)
[2018-07-08] MEDS: ENOXAPARIN SODIUM INJ 30 MG/0.3 ML DISP.SYRIN SUBCUT SCH (10:14)
[2018-07-08] MEDS: HYDRALAZINE HCL INJ/PF 20 MG/1 ML SDV IV PRN (15:31)
--- NOTE | 2018-07-08 19:34 | PDOC PROGRESS REPORT ---
Subjective Progress Note for:: 07/08/18 Subjective:: states she feels much better today. denies chest pain, sob, abdominal pain, n/v or dizziness. yesterday she desated and had trouble breathing although her SaO2 was >95%. at home she's on 2L O2. Reason For Visit: ACUTE ON CHRONIC RESP FAILURE Physical Exam Vital Signs: Temp Pulse Resp BP Pulse Ox 98.1 F 86 18 182/78 H 99 07/08/18 07:31 07/08/18 07:31 07/08/18 07:31 07/08/18 07:31 07/08/18 07:31 Intake & Output 07/07/18 07/08/18 07/09/18 06:59 06:59 06:59 Intake Total 1874 1150 50 Output Total 4100 2350 Balance -2226 -1200 50 Weight 99 lb 6.856 oz 97 lb 0.054 oz General appearance: PRESENT: no acute distress Head exam: PRESENT: atraumatic, normocephalic Eye exam: PRESENT: EOMI. ABSENT: conjunctival injection, scleral icterus Ear exam: PRESENT: normal external ear exam Mouth exam: PRESENT: moist, tongue midline Neck exam: ABSENT: tracheal deviation Respiratory exam: PRESENT: decreased breath sounds, rhonchi, symmetrical, wheezes - bilaterally at the bases Cardiovascular exam: PRESENT: +S1, +S2 Pulses: PRESENT: +2 pedal pulses bilateral GI/Abdominal exam: PRESENT: normal bowel sounds, soft. ABSENT: tenderness Extremities exam: ABSENT: pedal edema Neurological exam: PRESENT: alert, awake, oriented to person, oriented to place, oriented to time, oriented to situation, CN II-XII grossly intact Skin exam: PRESENT: dry, warm Results Laboratory Results: 07/08/18 04:48 07/08/18 04:48 07/08/18 07/08/18 04:48 04:48 WBC 11.4 H RBC 3.74 Hgb 10.9 L Hct 31.3 L MCV 84 MCH 29.1 MCHC 34.7 RDW 13.5 Plt Count 233 Seg Neutrophils % Not Reportable Lymphocytes % Not Reportable Monocytes % Not Reportable Eosinophils % Not Reportable Basophils % Not Reportable Absolute Neutrophils Not Reportable Absolute Lymphocytes Not Reportable Absolute Monocytes Not Reportable Absolute Eosinophils Not Reportable Absolute Basophils Not Reportable Sodium 128.9 L Potassium 4.0 Chloride 85 L Carbon Dioxide 34 H Anion Gap 10 BUN 33 H Creatinine 1.12 Est GFR ( Amer) 57 L Est GFR (Non-Af Amer) 47 L Glucose 120 H Calcium 8.9 Magnesium 1.7 07/05/18 10:05 Sputum Gram Stain - Final 07/05/18 10:05 Sputum Sputum Culture - Final Streptococcus Pneumoniae Normal Connie 07/05/18 08:15 Clean Catch Midstream Urine Culture - Final Enterococcus Faecalis(Group D) 07/04/18 07/04/18 07/04/18 13:45 15:20 15:20 Creatine Kinase Cancelled < 20 L CK-MB (CK-2) 1.12 Troponin I < 0.012 NT-Pro-B Natriuret Pep 6400 H 07/04/18 07/04/18 07/04/18 17:25 17:25 23:00 Creatine Kinase < 20 L < 20 L CK-MB (CK-2) 0.83 Troponin I 0.016 NT-Pro-B Natriuret Pep 07/04/18 07/05/18 07/05/18 23:00 05:13 05:13 Creatine Kinase < 20 L CK-MB (CK-2) 0.84 1.15 Troponin I < 0.012 < 0.012 NT-Pro-B Natriuret Pep 87096 H 07/06/18 04:27 Creatine Kinase CK-MB (CK-2) Troponin I NT-Pro-B Natriuret Pep 30793 H Impressions: Lung Scan-VQ NM 07/05/18 00:00 IMPRESSION: Very heterogeneous ventilation images due to radiotracer clumping an obstructive pulmonary disease. Homogeneous pulmonary perfusion without evidence of defect. Low probability examination for pulmonary embolism by modified PIOPED criteria. Chest X-Ray 07/06/18 00:00 IMPRESSION: Patchy airspace disease in the right upper lobe and right lateral costophrenic sulcus, worrisome for which pneumonia. Asymmetric pulmonary edema could cause this appearance. Assessment & Plan - Diagnosis (1) UTI (urinary tract infection) Is this a current diagnosis for this admission?: Yes (2) Pneumonia Qualifiers: Pneumonia type: due to unspecified organism Laterality: unspecified laterality Lung location: unspecified part of lung Qualified Code(s): J18.9 - Pneumonia, unspecified organism Is this a current diagnosis for this admission?: Yes (3) Acute and chronic respiratory failure Qualifiers: Respiratory failure complication: hypercapnia Qualified Code(s): J96.22 - Acute and chronic respiratory failure with hypercapnia Is this a current diagnosis for this admission?: Yes (4) COPD exacerbation Is this a current diagnosis for this admission?: Yes (5) Chronic renal insufficiency Is this a current diagnosis for this admission?: Yes (6) Hyperlipidemia Is this a current diagnosis for this admission?: Yes (7) Hypertension Is this a current diagnosis for this admission?: Yes - Plan Summary Plan Summary: acute on chronic resp failure w/ hypoxia- back to baseline O2 of 2L as she was at home. PNA- sputum cx showed strep Pneumoniae- pansensitive - she's on rocephin. decr ease solumedrol to 40mg BID from AM UTI- UCx shows enterococcus faecalis - susceptible to Levaquin- i anni discuss with patient and family about switching to levaquin to cover both PNA and UTi. HTN- BP running a bit high- ?due to acute condition possible d/c in 1-2 days if she does well
[2018-07-08] MEDS: ACETAMINOPHEN 325 MG TABLET PO PRN (21:53)
[2018-07-09] MEDS: IPRATROPIUM/ALBUTEROL 0.5-2.5 MG/3 ML AMPUL NEB SCH ×4 (01:58→19:51)
[2018-07-09] MEDS: LABETALOL HCL 200 MG TABLET PO SCH ×4 (05:28→23:37)
[2018-07-09] MEDS: CEFTRIAXONE 1 GM/D5W RTU 1 GM/50 ML RTUPB IV SCH (09:29)
[2018-07-09] MEDS: SODIUM CHLORIDE NASAL SPRAY 44 ML NASL SCH ×4 (09:30→22:00)
[2018-07-09] MEDS: FUROSEMIDE 20 MG TABLET PO SCH ×3 (09:31→18:22)
[2018-07-09] MEDS: FLUTICASONE/SALMETEROL DISKUS 250-50 MCG/DOSE IH SCH ×2 (09:31→21:59)
[2018-07-09] MEDS: LACTOBACILLUS ACIDOPHILUS 250 MG TAB PO SCH ×2 (09:31→18:21)
[2018-07-09] MEDS: CHOLECALCIFEROL (D3) 1,000 UNIT TABLET PO SCH (09:32)
[2018-07-09] MEDS: ASPIRIN 81 MG TABLET, CHEWABLE PO SCH (09:32)
[2018-07-09] MEDS: ENOXAPARIN SODIUM INJ 30 MG/0.3 ML DISP.SYRIN SUBCUT SCH (09:32)
[2018-07-09] MEDS: FAMOTIDINE 20 MG TABLET PO SCH ×2 (09:32→21:59)
[2018-07-09] MEDS: METHYLPREDNISOLONE INJ 40 MG/1 ML SDV IV SCH ×2 (09:32→21:59)
[2018-07-09] MEDS: LETROZOLE 2.5 MG TABLET PO SCH (09:33)
[2018-07-09] MEDS: FLUTICASONE NASAL SPRAY 50 MCG/SPRY 120 SPRAY/16 GM NASL SCH ×2 (09:33→21:59)
[2018-07-09] MEDS: Tiotropium Bromide (Spiriva Respimat) PO SCH (09:39)
[2018-07-09 11:05] LABS: HEMATOCRIT 35.7 % (36.0-47.0); HEMOGLOBIN 11.8 g/dL (12.0-15.5); MEAN CORPUSCULAR HEMOGLOBIN 27.9 pg (27.0-33.4); MEAN CORPUSCULAR VOLUME 84 fl (80-97); PLATELET COUNT 274 10^3/uL (150-450); RED BLOOD COUNT 4.23 10^6/uL (3.72-5.28); RED CELL DISTRIBUTION WIDTH 13.7 % (11.5-14.0); WHITE BLOOD COUNT 16.1 10^3/uL (4.0-10.5)
[2018-07-09 11:19] LABS: ANION GAP 13 (5-19); BLOOD UREA NITROGEN 41 mg/dL (7-20); CALCIUM 8.9 mg/dL (8.4-10.2); CARBON DIOXIDE 32 mmol/L (22-30); CHLORIDE 85 mmol/L (98-107); GLUCOSE 108 mg/dL (75-110); POTASSIUM 3.6 mmol/L (3.6-5.0); SODIUM 130.1 mmol/L (137-145)
[2018-07-09 11:26] LABS: ABSOLUTE LYMPHOCYTES# (MANUAL) 4.3 10^3/uL (0.5-4.7); ABSOLUTE NEUTROPHILS# (MANUAL) 10.8 10^3/uL (1.7-8.2); BAND NEUTROPHILS % (MANUAL) 2 % (3-5); BASOPHILS % (MANUAL) 0 % (0-2); EOSINOPHILS % (MANUAL) 0 % (0-6); LYMPHOCYTES % (MANUAL) 27 % (13-45); METAMYELOCYTES % (MANUAL) 1 % (0); MONOCYTES % (MANUAL) 6 % (3-13); NUCLEATED RED BLOOD CELLS 1 /100 WBC (0); SEGMENTED NEUTROPHILS % (MAN) 64 % (42-78); TOTAL CELLS COUNTED 100
[2018-07-09 11:27] LABS: OVALOCYTES 1+; PLATELET COMMENT ADEQUATE; POIKILOCYTOSIS 1+
--- NOTE | 2018-07-09 15:15 | PDOC PROGRESS REPORT ---
Subjective Progress Note for:: 07/09/18 Subjective:: spoke with patient this afternoon. she's ready to go home but i explained about her sodium and UTI. i spoke to patient and daughter about her results- positive UCx and Gram stain of strep Pneumonia. i explained switching to levaquin and the risks/benefits of the medication itself- including tendon rupture. they verbalized understanding and would like to start levaquin Reason For Visit: ACUTE ON CHRONIC RESP FAILURE Physical Exam Vital Signs: Temp Pulse Resp BP Pulse Ox 98.3 F 91 16 180/80 H 95 07/09/18 11:08 07/09/18 14:00 07/09/18 13:46 07/09/18 11:08 07/09/18 13:46 Intake & Output 07/08/18 07/09/18 07/10/18 06:59 06:59 06:59 Intake Total 1150 587 Output Total 2350 3000 400 Balance -1200 -2413 -400 Weight 97 lb 0.054 oz 98 lb 5.219 oz General appearance: PRESENT: no acute distress Head exam: PRESENT: atraumatic, normocephalic Eye exam: PRESENT: EOMI. ABSENT: conjunctival injection, scleral icterus Ear exam: PRESENT: normal external ear exam Mouth exam: PRESENT: moist, tongue midline Neck exam: ABSENT: tracheal deviation Respiratory exam: PRESENT: decreased breath sounds - bilaterally at both bases, symmetrical Cardiovascular exam: PRESENT: +S1, +S2 Pulses: PRESENT: +2 pedal pulses bilateral GI/Abdominal exam: PRESENT: normal bowel sounds, soft. ABSENT: tenderness Extremities exam: ABSENT: pedal edema Neurological exam: PRESENT: alert, awake, oriented to person, oriented to place, oriented to time, CN II-XII grossly intact Skin exam: PRESENT: dry, warm Results Laboratory Results: 07/09/18 09:50 07/09/18 09:50 07/09/18 07/09/18 07/09/18 09:50 09:50 09:50 WBC 16.1 H RBC 4.23 Hgb 11.8 L Hct 35.7 L MCV 84 MCH 27.9 MCHC 33.0 RDW 13.7 Plt Count 274 Seg Neutrophils % Not Reportable Lymphocytes % Not Reportable Monocytes % Not Reportable Eosinophils % Not Reportable Basophils % Not Reportable Absolute Neutrophils Not Reportable Absolute Lymphocytes Not Reportable Absolute Monocytes Not Reportable Absolute Eosinophils Not Reportable Absolute Basophils Not Reportable Sodium 130.1 L Potassium 3.6 Chloride 85 L Carbon Dioxide 32 H Anion Gap 13 BUN 41 H Creatinine 1.11 Est GFR ( Amer) 57 L Est GFR (Non-Af Amer) 47 L Glucose 108 Serum Osmolality 275 Calcium 8.9 Magnesium 1.9 07/04/18 07/04/18 07/04/18 13:45 15:20 15:20 Creatine Kinase Cancelled < 20 L CK-MB (CK-2) 1.12 Troponin I < 0.012 NT-Pro-B Natriuret Pep 6400 H 07/04/18 07/04/18 07/04/18 17:25 17:25 23:00 Creatine Kinase < 20 L < 20 L CK-MB (CK-2) 0.83 Troponin I 0.016 NT-Pro-B Natriuret Pep 07/04/18 07/05/18 07/05/18 23:00 05:13 05:13 Creatine Kinase < 20 L CK-MB (CK-2) 0.84 1.15 Troponin I < 0.012 < 0.012 NT-Pro-B Natriuret Pep 29121 H 07/06/18 04:27 Creatine Kinase CK-MB (CK-2) Troponin I NT-Pro-B Natriuret Pep 72829 H Impressions: Lung Scan-VQ NM 07/05/18 00:00 IMPRESSION: Very heterogeneous ventilation images due to radiotracer clumping an obstructive pulmonary disease. Homogeneous pulmonary perfusion without evidence of defect. Low probability examination for pulmonary embolism by modified PIOPED criteria. Chest X-Ray 07/06/18 00:00 IMPRESSION: Patchy airspace disease in the right upper lobe and right lateral costophrenic sulcus, worrisome for which pneumonia. Asymmetric pulmonary edema could cause this appearance. Assessment & Plan - Diagnosis (1) UTI (urinary tract infection) Is this a current diagnosis for this admission?: Yes (2) Pneumonia Qualifiers: Pneumonia type: due to unspecified organism Laterality: unspecified laterality Lung location: unspecified part of lung Qualified Code(s): J18.9 - Pneumonia, unspecified organism Is this a current diagnosis for this admission?: Yes (3) Acute and chronic respiratory failure Qualifiers: Respiratory failure complication: hypercapnia Qualified Code(s): J96.22 - Acute and chronic respiratory failure with hypercapnia Is this a current diagnosis for this admission?: Yes (4) COPD exacerbation Is this a current diagnosis for this admission?: Yes (5) Chronic renal insufficiency Is this a current diagnosis for this admission?: Yes (6) Hyperlipidemia Is this a current diagnosis for this admission?: Yes (7) Hypertension Is this a current diagnosis for this admission?: Yes - Plan Summary Plan Summary: acute on chronic resp failure w/ hypoxia- resolved- back to baseline O2 of 2L as she was at home. PNA- sputum cx showed strep Pneumoniae- pansensitive - switched her to levaquin hyponatremia- baseline seems to be around 134- i have fluid restricted her to 1.2L. family tells me that she drinks four 16oz quinteros daily- she's only 98lbs- i have asked her to cut back. will check labs in am UTI- UCx shows enterococcus faecalis - susceptible to Levaquin- after discussion with patient and daughter we will switch her to levaquin for 5 days starting today. WBC is up today- will check in AM again. HTN- BP running a bit high- ?due to acute condition
[2018-07-09] MEDS ORDERED: LEVOFLOXACIN 500 MG/D5W RTU 500 MG/100 ML RTUPB IV SCH (16:00)
[2018-07-09] MEDS: LABETALOL HCL INJ 20 MG/4 ML DISP.SYRIN IV PRN (22:05)
[2018-07-10] MEDS: IPRATROPIUM/ALBUTEROL 0.5-2.5 MG/3 ML AMPUL NEB SCH ×2 (03:03→08:28)
[2018-07-10] MEDS: ACETAMINOPHEN 325 MG TABLET PO PRN (04:10)
[2018-07-10 05:05] LABS: HEMATOCRIT 35.4 % (36.0-47.0); HEMOGLOBIN 11.8 g/dL (12.0-15.5); MEAN CORPUSCULAR HEMOGLOBIN 28.2 pg (27.0-33.4); MEAN CORPUSCULAR HGB CONC 33.4 g/dL (32.0-36.0); MEAN CORPUSCULAR VOLUME 84 fl (80-97); PLATELET COUNT 267 10^3/uL (150-450); RED CELL DISTRIBUTION WIDTH 13.7 % (11.5-14.0); WHITE BLOOD COUNT 11.1 10^3/uL (4.0-10.5)
[2018-07-10 05:38] LABS: ABSOLUTE LYMPHOCYTES# (MANUAL) 3.1 10^3/uL (0.5-4.7); ABSOLUTE MONOCYTES # (MANUAL) 1.7 10^3/uL (0.1-1.4); ABSOLUTE NEUTROPHILS# (MANUAL) 6.3 10^3/uL (1.7-8.2); BASOPHILS % (MANUAL) 0 % (0-2); EOSINOPHILS % (MANUAL) 0 % (0-6); LYMPHOCYTES % (MANUAL) 28 % (13-45); MONOCYTES % (MANUAL) 15 % (3-13); SEGMENTED NEUTROPHILS % (MAN) 57 % (42-78); TOTAL CELLS COUNTED 100
[2018-07-10 05:41] LABS: ANISOCYTOSIS SLIGHT; BURR CELLS SLIGHT; POIKILOCYTOSIS 1+; TOXIC GRANULATION SLIGHT
[2018-07-10 05:42] LABS: OVALOCYTES 1+; PLATELET COMMENT ADEQUATE; SCHISTOCYTES 1+
[2018-07-10 05:51] LABS: ANION GAP 11 (5-19); BLOOD UREA NITROGEN 44 mg/dL (7-20); CALCIUM 8.9 mg/dL (8.4-10.2); CARBON DIOXIDE 35 mmol/L (22-30); CHLORIDE 84 mmol/L (98-107); GLUCOSE 116 mg/dL (75-110); POTASSIUM 4.2 mmol/L (3.6-5.0); SODIUM 129.8 mmol/L (137-145)
[2018-07-10] MEDS: LABETALOL HCL 200 MG TABLET PO SCH (06:43)
[2018-07-10] MEDS: LABETALOL HCL INJ 20 MG/4 ML DISP.SYRIN IV PRN (06:43)
[2018-07-10] MEDS: METHYLPREDNISOLONE INJ 40 MG/1 ML SDV IV SCH (09:54)
[2018-07-10] MEDS: ENOXAPARIN SODIUM INJ 30 MG/0.3 ML DISP.SYRIN SUBCUT SCH (09:54)
[2018-07-10] MEDS: FAMOTIDINE 20 MG TABLET PO SCH (09:54)
[2018-07-10] MEDS: FUROSEMIDE 20 MG TABLET PO SCH (09:54)
[2018-07-10] MEDS: ASPIRIN 81 MG TABLET, CHEWABLE PO SCH (09:54)
[2018-07-10] MEDS: FLUTICASONE/SALMETEROL DISKUS 250-50 MCG/DOSE IH SCH (09:55)
[2018-07-10] MEDS: LETROZOLE 2.5 MG TABLET PO SCH (09:55)
[2018-07-10] MEDS: LACTOBACILLUS ACIDOPHILUS 250 MG TAB PO SCH (09:55)
[2018-07-10] MEDS: CHOLECALCIFEROL (D3) 1,000 UNIT TABLET PO SCH (09:55)
[2018-07-10] MEDS: Tiotropium Bromide (Spiriva Respimat) PO SCH (09:56)
[2018-07-10] MEDS: FLUTICASONE NASAL SPRAY 50 MCG/SPRY 120 SPRAY/16 GM NASL SCH (09:57)
[2018-07-10] MEDS: SODIUM CHLORIDE NASAL SPRAY 44 ML NASL SCH (09:57)
--- NOTE | 2018-07-10 10:51 | PDOC DISCHARGE SUMMARY ---
General - Admit/Disc Date/PCP Admission Date/Primary Care Provider: 07/04/18 16:51 CARMENCITA WHEATLEY MD Discharge Date: 07/10/18 - Discharge Diagnosis (1) UTI (urinary tract infection) Is this a current diagnosis for this admission?: Yes (2) Pneumonia Is this a current diagnosis for this admission?: Yes (3) Acute and chronic respiratory failure Is this a current diagnosis for this admission?: Yes (4) COPD exacerbation Is this a current diagnosis for this admission?: Yes (5) Chronic renal insufficiency Is this a current diagnosis for this admission?: Yes (6) Hyperlipidemia Is this a current diagnosis for this admission?: Yes (7) Hypertension Is this a current diagnosis for this admission?: Yes - Additional Information Resuscitation Status: Do Not Intubate Discharge Diet: Cardiac Discharge Activity: Activity As Tolerated, Balance Activity w/Rest, Weigh Daily Prescriptions: Levofloxacin [Levaquin 500 mg Tablet] 500 mg PO DAILY #3 tablet Home Medications: Aspirin [Aspirin 81 mg Chewable Tablet] 81 mg PO DAILY 06/08/17 Fluticasone/Salmeterol [Advair 250-50 Diskus 28 dose] 1 inh IH Q12 06/08/17 Letrozole [Femara 2.5 mg Tablet] 2.5 mg PO DAILY 06/08/17 Levalbuterol HCl [Xopenex Neb 1.25 mg/3 ml Ampul] 1.25 mg NEB RTBIDP PRN 06/08/17 Tiotropium Bowie [Spiriva Respimat] 1 spray IH DAILY 06/08/17 B2/Vit A,C & E/Lut/Zeaxanth/Mn [Icaps Tablet] 1 tab PO DAILY 07/04/18 Cholecalciferol (Vitamin D3) [Vitamin D3 1000 Unit Tablet] 1,000 unit PO DAILY 07/04/18 Furosemide [Lasix 20 mg Tablet] 20 mg PO TID 07/04/18 Grape Seed Xt/Bioflavon,Alexander [Grape Seed 50 mg Capsule] 1 each PO DAILY 07/04/18 Labetalol HCl [Normodyne 200 mg Tablet] 200 mg PO QID 07/04/18 Fluticasone Propionate [Flonase Nasal Austin 50 Mcg/Austin 16 gm] 1 spray NASL Q12 spray.pump 07/10/18 Labetalol HCl [Normodyne 200 mg Tablet] 200 mg PO Q6 tablet 02/03/19 Levofloxacin [Levaquin 500 mg Tablet] 500 mg PO DAILY #3 tablet 07/10/18 History of Present Illness History of Present Illness: MIRTHA RUFFIN is a 78 year old female admitted for COPD and PNA Hospital Course Hospital Course: intially started on cefepime- switched to rocephin and now will be discharged on LEvaquin for a few more day. her UCx grew enterococcus and sputum grew strep P. susceptibility showed levaquin for both her HTN has been difficult to control- she tells me that prednisone is what is making it worse. she wants me to stop. she has been requesting discharge for 2 days now and i have asked her to stay- today she is insisting on d/c- tells me "i am 78 years old and i had a good life, if i should then its my time". i explained that she has an aneurysm and given her high BP that can rupture or she can have stroke- either one can lead to - she and daughter in room- they both verbalized this understandings and still wants to go home. she also doesn't not want to be on the steroid any more- discussed about taper but she doesn't want it. at this time she has no complaints- denies chest pain, sob, abdominal pain, n/v or dizziness. she's back to her baseline O2 requirements on NC. i will d/c her on a few days of levaquin. advised to f/u with her PCP within 1 week. Physical Exam Vital Signs: Temp Pulse Resp BP Pulse Ox 97.8 F 86 14 196/77 H 96 07/10/18 07:55 07/10/18 08:28 07/10/18 08:28 07/10/18 07:55 07/10/18 08:28 Intake & Output 07/09/18 07/10/18 07/11/18 06:59 06:59 06:59 Intake Total 587 250 Output Total 3000 2150 Balance -2413 -1900 Weight 98 lb 5.219 oz 97 lb 10.636 oz General appearance: PRESENT: no acute distress Head exam: PRESENT: atraumatic, normocephalic Eye exam: PRESENT: EOMI. ABSENT: conjunctival injection, scleral icterus Ear exam: PRESENT: normal external ear exam Mouth exam: PRESENT: moist Neck exam: ABSENT: tracheal deviation Respiratory exam: PRESENT: decreased breath sounds - bilaterally, symmetrical Cardiovascular exam: PRESENT: +S1, +S2 Pulses: PRESENT: +2 pedal pulses bilateral GI/Abdominal exam: PRESENT: normal bowel sounds, soft. ABSENT: tenderness Extremities exam: ABSENT: pedal edema Neurological exam: PRESENT: alert, awake, oriented to person, oriented to place, oriented to time Skin exam: PRESENT: dry, warm Results Laboratory Results: 07/10/18 04:19 07/10/18 04:19 07/09/18 07/09/18 07/09/18 09:50 09:50 09:50 WBC 16.1 H RBC 4.23 Hgb 11.8 L Hct 35.7 L MCV 84 MCH 27.9 MCHC 33.0 RDW 13.7 Plt Count 274 Seg Neutrophils % Not Reportable Lymphocytes % Not Reportable Monocytes % Not Reportable Eosinophils % Not Reportable Basophils % Not Reportable Absolute Neutrophils Not Reportable Absolute Lymphocytes Not Reportable Absolute Monocytes Not Reportable Absolute Eosinophils Not Reportable Absolute Basophils Not Reportable Sodium 130.1 L Potassium 3.6 Chloride 85 L Carbon Dioxide 32 H Anion Gap 13 BUN 41 H Creatinine 1.11 Est GFR ( Amer) 57 L Est GFR (Non-Af Amer) 47 L Glucose 108 Serum Osmolality 275 Calcium 8.9 Magnesium 1.9 Urine Osmolality 07/09/18 07/10/18 07/10/18 16:25 04:19 04:19 WBC 11.1 H RBC 4.20 Hgb 11.8 L Hct 35.4 L MCV 84 MCH 28.2 MCHC 33.4 RDW 13.7 Plt Count 267 Seg Neutrophils % Not Reportable Lymphocytes % Not Reportable Monocytes % Not Reportable Eosinophils % Not Reportable Basophils % Not Reportable Absolute Neutrophils Not Reportable Absolute Lymphocytes Not Reportable Absolute Monocytes Not Reportable Absolute Eosinophils Not Reportable Absolute Basophils Not Reportable Sodium 129.8 L Potassium 4.2 Chloride 84 L Carbon Dioxide 35 H Anion Gap 11 BUN 44 H Creatinine 1.11 Est GFR ( Amer) 57 L Est GFR (Non-Af Amer) 47 L Glucose 116 H Serum Osmolality Calcium 8.9 Magnesium Urine Osmolality 243 L 07/04/18 17:32 Blood Blood Culture - Final NO GROWTH IN 5 DAYS 07/04/18 17:25 Blood Blood Culture - Final NO GROWTH IN 5 DAYS 07/04/18 07/04/18 07/04/18 13:45 15:20 15:20 Creatine Kinase Cancelled < 20 L CK-MB (CK-2) 1.12 Troponin I < 0.012 NT-Pro-B Natriuret Pep 6400 H 07/04/18 07/04/18 07/04/18 17:25 17:25 23:00 Creatine Kinase < 20 L < 20 L CK-MB (CK-2) 0.83 Troponin I 0.016 NT-Pro-B Natriuret Pep 07/04/18 07/05/18 07/05/18 23:00 05:13 05:13 Creatine Kinase < 20 L CK-MB (CK-2) 0.84 1.15 Troponin I < 0.012 < 0.012 NT-Pro-B Natriuret Pep 27501 H 07/06/18 04:27 Creatine Kinase CK-MB (CK-2) Troponin I NT-Pro-B Natriuret Pep 21880 H Impressions: Lung Scan-VQ NM 07/05/18 00:00 IMPRESSION: Very heterogeneous ventilation images due to radiotracer clumping an obstructive pulmonary disease. Homogeneous pulmonary perfusion without evidence of defect. Low probability examination for pulmonary embolism by modified PIOPED criteria. Chest X-Ray 07/06/18 00:00 IMPRESSION: Patchy airspace disease in the right upper lobe and right lateral costophrenic sulcus, worrisome for which pneumonia. Asymmetric pulmonary edema could cause this appearance. Qualifiers - * PATIENT BEING DISCHARGED WITH ANY OF THE FOLLOWING DIAGNOSIS: No Plan Time Spent: Less than 30 Minutes
[2018-07-10 11:59] VITALS: BP 210/84
== END 2018-07-10 12:10 | disposition home or self-care (01) | DRG 189 ==
LOC: ER 13:10 → EH 16:51 → 3W 20:49
PROVIDERS: ADMIT Family Medicine; ATTEND Family Medicine
DX: J96.22 Acute and chronic respiratory failure with hypercapnia (principal); I50.23 Acute on chronic systolic (congestive) heart failure; J18.9 Pneumonia, unspecified organism; J44.1 Chronic obstructive pulmonary disease with (acute) exacerbation; I13.0 Hypertensive heart and chronic kidney disease with heart failure and stage 1 through stage 4 chronic kidney disease, or unspecified chronic kidney disease; E87.1 Hypo-osmolality and hyponatremia; E44.0 Moderate protein-calorie malnutrition; Z68.1 Body mass index [BMI] 19.9 or less, adult; N39.0 Urinary tract infection, site not specified; C50.012 Malignant neoplasm of nipple and areola, left female breast; N18.3 Chronic kidney disease, stage 3 (moderate); I44.7 Left bundle-branch block, unspecified; I71.4 Abdominal aortic aneurysm, without rupture; I50.9 Heart failure, unspecified; D63.1 Anemia in chronic kidney disease; R80.9 Proteinuria, unspecified; I73.9 Peripheral vascular disease, unspecified; D72.825 Bandemia; B95.2 Enterococcus as the cause of diseases classified elsewhere; F17.210 Nicotine dependence, cigarettes, uncomplicated; Z99.81 Dependence on supplemental oxygen; Z17.0 Estrogen receptor positive status [ER+]; Z79.82 Long term (current) use of aspirin; Z79.51 Long term (current) use of inhaled steroids; Z79.899 Other long term (current) drug therapy; Z71.6 Tobacco abuse counseling
CPT/HCPCS: 36415; 36600; 71045; 78582; 80048; 80053; 80061; 81001; 82550; 82553; 82803; 83605; 83735; 83880; 83930; 83935; 84443; 84484; 85025; 85027; 85610; 87040; 87070; 87077; 87086; 87088; 87186; 87205; 93005; 93010; 93306; 94640; 94660; 94667; 94668; 99285; A9540; A9567; J0360; J0692; J0696; J1650; J1940; J1956; J2920; J3490; J7030; J7620; Q9969

== ENCOUNTER → 2018-07-19 | Outpatient (CLI) | payer MEDICARE ==
[2018-07-19 11:00] LABS: HEMATOCRIT 31.1 % (36.0-47.0); HEMOGLOBIN 10.9 g/dL (12.0-15.5); MEAN CORPUSCULAR HEMOGLOBIN 29.7 pg (27.0-33.4); MEAN CORPUSCULAR HGB CONC 35.1 g/dL (32.0-36.0); MEAN CORPUSCULAR VOLUME 85 fl (80-97); PLATELET COUNT 432 10^3/uL (150-450); RED BLOOD COUNT 3.68 10^6/uL (3.72-5.28); RED CELL DISTRIBUTION WIDTH 13.8 % (11.5-14.0); WHITE BLOOD COUNT 7.1 10^3/uL (4.0-10.5)
[2018-07-19 11:41] LABS: ABSOLUTE LYMPHOCYTES# (MANUAL) 1.8 10^3/uL (0.5-4.7); ABSOLUTE MONOCYTES # (MANUAL) 0.9 10^3/uL (0.1-1.4); ABSOLUTE NEUTROPHILS# (MANUAL) 3.6 10^3/uL (1.7-8.2); BASOPHILS % (MANUAL) 1 % (0-2); EOSINOPHILS % (MANUAL) 11 % (0-6); LYMPHOCYTES % (MANUAL) 25 % (13-45); MONOCYTES % (MANUAL) 12 % (3-13); SEGMENTED NEUTROPHILS % (MAN) 51 % (42-78); TOTAL CELLS COUNTED 100
[2018-07-19 11:42] LABS: OVALOCYTES 1+; PLATELET COMMENT ADEQUATE; POIKILOCYTOSIS 1+
--- NOTE | 2018-07-19 12:44 | RADIOLOGY REPORT (SQ) ---
EXAM DESCRIPTION: CHEST PA/LATERAL COMPLETED DATE/TIME: 07/19/2018 10:32 am REASON FOR STUDY: COUGH COMPARISON: CT chest 05/10/2018 Chest films 07/04/2018, 07/06/2018 EXAM PARAMETERS: NUMBER OF VIEWS: two views TECHNIQUE: Digital Frontal and Lateral radiographic views of the chest acquired. RADIATION DOSE: NA LIMITATIONS: none FINDINGS: LUNGS AND PLEURA: Lungs are hyperinflated and hyperlucent from obstructive disease. No ac tran infiltrates. No pleural effusion. No pneumothorax. MEDIASTINUM AND HILAR STRUCTURES: No masses or contour abnormalities. HEART AND VASCULAR STRUCTURES: Stable mild cardiomegaly BONES: No acute findings. HARDWARE: None in the chest. OTHER: Old left mastectomy IMPRESSION: Lungs are hyperinflated from obstructive disease. No acute findings. TECHNICAL DOCUMENTATION: JOB ID: [id number] [employer]- All Rights Reserved Reading location - IP/workstation name: [email or web address]
== END ==
LOC: OD 10:05
PROVIDERS: ATTEND Internal Medicine Pulmonary Disease
DX: R05 Cough (principal)
CPT/HCPCS: 36415; 71046; 85025; 87070; 87077; 87186; 87205

== ENCOUNTER → 2018-08-02 | Outpatient (CLI) | payer MEDICARE ==
[2018-08-02 12:19] LABS: HEMATOCRIT 32.7 % (36.0-47.0); HEMOGLOBIN 11.2 g/dL (12.0-15.5); MEAN CORPUSCULAR HEMOGLOBIN 28.4 pg (27.0-33.4); MEAN CORPUSCULAR HGB CONC 34.1 g/dL (32.0-36.0); MEAN CORPUSCULAR VOLUME 84 fl (80-97); PLATELET COUNT 599 10^3/uL (150-450); RED BLOOD COUNT 3.92 10^6/uL (3.72-5.28); RED CELL DISTRIBUTION WIDTH 14.2 % (11.5-14.0); WHITE BLOOD COUNT 16.8 10^3/uL (4.0-10.5)
[2018-08-02 12:50] LABS: ABSOLUTE LYMPHOCYTES# (MANUAL) 4.7 10^3/uL (0.5-4.7); ABSOLUTE MONOCYTES # (MANUAL) 1.8 10^3/uL (0.1-1.4); ABSOLUTE NEUTROPHILS# (MANUAL) 10.1 10^3/uL (1.7-8.2); BAND NEUTROPHILS % (MANUAL) 4 % (3-5); BASOPHILS % (MANUAL) 0 % (0-2); EOSINOPHILS % (MANUAL) 1 % (0-6); LYMPHOCYTES % (MANUAL) 27 % (13-45); METAMYELOCYTES % (MANUAL) 6 % (0); MONOCYTES % (MANUAL) 11 % (3-13); SEGMENTED NEUTROPHILS % (MAN) 50 % (42-78); TOTAL CELLS COUNTED 100
[2018-08-02 12:51] LABS: ANISOCYTOSIS SLIGHT; OVALOCYTES 1+; PLATELET COMMENT INCREASED; POIKILOCYTOSIS 1+; TOXIC GRANULATION 1+; TOXIC VACUOLATION PRESENT
[2018-08-02 18:36] LABS: ANION GAP 10 (5-19); BLOOD UREA NITROGEN 19 mg/dL (7-20); CALCIUM 9.2 mg/dL (8.4-10.2); CARBON DIOXIDE 34 mmol/L (22-30); CHLORIDE 84 mmol/L (98-107); CHOLESTEROL 161.31 mg/dL (0-200); GLUCOSE 93 mg/dL (75-110); IRON(TIBC) 29.4 ug/dL (37-170); PHOSPHORUS 4.7 mg/dL (2.5-4.5); POTASSIUM 4.7 mmol/L (3.6-5.0); SODIUM 127.8 mmol/L (137-145); TRIGLYCERIDES 86 mg/dL (<150)
[2018-08-02 18:47] LABS: DIRECT LDL 97 mg/dL (<100)
[2018-08-03 10:25] LABS: PATH REVIEW PATHOLOGIST REVIEWED
== END ==
LOC: OD 11:30
PROVIDERS: ATTEND Internal Medicine Nephrology
DX: N18.3 Chronic kidney disease, stage 3 (moderate) (principal); E78.5 Hyperlipidemia, unspecified; R80.9 Proteinuria, unspecified; D63.1 Anemia in chronic kidney disease; D50.9 Iron deficiency anemia, unspecified
CPT/HCPCS: 36415; 80048; 80061; 82728; 83540; 83550; 83970; 84100; 85025

== ENCOUNTER → 2018-09-08 | Outpatient (CLI) | payer MEDICARE ==
[2018-09-08 10:52] LABS: ABSOLUTE BASOPHILS # (AUTO) 0.1 10^3/uL (0.0-0.2); ABSOLUTE EOSINOPHILS # (AUTO) 0.5 10^3/uL (0.0-0.6); ABSOLUTE MONOCYTES (AUTO) 0.7 10^3/uL (0.1-1.4); ABSOLUTE NEUT (AUTO) 3.8 10^3/uL (1.7-8.2); BASOPHILS % (AUTO) 0.8 % (0-2); EOSINOPHILS % (AUTO) 5.9 % (0-6); HEMATOCRIT 35.9 % (36.0-47.0); HEMOGLOBIN 12.4 g/dL (12.0-15.5); LYMPHOCYTES % (AUTO) 37.5 % (13-45); MEAN CORPUSCULAR HEMOGLOBIN 28.8 pg (27.0-33.4); MEAN CORPUSCULAR HGB CONC 34.5 g/dL (32.0-36.0); MEAN CORPUSCULAR VOLUME 84 fl (80-97); MONOCYTES % (AUTO) 8.9 % (3-13); PLATELET COUNT 272 10^3/uL (150-450); RED BLOOD COUNT 4.29 10^6/uL (3.72-5.28); RED CELL DISTRIBUTION WIDTH 15.2 % (11.5-14.0); SEGMENTED NEUTROPHILS % (AUTO) 46.9 % (42-78); TOTAL CELLS COUNTED % (AUTO) 100 %
[2018-09-08 11:13] LABS: ANION GAP 10 (5-19); BLOOD UREA NITROGEN 17 mg/dL (7-20); CALCIUM 9.3 mg/dL (8.4-10.2); CARBON DIOXIDE 33 mmol/L (22-30); CHLORIDE 91 mmol/L (98-107); GLUCOSE 98 mg/dL (75-110); IRON(TIBC) 49.6 ug/dL (37-170); POTASSIUM 4.3 mmol/L (3.6-5.0); SODIUM 134.2 mmol/L (137-145)
[2018-09-08 11:17] LABS: APPEARANCE,URINE CLEAR; BILIRUBIN,URINE NEGATIVE (NEGATIVE); COLOR,URINE YELLOW; GLUCOSE, URINE NEGATIVE (NEGATIVE); KETONES,URINE NEGATIVE (NEGATIVE); LEUKOCYTE ESTERASE,URINE NEGATIVE (NEGATIVE); NITRITE,URINE NEGATIVE (NEGATIVE); PROTEIN,URINE NEGATIVE (NEGATIVE); URINE SPECIFIC GRAVITY 1.005; UROBILINOGEN,URINE NEGATIVE mg/dL (<2.0)
[2018-09-09 10:37] LABS: CREATININE URINE 30.2 mg/dL (Not Estab.); MICROALBUMIN URINE 38.3 ug/mL (Not Estab.)
== END ==
LOC: OD 10:01
PROVIDERS: ATTEND Internal Medicine Nephrology
DX: I12.9 Hypertensive chronic kidney disease with stage 1 through stage 4 chronic kidney disease, or unspecified chronic kidney disease (principal); N18.3 Chronic kidney disease, stage 3 (moderate); D64.9 Anemia, unspecified; E87.1 Hypo-osmolality and hyponatremia; R30.9 Painful micturition, unspecified
CPT/HCPCS: 36415; 80048; 81001; 82043; 82570; 82728; 83540; 83550; 83970; 85025

== ENCOUNTER → 2018-09-12 | Outpatient (CLI) | payer MEDICARE ==
--- NOTE | 2018-09-12 15:09 | WOMENS IMAGING REPORT ---
EXAM DESCRIPTION: 3D SCREENING MAMMO RIGHT COMPLETED DATE/TIME: 09/12/2018 2:15 pm REASON FOR STUDY: Z12.31 ENCOUNTER FOR SCREENING MAMMOGRAM FOR MALIGNANT NEOPLASM OF BREAST Z12.31 ENCNTR SCREEN MAMMOGRAM FOR MALIGNANT NEOPLASM OF BREANN COMPARISON: None. TECHNIQUE: Standard craniocaudal, 90 mediolateral and mediolateral oblique views of the right breas t recorded using digital acquisition and breast tomosynthesis. Post left mastectomy in 2016 LIMITATIONS: None. FINDINGS: BREAST LATERALITY: Right No masses, calcifications or architectural distortion. No areas of suspicion. Read with the assistance of CAD. .[facility] - R2 Cenova Version 1.3 .[facility] - R2 Cenova Version 2.1 .[facility] - R2 Cenova Version 2.4 .[facility] - R2 Cenova Version 2.4 .[facility] - R2 Batt Packer Version 9.2 IMPRESSION: NORMAL MAMMOGRAM. BIRADS 1. BREAST DENSITY: b. There are scattered areas of fibroglandular density. BIRAD: 1 Negative RECOMMENDATION: RECOMMENDATION: ROUTINE SCREENING. COMMENT: The patient has been notified of the results by letter per SA requirements. Additional no tification policies are in place for contacting patient with suspicious or incomplete findings. Quality ID #[id number]: The [employer] recommends an annual screening mammogram for women aged 40 years or over. This facility utilizes a reminder system to ensure that all patients receive reminder letters, and/or direct phone calls for appointments. This includes reminders for routine scr eening mammograms, diagnostic mammograms, or other Breast Imaging Interventions when appropriate. Th is patient will be placed in the appropriate reminder system. The [employer] (ACR) has developed recommendations for screening MRI of the breast s in certain patient populations, to be used in conjunction with mammography. Breast MRI surveillance may be appropriate for women with more than 20% lifetime risk of developing breast cancer as determi mina by genetic testing, significant family history of the disease, or history of mantle radiation for Hodgkins Disease. ACR Practice Guidelines 2008. DBT Technology DBT is a type of tomographic mammography. With conventional mammography, overlapping breast tissue ma y make lesions difficult to detect, even with good compression. DBT uses an x-ray tube that rotates a round the breast, taking images at different angles. These images are then combined to create thin sl ices of the breast that the radiologist can view as a 3D reconstruction. The [employer] unit can perform full-field digital mammograms (2D imaging); or DBT (3D imaging); or both, in a combination mode that quickly performs both the mammogram and the tomosynthesis scan while the breast is still compressed. PQRS 6045F: Fluoroscopic imaging is not utilized for breast tomosynthesis. TECHNICAL DOCUMENTATION: FINDING NUMBER: (1) ASSESSMENT: (1) JOB ID: [id number] [employer]- All Rights Reserved Reading location - IP/workstation name: [email or web address]
== END ==
LOC: WI 13:53
PROVIDERS: ATTEND Surgery
DX: Z12.31 Encounter for screening mammogram for malignant neoplasm of breast (principal)

== ENCOUNTER 2018-10-30 04:23 | Inpatient (IN) | payer MEDICARE ==
[2018-10-30] MEDS ORDERED: ALBUTEROL SULFATE 0.083% NEB 2.5 MG/3 ML AMPUL NEB ONE (04:30)
--- NOTE | 2018-10-30 04:34 | ER Document Report ---
Doctor's Note Notes: 10/30/18 04:33 Performed the triage evaluation the patient. Patient is a pleasant 78-year-old female with a history of COPD who presents with difficulty breathing. Said difficulty breathing started tonight. She said before going to bed she had some coughing and she took breathing treatment which helped. She then fell asleep but woke up with significant difficulty breathing and wheezing. Paramedics arrived she had diminished lung egan bilaterally. She was hypertensive. They did place Nitropaste on her. They placed her on CPAP. They gave her breathing treatments and Solu-Medrol. She says she is try to feel improved. No recent fevers or infections. No vomiting. No chest pain. No other complaints at this time. On lung auscultation she has good air movement but does have some scattered wheezing. She is currently on BiPAP. I have ordered a chest x-ray and laboratory evaluation. Have ordered a another albuterol treatment. Patient wears 2 L of oxygen at home. Dictation of this chart was performed using voice recognition software; therefore, there may be some unintended grammatical errors. 10/30/18 04:34
[2018-10-30 04:57] LABS: HEMATOCRIT 34.8 % (36.0-47.0); HEMOGLOBIN 11.5 g/dL (12.0-15.5); MEAN CORPUSCULAR HEMOGLOBIN 27.5 pg (27.0-33.4); MEAN CORPUSCULAR HGB CONC 32.9 g/dL (32.0-36.0); MEAN CORPUSCULAR VOLUME 84 fl (80-97); PLATELET COUNT 264 10^3/uL (150-450); RED BLOOD COUNT 4.16 10^6/uL (3.72-5.28); RED CELL DISTRIBUTION WIDTH 14.7 % (11.5-14.0); WHITE BLOOD COUNT 18.2 10^3/uL (4.0-10.5)
[2018-10-30] MEDS: MAGNESIUM SULFATE/D5W 1 GM/100 ML RTUPB IV SCH ×2 (05:05→06:06)
[2018-10-30 05:20] LABS: ALANINE AMINOTRANSFERASE 10 U/L (9-52); ALBUMIN 4.1 g/dL (3.5-5.0); ALKALINE PHOSPHATASE 84 U/L (38-126); ANION GAP 13 (5-19); ASPARTATE AMINO TRANSFERASE 20 U/L (14-36); BILIRUBIN,DIRECT 0.4 mg/dL (0.0-0.4); BILIRUBIN,TOTAL 0.5 mg/dL (0.2-1.3); BLOOD UREA NITROGEN 18 mg/dL (7-20); CALCIUM 9.2 mg/dL (8.4-10.2); CARBON DIOXIDE 28 mmol/L (22-30); CHLORIDE 92 mmol/L (98-107); GLUCOSE 115 mg/dL (75-110); POTASSIUM 3.9 mmol/L (3.6-5.0); SODIUM 133.2 mmol/L (137-145); TOTAL PROTEIN 7.9 g/dL (6.3-8.2)
--- NOTE | 2018-10-30 05:25 | RADIOLOGY REPORT (SQ) ---
EXAM DESCRIPTION: XR CHEST 1 VIEW COMPLETED DATE/TME: 10/30/2018 04:31 CLINICAL HISTORY: 78 years Female, dyspnea COMPARISON: 07/19/18 NUMBER OF VIEWS/TECHNIQUE: 1/AP FINDINGS: Increased lung volume, mild mixed interstitial and airspace opacity, central including a small right infrahilar opacity normal cardiac silhouette, and intact bony thorax. IMPRESSION: Mild mixed interstitial and airpace opacities. Differential diagnosis includes pulmonary edema, multifocal pneumonia, and chronic interstitial lung disease.
[2018-10-30 05:27] LABS: VENOUS BLOOD BASE EXCESS 6.7 mmol/L; VENOUS BLOOD HCO3 31.3 mmol/L (20-32); VENOUS BLOOD PCO2 44.4 mmHg (35-63); VENOUS BLOOD PH 7.47 (7.30-7.42)
[2018-10-30] MEDS ORDERED: DOXYCYCLINE HYCLATE INJ 100 MG VIAL IV ONE (05:30)
--- NOTE | 2018-10-30 05:36 | ER Document Report ---
ED General - General Chief Complaint: Shortness Of Breath Stated Complaint: DIFFICULTY BREATHING Time Seen by Provider: 10/30/18 04:29 Primary Care Provider: CARMENCITA WHEATLEY MD [Primary Care Provider] - Follow up as needed Notes: Patient is a pleasant 78-year-old female with a history of COPD who presents with difficulty breathing. Said difficulty breathing started tonight. She said before going to bed she had some coughing and she took breathing treatment which helped. She then fell asleep but woke up with significant difficulty breathing and wheezing. Paramedics arrived she had diminished lung egan bilaterally. She was hypertensive. They did place Nitropaste on her. They placed her on CPAP. They gave her breathing treatments and Solu-Medrol. She says she is try to feel improved. No recent fevers or infections. No vomiting. No chest pain. No other complaints at this time. Patient wears 2 L of oxygen at home. TRAVEL OUTSIDE OF THE [place] IN LAST 30 DAYS: No - Related Data Allergies/Adverse Reactions: Iodinated Contrast- Oral and IV Dye [IV Dye, Iodine Containing] Allergy (Severe, Verified 07/04/18 17:01) Hives azithromycin Allergy (Intermediate, Verified 07/04/18 17:01) Pruritis cephalexin [Cephalexin] Allergy (Mild, Verified 07/05/18 15:28) Rash estrogens, conjugated Allergy (Mild, Verified 07/04/18 21:20) blood clots JONE Inhibitors [Jone Inhibitors] Allergy (Verified 07/04/18 17:01) aliskiren hemifumarate [From Tekturna] Allergy (Verified 07/04/18 17:01) amlodipine [Amlodipine] Allergy (Verified 07/04/18 17:01) ciprofloxacin [From Cipro] Allergy (Verified 07/04/18 17:01) clonidine [Clonidine] Allergy (Verified 07/04/18 17:01) clopidogrel bisulfate [From Plavix] Allergy (Verified 07/04/18 17:01) diphenhydramine HCl [From Benadryl] Allergy (Verified 07/04/18 17:01) diphtheria,pertussis (acellular),te [Diphth,Pertuss(Acell),Tet Vac] Allergy (Verified 07/04/18 17:01) Estrogens Allergy (Verified 07/04/18 17:01) nifedipine [From Procardia] Allergy (Verified 07/04/18 17:01) nisoldipine [From Sular] Allergy (Verified 07/04/18 17:01) Penicillins Allergy (Verified 07/04/18 17:01) Sulfa (Sulfonamide Antibiotics) Allergy (Verified 07/04/18 17:01) Past Medical History - Social History Smoking Status: Current Every Day Smoker Frequency of alcohol use: None Drug Abuse: None Family History: DM, Other - kidney disease - Past Medical History Cardiac Medical History: Reports: Hx Congestive Heart Failure, Hx Hypercholesterolemia, Hx Hypertension, Hx Peripheral Vascular Disease - History of abdominal 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, Hx Heart Murmur Denies: Hx Atrial Fibrillation, Hx Coronary Artery Disease, Hx Heart Attack, Hx Pulmonary Embolism Pulmonary Medical History: Reports: Hx Bronchitis, Hx COPD, Hx Pneumonia Denies: Hx Asthma, Hx Respiratory Failure, Hx Sleep Apnea, Hx Tuberculosis Neurological Medical History: Denies: Hx Cerebrovascular Accident, Hx Seizures Endocrine Medical History: Denies: Hx Diabetes Mellitus Type 1, Hx Diabetes Mellitus Type 2, Hx Graves' Disease, Hx Hyperthyroidism, Hx Hypothyroidism Renal/ Medical History: Denies: Hx End Stage Renal Disease, Hx Kidney Stones, Hx Ovarian Cysts, Hx Peritoneal Dialysis, Hx Pelvic Inflammatory Disease Malignancy Medical History: Reports: Hx Breast Cancer - LEFT AT PRESENT. Denies: Hx Cervical Cancer, Hx Leukemia, Hx Lung Cancer, Hx Ovarian Cancer GI Medical History: Reports: Hx Gastroesophageal Reflux Disease. Denies: Hx Cirrhosis, Hx Crohn's Disease, Hx Hepatitis, Hx Hiatal Hernia, Hx Irritable Bowel, Hx Liver Failure, Hx Pancreatitis, Hx Ulcer Musculoskeletal Medical History: Denies Hx Arthritis, Denies Hx Fibromyalgia, Denies Hx Multiple Sclerosis, Denies Hx Muscular Dystrophy, Denies Hx Systemic Lupus Erythematosus Skin Medical History: Denies Hx Eczema, Denies Hx Psoriasis Psychiatric Medical History: Denies: Hx Bipolar Disorder, Hx Depression, Hx Post Traumatic Stress Disorder, Hx Schizophrenia Traumatic Medical History: Reports: Hx Fractures - BROKEN LEFT LEG 1950 Infectious Medical History: Denies: Hx C-Diff, Hx Hepatitis, Hx HIV Past Surgical History: Reports: Hx Breast Surgery, Hx Cardiac Catheterization, Hx Cholecystectomy, Hx Kidney (Renal Surgery) - right stent, Hx Mastectomy - Left breast, Hx Tubal Ligation, Other - History of endovascular stent placement to the bilateral carotid arteries.. Denies: Hx Appendectomy, Hx Bowel Surgery, Hx Section, Hx Colostomy, Hx Coronary Artery Bypass Graft, Hx Gastric Bypass Surgery, Hx Herniorrhaphy, Hx Hysterectomy, Hx Open Heart Surgery, Hx Pacemaker, Hx Tonsillectomy - Immunizations Hx Diphtheria, Pertussis, Tetanus Vaccination: Yes Hx Pneumococcal Vaccination: 03/07/15 Review of Systems - Review of Systems Notes: My Normal Review Basic REVIEW OF SYSTEMS: CONSTITUTIONAL : Denies fever, chills, or sweats. Denies recent illness. EENT: Denies eye, ear, throat, or mouth pain or symptoms. Denies nasal or sinus congestion. CARDIOVASCULAR: Denies chest pain. RESPIRATORY: Occult he breathing. GASTROINTESTINAL: Denies abdominal pain. Denies nausea, vomiting, or diarrhea. MUSCULOSKELETAL: Denies neck or back pain or joint pain or swelling. SKIN: Denies rash or skin lesions. NEUROLOGICAL: Denies altered mental status or loss of consciousness. Denies headache. Denies weakness or paralysis or loss of use of either side. Denies problems with gait or speech. Denies sensory or motor loss. ALL OTHER SYSTEMS REVIEWED AND NEGATIVE. Physical Exam - Vital signs Vitals: Resp BP Pulse Ox 26 H 195/105 H 92 10/30/18 04:28 10/30/18 04:28 10/30/18 04:28 - Notes Notes: General Appearance: Well nourished, alert, cooperative, moderate acute distress, no obvious discomfort. Vitals: reviewed, See vital signs table. Head: no swelling or tenderness to the head Eyes: PERRL, EOMI, Conjuctiva clear Mouth: No decreasd moisture Lungs: Scattered wheezing, No rales, No rhonci, No accessory muscle use, good air exchange bilaterally. Heart: Tachycardic rate, Regular rythm, No murmur, no rub Abdomen: Normal BS, soft, No rigidity, No abdominal tenderness, No guarding, no rebound, no abdominal masses, no organomegaly Extremities: strength 5/5 in all extremities, good pulses in all extremities, no swelling or tenderness in the extremities, no edema. Skin: warm, dry, appropriate color, no rash Neuro: speech clear, oriented x 3, normal affect, responds appropriately to questions. Course - Re-evaluation Re-evalutation: 10/30/18 05:46 Patient's chest x-ray does show evidence of pneumonia. This makes sense in conjunction with her wheezing and coughing. I will start her on doxycycline. Last time she was in the hospital was over a month ago. She does have a leukocytosis. She is continues to be on BiPAP. Her FiO2 is 50% on the BiPAP and this is keeping her O2 saturation around 93 to 94%. The BiPAP has significantly helped her work of breathing. Due to her requiring increased oxygen and requirement as well as pneumonia and feels appropriate to admit her for treatment of pneumonia and COPD exacerbation. I did speak with the hospitalist, Dr. Cano, who agrees to evaluate the patient for admission. Dictation of this chart was performed using voice recognition software; therefore, there may be some unintended grammatical errors. - Vital Signs Vital signs: Temp Pulse Resp BP Pulse Ox 18 185/94 H 91 L 10/30/18 04:58 10/30/18 05:01 10/30/18 05:00 - Laboratory Result Diagrams: 10/30/18 04:40 10/30/18 04:40 Laboratory results interpreted by me: 10/30/18 10/30/18 10/30/18 04:40 04:40 05:12 WBC 18.2 H Hgb 11.5 L Hct 34.8 L RDW 14.7 H VBG pH 7.47 H Sodium 133.2 L Chloride 92 L Est GFR (Non-Af Amer) 50 L Glucose 115 H Discharge - Discharge Clinical Impression: Pneumonia Qualifiers: Pneumonia type: due to unspecified organism Laterality: right Lung location: unspecified part of lung Qualified Code(s): J18.9 - Pneumonia, unspecified organism COPD (chronic obstructive pulmonary disease) Qualifiers: COPD type: unspecified COPD Qualified Code(s): J44.9 - Chronic obstructive pulmonary disease, unspecified Condition: Stable Disposition: ADMITTED INPATIENT Admitting Provider: Jerome (Hospitalist) Unit Admitted: Telemetry Referrals: CARMENCITA WHEATLEY MD [Primary Care Provider] - Follow up as needed
[2018-10-30] MEDS ORDERED: HYDRALAZINE HCL INJ/PF 20 MG/1 ML SDV IV PRN (05:47)
[2018-10-30] MEDS ORDERED: ENALAPRILAT DIHYDRATE INJ/PF 1.25 MG/1 ML SDV IV ONE (05:48)
[2018-10-30] MEDS ORDERED: METOPROLOL TARTRATE PF/INJ 5 MG/5 ML SDV IV PRN (05:48)
[2018-10-30] MEDS ORDERED: AMLODIPINE BESYLATE 10 MG TABLET PO ONE (05:49)
[2018-10-30] MEDS ORDERED: IPRATROPIUM/ALBUTEROL 0.5-2.5 MG/3 ML AMPUL NEB PRN (05:55)
[2018-10-30] MEDS ORDERED: LEVOFLOXACIN 500 MG/D5W RTU 100 ML IV SCH (06:00)
[2018-10-30 06:10] LABS: NT PRO BNP 8150 pg/mL (<450)
[2018-10-30 06:11] LABS: TROPONIN I < 0.012 ng/mL
[2018-10-30] MEDS ORDERED: FLUTICASONE/VILANTEROL 200-25 MCG/DOSE IH ONE ×2 (06:15)
[2018-10-30] MEDS ORDERED: LABETALOL HCL 200 MG TABLET PO ONE (06:15)
[2018-10-30] MEDS ORDERED: FUROSEMIDE INJ/PF 40 MG/4 ML SDV IV ONE (06:30)
[2018-10-30] MEDS ORDERED: NITROGLYCERIN 10 MG (0.4 MG/HR) PATCH.TD24 TD ONE (06:45)
[2018-10-30] MEDS ORDERED: ASPIRIN 81 MG TABLET, ENT COATED PO ONE (07:00)
[2018-10-30] MEDS: HEPARIN SOD (PORCINE) 5,000 UNIT/ML 1 ML SYRINGE SUBCUT SCH ×3 (07:55→22:40)
[2018-10-30] MEDS: LEVALBUTEROL HCL NEB 1.25 MG/3 ML AMPUL NEB SCH ×3 (08:30→20:51)
[2018-10-30] MEDS ORDERED: FUROSEMIDE 20 MG TABLET PO SCH (10:00)
[2018-10-30] MEDS ORDERED: (PENDING PHARMACY ID) (B2/Vit A,C & E/Lut/Zeaxanth/Mn [Icaps Tablet] 1 TAB) PO SCH (10:00)
[2018-10-30] MEDS: LETROZOLE 2.5 MG TABLET PO SCH (10:56)
[2018-10-30] MEDS: CHOLECALCIFEROL (D3) 1,000 UNIT TABLET PO SCH (10:56)
[2018-10-30] MEDS ORDERED: LEVALBUTEROL HCL NEB 1.25 MG/3 ML AMPUL NEB PRN (11:40)
[2018-10-30] MEDS ORDERED: ALBUTEROL SULFATE HFA (90 MCG/PUFF) 8 GM MDI (1 MDI/ER DISP) IH PRN (11:40)
[2018-10-30] MEDS ORDERED: ALBUTEROL SULFATE HFA (90 MCG/PUFF) 200 PUFF/8.5 GM MDI IH PRN (12:38)
[2018-10-30] MEDS: LABETALOL HCL 200 MG TABLET PO SCH ×2 (14:22→17:20)
[2018-10-30] MEDS: ROPINIROLE HCL 0.25 MG TABLET PO SCH (22:39)
[2018-10-30] MEDS: DOXYCYCLINE HYCLATE 100 MG TABLET PO SCH (22:39)
[2018-10-30] MEDS: ACETAMINOPHEN 325 MG TABLET PO PRN (22:44)
[2018-10-31] MEDS: LEVALBUTEROL HCL NEB 1.25 MG/3 ML AMPUL NEB SCH ×4 (01:45→20:40)
[2018-10-31 04:48] LABS: HEMATOCRIT 29.4 % (36.0-47.0); HEMOGLOBIN 9.7 g/dL (12.0-15.5); MEAN CORPUSCULAR HEMOGLOBIN 27.8 pg (27.0-33.4); MEAN CORPUSCULAR HGB CONC 33.1 g/dL (32.0-36.0); MEAN CORPUSCULAR VOLUME 84 fl (80-97); PLATELET COUNT 210 10^3/uL (150-450); RED CELL DISTRIBUTION WIDTH 14.7 % (11.5-14.0); WHITE BLOOD COUNT 22.4 10^3/uL (4.0-10.5)
[2018-10-31 05:11] LABS: ANION GAP 12 (5-19); BLOOD UREA NITROGEN 24 mg/dL (7-20); CALCIUM 8.7 mg/dL (8.4-10.2); CARBON DIOXIDE 30 mmol/L (22-30); CHLORIDE 89 mmol/L (98-107); GLUCOSE 89 mg/dL (75-110); POTASSIUM 3.8 mmol/L (3.6-5.0); SODIUM 130.6 mmol/L (137-145)
[2018-10-31 05:12] LABS: ABSOLUTE LYMPHOCYTES# (MANUAL) 4.5 10^3/uL (0.5-4.7); ABSOLUTE MONOCYTES # (MANUAL) 0.7 10^3/uL (0.1-1.4); ABSOLUTE NEUTROPHILS# (MANUAL) 17.2 10^3/uL (1.7-8.2); BAND NEUTROPHILS % (MANUAL) 1 % (3-5); BASOPHILS % (MANUAL) 0 % (0-2); EOSINOPHILS % (MANUAL) 0 % (0-6); LYMPHOCYTES % (MANUAL) 20 % (13-45); MONOCYTES % (MANUAL) 3 % (3-13); PLATELET COMMENT ADEQUATE; SEGMENTED NEUTROPHILS % (MAN) 76 % (42-78); TOTAL CELLS COUNTED 100
[2018-10-31 05:14] LABS: ANISOCYTOSIS SLIGHT; HYPOCHROMASIA 1+; OVALOCYTES 1+; SCHISTOCYTES SLIGHT
--- NOTE | 2018-10-31 06:57 | EKG REPORT ---
SEVERITY:- ABNORMAL ECG - SINUS TACHYCARDIA VENTRICULAR PREMATURE COMPLEX PROBABLE LEFT ATRIAL ABNORMALITY LEFT BUNDLE BRANCH BLOCK : Confirmed by: Ashli Whittaker 31-Oct-2018 06:56:30
[2018-10-31] MEDS: HEPARIN SOD (PORCINE) 5,000 UNIT/ML 1 ML SYRINGE SUBCUT SCH ×3 (07:01→22:10)
[2018-10-31] MEDS: CHOLECALCIFEROL (D3) 1,000 UNIT TABLET PO SCH (09:28)
[2018-10-31] MEDS: ASPIRIN 81 MG TABLET, ENT COATED PO SCH (09:28)
[2018-10-31] MEDS: LABETALOL HCL 200 MG TABLET PO SCH ×3 (09:30→17:33)
[2018-10-31] MEDS: NITROGLYCERIN 10 MG (0.4 MG/HR) PATCH.TD24 TD SCH (09:31)
[2018-10-31] MEDS: FLUTICASONE/VILANTEROL 200-25 MCG/DOSE IH SCH (09:32)
[2018-10-31] MEDS: FUROSEMIDE INJ/PF 40 MG/4 ML SDV IV SCH (09:32)
[2018-10-31] MEDS: LETROZOLE 2.5 MG TABLET PO SCH (09:33)
[2018-10-31] MEDS: DOXYCYCLINE HYCLATE 100 MG TABLET PO SCH ×2 (09:33→22:10)
[2018-10-31] MEDS ORDERED: TIOTROPIUM BROMIDE IH SCH (10:00)
[2018-10-31] MEDS ORDERED: [UNRECOGNIZED DRUG - OTHER] PO SCH (10:00)
--- NOTE | 2018-10-31 11:21 | PDOC PROGRESS REPORT ---
Subjective Progress Note for:: 10/31/18 Subjective:: 78-year-old female with a history of COPD who presents with difficulty breathing. Said difficulty breathing started tonight. She said before going to bed she had some coughing and she took breathing treatment which helped. She then fell asleep but woke up with significant difficulty breathing and wheezing. Paramedics arrived she had diminished lung egan bilaterally. She was hypertensive. They did place Nitropaste on her. They placed her on CPAP. They gave her breathing treatments and Solu-Medrol. She says she is try to feel improved. No recent fevers or infections. No vomiting. No chest pain. No other complaints at this time. Patient wears 2 L of oxygen at home. 10/[id number]-old female with history of COPD came to the emergency room wi th shortness of breath. Chest x-ray suggestive of bilateral interstitial opacities. Patient was started on IV Solu-Medrol and IV antibiotic therapy no acute events in the last 24 hours. Patient states she is feeling worse compared to yesterday. Pulse oxes 95% on 1-1/2 L. Patient uses 2 L oxygen at home. Reason For Visit: COPD EXACERBATION HTN URGENCY Physical Exam Vital Signs: Temp Pulse Resp BP Pulse Ox 97.9 F 69 18 154/54 H 95 10/31/18 08:10 10/31/18 08:35 10/31/18 08:35 10/31/18 08:10 10/31/18 08:35 Intake & Output 10/30/18 10/31/18 11/01/18 06:59 06:59 06:59 Intake Total 100 1037 Output Total 2100 Balance 100 -1063 Weight 41.8 kg 44.4 kg General appearance: PRESENT: no acute distress, thin Head exam: PRESENT: atraumatic Eye exam: PRESENT: PERRLA Mouth exam: PRESENT: moist, tongue midline Neck exam: ABSENT: carotid bruit, JVD, lymphadenopathy, thyromegaly Respiratory exam: PRESENT: decreased breath sounds, wheezes Cardiovascular exam: PRESENT: tachycardia GI/Abdominal exam: PRESENT: normal bowel sounds, soft. ABSENT: distended, guarding, mass, organolmegaly, rebound, tenderness Rectal exam: PRESENT: deferred Extremities exam: PRESENT: full ROM. ABSENT: calf tenderness, clubbing, pedal edema Neurological exam: PRESENT: alert, awake, oriented to person, oriented to place, oriented to time, oriented to situation, CN II-XII grossly intact. ABSENT: motor sensory deficit Psychiatric exam: PRESENT: appropriate affect, normal mood. ABSENT: homicidal ideation, suicidal ideation Results Laboratory Results: 10/31/18 04:01 10/31/18 04:01 10/31/18 10/31/18 04:01 04:01 WBC 22.4 H RBC 3.50 L Hgb 9.7 L Hct 29.4 L MCV 84 MCH 27.8 MCHC 33.1 RDW 14.7 H Plt Count 210 Seg Neutrophils % Not Reportable Lymphocytes % Not Reportable Monocytes % Not Reportable Eosinophils % Not Reportable Basophils % Not Reportable Absolute Neutrophils Not Reportable Absolute Lymphocytes Not Reportable Absolute Monocytes Not Reportable Absolute Eosinophils Not Reportable Absolute Basophils Not Reportable Sodium 130.6 L Potassium 3.8 Chloride 89 L Carbon Dioxide 30 Anion Gap 12 BUN 24 H Creatinine 1.05 Est GFR ( Amer) > 60 Est GFR (Non-Af Amer) 50 L Glucose 89 Calcium 8.7 10/30/18 04:40 Troponin I < 0.012 NT-Pro-B Natriuret Pep 8150 H Impressions: Chest X-Ray 10/30/18 04:31 IMPRESSION: Mild mixed interstitial and airpace opacities. Differential diagnosis includes pulmonary edema, multifocal pneumonia, and chronic interstitial lung disease. Assessment and Plan - Diagnosis (1) COPD (chronic obstructive pulmonary disease) Qualifiers: COPD type: unspecified COPD Qualified Code(s): J44.9 - Chronic obstructive pulmonary disease, unspecified Is this a current diagnosis for this admission?: No Plan: 10/31/2018-patient came into COPD exacerbation with shortness of breath. Patient was placed on BiPAP in the emergency room. Started on antibiotic therapy and IV Solu-Medrol. Chest x-ray suggestive of interstitial opacifications. Cultures are pending. On examination today chest bilateral entry was severely decreased bilateral mild wheezing present. Plan is to continue the antibiotic therapy and IV Solu-Medrol (2) Pneumonia Qualifiers: Pneumonia type: due to unspecified organism Laterality: right Lung location: unspecified part of lung Qualified Code(s): J18.9 - Pneumonia, unspecified organism Is this a current diagnosis for this admission?: Yes Plan: 10/31/2018-this elderly female came in with shortness of breath chest x-ray on admission suggestive of bilateral interstitial opacifications concerns about pneumonia most likely she has community-acquired pneumonia and most likely gram- positive organisms are responsible. Presently on p.o. doxycycline. (3) Accelerated hypertension Is this a current diagnosis for this admission?: Yes Plan: 10/31/2018-patient came in with hypertensive urgency to the emergency room and latest blood pressure is 154/54 improved. Stable. Plan is to continue to closely monitor the blood pressures every shift basis. Hypertensive urgency may be secondary to COPD exacerbation and hypoxia. (4) Anemia in chronic illness Is this a current diagnosis for this admission?: No Plan: 10/31/2018-patient has history of anemia of chronic disease. Latest hemoglobin is 9.7 stable. (5) Malnutrition Qualifiers: Protein-calorie malnutrition severity: moderate Is this a current diagnosis for this admission?: Yes Plan: 10/31/[id number]-sutv-old female came in with BMI around 19 to start on Ensure 1 can p.o. 3 times daily and dietary consult is going to be requested. (6) Hyponatremia Is this a current diagnosis for this admission?: Yes Plan: 10/31/2018-patient serum sodium level is 130.6 hyponatremia may be secondary to poor oral intake. To repeat the labs tomorrow. - Time Time Spent with patient: 25-34 minutes Medications reviewed and adjusted accordingly: Yes Anticipated discharge: Home
[2018-10-31] MEDS: CEFTRIAXONE 2 GM/D5W RTU 2 GM/50 ML RTUPB IV SCH (13:34)
[2018-10-31] MEDS: ROPINIROLE HCL 0.25 MG TABLET PO SCH (22:09)
[2018-10-31] MEDS: ACETAMINOPHEN 325 MG TABLET PO PRN (22:12)
[2018-11-01] MEDS: LEVALBUTEROL HCL NEB 1.25 MG/3 ML AMPUL NEB SCH ×4 (02:15→21:23)
[2018-11-01] MEDS: HEPARIN SOD (PORCINE) 5,000 UNIT/ML 1 ML SYRINGE SUBCUT SCH ×3 (05:48→21:33)
--- NOTE | 2018-11-01 06:38 | PDOC H&P ---
History of Present Illness Admission Date/PCP: 10/30/18 05:51 CARMENCITA WHEATLEY MD Patient complains of: Shortness of breath History of Present Illness: MIRTHA RUFFIN is a 78 year old female with a past medical history of congestive heart failure, hypertension, peripheral vascular disease, abdominal aortic aneurysm, COPD, chronic bronchitis and persistent tobacco Dependence. She presents with 4 hours of significant shortness of breath which woke her from sleep with wheeze and nonproductive cough, EMS found her with hypertensive urgency requiring transdermal nitro and she is placed on BiPAP for extremitas with retractions and use of accessory muscles. In the emergency department she is found to have a blood pressure of 195/105 and pulse oximetry of 90% on 50% FiO2, leukocytosis and a BNP greater than 8000. She receives albuterol and Atrovent and is referred to the hospitalist for admission. Patient denies recent change in medications but also admits to persistent tobacco use. She verifies her CODE STATUS is DNI Past Medical History Cardiac Medical History: Reports: Congestive Heart Failure, Hyperlipidema, Hypertension, Peripheral Vascular Disease - History of abdominal 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, Heart Murmur Denies: Atrial Fibrillation, Coronary Artery Disease, Myocardial Infarction, Pulmonary Embolism Pulmonary Medical History: Reports: Bronchitis, Chronic Obstructive Pulmonary Disease (COPD), Pneumonia Denies: Asthma, Respiratory Failure, Sleep Apnea, Tuberculosis Neurological Medical History: Denies: Seizures Endocrine Medical History: Denies: Diabetes Mellitus Type 1, Diabetes Mellitus Type 2, Hyperthyroidism, Hypothyroidism Renal/ Medical History: Denies: End Stage Renal Disease Malignancy Medical History: Reports: Breast Cancer - LEFT AT PRESENT Denies: Cervical Cancer, Leukemia, Lung Cancer, Ovarian Cancer GI Medical History: Reports: Gastroesophageal Reflux Disease Denies: Cirrhosis, Crohn's Disease, Hepatitis, Hiatal Hernia Musculoskeltal Medical History: Denies: Arthritis, Fibromyalgia Skin Medical History: Denies: Eczema, Psoriasis Psychiatric Medical History: Denies: Bipolar Disorder, Depression, Post Traumatic Stress Disorder Hematology: Denies: Anemia, Hemophilia, Sickle Cell Disease, Bleeding Tendencies Infectious Medical History: Denies: Clostridium Difficile, HIV Past Surgical History Past Surgical History: Reports: Cardiac Catheterization, Cholecystectomy, Mastectomy - Left breast, Tubal Ligation, Other - History of endovascular stent placement to the bilateral carotid arteries. Denies: Amputation, Appendectomy, Section, Colostomy, Coronary Artery Bypass Graft, Gastric Bypass Surgery, Herniorrhaphy, Hysterectomy, Pacemaker, Tonsillectomy Social History Information Source: Patient, [facility] Records Smoking Status: Current Every Day Smoker Cigarettes Packs Per Day: 0.5 Number of Years Smokin Frequency of Alcohol Use: None Hx Recreational Drug Use: No Drugs: None Hx Prescription Drug Abuse: No - Advance Directive Resuscitation Status: Do Not Intubate Family History Family History: DM, Other - kidney disease Parental Family History Reviewed: Yes Children Family History Reviewed: Yes Sibling(s) Family History Reviewed.: Yes Medication/Allergy Home Medications: Fluticasone/Salmeterol [Advair 250-50 Diskus 28 dose] 1 inh IH Q12 06/08/17 Letrozole [Femara 2.5 mg Tablet] 2.5 mg PO DAILY 06/08/17 Tiotropium Leonore [Spiriva Respimat] 2 spray IH DAILY 06/08/17 B2/Vit A,C & E/Lut/Zeaxanth/Mn [Icaps Tablet] 1 tab PO DAILY 07/04/18 Cholecalciferol (Vitamin D3) [Vitamin D3 1000 Unit Tablet] 1,000 unit PO DAILY 07/04/18 Furosemide [Lasix 20 mg Tablet] 20 mg PO TID 07/04/18 Grape Seed Xt/Bioflavon,[place] [Grape Seed 50 mg Capsule] 1 each PO DAILY 07/04/18 Labetalol HCl [Normodyne 200 mg Tablet] 200 mg PO TID 07/04/18 Aspirin [Ecotrin] 81 mg PO DAILY 09/21/18 Ropinirole HCl [Requip] 0.5 mg PO QHS 09/21/18 Levalbuterol HCl [Xopenex Neb 1.25 mg/3 ml Ampul] 1.25 mg NEB RTBIDP PRN #60 vial.neb 09/22/18 Albuterol Sulfate [Ventolin Hfa 8 gm Mdi (1 Mdi/ER Disp)] 2 puff IH Q4HP PRN 10/30/18 Allergies/Adverse Reactions: ciprofloxacin [From Cipro] Allergy (Severe, Verified 10/30/18 06:22) Anaphylaxis Iodinated Contrast- Oral and IV Dye [IV Dye, Iodine Containing] Allergy (Severe, Verified 07/04/18 17:01) Hives azithromycin Allergy (Intermediate, Verified 07/04/18 17:01) Pruritis cephalexin [Cephalexin] Allergy (Mild, Verified 07/05/18 15:28) Rash estrogens, conjugated Allergy (Mild, Verified 07/04/18 21:20) blood clots JONE Inhibitors [Jone Inhibitors] Allergy (Verified 07/04/18 17:01) aliskiren hemifumarate [From Tekturna] Allergy (Verified 07/04/18 17:01) amlodipine [Amlodipine] Allergy (Verified 07/04/18 17:01) clonidine [Clonidine] Allergy (Verified 07/04/18 17:01) clopidogrel bisulfate [From Plavix] Allergy (Verified 07/04/18 17:01) diphenhydramine HCl [From Benadryl] Allergy (Verified 07/04/18 17:01) diphtheria,pertussis (acellular),te [Diphth,Pertuss(Acell),Tet Vac] Allergy (Verified 07/04/18 17:01) Estrogens Allergy (Verified 07/04/18 17:01) nifedipine [From Procardia] Allergy (Verified 07/04/18 17:01) nisoldipine [From Sular] Allergy (Verified 07/04/18 17:01) Penicillins Allergy (Verified 07/04/18 17:01) Sulfa (Sulfonamide Antibiotics) Allergy (Verified 07/04/18 17:01) Review of Systems ROS unobtainable: Other - Respiratory extremis Physical Exam Vital Signs: Temp Pulse Resp BP Pulse Ox 97.9 F 68 20 166/63 H 99 11/01/18 03:52 11/01/18 03:52 11/01/18 03:52 11/01/18 03:52 11/01/18 03:52 Intake & Output 10/30/18 10/31/18 11/01/18 11:59 11:59 11:59 Intake Total 677 460 890 Output Total 1100 1000 2150 Balance -423 -124 -1260 Weight 41.8 kg 44.4 kg General appearance: PRESENT: cooperative, mild distress, thin, other - Chronically ill-appearing with cachexia and temporal wasting Head exam: PRESENT: atraumatic, normocephalic Eye exam: PRESENT: conjunctiva pink, EOMI, PERRLA. ABSENT: scleral icterus Ear exam: PRESENT: normal external ear exam Mouth exam: PRESENT: moist, tongue midline Neck exam: ABSENT: carotid bruit, JVD, lymphadenopathy, thyromegaly Respiratory exam: PRESENT: accessory muscle use, crackles, decreased breath sounds, rales, retraction, symmetrical, tachypnea. ABSENT: rhonchi, wheezes Cardiovascular exam: PRESENT: RRR. ABSENT: diastolic murmur, rubs, systolic murmur Pulses: PRESENT: normal dorsalis pedis pul Vascular exam: PRESENT: normal capillary refill GI/Abdominal exam: PRESENT: normal bowel sounds, soft. ABSENT: distended, guarding, mass, organolmegaly, rebound, tenderness Rectal exam: PRESENT: deferred Extremities exam: PRESENT: full ROM. ABSENT: calf tenderness, clubbing, pedal edema Neurological exam: PRESENT: alert, awake, oriented to person, oriented to place, oriented to time, oriented to situation, CN II-XII grossly intact. ABSENT: motor sensory deficit Psychiatric exam: PRESENT: appropriate affect, normal mood. ABSENT: homicidal ideation, suicidal ideation Skin exam: PRESENT: dry, intact, warm. ABSENT: cyanosis, rash Results Laboratory Results: 10/31/18 04:01 10/31/18 04:01 10/30/18 04:40 Troponin I < 0.012 NT-Pro-B Natriuret Pep 8150 H Impressions: Chest X-Ray 10/30/18 04:31 IMPRESSION: Mild mixed interstitial and airpace opacities. Differential diagnosis includes pulmonary edema, multifocal pneumonia, and chronic interstitial lung disease. Assessment and Plan - Diagnosis (1) Accelerated hypertension Is this a current diagnosis for this admission?: Yes Plan: Transdermal nitro initiated, outpatient regiment with hydralazine as needed (2) Pneumonia Qualifiers: Pneumonia type: due to unspecified organism Laterality: right Lung location: unspecified part of lung Qualified Code(s): J18.9 - Pneumonia, unspecified organism Is this a current diagnosis for this admission?: Yes Plan: Complicated by chronic bronchitis, continue empiric antibiotics, follow-up CBC and blood culture (3) COPD (chronic obstructive pulmonary disease) Qualifiers: COPD type: unspecified COPD Qualified Code(s): J44.9 - Chronic obstructive pulmonary disease, unspecified Is this a current diagnosis for this admission?: Yes Plan: Continue BiPAP, flutter valve, supplemental oxygen, steroids, albuterol and Atrovent (4) CHF (congestive heart failure) Qualifiers: Qualified Code(s): I50.42 - Chronic combined systolic (congestive) and diastolic (congestive) heart failure Is this a current diagnosis for this admission?: Yes Plan: High output failure secondary to #1, continue BiPAP, optimize blood pressure. - Time Time Spent with patient: 35 or more minutes - Inpatient Certification Medical Necessity: Need Close Monitoring Due to Risk of Patient Decompensation
--- NOTE | 2018-11-01 09:53 | RADIOLOGY REPORT (SQ) ---
EXAM DESCRIPTION: CT CHEST WITHOUT COMPLETED DATE/TIME: 11/01/2018 9:28 am REASON FOR STUDY: pneumonia COMPARISON: CT chest 05/10/2018, 05/09/2017, 10/11/2014, 01/11/2008 TECHNIQUE: CT scan performed of the chest without intravenous contrast. Images reviewed with lung, soft tissue and bone windows. Reconstructed coronal and sagittal MPR images reviewed. All images st ored on PACS. All CT scanners at this facility use dose modulation, iterative reconstruction, and/or weight based d osing when appropriate to reduce radiation dose to as low as reasonably achievable (ALARA). [facility]: Dose Right [facility]: CareDose [facility]: Dose Right [facility]: Teradose 4D [facility]: [employer] RADIATION DOSE: CT Rad equipment meets quality standard of care and radiation dose reduction techniq ues were employed. CTDIvol: 3.6 mGy. DLP: 140 mGy-cm. mGy. LIMITATIONS: No technical limitations. FINDINGS: LUNGS AND PLEURA: Patient has advanced change of obstructive lung disease. There are smal l foci of consolidation in the superior segment left lower lobe and in the dependent portions of the lung bases left greater than right atelectasis versus pneumonia. Trace left pleural fluid in the posterior costophrenic sulcus. No right pleural effusion. No right or left pneumothorax. HILAR AND MEDIASTINAL STRUCTURES: No identified masses or abnormal nodes. No obvious aneurysm. HEART AND VASCULAR STRUCTURES: No aneurysm. No pericardial effusion. Heavily calcified coronary art eries UPPER ABDOMEN: Right renal artery stent. 5.5 cm abdominal aorta at the upper edge of the abdomen. T his is incompletely evaluated. Findings discussed with Dr. Duong THYROID AND OTHER SOFT TISSUES: No masses. No adenopathy. BONES: No significant finding. HARDWARE: None in the chest. OTHER: No other significant findings. IMPRESSION: Bibasilar and superior segment left lower lobe consolidation likely pneumonia. Trace left pleural effusion Incompletely imaged greater than 5 cm infrarenal abdominal aorta aneurysm at the bottom edge of this field of view. Findings discussed with Dr. Duong, ultrasound for the abdominal aorta will be perfor med shortly TECHNICAL DOCUMENTATION: JOB ID: [id number] Quality ID # [id number]: Final reports with documentation of one or more dose reduction techniques (e.g., Au tomated exposure control, adjustment of the mA and/or kV according to patient size, use of iterative reconstruction technique) 2010 [employer]- All Rights Reserved Reading location - IP/workstation name: [email or web address]
[2018-11-01] MEDS: FLUTICASONE/VILANTEROL 200-25 MCG/DOSE IH SCH (09:59)
[2018-11-01] MEDS ORDERED: CEFTRIAXONE INJ 1000 MG VIAL IV SCH (10:00)
[2018-11-01] MEDS: FUROSEMIDE INJ/PF 40 MG/4 ML SDV IV SCH (10:02)
[2018-11-01] MEDS: NITROGLYCERIN 10 MG (0.4 MG/HR) PATCH.TD24 TD SCH ×2 (10:02→10:21)
[2018-11-01] MEDS: ASPIRIN 81 MG TABLET, ENT COATED PO SCH (10:03)
[2018-11-01] MEDS: CHOLECALCIFEROL (D3) 1,000 UNIT TABLET PO SCH (10:03)
[2018-11-01] MEDS: LABETALOL HCL 200 MG TABLET PO SCH ×4 (10:03→21:53)
[2018-11-01] MEDS: DOXYCYCLINE HYCLATE 100 MG TABLET PO SCH ×2 (10:04→21:54)
[2018-11-01] MEDS: LETROZOLE 2.5 MG TABLET PO SCH (10:04)
[2018-11-01] MEDS: CEFTRIAXONE 2 GM/D5W RTU 2 GM/50 ML RTUPB IV SCH (11:38)
[2018-11-01] MEDS: FUROSEMIDE 20 MG TABLET PO SCH ×3 (15:45→21:54)
--- NOTE | 2018-11-01 18:04 | PDOC PROGRESS REPORT ---
Subjective Progress Note for:: 11/01/18 Subjective:: No adverse events overnight. She says her breathing feels a lot better. Cough has been productive. She says this is what happens every time she gets a pneumonia. She says that she is not getting her blood pressure medicines here like she gets them at home, that she actually gets more at home than what were giving her here. Reason For Visit: COPD EXACERBATION HTN URGENCY Physical Exam Vital Signs: Temp Pulse Resp BP Pulse Ox 98.3 F 67 16 148/58 H 100 11/01/18 15:42 11/01/18 15:42 11/01/18 15:42 11/01/18 16:54 11/01/18 15:42 Intake & Output 10/31/18 11/01/18 11/02/18 06:59 06:59 06:59 Intake Total 1037 1150 50 Output Total 2100 2350 Balance -1063 -1200 50 Weight 44.4 kg 43.4 kg General appearance: PRESENT: no acute distress, cooperative, disheveled, thin Respiratory exam: PRESENT: crackles - Left lower lobe, symmetrical, unlabored. ABSENT: accessory muscle use, chest wall tenderness, decreased breath sounds, prolonged expiratory phas, rhonchi, tachypnea, wheezes Cardiovascular exam: PRESENT: RRR, +S1, +S2 Pulses: PRESENT: normal carotid pulses Vascular exam: PRESENT: normal capillary refill GI/Abdominal exam: PRESENT: normal bowel sounds, soft. ABSENT: distended, guarding, rebound, tenderness Extremities exam: ABSENT: clubbing, pedal edema Musculoskeletal exam: PRESENT: normal inspection. ABSENT: deformity Neurological exam: PRESENT: alert, awake, oriented to person, oriented to place, oriented to time, oriented to situation Psychiatric exam: PRESENT: appropriate affect, normal mood Skin exam: PRESENT: dry, warm Results Laboratory Results: 10/31/18 04:01 10/31/18 04:01 10/30/18 04:40 Troponin I < 0.012 NT-Pro-B Natriuret Pep 8150 H Impressions: Chest X-Ray 10/30/18 04:31 IMPRESSION: Mild mixed interstitial and airpace opacities. Differential diagnosis includes pulmonary edema, multifocal pneumonia, and chronic interstitial lung disease. Chest CT 11/01/18 00:00 IMPRESSION: Bibasilar and superior segment left lower lobe consolidation likely pneumonia. Trace left pleural effusion Incompletely imaged greater than 5 cm infrarenal abdominal aorta aneurysm at the bottom edge of this field of view. Findings discussed with Dr. Duong, ultrasound for the abdominal aorta will be performed shortly Assessment and Plan - Diagnosis (1) Hypertensive emergency Is this a current diagnosis for this admission?: Yes Plan: She is responded well to diuresis, so we are going to put her back on her home medication regimen to see how her blood pressure response. (2) Pneumonia Qualifiers: Pneumonia type: due to unspecified organism Laterality: right Lung location: unspecified part of lung Qualified Code(s): J18.9 - Pneumonia, unspecified organism Is this a current diagnosis for this admission?: Yes Plan: Currently on Rocephin and doxycycline, will attempt to get a culture if she can give us a good specimen. (3) Acute and chronic respiratory failure Qualifiers: Respiratory failure complication: hypoxia Qualified Code(s): J96.21 - Acute and chronic respiratory failure with hypoxia Is this a current diagnosis for this admission?: Yes Plan: Stable on her usual level of oxygen support. (4) Abdominal aortic aneurysm Qualifiers: Presence of rupture: without rupture Qualified Code(s): I71.4 - Abdominal aortic aneurysm, without rupture Is this a current diagnosis for this admission?: Yes Plan: This is a known problem for this patient, she has not monitored via imaging every 6 months, most recently just a few months ago. She does not want any further testing on it. She is not planning on having any surgery on it. - Time Time Spent with patient: 25-34 minutes
[2018-11-01] MEDS: ROPINIROLE HCL 0.25 MG TABLET PO SCH (21:54)
[2018-11-02] MEDS: LEVALBUTEROL HCL NEB 1.25 MG/3 ML AMPUL NEB SCH ×4 (01:55→19:35)
[2018-11-02] MEDS: HEPARIN SOD (PORCINE) 5,000 UNIT/ML 1 ML SYRINGE SUBCUT SCH ×3 (06:40→21:18)
[2018-11-02] MEDS: DOXYCYCLINE HYCLATE 100 MG TABLET PO SCH ×2 (09:15→21:17)
[2018-11-02] MEDS: CHOLECALCIFEROL (D3) 1,000 UNIT TABLET PO SCH (09:15)
[2018-11-02] MEDS: FLUTICASONE/VILANTEROL 200-25 MCG/DOSE IH SCH (09:15)
[2018-11-02] MEDS: FUROSEMIDE 20 MG TABLET PO SCH ×4 (09:15→21:17)
[2018-11-02] MEDS: LABETALOL HCL 200 MG TABLET PO SCH ×4 (09:15→21:17)
[2018-11-02] MEDS: ASPIRIN 81 MG TABLET, ENT COATED PO SCH (09:15)
[2018-11-02] MEDS: LETROZOLE 2.5 MG TABLET PO SCH (09:16)
[2018-11-02] MEDS: NITROGLYCERIN 10 MG (0.4 MG/HR) PATCH.TD24 TD SCH (09:19)
[2018-11-02] MEDS: CEFTRIAXONE 2 GM/D5W RTU 2 GM/50 ML RTUPB IV SCH (12:38)
--- NOTE | 2018-11-02 18:32 | PDOC PROGRESS REPORT ---
Subjective Progress Note for:: 11/02/18 Subjective:: No adverse events overnight. No new complaints. Blood pressures tend to be a little bit elevated before she gets her medication but they come down to what she considers to be her usual range after she takes them. She says her blood pressure has been extremely difficult issue to control. She still has a little bit of productive cough. Reason For Visit: COPD EXACERBATION HTN URGENCY Physical Exam Vital Signs: Temp Pulse Resp BP Pulse Ox 98.4 F 67 17 170/59 H 97 11/02/18 17:01 11/02/18 17:01 11/02/18 17:01 11/02/18 17:01 11/02/18 17:01 Intake & Output 11/01/18 11/02/18 11/03/18 06:59 06:59 06:59 Intake Total 1150 780 550 Output Total 2350 Balance -1200 780 550 Weight 43.4 kg 43.4 kg General appearance: PRESENT: no acute distress, cooperative, disheveled, thin Respiratory exam: PRESENT: crackles - Left lower lobe, symmetrical, unlabored. ABSENT: accessory muscle use, chest wall tenderness, decreased breath sounds, prolonged expiratory phas, rhonchi, tachypnea, wheezes Cardiovascular exam: PRESENT: RRR, +S1, +S2 Pulses: PRESENT: normal carotid pulses Vascular exam: PRESENT: normal capillary refill GI/Abdominal exam: PRESENT: normal bowel sounds, soft. ABSENT: distended, guarding, rebound, tenderness Extremities exam: ABSENT: clubbing, pedal edema Musculoskeletal exam: PRESENT: normal inspection. ABSENT: deformity Neurological exam: PRESENT: alert, awake, oriented to person, oriented to place, oriented to time, oriented to situation Psychiatric exam: PRESENT: appropriate affect, normal mood Skin exam: PRESENT: dry, warm Results Laboratory Results: 10/31/18 04:01 10/31/18 04:01 10/30/18 04:40 Troponin I < 0.012 NT-Pro-B Natriuret Pep 8150 H Impressions: Chest X-Ray 10/30/18 04:31 IMPRESSION: Mild mixed interstitial and airpace opacities. Differential diagnosis includes pulmonary edema, multifocal pneumonia, and chronic interstitial lung disease. Chest CT 11/01/18 00:00 IMPRESSION: Bibasilar and superior segment left lower lobe consolidation likely pneumonia. Trace left pleural effusion Incompletely imaged greater than 5 cm infrarenal abdominal aorta aneurysm at the bottom edge of this field of view. Findings discussed with Dr. Duong, ultrasound for the abdominal aorta will be performed shortly Assessment and Plan - Diagnosis (1) Hypertensive emergency Is this a current diagnosis for this admission?: Yes Plan: Resolved. She is back on her home labetalol and Lasix. I believe this was triggered by her pneumonia. (2) Pneumonia Qualifiers: Pneumonia type: due to unspecified organism Laterality: right Lung location: unspecified part of lung Qualified Code(s): J18.9 - Pneumonia, unspecified organism Is this a current diagnosis for this admission?: Yes Plan: Currently on Rocephin and doxycycline, improving well. Cultures negative thus far. Will likely put her on empiric antibiotic coverage and send her home tomorrow. (3) Acute and chronic respiratory failure Qualifiers: Respiratory failure complication: hypoxia Qualified Code(s): J96.21 - Acute and chronic respiratory failure with hypoxia Is this a current diagnosis for this admission?: Yes Plan: Stable on her usual level of oxygen support. (4) Abdominal aortic aneurysm Qualifiers: Presence of rupture: without rupture Qualified Code(s): I71.4 - Abdominal aortic aneurysm, without rupture Is this a current diagnosis for this admission?: Yes Plan: This is a known problem for this patient, she has not monitored via imaging every 6 months, most recently just a few months ago. She does not want any further testing on it. She is not planning on having any surgery on it. - Time Time Spent with patient: 15-24 minutes
[2018-11-02] MEDS: ROPINIROLE HCL 0.25 MG TABLET PO SCH (21:17)
[2018-11-02] MEDS: ACETAMINOPHEN 325 MG TABLET PO PRN (21:21)
[2018-11-03] MEDS: LEVALBUTEROL HCL NEB 1.25 MG/3 ML AMPUL NEB SCH ×2 (02:26→07:48)
[2018-11-03] MEDS: HEPARIN SOD (PORCINE) 5,000 UNIT/ML 1 ML SYRINGE SUBCUT SCH (05:00)
[2018-11-03] MEDS: LETROZOLE 2.5 MG TABLET PO SCH (10:15)
[2018-11-03] MEDS: FUROSEMIDE 20 MG TABLET PO SCH (10:16)
[2018-11-03] MEDS: ASPIRIN 81 MG TABLET, ENT COATED PO SCH (10:16)
[2018-11-03] MEDS: CHOLECALCIFEROL (D3) 1,000 UNIT TABLET PO SCH (10:16)
[2018-11-03] MEDS: DOXYCYCLINE HYCLATE 100 MG TABLET PO SCH (10:17)
[2018-11-03] MEDS: LABETALOL HCL 200 MG TABLET PO SCH (10:17)
[2018-11-03] MEDS: NITROGLYCERIN 10 MG (0.4 MG/HR) PATCH.TD24 TD SCH (10:18)
[2018-11-03] MEDS: FLUTICASONE/VILANTEROL 200-25 MCG/DOSE IH SCH (10:20)
[2018-11-03 11:17] VITALS: BP 166/62
--- NOTE | 2018-11-03 18:23 | PDOC DISCHARGE SUMMARY ---
General - Admit/Disc Date/PCP Admission Date/Primary Care Provider: 10/30/18 05:51 CARMENCITA WHEATLEY MD Discharge Date: 11/03/18 - Discharge Diagnosis (1) Hypertensive emergency Is this a current diagnosis for this admission?: Yes Summary: Improved with blood pressure control and diuresis. She is back on her home antihypertensives. (2) Pneumonia Is this a current diagnosis for this admission?: Yes Summary: She will complete a course of antibiotics at home. Blood cultures were negative. (3) Acute and chronic respiratory failure Is this a current diagnosis for this admission?: Yes Summary: Stable on her usual level of oxygen support. (4) Abdominal aortic aneurysm Is this a current diagnosis for this admission?: Yes Summary: Stable and being followed as an outpatient. - Additional Information Resuscitation Status: Full Code Discharge Diet: Cardiac, Diabetic Discharge Activity: Activity As Tolerated Prescriptions: Cefpodoxime Proxetil [Vantin 100 mg Tablet] 1 tab PO Q12 #10 tab Doxycycline Hyclate [Vibramycin 100 mg Tablet] 100 mg PO Q12 #10 tablet Home Medications: Fluticasone/Salmeterol [Advair 250-50 Diskus 28 dose] 1 inh IH Q12 06/08/17 Letrozole [Femara 2.5 mg Tablet] 2.5 mg PO DAILY 06/08/17 Tiotropium [place] [Spiriva Respimat] 2 spray IH DAILY 06/08/17 B2/Vit A,C & E/Lut/Zeaxanth/Mn [Icaps Tablet] 1 tab PO DAILY 07/04/18 Cholecalciferol (Vitamin D3) [Vitamin D3 1000 Unit Tablet] 1,000 unit PO DAILY 07/04/18 Grape Seed Xt/Bioflavon,Luis M. Cintron [Grape Seed 50 mg Capsule] 1 each PO DAILY 07/04/18 Aspirin [Ecotrin] 81 mg PO DAILY 09/21/18 Ropinirole HCl [Requip] 0.5 mg PO QHS 09/21/18 Levalbuterol HCl [Xopenex Neb 1.25 mg/3 ml Ampul] 1.25 mg NEB RTBIDP PRN #60 vial.neb 09/22/18 Albuterol Sulfate [Ventolin Hfa 8 gm Mdi (1 Mdi/ER Disp)] 2 puff IH Q4HP PRN 10/30/18 Cefpodoxime Proxetil [Vantin 100 mg Tablet] 1 tab PO Q12 #10 tab 11/03/18 Doxycycline Hyclate [Vibramycin 100 mg Tablet] 100 mg PO Q12 #10 tablet 11/03/18 Furosemide [Lasix 20 mg Tablet] 20 mg PO QID tablet 11/03/18 Labetalol HCl [Normodyne 200 mg Tablet] 200 mg PO QID tablet 11/03/18 History of Present Illness History of Present Illness: MIRTHA RUFFIN is a 78 year old female with a past medical history of congestive heart failure, hypertension, peripheral vascular disease, abdominal aortic aneurysm, COPD, chronic bronchitis and persistent tobacco Dependence. She presents with 4 hours of significant shortness of breath which woke her from sleep with wheeze and nonproductive cough, EMS found her with hypertensive urgency requiring transdermal nitro and she is placed on BiPAP for extremitas with retractions and use of accessory muscles. In the emergency department she is found to have a blood pressure of 195/105 and pulse oximetry of 90% on 50% FiO2, leukocytosis and a BNP greater than 8000. She receives albuterol and Atrovent and is referred to the hospitalist for admission. Patient denies recent change in medications but also admits to persistent tobacco use. She verifies her CODE STATUS is DNI Hospital Course Hospital Course: She improved well with blood pressure control and a little extra diuresis. She was put back on her usual medications and her blood pressures were in her usual range. She did appear to have a pneumonia and has responded to antibiotics. It is suspected that she contracted a respiratory illness and increased strain on her system probably caused her to get a little fluid overloaded. She will finish up a course of antibiotics at home. She has a AAA that is chronic and is followed on an outpatient basis. Her labs and examination were reassuring and she was discharged in good condition. Physical Exam Vital Signs: Temp Pulse Resp BP Pulse Ox 98.2 F 72 16 166/62 H 94 11/03/18 11:54 11/03/18 11:54 11/03/18 11:54 11/03/18 11:54 11/03/18 11:54 Intake & Output 11/02/18 11/03/18 11/04/18 06:59 06:59 06:59 Intake Total 780 550 Output Total 1880 Balance 780 -1330 Weight 43.4 kg 43.4 kg General appearance: PRESENT: no acute distress, cooperative, disheveled, thin Respiratory exam: PRESENT: crackles - Left lower lobe, symmetrical, unlabored. ABSENT: accessory muscle use, chest wall tenderness, decreased breath sounds, prolonged expiratory phas, rhonchi, tachypnea, wheezes Cardiovascular exam: PRESENT: RRR, +S1, +S2 Pulses: PRESENT: normal carotid pulses Vascular exam: PRESENT: normal capillary refill GI/Abdominal exam: PRESENT: normal bowel sounds, soft. ABSENT: distended, guarding, rebound, tenderness Extremities exam: ABSENT: clubbing, pedal edema Musculoskeletal exam: PRESENT: normal inspection. ABSENT: deformity Neurological exam: PRESENT: alert, awake, oriented to person, oriented to place, oriented to time, oriented to situation Psychiatric exam: PRESENT: appropriate affect, normal mood Skin exam: PRESENT: dry, warm Results Laboratory Results: 10/31/18 04:01 10/31/18 04:01 10/30/18 04:40 Troponin I < 0.012 NT-Pro-B Natriuret Pep 8150 H Impressions: Chest X-Ray 10/30/18 04:31 IMPRESSION: Mild mixed interstitial and airpace opacities. Differential diagnosis includes pulmonary edema, multifocal pneumonia, and chronic interstitial lung disease. Chest CT 11/01/18 00:00 IMPRESSION: Bibasilar and superior segment left lower lobe consolidation likely pneumonia. Trace left pleural effusion Incompletely imaged greater than 5 cm infrarenal abdominal aorta aneurysm at the bottom edge of this field of view. Findings discussed with Dr. Duong, ultrasound for the abdominal aorta will be performed shortly Qualifiers - * PATIENT BEING DISCHARGED WITH ANY OF THE FOLLOWING DIAGNOSIS: No Acute Heart Failure Is this a Heart Failure Patient?: No Plan Time Spent: Greater than 30 Minutes
== END 2018-11-03 12:15 | disposition home or self-care (01) | DRG 304 ==
LOC: ER 04:23 → EH 05:51 → 3S 07:06 → 5 11-01 12:43
PROVIDERS: ADMIT Internal Medicine; ATTEND Internal Medicine
PROC: 5A09457 Assistance with Respiratory Ventilation, 24-96 Consecutive Hours, Continuous Positive Airway Pressure (ICD-10-PCS; principal; 2018-10-30)
PROC: 3E0F73Z Introduction of Anti-inflammatory into Respiratory Tract, Via Natural or Artificial Opening (ICD-10-PCS; 2018-10-30)
DX: I16.1 Hypertensive emergency (principal); J18.9 Pneumonia, unspecified organism; J96.21 Acute and chronic respiratory failure with hypoxia; J44.1 Chronic obstructive pulmonary disease with (acute) exacerbation; J44.0 Chronic obstructive pulmonary disease with (acute) lower respiratory infection; I50.42 Chronic combined systolic (congestive) and diastolic (congestive) heart failure; E44.0 Moderate protein-calorie malnutrition; Z68.1 Body mass index [BMI] 19.9 or less, adult; E87.1 Hypo-osmolality and hyponatremia; I73.9 Peripheral vascular disease, unspecified; I71.4 Abdominal aortic aneurysm, without rupture; I11.0 Hypertensive heart disease with heart failure; E78.5 Hyperlipidemia, unspecified; C50.912 Malignant neoplasm of unspecified site of left female breast; K21.9 Gastro-esophageal reflux disease without esophagitis; F17.210 Nicotine dependence, cigarettes, uncomplicated; D63.8 Anemia in other chronic diseases classified elsewhere; Z66 Do not resuscitate; E78.00 Pure hypercholesterolemia, unspecified; Z79.899 Other long term (current) drug therapy; Z79.82 Long term (current) use of aspirin; Z90.49 Acquired absence of other specified parts of digestive tract; Z90.12 Acquired absence of left breast and nipple; Z95.5 Presence of coronary angioplasty implant and graft; Z88.8 Allergy status to other drugs, medicaments and biological substances; Z88.1 Allergy status to other antibiotic agents; Z88.3 Allergy status to other anti-infective agents; Z91.041 Radiographic dye allergy status; Z88.0 Allergy status to penicillin; Z88.2 Allergy status to sulfonamides; Z88.7 Allergy status to serum and vaccine; Z99.81 Dependence on supplemental oxygen; Z83.3 Family history of diabetes mellitus; Z84.1 Family history of disorders of kidney and ureter
CPT/HCPCS: 36415; 71045; 71250; 80048; 80053; 82803; 83880; 84484; 85025; 85027; 87040; 93005; 93010; 94660; 94667; 94668; 94799; 99285; J0360; J0696; J1644; J1940; J3475; J3490

== ENCOUNTER → 2018-12-15 | Outpatient (CLI) | payer MEDICARE ==
[2018-12-15 10:53] LABS: ANION GAP 7 (5-19); BLOOD UREA NITROGEN 22 mg/dL (7-20); CALCIUM 9.5 mg/dL (8.4-10.2); CARBON DIOXIDE 36 mmol/L (22-30); CHLORIDE 91 mmol/L (98-107); GLUCOSE 101 mg/dL (75-110); IRON(TIBC) 50.2 ug/dL (37-170); POTASSIUM 5.2 mmol/L (3.6-5.0); SODIUM 134.2 mmol/L (137-145)
[2018-12-16 12:36] LABS: CREATININE URINE 49.3 mg/dL (Not Estab.); MICROALBUMIN URINE 22.7 ug/mL (Not Estab.)
== END ==
LOC: OD 09:52
PROVIDERS: ATTEND Internal Medicine Nephrology
DX: N18.4 Chronic kidney disease, stage 4 (severe) (principal); E87.5 Hyperkalemia; E55.9 Vitamin D deficiency, unspecified; N25.81 Secondary hyperparathyroidism of renal origin
CPT/HCPCS: 36415; 80048; 82043; 82570; 82728; 83540; 83550; 83970

== ENCOUNTER → 2019-03-23 | Outpatient (CLI) | payer MEDICARE ==
[2019-03-23 11:01] LABS: ABSOLUTE EOSINOPHILS # (AUTO) 0.6 10^3/uL (0.0-0.6); ABSOLUTE LYMPHOCYTES (AUTO) 2.8 10^3/uL (0.5-4.7); ABSOLUTE MONOCYTES (AUTO) 0.6 10^3/uL (0.1-1.4); ABSOLUTE NEUT (AUTO) 3.9 10^3/uL (1.7-8.2); BASOPHILS % (AUTO) 0.6 % (0-2); EOSINOPHILS % (AUTO) 7.4 % (0-6); HEMATOCRIT 38.2 % (36.0-47.0); HEMOGLOBIN 12.8 g/dL (12.0-15.5); LYMPHOCYTES % (AUTO) 35.5 % (13-45); MEAN CORPUSCULAR HEMOGLOBIN 28.6 pg (27.0-33.4); MEAN CORPUSCULAR HGB CONC 33.4 g/dL (32.0-36.0); MEAN CORPUSCULAR VOLUME 86 fl (80-97); MONOCYTES % (AUTO) 7.6 % (3-13); PLATELET COUNT 258 10^3/uL (150-450); RED BLOOD COUNT 4.46 10^6/uL (3.72-5.28); SEGMENTED NEUTROPHILS % (AUTO) 48.9 % (42-78); TOTAL CELLS COUNTED % (AUTO) 100 %
[2019-03-23 11:01] LABS: APPEARANCE,URINE CLEAR; BILIRUBIN,URINE NEGATIVE (NEGATIVE); COLOR,URINE YELLOW; GLUCOSE, URINE NEGATIVE (NEGATIVE); KETONES,URINE NEGATIVE (NEGATIVE); LEUKOCYTE ESTERASE,URINE NEGATIVE (NEGATIVE); NITRITE,URINE NEGATIVE (NEGATIVE); PROTEIN,URINE NEGATIVE (NEGATIVE); URINE SPECIFIC GRAVITY 1.008; UROBILINOGEN,URINE NEGATIVE mg/dL (<2.0)
[2019-03-23 11:36] LABS: ALBUMIN 4.5 g/dL (3.5-5.0); ANION GAP 9 (5-19); BLOOD UREA NITROGEN 17 mg/dL (7-20); CALCIUM 9.5 mg/dL (8.4-10.2); CARBON DIOXIDE 37 mmol/L (22-30); CHLORIDE 87 mmol/L (98-107); GLUCOSE 99 mg/dL (75-110); PHOSPHORUS 4.7 mg/dL (2.5-4.5); POTASSIUM 4.7 mmol/L (3.6-5.0)
[2019-03-24 10:14] LABS: IRON(TIBC) 66.2 ug/dL (37-170)
[2019-03-24 11:37] LABS: CREATININE URINE 40.3 mg/dL (Not Estab.); MICROALBUMIN URINE 51.7 ug/mL (Not Estab.)
== END ==
LOC: OD 10:09
PROVIDERS: ATTEND Internal Medicine Nephrology
DX: I12.9 Hypertensive chronic kidney disease with stage 1 through stage 4 chronic kidney disease, or unspecified chronic kidney disease (principal); N18.3 Chronic kidney disease, stage 3 (moderate); D50.9 Iron deficiency anemia, unspecified; R80.9 Proteinuria, unspecified
CPT/HCPCS: 36415; 80069; 81001; 82043; 82306; 82570; 82728; 83540; 83550; 83970; 84466; 85025

== ENCOUNTER 2019-05-11 22:01 | Emergency (ER) | payer MEDICARE ==
--- NOTE | 2019-05-11 23:06 | ER Document Report ---
ED Respiratory Problem - General Chief Complaint: Shortness Of Breath Stated Complaint: DIFFICULTY BREATHING Time Seen by Provider: 05/11/19 22:53 Primary Care Provider: CARMENCITA WHEATLEY MD [Primary Care Provider] - Follow up as needed Notes: Patient is an 79-year-old female that comes to the emergency department by EMS from home for chief complaint of shortness of breath. She states she was cooking dinner and she started feeling tingling in her hands and feet, she is also started feeling slightly lightheaded. She states that she has been congested in her sinuses for 1 week and she also has had a cough with yellowish sputum production for the past day or so. She denies fever, chest pain, passing out, nausea/vomiting. Reportedly she had initial oxygen saturation of 83% on room air, patient was given a DuoNeb, placed on EMSs oxygen, hypoxia resolved, patient states she feels wonderful now. Patient states she was attached to her oxygen which is on a 100 foot cord and she thinks that the cord was not working correctly because as soon as she was placed on the other oxygen she felt good. She has COPD, continues to smoke, is on 2.5 L nasal cannula at all times, also has a history of hypertension and chronic kidney disease. She lives at home with her daughter. TRAVEL OUTSIDE OF THE [place] IN LAST 30 DAYS: No - Related Data Allergies/Adverse Reactions: ciprofloxacin [From Cipro] Allergy (Severe, Verified 05/11/19 22:05) Anaphylaxis Iodinated Contrast Media [IV Dye, Iodine Containing] Allergy (Severe, Verified 05/11/19 22:05) Hives azithromycin Allergy (Intermediate, Verified 05/11/19 22:05) Pruritis cephalexin [Cephalexin] Allergy (Mild, Verified 05/11/19 22:05) Rash estrogens, conjugated Allergy (Mild, Verified 05/11/19 22:05) blood clots JONE Inhibitors [Jone Inhibitors] Allergy (Verified 05/11/19 22:05) aliskiren hemifumarate [From Tekturna] Allergy (Verified 05/11/19 22:05) amlodipine [Amlodipine] Allergy (Verified 05/11/19 22:05) clonidine [Clonidine] Allergy (Verified 05/11/19 22:05) clopidogrel bisulfate [From Plavix] Allergy (Verified 05/11/19 22:05) diphenhydramine HCl [From Benadryl] Allergy (Verified 05/11/19 22:05) diphtheria,pertussis (acellular),te [Diphth,Pertuss(Acell),Tet Vac] Allergy (Verified 05/11/19 22:05) Estrogens Allergy (Verified 05/11/19 22:05) nifedipine [From Procardia] Allergy (Verified 05/11/19 22:05) nisoldipine [From Sular] Allergy (Verified 05/11/19 22:05) Penicillins Allergy (Verified 05/11/19 22:05) Sulfa (Sulfonamide Antibiotics) Allergy (Verified 05/11/19 22:05) Past Medical History - General Information source: Patient, Relative - Social History Smoking Status: Current Every Day Smoker Chew tobacco use (# tins/day): No Frequency of alcohol use: None Drug Abuse: None Lives with: Family Family History: DM, Other - kidney disease Patient has suicidal ideation: No Patient has homicidal ideation: No - Past Medical History Cardiac Medical History: Reports: Hx Congestive Heart Failure, Hx Hypercholesterolemia, Hx Hypertension, Hx Peripheral Vascular Disease - History of abdominal 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, Hx Heart Murmur Denies: Hx Atrial Fibrillation, Hx Coronary Artery Disease, Hx Heart Attack, Hx Pulmonary Embolism Pulmonary Medical History: Reports: Hx Bronchitis, Hx COPD, Hx Pneumonia Denies: Hx Asthma, Hx Respiratory Failure, Hx Sleep Apnea, Hx Tuberculosis Neurological Medical History: Denies: Hx Cerebrovascular Accident, Hx Seizures, Hx Parkinson's Disease Endocrine Medical History: Denies: Hx Diabetes Mellitus Type 1, Hx Diabetes Mellitus Type 2, Hx Graves' Disease, Hx Hyperthyroidism, Hx Hypothyroidism Renal/ Medical History: Denies: Hx End Stage Renal Disease, Hx Kidney Stones, Hx Ovarian Cysts, Hx Peritoneal Dialysis, Hx Pelvic Inflammatory Disease Malignancy Medical History: Reports: Hx Breast Cancer - LEFT AT PRESENT. Denies: Hx Cervical Cancer, Hx Leukemia, Hx Lung Cancer, Hx Ovarian Cancer GI Medical History: Reports: Hx Gastroesophageal Reflux Disease. Denies: Hx Cirrhosis, Hx Crohn's Disease, Hx Hepatitis, Hx Hiatal Hernia, Hx Irritable Bowel, Hx Liver Failure, Hx Pancreatitis, Hx Ulcer Musculoskeletal Medical History: Denies Hx Arthritis, Denies Hx Fibromyalgia, Denies Hx Multiple Sclerosis, Denies Hx Muscular Dystrophy, Denies Hx Systemic Lupus Erythematosus Skin Medical History: Denies Hx Eczema, Denies Hx Psoriasis Psychiatric Medical History: Denies: Hx Bipolar Disorder, Hx Depression, Hx Post Traumatic Stress D isorder, Hx Schizophrenia Traumatic Medical History: Reports: Hx Fractures - BROKEN LEFT LEG 1950 Infectious Medical History: Denies: Hx C-Diff, Hx Hepatitis, Hx HIV Past Surgical History: Reports: Hx Breast Surgery, Hx Cardiac Catheterization, Hx Cholecystectomy, Hx Kidney (Renal Surgery) - stent to kidney, Hx Mastectomy - Left breast, Hx Tubal Ligation, Other - History of endovascular stent placement to the bilateral carotid arteries.. Denies: Hx Appendectomy, Hx Bowel Surgery, Hx Section, Hx Colostomy, Hx Coronary Artery Bypass Graft, Hx Gastric Bypass Surgery, Hx Herniorrhaphy, Hx Hysterectomy, Hx Open Heart Surgery, Hx Pacemaker, Hx Tonsillectomy - Immunizations Hx Diphtheria, Pertussis, Tetanus Vaccination: Yes Hx Pneumococcal Vaccination: 03/07/15 Review of Systems - Review of Systems Constitutional: See HPI EENT: See HPI Cardiovascular: See HPI Respiratory: See HPI Gastrointestinal: No symptoms reported Genitourinary: No symptoms reported Female Genitourinary: No symptoms reported Musculoskeletal: No symptoms reported Skin: No symptoms reported Hematologic/Lymphatic: No symptoms reported Neurological/Psychological: No symptoms reported Physical Exam - Vital signs Vitals: Temp Pulse Resp BP Pulse Ox 98.4 F 70 21 H 191/85 H 96 05/11/19 22:06 05/11/19 22:06 05/11/19 22:06 05/11/19 22:06 05/11/19 22:06 - Notes Notes: GENERAL: Alert, interacts well. No acute distress. Talkative and well-appearing HEAD: Normocephalic, atraumatic. EYES: Pupils equal, round, and reactive to light. Extraocular movements intact. ENT: Oral mucosa moist, tongue midline. Oropharynx unremarkable. Airway patent. Mild nasal congestion, complaints with palpation over the sinuses but no severe tenderness, no nasal septal hematoma, TM's intact. NECK: Full range of motion. Supple. Trachea midline. LUNGS: Decreased bilaterally but clear with no wheezes, rales, rhonchi. No respiratory distress HEART: Regular rate and rhythm. 1/6 murmur heard throughout, systolic ABDOMEN: Soft, non-tender. Non-distended. EXTREMITIES: Moves all 4 extremities spontaneously. No edema, normal radial and dorsalis pedis pulses bilaterally. No cyanosis. BACK: no cervical, thoracic, lumbar midline tenderness. No saddle anesthesia, normal distal neurovascular exam. Moves all extremities in full range of motion. NEUROLOGICAL: Alert and oriented x3. Normal speech. Cranial nerves II through XII grossly intact. PSYCH: Normal affect, normal mood. SKIN: Warm, dry, normal turgor. No rashes or lesions noted. Course - Re-evaluation Re-evalutation: Patient smiling, talkative, well-appearing. No headache, chest pain, or shortness of breath currently. Lungs clear, no hypoxia. She is hypertensive but she states that this is actually normal for her when she becomes mildly ill and when she is in the emergency department. She just took her blood pressure medications for night. Chest x-ray unremarkable except for COPD. CBC, chemistry, troponin without concerning findings, EKG without acute changes. Patient is requesting treatment for her 7 days of worsening sinus congestion and developing cough over the past days or so and requesting discharge. Ever since patient was placed on regular oxygen tubing she has had no difficulties. Her venous blood gas was without significant change from prior. We provided her with oxygen tubing that she can use instead. She has close follow-up with her primary provider. She lives with her daughter who is stating she is ready to leave, I discussed details with them at length, they state appreciation and agreement, state they will return if she worsens in any way. Stable at time of discharge. - Vital Signs Vital signs: Temp Pulse Resp BP Pulse Ox 97.9 F 69 20 188/86 H 97 05/12/19 02:20 05/12/19 02:20 05/12/19 02:20 05/12/19 02:20 05/12/19 02:20 - Laboratory Result Diagrams: 05/12/19 00:28 05/12/19 00:28 Laboratory results interpreted by me: 05/12/19 05/12/19 05/12/19 00:28 00:28 00:28 Hgb 11.2 L Hct 32.9 L VBG pH 7.43 H VBG HCO3 34.2 H Sodium 131.5 L Potassium 3.4 L Chloride 90 L Carbon Dioxide 36 H - EKG Interpretation by Me Additional EKG results interpreted by me: EKG shows sinus rhythm at a rate of 70, no T wave inversions or systemic changes in consecutive leads, borderline T waves inferiorly. Borderline QTC at 497. Discharge - Discharge Clinical Impression: Cough, Shortness of breath, Sinus congestion Condition: Stable Disposition: HOME, SELF-CARE Additional Instructions: Your evaluation is reassuring at this time. Use the shorter oxygen tubing as provided, take the antibiotics as provided, follow-up close with primary care for additional management. Return if you worsen including difficulty breathing, passing out, fever, chest pain, or any other concerning or worsening symptoms. Prescriptions: Doxycycline Hyclate 100 mg PO BID #14 capsule Referrals: CARMENCITA WHEATLEY MD [Primary Care Provider] - Follow up as needed
--- NOTE | 2019-05-12 00:17 | RADIOLOGY REPORT (SQ) ---
EXAM DESCRIPTION: XR CHEST 1 VIEW COMPLETED DATE/TME: 05/11/2019 23:03 CLINICAL HISTORY: 79 years, Female, shortness of breath COMPARISON: None. NUMBER OF VIEWS: TECHNIQUE: LIMITATIONS: None. FINDINGS: There is emphysema. No evidence of acute pulmonary infiltrate or pleural effusion. The heart and mediastinum are unremarkable. Pulmonary vascularity appears normal. There are atherosclerotic changes and tortuosity of the thoracic aorta. IMPRESSION: Emphysema. copyright 2010 [employer]- All Rights Reserved
[2019-05-12 00:40] LABS: VENOUS BLOOD BASE EXCESS 8.4 mmol/L; VENOUS BLOOD HCO3 34.2 mmol/L (20-32); VENOUS BLOOD PCO2 53.1 mmHg (35-63); VENOUS BLOOD PH 7.43 (7.30-7.42)
[2019-05-12 00:41] LABS: ABSOLUTE BASOPHILS # (AUTO) 0.1 10^3/uL (0.0-0.2); ABSOLUTE EOSINOPHILS # (AUTO) 0.4 10^3/uL (0.0-0.6); ABSOLUTE LYMPHOCYTES (AUTO) 3.3 10^3/uL (0.5-4.7); ABSOLUTE MONOCYTES (AUTO) 0.7 10^3/uL (0.1-1.4); ABSOLUTE NEUT (AUTO) 3.5 10^3/uL (1.7-8.2); BASOPHILS % (AUTO) 0.6 % (0-2); EOSINOPHILS % (AUTO) 5.3 % (0-6); HEMATOCRIT 32.9 % (36.0-47.0); HEMOGLOBIN 11.2 g/dL (12.0-15.5); LYMPHOCYTES % (AUTO) 41.4 % (13-45); MEAN CORPUSCULAR HEMOGLOBIN 29.2 pg (27.0-33.4); MEAN CORPUSCULAR HGB CONC 34.1 g/dL (32.0-36.0); MEAN CORPUSCULAR VOLUME 86 fl (80-97); MONOCYTES % (AUTO) 8.7 % (3-13); PLATELET COUNT 213 10^3/uL (150-450); RED BLOOD COUNT 3.84 10^6/uL (3.72-5.28); TOTAL CELLS COUNTED % (AUTO) 100 %; WHITE BLOOD COUNT 7.9 10^3/uL (4.0-10.5)
[2019-05-12 00:58] LABS: ALKALINE PHOSPHATASE 73 U/L (38-126); ANION GAP 6 (5-19); ASPARTATE AMINO TRANSFERASE 19 U/L (14-36); BILIRUBIN,DIRECT 0.1 mg/dL (0.0-0.4); BILIRUBIN,TOTAL 0.6 mg/dL (0.2-1.3); BLOOD UREA NITROGEN 17 mg/dL (7-20); CALCIUM 9.2 mg/dL (8.4-10.2); CARBON DIOXIDE 36 mmol/L (22-30); CHLORIDE 90 mmol/L (98-107); GLUCOSE 99 mg/dL (75-110); POTASSIUM 3.4 mmol/L (3.6-5.0); TOTAL PROTEIN 7.4 g/dL (6.3-8.2)
[2019-05-12] MEDS ORDERED: DOXYCYCLINE HYCLATE 100 MG TABLET PO ONE (01:34)
[2019-05-12 02:33] VITALS: BP 188/86
--- NOTE | 2019-05-12 13:00 | EKG REPORT ---
SEVERITY:- ABNORMAL ECG - SINUS RHYTHM PROBABLE LEFT ATRIAL ABNORMALITY LEFT VENTRICULAR HYPERTROPHY NONSPECIFIC T ABNORMALITIES, INFERIOR LEADS BORDERLINE PROLONGED QT INTERVAL : Confirmed by: Guadalupe Jhaveri MD 12-May-2019 13:00:19
== END 2019-05-12 02:20 | disposition home or self-care (01) ==
LOC: ER 22:01
DX: J43.9 Emphysema, unspecified (principal); Z99.81 Dependence on supplemental oxygen; R05 Cough; R09.81 Nasal congestion; R20.2 Paresthesia of skin; R42 Dizziness and giddiness; F17.200 Nicotine dependence, unspecified, uncomplicated; I10 Essential (primary) hypertension; Z79.899 Other long term (current) drug therapy; Z87.01 Personal history of pneumonia (recurrent); Z88.1 Allergy status to other antibiotic agents; Z91.041 Radiographic dye allergy status; Z88.8 Allergy status to other drugs, medicaments and biological substances; Z88.7 Allergy status to serum and vaccine; Z88.0 Allergy status to penicillin; Z88.2 Allergy status to sulfonamides
CPT/HCPCS: 93005; 99285; 36415; 85025; 80053; 84484; 82803; 71045; 93010; A9270